=== PATIENT | female | born 1975 | race Two or more races ===

== ENCOUNTER → 2020-03-19 11:04 | Outpatient (BNVA) | payer OTHER, SELFPAY | PROVIDERS: PCP Physician Assistant; Referring Provider Physician Assistant; Visit Provider Family Medicine Adult Medicine | DX: M13.0 Polyarthritis, unspecified (principal); Z79.891 Long term (current) use of opiate analgesic | CPT/HCPCS: 99214 ==

== ENCOUNTER → 2020-04-16 10:20 | Outpatient (BNVA) | payer OTHER, SELFPAY | PROVIDERS: PCP Physician Assistant; Visit Provider Family Medicine Adult Medicine | DX: M13.0 Polyarthritis, unspecified (principal); Z79.891 Long term (current) use of opiate analgesic | CPT/HCPCS: 99212 ==

== ENCOUNTER → 2020-04-24 10:44 | Outpatient (BNVA) | payer OTHER, SELFPAY | PROVIDERS: PCP Physician Assistant; Referring Provider Physician Assistant; Visit Provider Student in an Organized Health Care Education/Training Program | DX: M25.50 Pain in unspecified joint (principal) | CPT/HCPCS: 99212 ==

== ENCOUNTER → 2020-05-14 10:38 | Outpatient (BNVA) | payer OTHER, SELFPAY | PROVIDERS: PCP Internal Medicine; Visit Provider Family Medicine Adult Medicine | DX: M13.0 Polyarthritis, unspecified (principal); M25.50 Pain in unspecified joint | CPT/HCPCS: 99212 ==

== ENCOUNTER → 2020-06-11 12:27 | Outpatient (BNVA) | payer OTHER, SELFPAY | PROVIDERS: PCP Physician Assistant; Visit Provider Physician Assistant | DX: Z76.89 Persons encountering health services in other specified circumstances (principal) ==

== ENCOUNTER 2020-06-19 09:46 | Outpatient (REF) | payer OTHER, SELFPAY ==
[2020-06-19 11:03] LABS: Alanine Aminotransferase 9 U/L (0-31); Albumin Level 3.5 g/dL (3.5-5.0); Alkaline Phosphatase 110 U/L (39-117); Anion Gap 12 (12-20); Aspartate Amino Transferase 13 U/L (5-31); Blood Urea Nitrogen 11 mg/dL (9-16); Calcium 8.3 mg/dL (8.4-10.2); Carbon Dioxide 27 mmol/L (22-29); Chloride 100 mmol/L (96-108); Estimated Glomerular Filt Rate > 60; Glucose Random 85 mg/dL (60-115); Lipase 51 U/L (8-78); Potassium 3.6 mmol/l (3.3-5.1); Sodium 135 mmol/L (135-145); Total Protein 6.2 g/dL (6.5-8.0)
[2020-06-19 11:05] LABS: HCG Quantitative < 2 mIU/mL
[2020-06-19 11:25] LABS: Bilirubin Total < 0.2 mg/dL (0.0-1.0)
[2020-06-22 13:38] LABS: Alpha 1 Anti-trypsin 221 mg/dL (83-199)
== END 2020-06-19 09:47 | disposition home or self-care (01) ==
LOC: HO.LAB 09:46
PROVIDERS: PCP Physician Assistant; Visit Provider Physician Assistant
DX: R11.0 Nausea (principal); R10.9 Unspecified abdominal pain; R10.11 Right upper quadrant pain
CPT/HCPCS: 36415; 80053; 82103; 83690; 84702

== ENCOUNTER 2020-07-01 08:27 | Outpatient (REF) | payer OTHER, SELFPAY ==
--- NOTE | 2020-07-01 08:36 | US_ITS ---
EXAMINATION: US COMPLETE ABDOMEN WITH LIVER ELASTOGRAPHY CLINICAL INFORMATION: Abdominal pain. Abnormal LFTs. COMPARISON: None. TECHNIQUE: Real-time imaging of the abdominal viscera. Noninvasive ultrasound liver fibrosis assessment is performed using [facility]ast[facility] point quantification shear wave elastography (pSWE) with a 5 MHz transducer. Multiple elastography samples are obtained. FINDINGS: PANCREAS: The visualized pancreatic head and body are normal in appearance. The remainder of the pancreas is obscured from visualization by the overlying bowel gas. There is anechoic with well-defined round cysts in between the pancreas and the posterior wall of the stomach, suspicious for a pseudocyst. It is new since the previous MRI abdomen 03/01/2020 exam. Differential diagnosis may include gastric diverticulum. It measures approximately 8.1 x 5.7 x 5.6 cm. ABDOMINAL AORTA: The proximal, middle, and distal aortic segments are normal in caliber. INFERIOR VENA CAVA: Visualized portions are normal. LIVER: The liver demonstrates normal size, contour and mild increased echogenicity. The right hepatic anechoic cyst measuring 0.8 x 0.9 x 0.8 cm. No additional lesions seen. There is mild intrahepatic ductal dilatation. The right lobe measures 16.6 cm in length. The left lobe measures 11.0 cm in length. Normal hepatopedal flow seen in middle portal vein on Doppler exam. Shear wave elastography provides a median stiffness of 2.42 m/s (reference: normal median stiffness is 0.81 - 1.22 m/s). The IQR/median stiffness to assess sampling precision is 0.13 (reference: optimal IQR/median stiffness is under 0.3). GALLBLADDER: The gallbladder has been surgically removed. COMMON BILE DUCT: Normal in caliber measuring 1.3 cm in diameter. RIGHT KIDNEY: There is an echogenic stone in lower pole measuring 0.5 x 0.6 x 0.4 cm and a second lower pole echogenic stone measuring 0.3 x 0.2 x 0.3 cm. No hydronephrosis. No renal calculi or focal parenchymal lesions. The kidney measures 12.6 cm in maximum dimension. LEFT KIDNEY: No hydronephrosis. There is an echogenic linear area with shadowing, question calcification versus stone. The kidney measures 12.1 cm in maximum dimension. SPLEEN: Normal. The spleen measures 10.0 cm in maximum dimension. FREE FLUID: None. US/US abdomen comp w elastography IMPRESSION: Echogenic liver with a right hepatic lobe cyst. Mild intrahepatic ductal dilatation. Anechoic cyst in between the posterior wall of stomach and body of the pancreas question pseudocyst versus gastric diverticulum. It is new compared to last MRI abdomen 03/01/2020. Echogenic nonobstructive stone lower pole right kidney and a few scattered linear calcifications in the left kidney without shadowing, likely vascular calcifications. 2. Elastography: [id number] fibrosis.
== END 2020-07-01 08:28 | disposition home or self-care (01) ==
LOC: HO.US 08:27
PROVIDERS: Visit Provider Internal Medicine Gastroenterology
DX: R10.9 Unspecified abdominal pain (principal)
CPT/HCPCS: 76705; 76981

== ENCOUNTER → 2020-07-16 09:59 | Outpatient (BNVA) | payer OTHER, SELFPAY | PROVIDERS: PCP Internal Medicine; Referring Provider Internal Medicine; Visit Provider Family Medicine Adult Medicine | DX: M25.50 Pain in unspecified joint (principal); Z79.891 Long term (current) use of opiate analgesic | CPT/HCPCS: 99212 ==

== ENCOUNTER 2020-07-21 08:01 | Outpatient (REF) | payer OTHER, SELFPAY ==
--- NOTE | ~2020-07-21 | MR_ITS ---
EXAMINATION: MR ABDOMEN WITHOUT AND WITH CONTRAST CLINICAL INFORMATION: Pseudocyst of pancreas. COMPARISON: Previous ultrasound of the abdomen 07/01/2020, MRI of the abdomen 03/09/[address] of the abdomen and pelvis February 2020. TECHNIQUE: MR abdomen was performed without and with use of 5 mL intravenous Gadavist gadolinium contrast. Dynamic images following intravenous contrast were obtained. Imaging was performed in 3 planes. MRCP sequences were also performed. FINDINGS: LUNG BASES: The visualized lung bases are unremarkable. LIVER, GALLBLADDER, AND BILIARY TREE: There is slight signal loss in the liver on [id number] sequences suggestive of mild fatty infiltration. The liver is normal in size and contour. There are 2 small cysts seen in the medial segment of the left lobe of the liver measuring 6 mm and 10 mm that are unchanged. No other focal liver lesion is seen. The gallbladder has been removed. There is intrahepatic and extrahepatic biliary duct dilatation. The common bile duct measures 1.2 cm and is dilated down to the pancreas where it gradually tapers. No common bile duct stone is seen. PANCREAS: There is a 9 x 11 mm simple appearing cyst in the body of the pancreas that is unchanged. There may be a small sidebranch duct that communicates with the main pancreatic duct, for example axial image 15 series 5. There is a new 4.5 x 3.3 x 4.3 cm cyst superior to the tail of the pancreas and inferior to the stomach. This has an inferior contour abnormality or outpouching that abuts and may communicate with the main pancreatic duct in the tail of the pancreas. This has a slightly thickened wall with wall enhancement. No solid component is seen. This is new from previous exam February 2020 and would be consistent with a pseudocyst related to pancreatitis. There is question of a second smaller pseudocyst in the splenic hilum measuring 1 x 3 cm as described below. The remainder of the pancreas is unremarkable. The main pancreatic duct does not appear dilated. SPLEEN: There is a small amount of fluid seen adjacent to the spleen/ascites. There is a 1 x 3 cm fluid collection in the splenic hilum that abuts the larger fluid collection adjacent to the tail of the pancreas and stomach. It is possible this represents a loculated fluid collection or a small pseudocyst as opposed to ascitic fluid. There is a small splenule adjacent to the inferior posterior spleen measuring 7 mm that is unchanged. The spleen is otherwise unremarkable. ADRENAL GLANDS: Normal KIDNEYS AND URETERS: The kidneys are normal in size, shape, and enhance symmetrically. No hydronephrosis. No perinephric stranding. GASTROINTESTINAL TRACT: No bowel obstruction. There is trace ascites adjacent to the spleen, inferior liver and in the left paracolic gutter. ABDOMINAL WALL: No significant hernia is appreciated. LYMPH NODES: No lymphadenopathy. VASCULAR: Unremarkable OSSEOUS STRUCTURES: Marrow signal normal. MR/MR abdomen wo/w con IMPRESSION: New 3 x 4 x 5 mm cyst adjacent to the tail the pancreas and stomach probably representing a pancreatic pseudocyst. This has an outpouching that may communicate with the main pancreatic duct in the tail of the pancreas. Probable smaller adjacent loculated fluid collection or pseudocyst in the splenic hilum measuring 1 x 3 cm. Stable appearing 9 x 11 mm cyst in the body of the pancreas from previous exam. This may communicate with the main pancreatic duct as well. Trace ascites. Stable intrahepatic and extrahepatic biliary duct dilatation. Post cholecystectomy. Mild fatty infiltration of the liver. Stable liver cysts.
== END 2020-07-21 08:02 | disposition home or self-care (01) ==
LOC: HO.MRI 08:01
PROVIDERS: Visit Provider Internal Medicine Gastroenterology
DX: K86.3 Pseudocyst of pancreas (principal); R10.9 Unspecified abdominal pain
CPT/HCPCS: 74183; A9585

== ENCOUNTER → 2020-08-11 09:47 | Outpatient (BNVA) | payer OTHER, SELFPAY | PROVIDERS: PCP Physician Assistant; Visit Provider Family Medicine Adult Medicine | DX: M13.0 Polyarthritis, unspecified (principal); M25.50 Pain in unspecified joint; R10.10 Upper abdominal pain, unspecified; M79.18 Myalgia, other site; G89.29 Other chronic pain; Z79.899 Other long term (current) drug therapy | CPT/HCPCS: 99212 ==

== ENCOUNTER → 2020-09-15 09:38 | Outpatient (BNVA) | payer OTHER, SELFPAY | PROVIDERS: PCP Physician Assistant; Visit Provider Internal Medicine Gastroenterology ==

== ENCOUNTER 2020-09-28 09:41 | Outpatient (REF) | payer OTHER, SELFPAY ==
[2020-09-28 10:14] LABS: MANUAL DIFF FLAG NO
[2020-09-28 10:23] LABS: Basophils Absolute Auto 0.1 X10*3/uL (0.0-0.2); Basophils Percent Auto 0.7 % (0-2); Eosinophils Absolute Auto 0.3 X10*3/uL (0.0-0.4); Eosinophils Percent Auto 3.1 % (0-4); Hematocrit 38.1 % (37-47); Hemoglobin 12.7 g/dl (12.0-16.0); Imm Gran Abs Auto 0.03 X10*3/uL (0.00-0.03); Imm Gran Pct Auto 0.3 % (0.0-0.4); Lymphocytes Absolute Auto 3.2 X10*3/uL (1.2-4.9); Lymphocytes Percent Auto 36.8 % (20-40); Mean Corpuscular HGB Conc 33.3 g/dl (31.0-35.0); Mean Corpuscular Hemoglobin 30.3 pg (27.0-33.0); Mean Corpuscular Volume 90.9 fL (80-98); Monocytes Absolute Auto 0.5 X10*3/uL (0.1-1.2); Monocytes Percent Auto 5.7 % (2-11); Neutrophils Absolute Auto 4.6 X10*3/uL (2.0-8.3); Neutrophils Percent Auto 53.4 % (45-73); Platelet Count 373 X10*3/uL (160-400); Red Blood Count 4.19 X10*6/uL (4.20-5.50); Red Cell Distribution Width 15.1 % (11.0-16.0); White Blood Count 8.6 X10*3/uL (4.8-10.8)
[2020-09-28 10:45] LABS: Alanine Aminotransferase 25 U/L (0-31); Albumin Level 4.2 g/dL (3.5-5.0); Alkaline Phosphatase 198 U/L (39-117); Anion Gap 16 (12-20); Aspartate Amino Transferase 21 U/L (5-31); Bilirubin Total 0.5 mg/dL (0.0-1.0); Blood Urea Nitrogen 10 mg/dL (9-16); C Reactive Protein 2.31 mg/dL (< or = 0.50); Calcium 9.3 mg/dL (8.4-10.2); Carbon Dioxide 23 mmol/L (22-29); Chloride 97 mmol/L (96-108); Cholesterol 175 mg/dL; Estimated Glomerular Filt Rate > 60; Glucose Fasting 96 mg/dL (60-99); HDL Cholesterol 39 mg/dL; Iron 52 mcg/dL (30-160); LDL Cholesterol Calculated 117 mg/dl; Percent Iron Saturation 13 % (15-50); Potassium 3.5 mmol/L (3.3-5.1); Sodium 132 mmol/L (135-145); Total Iron Binding Capacity 409 mcg/dL (228-428); Total Protein 7.2 g/dL (6.5-8.0); Triglycerides 95 mg/dL; Unsaturated Iron Binding 357 ug/dL
[2020-09-28 11:03] LABS: Erythrocyte Sedimentation Rate 41 MM/HR (0-20)
[2020-09-28 11:06] LABS: TSH reflex Free T4 2.52 uIU/mL (0.32-4.0)
[2020-09-28 11:07] LABS: Ferritin 92 ng/mL (10-250)
[2020-09-28 11:32] LABS: Folate 10.6 ng/mL (> or = 4.0); Vitamin B12 408 pg/mL (200-900)
[2020-09-29 14:31] LABS: Immunoglobulin G Subclass 1 466 mg/dL (382-929); Immunoglobulin G Subclass 2 139 mg/dL (241-700); Immunoglobulin G Subclass 3 29 mg/dL (22-178); Immunoglobulin G Subclass 4 13.5 mg/dL (4-86); Immunoglobulin G Total 738 mg/dL (600-1640)
[2020-09-29 14:56] LABS: Transglutaminase Ab IgG 1 U/mL; Transglutaminase IgA 1 U/mL
[2020-09-30 00:06] LABS: Anti Nuclear Antibody Pattern Nuclear, Speckled; Anti Nuclear Antibody Screen POSITIVE (NEGATIVE)
[2020-10-02 06:31] LABS: Aldolase 1.6 U/L (<=8.1)
== END 2020-09-28 09:42 | disposition home or self-care (01) ==
LOC: HO.LAB 09:41
PROVIDERS: Physician Assistant; Absent Provider Physician Assistant; PCP Physician Assistant; Visit Provider Internal Medicine Gastroenterology
DX: Z13.220 Encounter for screening for lipoid disorders (principal); R10.9 Unspecified abdominal pain; M79.18 Myalgia, other site; R10.33 Periumbilical pain; G89.29 Other chronic pain; R79.82 Elevated C-reactive protein (CRP); M13.0 Polyarthritis, unspecified; K86.3 Pseudocyst of pancreas; M25.50 Pain in unspecified joint; D50.9 Iron deficiency anemia, unspecified; I10 Essential (primary) hypertension
CPT/HCPCS: 36415; 80053; 80061; 82085; 82550; 82607; 82728; 82746; 82784; 83516; 83540; 84443; 85025; 85652; 86038; 86039; 86140

== ENCOUNTER 2020-09-30 09:56 | Outpatient (REF) | payer OTHER, SELFPAY ==
--- NOTE | ~2020-09-30 | MR_ITS ---
EXAMINATION: MRI ABDOMEN WITHOUT AND WITH CONTRAST CLINICAL INFORMATION: Upper abdomen pain. Previous MRI demonstrated cystic lesions in or near the pancreas. Patient questionnaire indicates recurring pancreatitis. Left-sided pain. Weight loss COMPARISON: Selected portions of a previous study 07/21/2020 TECHNIQUE: Anatomic and fluid sensitive MR sequences were used to examine the abdomen. Imaging before and after the IV administration of 5.5 mL of Gadavist. MRCP was performed. FINDINGS: LIVER: The right lobe of the liver measures 16.4 cm. This is within normal limits. The gallbladder is surgically absent. BILIARY TRACT: The common duct measures at least 1.3 cm. No choledocholithiasis. The duct tapers to normal at the ampulla. The ampulla protrudes slightly into the duodenum. There is mild dilation of the intrahepatic bile ducts. SPLEEN: The spleen measures approximately 8.7 cm. No suspicious abnormality. PANCREAS: There is a well-defined fluid signal collection in the left upper quadrant displacing the stomach ventrally and superiorly which measures 12.2 x 10.1 x 12.3 cm. There is mural irregularity. There appears to be a perceptible wall. On 07/21/2020 this measured 5.1 x 4.0 x 5.0 cm. There has been definite interval increase in size. This collection does not definitely communicate with the main pancreatic duct. ADRENAL GLANDS: No suspicious mass. KIDNEYS: There is no dilation of the urinary collecting system on either side. The renal contours are slightly lobular. GASTROINTESTINAL TRACT: Not optimally evaluated. Multiple fluid-filled mildly dilated small bowel loops. ABDOMINAL WALL: No significant hernia is appreciated. LYMPHOVASCULAR STRUCTURES AND FLUID: There is no abdominal aortic aneurysm. The splenic artery enhances centrally. The portal vein enhances. At least some of the splenic vein enhances. No measurable adenopathy. MUSCULOSKELETAL: No acute or suspicious osseous abnormality. VISUALIZED LOWER CHEST: No suspicious abnormality in the visualized lower chest. MR/MR abdomen wo/w con IMPRESSION: Enlarging thick walled mildly irregular left upper quadrant cyst which now measures over 10 cm. This may represent a pseudocyst. Extrahepatic biliary dilation similar to the previous study. No dilation of the main pancreatic duct.
== END 2020-09-30 09:57 | disposition home or self-care (01) ==
LOC: HO.MRI 09:56
PROVIDERS: Visit Provider Internal Medicine Gastroenterology
DX: R10.10 Upper abdominal pain, unspecified (principal); K86.3 Pseudocyst of pancreas
CPT/HCPCS: 74183; A9585

== ENCOUNTER 2021-01-24 02:20 | Inpatient (IN) | payer OTHER, SELFPAY ==
[2021-01-24] VITALS (11 sets, daily range): BP systolic 123–202; BP diastolic 72–105; PULSE 51–77; RESP 14–19; TEMP 36.4–37.1; O2SAT 94–100; BMI 21.4
--- NOTE | ~2021-01-24 | CT_ITS ---
EXAMINATION: CT HEAD WITHOUT CONTRAST CLINICAL INFORMATION: New onset seizures COMPARISON: None. TECHNIQUE: Contiguous axial imaging was performed from the skull base to vertex without intravenous contrast. This CT examination was performed using dose optimization techniques as appropriate, variously including the following: * Automated exposure control * Adjustment of mA and/or kV according to patient size (this includes techniques or standardized protocols for targeted exams where dose is matched to indication/reason for exam; i.e. extremities or head) Use of iterative reconstruction technique DLP: 607 mGy-cm. FINDINGS: There is no evidence of acute intracranial hemorrhage or territorial infarction. No abnormal mass effect or midline shift is seen. Conley to white matter differentiation is well preserved. No extra-axial fluid collections are identified. No hydrocephalus. No significant volume loss. There is no abnormal attenuation within the brain parenchyma. The osseous structures and soft tissues are normal. The mastoid air cells and visualized portions of the paranasal sinuses are well aerated. CT/CT head/brain wo IV con IMPRESSION: No acute intracranial pathology.
--- NOTE | 2021-01-24 02:40 | ED_ITS ---
HPI - General Adult General Chief complaint: Seizure Stated complaint: seizure Time Seen by Provider: 01/24/21 02:40 Source: family () Mode of arrival: EMS History of Present Illness HPI narrative: This is a 45-year-old female with past medical history hypertension, chronic pain, pseudocyst of the pancreas, liver fibrosis which on review of documentation seems to be secondary to alcohol use. Patient is brought in by EMS from home with her after he observed what appeared to be seizure-like activity and stated that the 1st seizure occurred approximately 11 30 this evening as they were getting ready for bed. The seizure occurred while the patient was in bed and was shortly after the patient had been in the bathroom were she had some nausea with vomiting. The states that he noticed his was looking off into the distance and then noticed some eye twitching and then she became stiff with foaming at the mouth and he had been initially concerned that she may be vomiting and had tried to open her mouth un successfully. The seizure stopped and lasted less than 2 minutes. Then patient had another seizure approximately an hour later while they were sitting on the couch. describes the day as uneventful, they had had ?a few drinks and he states that his had approximately 4 drinks?. He said that they both ate the same food that evening, denies any recent travel, denies any recent medicat ions and denies regular alcohol use. In addition, the denies any recent fevers, chills, exposure to mosquitos, tics. When patient is asked regarding the events she cannot recall them and denies any previous seizure history. However, he does endorse that she was seen 2 months ago with [facility] for procedure and at that time she was found in the bathroom unresponsive. The patient has stopped taking all of her medications with the exception of ibuprofen, gabapentin, and Creon. On further questioning, the patient denies having stopped gabapentin, she denies dizziness/headache, or neck pain. Related Data Home Medications Medication Instructions Recorded Confirmed [id number] 2 cap PO TID 01/24/21 01/24/21 12,000-38,000-60,000 unit capsule,delayed rel (Creon) Previous Rx's Medication Instructions Recorded gabapentin 800 mg tablet 800 mg PO Q6H 90 Days #360 tab 11/02/20 ibuprofen 800 mg tablet 800 mg PO Q8H 30 Days #90 tab 11/02/20 clonidine HCl 0.2 mg tablet 0.2 mg PO TID 10 Days #30 tab 12/09/20 Allergies Allergy/AdvReac Type Severity Reaction Status Date / Time Penicillins [PENICILLINS] Allergy Severe ANAPHYLAXIS Verified 01/24/21 02:36 codeine Allergy Intermediate vomiting Verified 01/24/21 02:36 morphine Allergy Intermediate itchiness Verified 01/24/21 02:36 Sulfa (Sulfonamide Allergy Intermediate diarrh Verified 01/24/21 02:36 Antibiotics) tramadol Allergy Intermediate Vomiting Verified 01/24/21 02:36 duloxetine [Cymbalta] AdvReac Unknown increased Verified 01/24/21 02:36 depression Review of Systems Review of Systems: Pertinent positives and negatives as stated in HPI and 10 point review of systems is otherwise negative as per the . PMFSH Past Medical History Source: nursing notes reviewed Medical History Abdominal pain Anxiety Chronic musculoskeletal pain Depression Polyarthritis Transaminitis Surgical History History of cholecystectomy Family History Family History Maternal Grandmother Cancer Mother HTN (hypertension) Father HTN (hypertension) Social History Social History Household Members: Spouse and Children Alcohol intake: current Alcohol intake frequency: former alcohol drinker Cigarette Packs Per Day: 1 Cigarettes Per Day: 20.0 Years Smoked: 28 Advance Directives: No Advance Directives Information Provided: No Patient : No Physical Exam Vital Signs: Vital Signs: Last Vital Signs Temp 98.5 F 01/24/21 02:30 Pulse 62 01/24/21 06:28 Resp 16 01/24/21 06:28 BP 134/84 01/24/21 06:28 Pulse Ox 97 01/24/21 06:28 Body Mass Index 21.4 VITAL SIGNS: Reviewed. GENERAL: Well developed, well nourished, in no acute distress. HEAD: Normocephalic/atraumatic EYES: PERRLA, EOMI intact without pain, no nystagmus OROPHARYNX: no oral lesions noted, posterior pharynx clear and non-erythematous without noted tonsillar enlargement/erythema/exudates NECK: Supple, no adenopathy, no neck pain LUNGS: Normal breath sounds. No adventitious sounds or accessory muscle use. SpO2<98> CARDIOVASCULAR: Regular rate and rhythm without noted murmurs ABDOMEN: Soft, non-tender, non-distended with bowel sounds. MUSCULOSKELETAL: No tenderness, deformities, or effusions noted on gross inspection. EXTREMITIES: No cyanosis, clubbing or edema. SKIN: Inspection of the skin reveals no rashes, ulcerations, jaundice, pallor, or petechiae. NEUROLOGIC: Drowsy and oriented x 3. Strength and sensation to light touch were grossly intact x 4, no pronator drift, cranial nerves 2-12 are grossly intact Course Course Course Narrative: 45-year-old female with history and clinical presentation concerning for new onset seizures of unclear etiology. There is not appear to be evidence within the history of contaminated food, insect exposure, recent illness that would better explain patient's presentation. Although patient did stop taking other prescribed medications that was 2 months ago and is unlikely to be a factor at this time. Suspicion for alcohol withdrawal seizures remains on the differential despite stating that his does not drink on a regular basis as review of documents clearly outlined that patient has a history of being a heavy drinker but had self endorsed that she has decreased her alcohol intake and at this time is noted to not have alcohol present in her system. CT scan negative for intracranial pathologies, no evidence to suggest infection. And although entertained the idea of obtaining an LP this is unlikely to yield significant information given the fact that patient is not encephalopathic/she is afebrile/there is no inciting event or source. Patient did have an additional seizure while here in the emergency room that lasted less than 2 minutes where patient became very stiff and was noted to be foaming at the mouth but there was minimal tonic colonic movement and the seizure spontaneously resolved, however patient was provided with 1 mg of Ativan and is currently resting comfortably. Review of remaining investigations without significant findings. Discussed the case with neurology who recommended LP, Keppra loading, MRI, and EEG on Monday. Patient was loaded with Keppra and LP was completed. The case with inpatient team who accepts admission. Of note, on further investigation patient was evaluated for similar event that happened at [facility] in October and according to discharge summary EEG was completed and found to be negative for any epileptiform activities and MRI only significant for a small area of cystic encephalomalacia with gliosis in the superior right parietal lobe . Medical Decision Making Lab Data Result diagrams: 01/24/21 02:46 01/24/21 02:46 Labs: Lab Results 01/24/21 01/24/21 01/24/21 Range/Units 02:46 02:46 02:46 WBC 6.9 (4.8-10.8) X10*3/uL RBC 4.04 L (4.20-5.50) X10*6/uL Hgb 12.7 (12.0-16.0) g/dl Hct 36.6 L (37-47) % MCV 90.6 (80-98) fL MCH 31.4 (27.0-33.0) pg MCHC 34.7 (31.0-35.0) g/dl RDW 13.6 (11.0-16.0) % Plt Count 231 D (160-400) X10*3/uL MPV 9.5 (9.4-12.3) fL Immature Gran % (Auto) 0.3 (0.0-0.4) % Neut % (Auto) 78.2 H (45-73) % Lymph % (Auto) 16.7 L (20-40) % [place] % (Auto) 4.5 (2-11) % Eos % (Auto) 0.0 (0-4) % Baso % (Auto) 0.3 (0-2) % Lymph # (Auto) 1.2 (1.2-4.9) X10*3/uL [place] # (Auto) 0.3 (0.1-1.2) X10*3/uL Eos # (Auto) 0.0 (0.0-0.4) X10*3/uL Baso # (Auto) 0.0 (0.0-0.2) X10*3/uL Abs Immat Gran (auto) 0.02 (0.00-0.03) X10*3/uL Absolute Neuts (auto) 5.4 (2.0-8.3) X10*3/uL Absolute Nucleated RBC 0.000 (0.0-0.012) X10*3/uL Nucleated RBC % (auto) 0.0 (0.0-0.2) /100WBC ESR (0-20) MM/HR Sodium 130 L (135-145) mmol/L Potassium 3.4 (3.3-5.1) mmol/L Chloride 93 L (96-108) mmol/L Carbon Dioxide 24 (22-29) mmol/L Anion Gap 16 (12-20) BUN 9 (9-16) mg/dL Creatinine 0.90 (0.5-1.4) mg/dL Estim Creat Clear Calc 68.1 Estimated GFR > 60 Random Glucose 244 H D (60-115) mg/dL Lactic Acid (0.5-2.0) mmol/L Lactic Acid Fup @ 2Hr (0.5-2.0) mmol/L Calcium 9.7 (8.4-10.2) mg/dL Magnesium 1.6 (1.6-2.6) mg/dL Total Bilirubin 0.4 (0.0-1.0) mg/dL AST 26 (5-31) U/L ALT 26 (0-31) U/L Alkaline Phosphatase 139 H D (39-117) U/L Ammonia (13-55) umol/L C-Reactive Protein 0.10 (< or = 0.50) mg/dL Total Protein 7.1 (6.5-8.0) g/dL Albumin 4.4 (3.5-5.0) g/dL Lipase 15 (8-78) U/L TSH 2.76 (0.32-4.0) uIU/mL Urine Color Urine Appearance Urine pH (5.0-8.0) Ur Specific [place] (1.005-1.025) Urine Protein (NEG-TRACE) MG/DL Urine Glucose (UA) (NEG) MG/DL Urine Ketones (NEG) MG/DL Urine Blood (NEG) Urine Nitrite (NEG) Ur Leukocyte Esterase (NEG) Urine RBC (0) /HPF Urine WBC (0-4) /HPF Ur Squamous Epith Cells /LPF Urine Bacteria /LPF Salicylates < 5.0 L (15-30) mg/dL Urine Opiates Screen (Not Detect) Urine Fentanyl Screen (Not Detect) Acetaminophen < 1 (<30) mcg/mL Ur Barbiturates Screen (Not Detect) Ur Phencyclidine Scrn (Not Detect) Ur Amphetamines Screen (Not Detect) U Benzodiazepines Scrn (Not Detect) Urine Cocaine Screen (Not Detect) U Marijuana (THC) Screen (Not Detect) Ethyl Alcohol < 10 mg/dL COVID-19 ([facility]) (Negative) COVID-19 Clin Com 01/24/21 01/24/21 01/24/21 Range/Units 02:46 03:02 03:02 WBC (4.8-10.8) X10*3/uL RBC (4.20-5.50) X10*6/uL Hgb (12.0-16.0) g/dl Hct (37-47) % MCV (80-98) fL MCH (27.0-33.0) pg MCHC (31.0-35.0) g/dl RDW (11.0-16.0) % Plt Count (160-400) X10*3/uL MPV (9.4-12.3) fL Immature Gran % (Auto) (0.0-0.4) % Neut % (Auto) (45-73) % Lymph % (Auto) (20-40) % [place] % (Auto) (2-11) % Eos % (Auto) (0-4) % Baso % (Auto) (0-2) % Lymph # (Auto) (1.2-4.9) X10*3/uL [place] # (Auto) (0.1-1.2) X10*3/uL Eos # (Auto) (0.0-0.4) X10*3/uL Baso # (Auto) (0.0-0.2) X10*3/uL Abs Immat Gran (auto) (0.00-0.03) X10*3/uL Absolute Neuts (auto) (2.0-8.3) X10*3/uL Absolute Nucleated RBC (0.0-0.012) X10*3/uL Nucleated RBC % (auto) (0.0-0.2) /100WBC ESR 3 (0-20) MM/HR Sodium (135-145) mmol/L Potassium (3.3-5.1) mmol/L Chloride (96-108) mmol/L Carbon Dioxide (22-29) mmol/L Anion Gap (12-20) BUN (9-16) mg/dL Creatinine (0.5-1.4) mg/dL Estim Creat Clear Calc Estimated GFR Random Glucose (60-115) mg/dL Lactic Acid (0.5-2.0) mmol/L Lactic Acid Fup @ 2Hr (0.5-2.0) mmol/L Calcium (8.4-10.2) mg/dL Magnesium (1.6-2.6) mg/dL Total Bilirubin (0.0-1.0) mg/dL AST (5-31) U/L ALT (0-31) U/L Alkaline Phosphatase (39-117) U/L Ammonia (13-55) umol/L C-Reactive Protein (< or = 0.50) mg/dL Total Protein (6.5-8.0) g/dL Albumin (3.5-5.0) g/dL Lipase (8-78) U/L TSH (0.32-4.0) uIU/mL Urine Color STRAW Urine Appearance CLEAR Urine pH 6.0 (5.0-8.0) Ur Specific [place] 1.010 (1.005-1.025) Urine Protein TRACE (NEG-TRACE) MG/DL Urine Glucose (UA) 100 H (NEG) MG/DL Urine Ketones NEG (NEG) MG/DL Urine Blood 1+ H (NEG) Urine Nitrite NEG (NEG) Ur Leukocyte Esterase NEG (NEG) Urine RBC 0-2 (0) /HPF Urine WBC 0 (0-4) /HPF Ur Squamous Epith Cells TRACE /LPF Urine Bacteria NONE /LPF Salicylates (15-30) mg/dL Urine Opiates Screen Not Detected (Not Detect) Urine Fentanyl Screen Not Detected (Not Detect) Acetaminophen (<30) mcg/mL Ur Barbiturates Screen Not Detected (Not Detect) Ur Phencyclidine Scrn Not Detected (Not Detect) Ur Amphetamines Screen Not Detected (Not Detect) U Benzodiazepines Scrn Not Detected (Not Detect) Urine Cocaine Screen Not Detected (Not Detect) U Marijuana (THC) Screen Not Detected (Not Detect) Ethyl Alcohol mg/dL COVID-19 ([facility]) (Negative) COVID-19 Clin Com 01/24/21 01/24/21 01/24/21 Range/Units 03:26 03:26 03:26 WBC (4.8-10.8) X10*3/uL RBC (4.20-5.50) X10*6/uL Hgb (12.0-16.0) g/dl Hct (37-47) % MCV (80-98) fL MCH (27.0-33.0) pg MCHC (31.0-35.0) g/dl RDW (11.0-16.0) % Plt Count (160-400) X10*3/uL MPV (9.4-12.3) fL Immature Gran % (Auto) (0.0-0.4) % Neut % (Auto) (45-73) % Lymph % (Auto) (20-40) % [place] % (Auto) (2-11) % Eos % (Auto) (0-4) % Baso % (Auto) (0-2) % Lymph # (Auto) (1.2-4.9) X10*3/uL [place] # (Auto) (0.1-1.2) X10*3/uL Eos # (Auto) (0.0-0.4) X10*3/uL Baso # (Auto) (0.0-0.2) X10*3/uL Abs Immat Gran (auto) (0.00-0.03) X10*3/uL Absolute Neuts (auto) (2.0-8.3) X10*3/uL Absolute Nucleated RBC (0.0-0.012) X10*3/uL Nucleated RBC % (auto) (0.0-0.2) /100WBC ESR (0-20) MM/HR Sodium (135-145) mmol/L Potassium (3.3-5.1) mmol/L Chloride (96-108) mmol/L Carbon Dioxide (22-29) mmol/L Anion Gap (12-20) BUN (9-16) mg/dL Creatinine (0.5-1.4) mg/dL Estim Creat Clear Calc Estimated GFR Random Glucose (60-115) mg/dL Lactic Acid 9.2 H* (0.5-2.0) mmol/L Lactic Acid Fup @ 2Hr (0.5-2.0) mmol/L Calcium (8.4-10.2) mg/dL Magnesium (1.6-2.6) mg/dL Total Bilirubin (0.0-1.0) mg/dL AST (5-31) U/L ALT (0-31) U/L Alkaline Phosphatase (39-117) U/L Ammonia 29 (13-55) umol/L C-Reactive Protein (< or = 0.50) mg/dL Total Protein (6.5-8.0) g/dL Albumin (3.5-5.0) g/dL Lipase (8-78) U/L TSH (0.32-4.0) uIU/mL Urine Color Urine Appearance Urine pH (5.0-8.0) Ur Specific [place] (1.005-1.025) Urine Protein (NEG-TRACE) MG/DL Urine Glucose (UA) (NEG) MG/DL Urine Ketones (NEG) MG/DL Urine Blood (NEG) Urine Nitrite (NEG) Ur Leukocyte Esterase (NEG) Urine RBC (0) /HPF Urine WBC (0-4) /HPF Ur Squamous Epith Cells /LPF Urine Bacteria /LPF Salicylates (15-30) mg/dL Urine Opiates Screen (Not Detect) Urine Fentanyl Screen (Not Detect) Acetaminophen (<30) mcg/mL Ur Barbiturates Screen (Not Detect) Ur Phencyclidine Scrn (Not Detect) Ur Amphetamines Screen (Not Detect) U Benzodiazepines Scrn (Not Detect) Urine Cocaine Screen (Not Detect) U Marijuana (THC) Screen (Not Detect) Ethyl Alcohol mg/dL COVID-19 ([facility]) Negative (Negative) COVID-19 Clin Com See Note 01/24/21 Range/Units 06:23 WBC (4.8-10.8) X10*3/uL RBC (4.20-5.50) X10*6/uL Hgb (12.0-16.0) g/dl Hct (37-47) % MCV (80-98) fL MCH (27.0-33.0) pg MCHC (31.0-35.0) g/dl RDW (11.0-16.0) % Plt Count (160-400) X10*3/uL MPV (9.4-12.3) fL Immature Gran % (Auto) (0.0-0.4) % Neut % (Auto) (45-73) % Lymph % (Auto) (20-40) % [place] % (Auto) (2-11) % Eos % (Auto) (0-4) % Baso % (Auto) (0-2) % Lymph # (Auto) (1.2-4.9) X10*3/uL [place] # (Auto) (0.1-1.2) X10*3/uL Eos # (Auto) (0.0-0.4) X10*3/uL Baso # (Auto) (0.0-0.2) X10*3/uL Abs Immat Gran (auto) (0.00-0.03) X10*3/uL Absolute Neuts (auto) (2.0-8.3) X10*3/uL Absolute Nucleated RBC (0.0-0.012) X10*3/uL Nucleated RBC % (auto) (0.0-0.2) /100WBC ESR (0-20) MM/HR Sodium (135-145) mmol/L Potassium (3.3-5.1) mmol/L Chloride (96-108) mmol/L Carbon Dioxide (22-29) mmol/L Anion Gap (12-20) BUN (9-16) mg/dL Creatinine (0.5-1.4) mg/dL Estim Creat Clear Calc Estimated GFR Random Glucose (60-115) mg/dL Lactic Acid (0.5-2.0) mmol/L Lactic Acid Fup @ 2Hr 1.0 (0.5-2.0) mmol/L Calcium (8.4-10.2) mg/dL Magnesium (1.6-2.6) mg/dL Total Bilirubin (0.0-1.0) mg/dL AST (5-31) U/L ALT (0-31) U/L Alkaline Phosphatase (39-117) U/L Ammonia (13-55) umol/L C-Reactive Protein (< or = 0.50) mg/dL Total Protein (6.5-8.0) g/dL Albumin (3.5-5.0) g/dL Lipase (8-78) U/L TSH (0.32-4.0) uIU/mL Urine Color Urine Appearance Urine pH (5.0-8.0) Ur Specific [place] (1.005-1.025) Urine Protein (NEG-TRACE) MG/DL Urine Glucose (UA) (NEG) MG/DL Urine Ketones (NEG) MG/DL Urine Blood (NEG) Urine Nitrite (NEG) Ur Leukocyte Esterase (NEG) Urine RBC (0) /HPF Urine WBC (0-4) /HPF Ur Squamous Epith Cells /LPF Urine Bacteria /LPF Salicylates (15-30) mg/dL Urine Opiates Screen (Not Detect) Urine Fentanyl Screen (Not Detect) Acetaminophen (<30) mcg/mL Ur Barbiturates Screen (Not Detect) Ur Phencyclidine Scrn (Not Detect) Ur Amphetamines Screen (Not Detect) U Benzodiazepines Scrn (Not Detect) Urine Cocaine Screen (Not Detect) U Marijuana (THC) Screen (Not Detect) Ethyl Alcohol mg/dL COVID-19 ([facility]) (Negative) COVID-19 Clin Com ECG Data Attestation: I personally reviewed and interpreted this ECG as follows: Prior ECG tracings: available for review (02/21/2020) Interpretation: Normal sinus rhythm, HR-87, no STEMI, TX/QTC are within normal limits, QRS prolonged at 110 Discharge Plan Discharge Clinical Impression: Seizures Patient Disposition: Admitted As Inpatient Prescriptions: No Action gabapentin 800 mg tablet 800 mg PO Q6H 90 Days Qty: 360 RF: 1 ibuprofen 800 mg tablet 800 mg PO Q8H 30 Days Qty: 90 RF: 1 clonidine HCl 0.2 mg tablet 0.2 mg PO TID 10 Days Qty: 30 RF: 0 Creon 12,000-38,000 -60,000 unit capsule,delayed release(DR/EC) 2 cap PO TID RF: 0
[2021-01-24 02:52] LABS: MANUAL DIFF FLAG NO
[2021-01-24 02:54] LABS: Basophils Percent Auto 0.3 % (0-2); Hematocrit 36.6 % (37-47); Hemoglobin 12.7 g/dl (12.0-16.0); Imm Gran Abs Auto 0.02 X10*3/uL (0.00-0.03); Imm Gran Pct Auto 0.3 % (0.0-0.4); Lymphocytes Absolute Auto 1.2 X10*3/uL (1.2-4.9); Lymphocytes Percent Auto 16.7 % (20-40); Mean Corpuscular HGB Conc 34.7 g/dl (31.0-35.0); Mean Corpuscular Hemoglobin 31.4 pg (27.0-33.0); Mean Corpuscular Volume 90.6 fL (80-98); Mean Platelet Volume 9.5 fL (9.4-12.3); Monocytes Absolute Auto 0.3 X10*3/uL (0.1-1.2); Monocytes Percent Auto 4.5 % (2-11); Neutrophils Absolute Auto 5.4 X10*3/uL (2.0-8.3); Neutrophils Percent Auto 78.2 % (45-73); Platelet Count 231 X10*3/uL (160-400); Red Blood Count 4.04 X10*6/uL (4.20-5.50); Red Cell Distribution Width 13.6 % (11.0-16.0); White Blood Count 6.9 X10*3/uL (4.8-10.8)
--- NOTE | 2021-01-24 02:55 | PC.NURSE ---
IV established by EMS. Labs obtained. Pt assisted OOB and onto commode to provide urine sample. Ravindra ying.
[2021-01-24] MEDS: LORazepam 2 MG/ML VIAL 1 MG IVPUSH (03:05)
--- NOTE | 2021-01-24 03:05 | PC.NURSE ---
This RN at bedside assisting pt from the commode into bed when pt suddenly became rigid, was not responsive to stimuli, turned purple and began convulsing. MD at bedside. Pt lifted from commode into bed, positioned on right side, suctioned as needed, O2 applied. Pt medicated with 1 mg of Ativan per verbal order by MD. Pt now resting in bed with at bedside. Pt on O2 via NC @ 2 lpm. SZ pads applied as a precaution. Plan for CT and Keppra.
[2021-01-24 03:10] LABS: Glucose Urine UA 100 MG/DL (NEG); Leukocyte Esterase Urine NEG (NEG); Nitrite Urine NEG (NEG); UACC Culture Trigger NO; Urine Blood 1+ (NEG); Urine Ketones NEG (NEG); Urine Protein TRACE MG/DL (NEG-TRACE)
[2021-01-24 03:17] LABS: Ethanol < 10 mg/dL
[2021-01-24 03:22] LABS: Appearance Urine CLEAR; Color Urine STRAW
[2021-01-24 03:22] LABS: Acetaminophen LAB < 1 mcg/mL (<30); Alanine Aminotransferase 26 U/L (0-31); Albumin Level 4.4 g/dL (3.5-5.0); Alkaline Phosphatase 139 U/L (39-117); Anion Gap 16 (12-20); Aspartate Amino Transferase 26 U/L (5-31); Bilirubin Total 0.4 mg/dL (0.0-1.0); Blood Urea Nitrogen 9 mg/dL (9-16); Calcium 9.7 mg/dL (8.4-10.2); Carbon Dioxide 24 mmol/L (22-29); Chloride 93 mmol/L (96-108); Creatinine Clr Calc Pharmacy 68.1; Estimated Glomerular Filt Rate > 60; Glucose Random 244 mg/dL (60-115); Magnesium 1.6 mg/dL (1.6-2.6); Potassium 3.4 mmol/L (3.3-5.1); Sodium 130 mmol/L (135-145); Total Protein 7.1 g/dL (6.5-8.0)
[2021-01-24 03:23] LABS: RBC Urine 0-2 /HPF (0); Squamous Epithelial Cell Urine TRACE /LPF; WBC Urine 0 /HPF (0-4)
[2021-01-24 03:31] LABS: Amphetamine Screen Urine Not Detected (Not Detect); Barbiturates, Urine Not Detected (Not Detect); Benzodiazepines Screen Urine Not Detected (Not Detect); Cannabinoid Screen Urine Not Detected (Not Detect); Cocaine Screen Urine Not Detected (Not Detect); Fentanyl, urine Not Detected (Not Detect); Opiate Screen Urine Not Detected (Not Detect); Phencyclidine Screen Urine Not Detected (Not Detect)
[2021-01-24 03:34] LABS: Salicylate < 5.0 mg/dL (15-30)
--- NOTE | 2021-01-24 03:34 | PC.NURSE ---
Pt returns from CT on hospital bed. Second IV established. Additional labs including BCX, lactic and Covid obtained and sent. Continue to monitor.
--- NOTE | 2021-01-24 03:44 | PC.NURSE ---
Med Rec completed at bedside with pt.
[2021-01-24 03:49] LABS: COVID-19 Test Negative (Negative); IDNOW Serial# 9DD0AD1C
[2021-01-24 03:50] LABS: Ammonia 29 umol/L (13-55)
[2021-01-24 03:55] LABS: Thyroid Stimulating Hormone 2.76 uIU/mL (0.32-4.0)
[2021-01-24] MEDS: 0.9 % Sodium Chloride 1,000 ML 999 ML IV (04:07)
[2021-01-24 04:11] LABS: Lactic Acid 9.2 mmol/L (0.5-2.0)
[2021-01-24 04:15] LABS: Lipase 15 U/L (8-78)
[2021-01-24 05:32] LABS: Reflex Lactate? Lactic Acid Added
[2021-01-24] MEDS: levETIRAcetam in NaCl (iso-os) 1,500 MG/100 ML PIGGYBACK 400 MG IV (05:36)
--- NOTE | 2021-01-24 05:42 | PC.NURSE ---
Addendum entered by Amira Rodgers 01/24/21 05:43: Pt resting in bed, wakes easily to verbal stimuli. Assisted onto bedpan. Original Note: Keppra infusing per MAR. VSS. Plan for LP.
[2021-01-24 06:14] LABS: Erythrocyte Sedimentation Rate 3 MM/HR (0-20)
--- NOTE | 2021-01-24 06:27 | PC.NURSE ---
MD at bedside for LP. MD unsuccessful. Repeat latic obtained and sent.
--- NOTE | 2021-01-24 06:51 | PC.NURSE ---
Dr Spence at bedside for repeat LP.
--- NOTE | 2021-01-24 07:43 | ECG_ITS ---
Test Reason : SEIZURE Blood Pressure : / mmHG Vent. Rate : 087 BPM Atrial Rate : 087 BPM P-R Int : 150 ms QRS Dur : 110 ms QT Int : 362 ms P-R-T Axes : 043 043 036 degrees QTc Int : 435 ms Normal sinus rhythm Possible Left atrial enlargement Incomplete right bundle branch block Septal infarct , age undetermined Abnormal ECG When compared with ECG of 21-FEB-2020 00:27, Vent. rate has increased BY 39 BPM Septal infarct is now Present Non-specific change in ST segment in Anterior leads Referred By: Cait Molina Electronically Signed By:CORBY DING
--- NOTE | 2021-01-24 07:44 | PC.NURSE ---
pt is currently sleeping, respirations even and unlabored, ns on the monitor, vs stable, no seizure activity noticed at this time, seizure pads in place and suction set up
[2021-01-24 08:03] LABS: Glucose CSF 98 mg/dL
[2021-01-24 08:09] LABS: CSF Appearance Clear, Colorless; CSF Tube # 2; Total Protein CSF 51.7 mg/dL (15-45)
[2021-01-24 08:25] LABS: Appearance CSF CLEAR; CSF Monos 14 %; CSF Tube # 4; CSF Volume 0.5 ML; Color CSF COLORLESS; Lymphocytes CSF 86 %; Red Blood Cell CSF 1 MM*3; White Blood Cell CSF 2 MM*3
--- NOTE | 2021-01-24 08:35 | PC.NURSE ---
hospitalist at bedside evaluating pt
--- NOTE | 2021-01-24 10:02 | P.HPHOSP_ITS ---
History of Present Illness Date of Service: 01/24/21 <JON Nur - Last Filed: 01/24/21 11:08> Chief Complaint: seizure <JON Nur - Last Filed: 01/24/21 11:08> This is a 45-year-old female who was brought in by ambulance after displaying seizure-like activity. Patient was admitted to [facility] at the end of October for alcohol-induced pancreatitis. Was noted to have large pseudocyst in underwent transgastric aspiration of pseudocyst under general anesthesia. The following day she had a code blue called after she was found face down on the floor in her bathroom. She was evaluated by Neurology over concern for possible seizure. She had a brain MRI which showed no acute intracranial abnormality. There is a small area of cystic encephalomalacia with gliosis in the superior right parietal lobe near the vertex with no enhancing lesions. She had an EEG which was negative for any epileptiform activities. She was evaluated by Neurology who did not feel it was necessary to start anti epileptic medications. Yesterday the patient's states that she had 4 alcoholic drinks early in the day. She had an episode of vomiting and was not feeling well. He then noticed she had a far off look in her eye, became stiff, and started frothing from her mouth. He thought initially that she may be choking and he tried to open her mouth but her teeth were clamped shut. He called 911 and he reports this activity lasted approximately 5 minutes. EMS responded however the patient declined transportation to the hospital. About an hour later she had another similar episode. This time she was transported to the emergency department. She had another witnessed seizure in the emergency department. She was given a dose of IV Ativan and loaded with Keppra. Lab work was unremarkable with the exception of sodium level of 130 and acid of 9.2, this resolved on repeat. Patient has remained afebrile. Brain CT showed no acute intracranial pathology. The emergency department provider discussed the case with the neurologist who recommended an LP which was completed in the emergency department. Her history was primarily obtained from her at the bedside as she was sleepy on exam. <JON Nur - Last Filed: 01/24/21 11:08> Review of Systems Review of Systems: Yes all other systems are reviewed and are negative <S JON Chanel - Last Filed: 01/24/21 11:08> Constitutional: Constitutional: Denies chills and Denies fever(s) <JON Nur - Last Filed: 01/24/21 11:08> Cardiovascular: Cardiovascular: Denies chest pain <JON Nur - Last Filed: 01/24/21 11:08> Respiratory: Respiratory: Denies cough <JON Nur - Last Filed: 01/24/21 11:08> Gastrointestinal: Gastrointestinal: Denies abdominal pain <JON Nur - Last Filed: 01/24/21 11:08> [facility] Medical History: Medical History (Updated 01/24/21 @ 10:15 by JON Nur) Abdominal pain Anxiety Chronic musculoskeletal pain Depression HTN (hypertension) Liver fibrosis Polyarthritis Pseudocyst of pancreas Smoker Transaminitis <JON Nur - Last Filed: 01/24/21 11:08> Functional capacity: independent ambulation <JON Nur - Last Filed: 01/24/21 11:08> Family History: Family History Maternal Grandmother Cancer Mother HTN (hypertension) Father HTN (hypertension) <JON Nur - Last Filed: 01/24/21 11:08> Surgical History: Surgical History History of cholecystectomy <JON Nur - Last Filed: 01/24/21 11:08> Social History: Social History (Updated 01/24/21 @ 10:16 by JON Nur) Household Members: Spouse and Children Alcohol intake: current Alcohol intake frequency: a few times a week Patient Tobacco Use Status: Current everyday Tobacco user Cigarette Packs Per Day: 1 Cigarettes Per Day: 20.0 Years Smoked: 28 Smoked in Last 30 Days: Yes Use of substances other than those prescribed or required for medical reasons: No Advance Directives: No Advance Directives Information Provided: No Patient : No <JON Nur - Last Filed: 01/24/21 11:08> Meds Allergies/Adverse reactions: Allergies Allergy/AdvReac Type Severity Reaction Status Date / Time Penicillins [PENICILLINS] Allergy Severe ANAPHYLAXIS Verified 01/24/21 02:36 codeine Allergy Intermediate vomiting Verified 01/24/21 02:36 morphine Allergy Intermediate itchiness Verified 01/24/21 02:36 Sulfa (Sulfonamide Allergy Intermediate diarrh Verified 01/24/21 02:36 Antibiotics) tramadol Allergy Intermediate Vomiting Verified 01/24/21 02:36 duloxetine [Cymbalta] AdvReac Unknown increased Verified 01/24/21 02:36 depression <JON Nur Last Filed: 01/24/21 11:08> Home medications: Home Medications Medication Instructions Recorded Confirmed Last Taken Type viomju-nlsxpofq-jictbra 2 cap PO TID 01/24/21 01/24/21 Unknown History 12,000-38,000-60,000 unit capsule,delayed rel (Creon) <JON Nur Last Filed: 01/24/21 11:08> Physical Exam Vital Signs and Narrative: Vital Signs: Last Vital Signs Temp 98.5 F 01/24/21 02:30 Pulse 62 01/24/21 07:42 Resp 18 01/24/21 07:42 BP 123/72 01/24/21 07:42 Pulse Ox 98 01/24/21 07:42 Body Mass Index 21.4 <JON Nur Last Filed: 01/24/21 11:08> Const: Other: sleepy, arousable to verbal stimuli <JON Nur Last Filed: 01/24/21 11:08> Nutritional Appearance: well nourished <JON Nur Last Filed : 01/24/21 11:08> HENMT: Head: Yes normocephalic and Yes atraumatic <JON Nur Last Filed: 01/24/21 11:08> Eyes: Sclerae: sclerae normal <JON Nur Last Filed: 01/24/21 11:08> Chest: Chest palpation & inspection: normal inspection of the chest <JON Nur Last Filed: 01/24/21 11:08> Resp: Effort & Inspection: normal respiratory effort and no respiratory distress <JON Nur - Last Filed: 01/24/21 11:08> Auscultation: clear to auscultation bilaterally <JON Nur - Last Filed: 01/24/21 11:08> Cardio: Rate: regular rate <JON Nur - Last Filed: 01/24/21 11:08> Rhythm: regular rhythm <JON Nur - Last Filed: 01/24/21 11:08> GI: Palpation (GI): Soft to palpation and nontender <JON Nur - Last Filed: 01/24/21 11:08> Neuro: Cranial nerves: Yes CN's II-XII intact bilaterally and Yes Bilaterally intact EOM present <JNO Nru - Last Filed: 01/24/21 11:08> Results Labs CBC and Chem 7: : 01/24/21 02:46 01/24/21 02:46 <JON Nur - Last Filed: 01/24/21 11:08> Labs: Laboratory Results - last 24 hr 01/24/21 01/24/21 01/24/21 02:46 02:46 02:46 MCV 90.6 MCH 31.4 MCHC 34.7 RDW 13.6 Plt Count 231 D MPV 9.5 Immature Gran % (Auto) 0.3 Neut % (Auto) 78.2 H Lymph % (Auto) 16.7 L [place] % (Auto) 4.5 Eos % (Auto) 0.0 Baso % (Auto) 0.3 Lymph # (Auto) 1.2 [place] # (Auto) 0.3 Eos # (Auto) 0.0 Baso # (Auto) 0.0 Abs Immat Gran (auto) 0.02 Absolute Neuts (auto) 5.4 Absolute Nucleated RBC 0.000 Nucleated RBC % (auto) 0.0 ESR Anion Gap 16 Estim Creat Clear Calc 68.1 Estimated GFR > 60 Random Glucose 244 H D Lactic Acid Lactic Acid Fup @ 2Hr Calcium 9.7 Magnesium 1.6 Total Bilirubin 0.4 AST 26 ALT 26 Alkaline Phosphatase 139 H D Ammonia C-Reactive Protein 0.10 Total Protein 7.1 Albumin 4.4 Lipase 15 TSH 2.76 Urine Color Urine Appearance Urine pH Ur Specific [place] Urine Protein Urine Glucose (UA) Urine Ketones Urine Blood Urine Nitrite Ur Leukocyte Esterase Urine RBC Urine WBC Ur Squamous Epith Cells Urine Bacteria CSF Tube Number CSF Volume CSF Appearance CSF Color CSF WBC CSF RBC CSF Lymphocytes CSF Monocytes % CSF Appearance (b) CSF Glucose CSF Total Protein CSF Lyme IgG (Immblot) CSF Lyme IgG Bands Det CSF Lyme IgM (Immblot) CSF Lyme IgM Bands Det CSF Mening/Enceph PCR CSF West Nile Virus Salicylates < 5.0 L Urine Opiates Screen Urine Fentanyl Screen Acetaminophen < 1 Ur Barbiturates Screen Ur Phencyclidine Scrn Ur Amphetamines Screen U Benzodiazepines Scrn Urine Cocaine Screen U Marijuana (THC) Screen Ethyl Alcohol < 10 COVID-19 ([facility]) COVID-19 Clin Com 01/24/21 01/24/21 01/24/21 02:46 03:02 03:02 MCV MCH MCHC RDW Plt Count MPV Immature Gran % (Auto) Neut % (Auto) Lymph % (Auto) [place] % (Auto) Eos % (Auto) Baso % (Auto) Lymph # (Auto) [place] # (Auto) Eos # (Auto) Baso # (Auto) Abs Immat Gran (auto) Absolute Neuts (auto) Absolute Nucleated RBC Nucleated RBC % (auto) ESR 3 Anion Gap Estim Creat Clear Calc Estimated GFR Random Glucose Lactic Acid Lactic Acid Fup @ 2Hr Calcium Magnesium Total Bilirubin AST ALT Alkaline Phosphatase Ammonia C-Reactive Protein Total Protein Albumin Lipase TSH Urine Color STRAW Urine Appearance CLEAR Urine pH 6.0 Ur Specific [place] 1.010 Urine Protein TRACE Urine Glucose (UA) 100 H Urine Ketones NEG Urine Blood 1+ H Urine Nitrite NEG Ur Leukocyte Esterase NEG Urine RBC 0-2 Urine WBC 0 Ur Squamous Epith Cells TRACE Urine Bacteria NONE CSF Tube Number CSF Volume CSF Appearance CSF Color CSF WBC CSF RBC CSF Lymphocytes CSF Monocytes % CSF Appearance (b) CSF Glucose CSF Total Protein CSF Lyme IgG (Immblot) CSF Lyme IgG Bands Det CSF Lyme IgM (Immblot) CSF Lyme IgM Bands Det CSF Mening/Enceph PCR CSF West Nile Virus Salicylates Urine Opiates Screen Not Detected Urine Fentanyl Screen Not Detected Acetaminophen Ur Barbiturates Screen Not Detected Ur Phencyclidine Scrn Not Detected Ur Amphetamines Screen Not Detected U Benzodiazepines Scrn Not Detected Urine Cocaine Screen Not Detected U Marijuana (THC) Screen Not Detected Ethyl Alcohol COVID-19 ([facility]) COVID-19 Clin Com 01/24/21 01/24/21 01/24/21 03:26 03:26 03:26 MCV MCH MCHC RDW Plt Count MPV Immature Gran % (Auto) Neut % (Auto) Lymph % (Auto) [place] % (Auto) Eos % (Auto) Baso % (Auto) Lymph # (Auto) [place] # (Auto) Eos # (Auto) Baso # (Auto) Abs Immat Gran (auto) Absolute Neuts (auto) Absolute Nucleated RBC Nucleated RBC % (auto) ESR Anion Gap Estim Creat Clear Calc Estimated GFR Random Glucose Lactic Acid 9.2 H* Lactic Acid Fup @ 2Hr Calcium Magnesium Total Bilirubin AST ALT Alkaline Phosphatase Ammonia 29 C-Reactive Protein Total Protein Albumin Lipase TSH Urine Color Urine Appearance Urine pH Ur Specific [place] Urine Protein Urine Glucose (UA) Urine Ketones Urine Blood Urine Nitrite Ur Leukocyte Esterase Urine RBC Urine WBC Ur Squamous Epith Cells Urine Bacteria CSF Tube Number CSF Volume CSF Appearance CSF Color CSF WBC CSF RBC CSF Lymphocytes CSF Monocytes % CSF Appearance (b) CSF Glucose CSF Total Protein CSF Lyme IgG (Immblot) CSF Lyme IgG Bands Det CSF Lyme IgM (Immblot) CSF Lyme IgM Bands Det CSF Mening/Enceph PCR CSF West Nile Virus Salicylates Urine Opiates Screen Urine Fentanyl Screen Acetaminophen Ur Barbiturates Screen Ur Phencyclidine Scrn Ur Amphetamines Screen U Benzodiazepines Scrn Urine Cocaine Screen U Marijuana (THC) Screen Ethyl Alcohol COVID-19 ([facility]) Negative COVID-19 Clin Com See Note 01/24/21 01/24/21 01/24/21 06:23 07:08 07:08 MCV MCH MCHC RDW Plt Count MPV Immature Gran % (Auto) Neut % (Auto) Lymph % (Auto) [place] % (Auto) Eos % (Auto) Baso % (Auto) Lymph # (Auto) [place] # (Auto) Eos # (Auto) Baso # (Auto) Abs Immat Gran (auto) Absolute Neuts (auto) Absolute Nucleated RBC Nucleated RBC % (auto) ESR Anion Gap Estim Creat Clear Calc Estimated GFR Random Glucose Lactic Acid Lactic Acid Fup @ 2Hr 1.0 Calcium Magnesium Total Bilirubin AST ALT Alkaline Phosphatase Ammonia C-Reactive Protein Total Protein Albumin Lipase TSH Urine Color Urine Appearance Urine pH Ur Specific [place] Urine Protein Urine Glucose (UA) Urine Ketones Urine Blood Urine Nitrite Ur Leukocyte Esterase Urine RBC Urine WBC Ur Squamous Epith Cells Urine Bacteria CSF Tube Number 2 CSF Volume CSF Appearance CSF Color CSF WBC CSF RBC CSF Lymphocytes CSF Monocytes % CSF Appearance (b) Clear, Colorless CSF Glucose 98 CSF Total Protein 51.7 H CSF Lyme IgG (Immblot) CSF Lyme IgG Bands Det CSF Lyme IgM (Immblot) CSF Lyme IgM Bands Det CSF Mening/Enceph PCR CSF West Nile Virus TNP Salicylates Urine Opiates Screen Urine Fentanyl Screen Acetaminophen Ur Barbiturates Screen Ur Phencyclidine Scrn Ur Amphetamines Screen U Benzodiazepines Scrn Urine Cocaine Screen U Marijuana (THC) Screen Ethyl Alcohol COVID-19 ([facility]) COVID-19 Clin Com 01/24/21 01/24/21 01/24/21 07:08 07:08 07:08 MCV MCH MCHC RDW Plt Count MPV Immature Gran % (Auto) Neut % (Auto) Lymph % (Auto) [place] % (Auto) Eos % (Auto) Baso % (Auto) Lymph # (Auto) [place] # (Auto) Eos # (Auto) Baso # (Auto) Abs Immat Gran (auto) Absolute Neuts (auto) Absolute Nucleated RBC Nucleated RBC % (auto) ESR Anion Gap Estim Creat Clear Calc Estimated GFR Random Glucose Lactic Acid Lactic Acid Fup @ 2Hr Calcium Magnesium Total Bilirubin AST ALT Alkaline Phosphatase Ammonia C-Reactive Protein Total Protein Albumin Lipase TSH Urine Color Urine Appearance Urine pH Ur Specific [place] Urine Protein Urine Glucose (UA) Urine Ketones Urine Blood Urine Nitrite Ur Leukocyte Esterase Urine RBC Urine WBC Ur Squamous Epith Cells Urine Bacteria CSF Tube Number TNP 4 CSF Volume TNP 0.5 CSF Appearance TNP CLEAR CSF Color TNP COLORLESS CSF WBC TNP 2 CSF RBC TNP 1 CSF Lymphocytes 86 CSF Monocytes % 14 CSF Appearance (b) CSF Glucose CSF Total Protein CSF Lyme IgG (Immblot) TNP CSF Lyme IgG Bands Det TNP CSF Lyme IgM (Immblot) TNP CSF Lyme IgM Bands Det TNP CSF Mening/Enceph PCR TNP CSF West Nile Virus Salicylates Urine Opiates Screen Urine Fentanyl Screen Acetaminophen Ur Barbiturates Screen Ur Phencyclidine Scrn Ur Amphetamines Screen U Benzodiazepines Scrn Urine Cocaine Screen U Marijuana (THC) Screen Ethyl Alcohol COVID-19 ([facility]) COVID-19 Clin Com <JON Nur - Last Filed: 01/24/21 11:08> Imaging Radiologist's Impressions: Impressions Head CT 01/24/21 03:01 IMPRESSION: No acute intracranial pathology. <JON Nur - Last Filed: 01/24/21 11:08> Assessment and Plan (1) Seizures: Status: Acute <JON Nur - Last Filed: 01/24/21 11:08> This is a 45-year-old female with a history of alcohol abuse, pancreatic pseudocyst, recent admission at [facility] for alcohol- induced pancreatitis and possible seizure who presents to the emergency depa rtment with 3 witnessed seizures Seizure 1 previous episode of possible seizure in October at [facility]. at that time MRI brain with and without contrast showed small area of cystic encephalomalacia with gliosis in the superior right parietal lobe near the vertex. no enhancing lesions. EEG with no epileptiform activity or persistent focal asymmetries. She was evaluated by neurology and not started on any antiepileptic medication. h/o etoh withdrawal - pt denies daily etoh use at this time. etoh level negative. brain CT with no acute intracranial pathology tox screen negative afebrile, no evidence of infection LP done, mild elevation in protein, otherwise no unremarkable on gabapentin at home, possible withdrawal seizures if not taking regularly, will follow up patient when more awake to obtain more detailed history -continue scheduled keppra 500 mg bid -neurology consult -seizure precautions -prn ativan for further seizure activity -will not repeat brain MRI or EEG at this time unless recommended by neurology, may need 24 hr EEG in future h/o etoh dependence pt husbands denies daily etoh use, reports only drinks on the weekends given level of sedation, will hold off on phenobarbitol at this time -will monitor on [facility] Chronic pain has had rheumatology work up that has been negative. there does not seem to be a clear etiology of her pain has been followed by Dr. Kelsey and treated with multiple different medications. was suspended from opiates due to pill counts being off. currently prescribed belbuca and gabapentin -will decrease dose of gabapentin to avoid excessive sedation, can be titrated back up when more awake tobacco dependence -NRT HTN previously on Norvasc, not listed on med rec BP currently stable, will follow -clonidine dose from [facility] .1mg at bedtime; has been prescribed .2 tid but only for 10 days? will continue bedtime dose for now dvt ppx - lovenox code status - full code attending: dr. tubbs <JON Nur - Last Filed: 01/24/21 11:08> Quality Stroke Does the patient have a stroke diagnosis?: No <JON Nur - Last Filed: 01/24/21 11:08> VTE Prior VTE?: No <JON Nur - Last Filed: 01/24/21 11:08> VTE Risk Level:: Medical - moderate - high <JON Nur - Last Filed: 01/24/21 11:08> VTE Device Contraindication: Treatment Not Indicated <JON Nur - Last Filed: 01/24/21 11:08> VTE Drug Contraindication: N/A - Med Ordered <JON Nur - Last Filed: 01/24/21 11:08>
--- NOTE | 2021-01-24 11:40 | PC.NURSE ---
sleeping. SB on monitor. at bedside. NAD. awaits room.
[2021-01-24] MEDS: Enoxaparin Sodium 40 MG/0.4 ML SYRINGE SUBCUT (13:49)
[2021-01-24] MEDS: Lipase/Prot/Amylase 24/76/120K 1 CAP CAPSULE.DR PO (13:50)
--- NOTE | 2021-01-24 14:24 | PC.NURSE ---
Sleeping since this rn Arrival at 11am. Easily wakes to voice. Pt states she's feeling better is alert. axox3. Awaits bed upstairs. no tremor. no neuro deficits.
--- NOTE | 2021-01-24 16:22 | PC.NURSE ---
Rn to [place] with Cassandra dotson [facility].
[2021-01-24] MEDS: Gabapentin 300 MG CAPSULE 600 MG PO ×2 (16:29→20:50)
--- NOTE | 2021-01-24 16:55 | P.EN_ITS ---
Event Note Date of Service: 01/24/21 Event Note: Patient seen examined case discussed with APC at bedside provided most of history, since patient somnolent after receiving multiple dosage of Ativan for seizure On examination easily arousable but falls back to sleep Heart regular rate rhythm Abdomen soft Extremities no edema Moving all 4 extremities Assessment plan Breakthrough seizure Patient loaded with IV Keppra in the emergency room will place on by mouth Keppra 500 b.i.d. Patient is on Neurontin 800 mg q.6 hours by her PCP likely due to pain History of alcohol use over the weekend and question compliance with Neurontin, ? Alcohol withdrawal versus Neurontin withdrawal seizures. History of traumatic brain injury. recent w/u at [facility] Continue seizure precaution
[2021-01-24] MEDS: Acetaminophen 325 MG TABLET 650 MG PO (17:11)
[2021-01-24] MEDS: 0.9 % Sodium Chloride Flush 3 ML SYRINGE IVFLUSH (17:12)
[2021-01-24] MEDS: levETIRAcetam 500 MG TABLET PO (20:49)
[2021-01-24] MEDS: cloNIDine HCL 0.1 MG TABLET PO (20:49)
--- NOTE | 2021-01-24 22:09 | P.CNNE_ITS ---
History of Present Illness Data of Consult Service Date: 01/24/21 Primary Care Provider: Unknown Physician HPI Reason for consult: recurrent seizures 45 yr woman with h/o alcohol abuse, recent ( October) adm [place] [facility] [place]itis and pseudocyst that was drained and a seizure like episode with negative w/u with MRI and EEG. Presents after 4 drinks , vomiting and 3 seizures. She is also on Gabapentin an dis unclear if she has been taking it Review of Systems Review of Systems: Pertinent positives and negatives as stated in HPI and 10 point review of systems is otherwise negative as per the . Yes all other systems are reviewed and are negative Constitutional: Constitutional: Denies chills and Denies fever(s) Cardiovascular: Cardiovascular: Denies chest pain Respiratory: Respiratory: Denies cough Gastrointestinal: Gastrointestinal: Denies abdominal pain PMFSH Past Medical History Medical History (Updated 01/24/21 @ 10:15 by JON Nur) Abdominal pain Anxiety Chronic musculoskeletal pain Depression HTN (hypertension) Liver fibrosis Polyarthritis Pseudocyst of pancreas Smoker Transaminitis Functional capacity: independent ambulation Family History Family History Maternal Grandmother Cancer Mother HTN (hypertension) Father HTN (hypertension) Surgical History Surgical History History of cholecystectomy Social History Social History (Updated 01/24/21 @ 10:16 by JON Nur) Household Members: Family Housing: House Do you presently have visiting nurse or other home services: No Alcohol intake: current Alcohol intake frequency: a few times a week Patient Tobacco Use Status: Current everyday Tobacco user Tobacco use type: Cigarette Cigarette Packs Per Day: 1 Cigarettes Per Day: 8 Years Smoked: 28 Smoked in Last 30 Days: Yes Patient Interested in Nicotine Replacement: No Patient Given Instructions on How to Stop Smoking: No Use of substances other than those prescribed or required for medical reasons: No Have you been hit, kicked, punched, or otherwise hurt by someone within the past year? If so, by whom?: No Do you feel safe in your current relationship?: Yes Is there a partner from a previous relationship who is making you feel unsafe now?: No Are you made to feel afraid or neglected: No Advance Directives: No Advance Directives Information Provided: No Do you have thoughts of harming others: None Do you have a plan to hurt others: No Plan Recently lost weight without trying: Yes How much weight loss: Unsure Nutrition Risks: No Nutritional Risk Patient : No : No Poor oral hygiene: No Meds Allergies Allergy/AdvReac Type Severity Reaction Status Date / Time Penicillins [PENICILLINS] Allergy Severe ANAPHYLAXIS Verified 01/24/21 02:36 codeine Allergy Intermediate vomiting Verified 01/24/21 02:36 morphine Allergy Intermediate itchiness Verified 01/24/21 02:36 Sulfa (Sulfonamide Allergy Intermediate diarrh Verified 01/24/21 02:36 Antibiotics) tramadol Allergy Intermediate Vomiting Verified 01/24/21 02:36 duloxetine [Cymbalta] AdvReac Unknown increased Verified 01/24/21 02:36 depression Active Medications: Current Medications Generic Name Dose Route Start Last Admin Trade Name Freq PRN Reason Stop Dose Admin Acetaminophen 650 mg 01/24/21 11:21 01/24/21 17:11 Acetaminophen 325 Mg Tablet PO 650 mg Q6H PRN Administration Pain, Mild (Pain Scale 1-3) Lipase/Protease/Amylase 1 cap 01/24/21 11:30 01/24/21 18:07 Lipase/Prot/Amylase 24/76/120k 1 Cap Capsule.Dr EGAN Not Given TIDAC MERCEDES Clonidine HCl 0.1 mg 01/24/21 21:00 01/24/21 20:49 Clonidine Hcl 0.1 Mg Tablet PO 0.1 mg BEDTIME MERCEDES Administration Protocol Docusate Sodium 100 mg 01/24/21 11:21 Docusate Sodium 100 Mg Capsule PO DAILY PRN Constipation Enoxaparin Sodium 40 mg 01/24/21 11:21 01/24/21 13:49 Enoxaparin Sodium 40 Mg/0.4 Ml Syringe SUBCUT 40 mg Q24H MERCEDES Administration Gabapentin 600 mg 01/24/21 15:00 01/24/21 20:50 Gabapentin 300 Mg Capsule PO 600 mg TID MERCEDES Administration Levetiracetam 500 mg 01/24/21 21:00 01/24/21 20:49 Levetiracetam 500 Mg Tablet PO 500 mg BID MERCEDES Administration Lorazepam 1 mg 01/24/21 11:21 Lorazepam 2 Mg/Ml Vial IVPUSH ONCE PRN seizure Nicotine 14 mg 01/25/21 09:00 Nicotine 14 Mg Patch.Td24 TRANSDERMA DAILY [facility] Ondansetron HCl 4 mg 01/24/21 11:21 Ondansetron Hcl 4 Mg/2 Ml Vial IVPUSH Q8H PRN Nausea and Vomiting Sodium Chloride 3 ml 01/24/21 16:00 01/24/21 17:12 0.9 % Sodium Chloride Flush 3 Ml Syringe IVFLUSH 3 ml QSHIFT [facility] Administration Home Medications Medication Instructions Recorded Confirmed Last Taken Type vbuxqk-[id number]-[id number] 2 cap PO TID 01/24/21 01/24/21 Unknown History 12,000-38,000-60,000 unit capsule,delayed rel (Creon) Physical Exam Vital Signs: Vital Signs: Last Vital Signs Temp 98 F 01/24/21 18:57 Pulse 73 01/24/21 18:57 Resp 18 01/24/21 18:57 BP 142/76 H 01/24/21 18:57 Pulse Ox 98 01/24/21 18:57 Body Mass Index 21.4 Const: Other: sleepy, arousable to verbal stimuli Nutritional Appearance: well nourished HENMT: Head: Yes normocephalic and Yes atraumatic Eyes: Sclerae: sclerae normal Chest: Chest palpation & inspection: normal inspection of the chest Resp: Effort & Inspection: normal respiratory effort and no respiratory distress Auscultation: clear to auscultation bilaterally Cardio: Rate: regular rate Rhythm: regular rhythm GI: Palpation (GI): Soft to palpation and nontender Neuro: Other: lethargis but arousable. non focal exam. Neck supple Cranial nerves: Yes CN's II-XII intact bilaterally and Yes Bilaterally intact EOM present Results Labs CBC & Chem 7: 01/24/21 02:46 01/24/21 02:46 Labs: Short CBC 01/24/21 Range/Units 02:46 WBC 6.9 (4.8-10.8) X10*3/uL Hgb 12.7 (12.0-16.0) g/dl Hct 36.6 L (37-47) % Plt Count 231 D (160-400) X10*3/uL BMP 01/24/21 02:46 Sodium 130 L Potassium 3.4 Chloride 93 L Carbon Dioxide 24 BUN 9 Creatinine 0.90 Calcium 9.7 Liver Function 01/24/21 Range/Units 02:46 Total Bilirubin 0.4 (0.0-1.0) mg/dL AST 26 (5-31) U/L ALT 26 (0-31) U/L Alkaline Phosphatase 139 H D (39-117) U/L Albumin 4.4 (3.5-5.0) g/dL Urine 01/24/21 Range/Units 03:02 Urine Color STRAW Urine Appearance CLEAR Urine pH 6.0 (5.0-8.0) Ur Specific [place] 1.010 (1.005-1.025) Urine Protein TRACE (NEG-TRACE) MG/DL Urine Glucose (UA) 100 H (NEG) MG/DL Microbiology Microbiology Results: Microbiology 01/24/21 07:08 Cerebrospinal Fluid Gram Stain - Final 01/24/21 07:08 Cerebrospinal Fluid CSF Examination - Final 01/24/21 07:08 Cerebrospinal Fluid Fluid Description - Final Assessment and Plan (1) Seizures: Status: Acute Seizure etiology unclear possibly Gabapentin or alcohol withdrawal. CT and LP negative, Tox screen negative This is a 45-year-old female with a history of alcohol abuse, pancreatic pseudocyst, recent admission at [facility] for alcohol-induced pancreatitis and possible seizure who presents to the emergency department with 3 witnessed seizures Seizure 1 previous episode of possible seizure in October at [facility] MRI brain with and without contrast showed small area of cystic encephalomalacia with gliosis in the superior right parietal lobe near the vertex. No enhancing lesions. EEG with no epileptiform activity or persistent focal asymmetries. She was evaluated by neurology and not started on any antiepileptic medication. Brain CT with no acute intracranial pathology tox screen negative LP negative. Continue keppra 500 mg bid Seizure precautions Repeat EEG and OP 24 hr EEG. Procedures Date of Service Date of Service: 01/24/21
--- NOTE | 2021-01-25 | EEG_ITS ---
Background activity consists of low voltage fast frequencies seen diffusely, intermixed with low voltage posterior 9 to 10 hertz alpha and some beta frequencies. Rare sharp transients are seen from the right temporal region. Photic stimulation is without activation. Hyperventilation was omitted. No sleep stages identified. IMPRESSION: This EEG is considered minimally abnormal due to rare sharp transients seen from the right temporal region. These findings are not developed well enough to be diagnostic for a seizure disorder. Right temporal focus of cerebral irritability cannot be excluded. Clinical correlation is suggested. MD CHRISTOPHER Grady/TAMY / [id number]
[2021-01-25 03:21] VITALS: BP 113/76; PULSE 53; RESP 17; TEMP 36.8; O2SAT 97
[2021-01-25 06:01] LABS: Hematocrit 36.5 % (37-47); Hemoglobin 12.2 g/dl (12.0-16.0); Mean Corpuscular HGB Conc 33.4 g/dl (31.0-35.0); Mean Corpuscular Hemoglobin 31.3 pg (27.0-33.0); Mean Corpuscular Volume 93.6 fL (80-98); Platelet Count 239 X10*3/uL (160-400); Red Cell Distribution Width 13.9 % (11.0-16.0); White Blood Count 7.4 X10*3/uL (4.8-10.8)
[2021-01-25 06:29] LABS: Anion Gap 15 (12-20); Blood Urea Nitrogen 9 mg/dL (9-16); Calcium 9.4 mg/dL (8.4-10.2); Carbon Dioxide 24 mmol/L (22-29); Chloride 102 mmol/L (96-108); Creatinine Clr Calc Pharmacy 78.6; Estimated Glomerular Filt Rate > 60; Glucose Random 123 mg/dL (60-115); Potassium 3.7 mmol/L (3.3-5.1); Sodium 137 mmol/L (135-145)
[2021-01-25 07:21] VITALS: BP 149/79; PULSE 53; RESP 18; TEMP 36.9; O2SAT 100
[2021-01-25] MEDS: levETIRAcetam 500 MG TABLET PO (08:18)
[2021-01-25] MEDS: Lipase/Prot/Amylase 24/76/120K 1 CAP CAPSULE.DR PO ×3 (08:18→15:40)
[2021-01-25] MEDS: Gabapentin 300 MG CAPSULE 600 MG PO (08:18)
[2021-01-25] MEDS: 0.9 % Sodium Chloride Flush 3 ML SYRINGE IVFLUSH ×2 (08:19→15:40)
--- NOTE | 2021-01-25 10:16 | MHC.CM.PN ---
met with pt who lives with her and children ..pt had no services prior to admisison and does not feel she will need services when dcd
--- NOTE | 2021-01-25 11:00 | P.DS_ITS ---
DS: Providers Provider Date of Service: 01/25/21 Date of admission: 01/24/21 09:39 Primary care physician: Unknown Physician Consults: 01/24/21 09:39 Consult to Neurology Routine Consulting Provider: [facility] Reason for consultation: seizures Has provider been notified: No DS: Diagnosis Discharge Diagnosis (1) Seizures: Status: Acute DS: Medications Discharge Medications Home Medications: Home Medications Medication Instructions Recorded Confirmed zxvarg-vinvgtsq-cjtzbop 2 cap PO TID 01/24/21 01/24/21 12,000-38,000-60,000 unit capsule,delayed rel (Creon) Previous Rx's Medication Instructions Recorded gabapentin 800 mg tablet 800 mg PO Q6H 90 Days #360 tab 11/02/20 ibuprofen 800 mg tablet 800 mg PO Q8H 30 Days #90 tab 11/02/20 clonidine HCl 0.2 mg tablet 0.2 mg PO TID 10 Days #30 tab 12/09/20 DS: Summary Hospital Course Hospital Course: Final Discharge Diagnosis: 1. Seizures 2. Alcohol Use 3. Chronic Pain HPI from admission H&P: This is a 45-year-old female who was brought in by ambulance after displaying seizure-like activity.? Patient was admitted to [facility] at the end of October for alcohol-induced pancreatitis.? Was noted to have large pseudocyst in underwent transgastric aspiration of pseudocyst under general anesthesia.? The following day she had a code blue called after she was found face down on the floor in her bathroom.? She was evaluated by Neurology over concern for possible seizure.? She had a brain MRI which showed no acute intracranial abnormality.? There is a small area of cystic encephalomalacia with gliosis in the superior right parietal lobe near the vertex with no enhancing lesions.? She had an EEG which was negative for any epileptiform activities.? She was evaluated by Neurology who did not feel it was necessary to start anti epileptic medications.? Yesterday the patient's states that she had 4 alcoholic drinks early in the day.? She had an episode of vomiting and was not feeling well.? He then noticed she had a far off look in her eye, became stiff, and started frothing from her mouth.? He thought initially that she may be choking and he tried to open her mouth but her teeth were clamped shut.? He called 911 and he reports this activity lasted approximately 5 minutes.? EMS responded however the patient declined transportation to the hospital.? About an hour later she had another similar episode.? This time she was transported to the emergency department.? She had another witnessed seizure in the emergency department.? She was given a dose of IV Ativan and loaded with Keppra.? Lab work was unremarkable with the exception of sodium level of 130 and acid of 9.2, this resolved on repeat.? Patient has remained afebrile.? Brain CT showed no acute intracranial pathology. The emergency department provider discussed the case with the neurologist who recommended an LP which was completed in the emergency department.? Her history was primarily obtained from her at the bedside as she was sleepy on exam. Hospital Course: Patient loaded with IV keppra and started on oral keppra. She was evaluated by neurology who recommended continuation of Keppra and to obtain an EEG, which showed Minimally abnormal with rare sharp transients right temporal. No definite Epileptifoem discharges at this time. Neurology cleared her for d/c with instructions for 24 hour EEG to be done as outpatient, which the patient was informed of. She was also informed to abstain from alcohol completely. Time Spent with Patient Time attestation: Total time spent providing and/or coordinating discharge services: Discharge coordination time: Greater than 30 minutes Quality: Stroke Does the patient have a stroke diagnosis?: No Physical Exam Vital Signs: Vital Signs: Last Vital Signs Temp 98.5 F 01/25/21 07:21 Pulse 53 01/25/21 07:21 Resp 18 01/25/21 07:21 BP 149/79 H 01/25/21 07:21 Pulse Ox 100 01/25/21 07:21 Body Mass Index 21.4 Const: Other: General - no acute distress, appears comfortable Cardiovascular - regular rate and rhythm, S1-S2 Lungs - normal respiratory effort, clear to auscultation bilaterally, no wheezing Abdomen - soft, nontender, no rebound or guarding Extremities - no edema bilaterally Neuro - awake and alert, no focal deficits DS: Data Data Completed and Pending Labs on day of discharge: Laboratory Results - last 24 hr 01/25/21 01/25/21 05:22 05:22 WBC 7.4 RBC 3.90 L Hgb 12.2 Hct 36.5 L MCV 93.6 MCH 31.3 MCHC 33.4 RDW 13.9 Plt Count 239 MPV 10.0 Absolute Nucleated RBC 0.000 Nucleated RBC % (auto) 0.0 Sodium 137 Potassium 3.7 Chloride 102 Carbon Dioxide 24 Anion Gap 15 BUN 9 Creatinine 0.78 Estim Creat Clear Calc 78.6 Estimated GFR > 60 Random Glucose 123 H D Calcium 9.4 Preliminary micro results at discharge 01/24/21 07:08 CSF Culture - Preliminary Cerebrospinal Fluid No growth after 1 day 01/24/21 03:26 Blood Culture - Preliminary Blood - Venous No growth after 24 hours. 01/24/21 03:26 Blood Culture - Preliminary Blood - Venous No growth after 24 hours. Discharge Plan Discharge Patient Disposition: Home Health Service Discharge Diagnosis: Seizures Referrals: Mikel Hurst MD [Physician] - 1 Week Physician,Unknown [Primary Care Provider] - 1 Week Discharge Medications: New levetiracetam 500 mg Tablet 500 mg PO BID Qty: 60 RF: 0 Continued gabapentin 800 mg tablet 800 mg PO Q6H 90 Days Qty: 360 RF: 1 ibuprofen 800 mg tablet 800 mg PO Q8H 30 Days Qty: 90 RF: 1 clonidine HCl 0.2 mg tablet 0.2 mg PO TID 10 Days Qty: 30 RF: 0 Creon 12,000-38,000 -60,000 unit capsule,delayed release(DR/EC) 2 cap PO TID RF: 0 Discharge Orders: Discharge Order (Routine); Ordered 01/25/21 Ordered By: Kiran Haddad Diet: advance to usual diet Activity on Discharge: As tolerated Stand Alone Forms: Patient Portal Discharge page Care Plan Goals: To stay healthy and out of the hospital. Health Concerns: Seizures Plan of Treatment: Take your baseline medications. Start Keppra 500mg BID Do not drink alcohol Call Nuerology office for 24 hour EEG Assessment: 45 yo F presented with seizures. Started on Keppra 500mg twice daily. Follow up with neurology
[2021-01-25 14:56] VITALS: BP 139/82; PULSE 76; RESP 18; TEMP 36.9; O2SAT 99
[2021-01-25] MEDS: Gabapentin 400 MG CAPSULE 800 MG PO (15:40)
[2021-01-26 17:32] LABS: Lyme Abs Screen <0.90 index
== END 2021-01-25 17:38 | disposition home health service (06) | DRG 53 ==
LOC: HO.ED 07:45 → HO.EDOVER 09:50 → HO.IMC 15:24
PROVIDERS: Admitting Provider Physician Assistant Medical; Emergency Provider Student in an Organized Health Care Education/Training Program; Visit Provider Family Medicine
DX: R56.9 Unspecified convulsions (principal); F10.20 Alcohol dependence, uncomplicated; Z88.0 Allergy status to penicillin; F17.210 Nicotine dependence, cigarettes, uncomplicated; Z71.6 Tobacco abuse counseling; G89.29 Other chronic pain; I10 Essential (primary) hypertension; Z20.822 Contact with and (suspected) exposure to COVID-19; Z88.2 Allergy status to sulfonamides; Z88.5 Allergy status to narcotic agent; Z88.6 Allergy status to analgesic agent; Z79.899 Other long term (current) drug therapy
CPT/HCPCS: 36415; 70450; 80048; 80053; 80143; 80179; 80307; 81001; 82077; 82140; 82945; 83605; 83690; 83735; 84157; 84443; 85025; 85027; 85652; 86140; 86617; 86618; 87015; 87040; 87070; 87205; 87635; 89051; 93005; 95816; 96361; 96374; 96375; 99285; J1650; J1953; J2060

== ENCOUNTER → 2021-03-09 08:33 | Outpatient (BNVA) | payer OTHER, SELFPAY | PROVIDERS: PCP Physician Assistant; Visit Provider Internal Medicine Gastroenterology ==

== ENCOUNTER 2022-09-07 19:33 | Inpatient (IN) | payer OTHER, SELFPAY ==
--- NOTE | ~2022-09-07 | XR_ITS ---
EXAMINATION: XR CHEST CLINICAL INFORMATION: Pain COMPARISON: 01/15/2019 TECHNIQUE: Frontal view of the chest was obtained. FINDINGS: The lungs are well expanded. There is no focal consolidation, edema, or effusion. Bronchial wall thickening noted, with basilar predominance. No pneumothorax. The cardiomediastinal silhouette is within normal limits. No acute osseous abnormality. XR/XR chest 1V IMPRESSION: No dense consolidation. Bronchial wall thickening can be seen with a small airways process such as asthma or atypical/viral infection.
--- NOTE | ~2022-09-07 | CT_ITS ---
EXAMINATION: CT ABDOMEN AND PELVIS WITH CONTRAST CLINICAL INFORMATION: Abdominal pain. History of pancreatitis with pseudocyst. COMPARISON: 09/30/2020 TECHNIQUE: Multidetector volumetric images were obtained from the superior aspect of the liver through the pubic symphysis following administration 85 mL of Omnipaque 350 intravenous contrast. Sagittal and coronal reformatted images were obtained on the technologist's workstation. Oral contrast: No This CT examination was performed using dose optimization techniques as appropriate, variously including the following: *Automated exposure control *Adjustment of mA and/or kV according to patient size (this includes techniques or standardized protocols for targeted exams where dose is matched to indication/reason for exam; i.e. extremities or head) *Use of iterative reconstruction technique DLP: 370 mGy-cm FINDINGS: LUNG BASES: Right basilar opacities at both lung bases with mild reticulation. LIVER, GALLBLADDER, AND BILIARY TREE: The liver is normal in size, shape, and attenuation. There are a few cysts in the liver. Cholecystectomy.. Intrahepatic and extrahepatic biliary ductal dilatation noted without ductal filling defect. This is similar to prior. PANCREAS: Calcifications throughout the pancreatic parenchyma consistent with chronic pancreatitis. No pancreatic ductal dilatation. There is ill-defined hypoattenuation along the pancreatic body and tail with associated small collections, suggestive of pseudocysts. There is a 2 cm cyst at the ventral pancreatic tail on series 3 image 25. Along the dorsal aspect of the distal body there is a 1.9 cm cyst on image 27. Inferiorly at the distal body there is a 2 cm cyst on image 31. SPLEEN: Unremarkable. ADRENAL GLANDS: Unremarkable. KIDNEYS AND URETERS: The kidneys are normal in size, shape, and attenuation. No hydronephrosis, hydroureter, or calculi seen. No perinephric stranding. BLADDER: Unremarkable. GASTROINTESTINAL TRACT: The stomach is unremarkable. Normal caliber of the small bowel. No obstruction. Diffuse fluid-filled and mildly prominent appearance of the colon. This involves the right hemicolon. No free air or free fluid. ABDOMINAL WALL: No significant hernia is appreciated. LYMPH NODES: Normal. VASCULAR: Normal caliber aorta with mild atherosclerotic calcifications. PELVIC VISCERA: The uterus and adnexa are unremarkable. OSSEOUS STRUCTURES: Unremarkable. CT/CT abdomen pelvis w IV con IMPRESSION: 1. Changes of chronic pancreatitis. There is ill-defined hypoattenuation along the pancreatic body and tail with associated small collections, suggestive of pseudocysts. 2. Diffuse fluid-filled and mildly prominent appearance of the right hemicolon. This could be associated with colitis. Fleischner guidelines were followed.
--- NOTE | ~2022-09-07 | US_ITS ---
EXAMINATION: US ABDOMEN LIMITED CLINICAL INFORMATION: Common bile duct dilatation. COMPARISON: Abdominal ultrasound dated 07/01/[address] scan of the abdomen and pelvis dated 09/07/2022 TECHNIQUE: Real-time imaging of the right upper quadrant abdominal viscera. FINDINGS: PANCREAS: Mildly heterogeneous anechoic cystic structure near the tail measuring 2.2 x 2.0 x 2.0 cm. Color Doppler showed no abnormal vascular flow. No significant pancreatic ductal dilatation.. LIVER: Mild heterogeneous echotexture without focal abnormality. Small anechoic cyst in the right lobe measures up to 1.0 cm. Color Doppler showed no abnormal vascular flow. GALLBLADDER: Status post cholecystectomy. COMMON BILE DUCT: Normal in caliber measuring 1.3 cm in diameter. RIGHT KIDNEY: 12.8 cm. A lower pole echogenic focus measures 0.5 cm. No right hydronephrosis. Color Doppler showed no abnormal vascular flow. FREE FLUID: None. US/US abdomen limited IMPRESSION: 1. Mild heterogeneous echotexture of the liver without focal abnormality. Small right hepatic cyst demonstrates benign features. 2. Biliary ductal dilatation without obstructing abnormality. This can be within normal limits for a patient status post cholecystectomy. 3. Cystic structure near the tail of the pancreas correlating with CT findings and is better evaluated on the previous CT scan. Please refer to report from that study for more detailed findings. 4. Nonobstructing right lower pole intrarenal calculus.
--- NOTE | 2022-09-07 19:51 | ED_ITS ---
HPI - Abdominal Pain General Chief Complaint: Abdominal Pain <JON Garner - Last Filed: 09/07/22 19:57> Stated Complaint: lower abd pain radiates around to back <JON Garner - Last Filed: 09/07/22 19:57> Time Seen by Provider: 09/07/22 22:18 <JON Garner - Last Filed: 09/07/22 19:57> Source: patient and RN notes reviewed <Naman Fernandez - Last Filed: 09/08/22 0 1:28> Mode of arrival: ambulatory <Naman Fernandez - Last Filed: 09/08/22 01:28> Limitations: no limitations <Naman Fernandez - Last Filed: 09/08/22 01:28> History of Present Illness HPI narrative: 46-year-old female with past medical history significant for pancreatitis, GERD, history of alcohol use, seizure disorder, anxiety presents for evaluation of abdominal pain Patient reports that she woke up this morning with mid abdominal pain that radiates to her back and mostly to her left side. The pain is stabbing, 8/10. She has some nausea without vomiting. The patient was admitted in January of 2021 for a seizure disorder Denies any headache or recent seizures. The patient reports that she does continue to drink alcohol occasionally but reports it is not in excess <Naman Fernandez - Last Filed: 09/08/22 01:28> Related Data Home Medications: Previous Rx's Medication Instructions Recorded nicotine 10 mg inhalation 1 inh inhalation Q2-4H PRN 02/28/22 cartridge (Nicotrol) nicotine cravings 30 days #168 ea pantoprazole 40 mg tablet,delayed 40 mg PO DAILY 90 days #90 tabs 04/05/22 release levetiracetam 500 mg tablet 500 mg PO BID 30 days #60 tabs 05/03/22 pentoxifylline 400 mg 400 mg PO BID #60 tabs 06/01/22 tablet,extended release cyclobenzaprine 10 mg tablet 10 mg PO BEDTIME PRN muscle spasm 06/13/22 30 days #30 tabs amlodipine 10 mg tablet 10 mg PO DAILY #90 tabs 07/20/22 [id number]-[id number] 2 cap PO TID 60 days #360 caps 08/10/22 12,000-38,000-60,000 unit capsule,delayed rel (Creon) nicotine (polacrilex) 2 mg gum 2 mg buccal Q2H PRN nicotine 08/10/22 cravings 30 days #110 ea clonidine HCl 0.2 mg tablet 0.2 mg PO BID 30 days #60 tabs 09/06/22 gabapentin 800 mg tablet 800 mg PO QID 30 days #120 tabs 09/06/22 sertraline 100 mg tablet 200 mg PO DAILY 30 days #60 tabs 09/06/22 <JON Garner - Last Filed: 09/07/22 19:57> Allergies/Adverse Reactions: Allergies Allergy/AdvReac Type Severity Reaction Status Date / Time Penicillins [PENICILLINS] Allergy Severe ANAPHYLAXIS Verified 09/07/22 19:57 codeine Allergy Intermediate vomiting Verified 09/07/22 19:57 Sulfa (Sulfonamide Allergy Intermediate diarrh Verified 09/07/22 19:57 Antibiotics) tramadol Allergy Intermediate Vomiting Verified 09/07/22 19:57 morphine AdvReac Intermediate itchiness Verified 09/07/22 19:57 sumatriptan AdvReac Intermediate GI side Verified 09/07/22 19:57 effect duloxetine [Cymbalta] AdvReac Unknown increased Verified 09/07/22 19:57 depression <JON Garner - Last Filed: 09/07/22 19:57> Review of Systems Constitutional: Reports as per HPI, Denies chills, Denies fatigue, Denies fever(s) and Denies headache(s) <Naman Fernandez - Last Filed: 09/08/22 01:28> Denies headache(s) <Naman Fernandez - Last Filed: 09/08/22 01:28> Cardiovascular: Denies chest pain and Denies dyspnea <Naman Fernandez - Last Filed: 09/08/22 01:28> Respiratory: Denies cough and Denies dyspnea <Naman Fernandez - Last Filed: 09/08/22 01:28> Gastrointestinal: Reports abdominal pain, Denies constipation, Reports nausea and Denies vomiting <Naman Fernandez - Last Filed: 09/08/22 01:28> Genitourinary: Denies dysuria <Naman Fernandez - Last Filed: 09/08/22 01:28> Denies headache(s) and Denies focal weakness <Naman Fernandez - Last Filed: 09/08/22 01:28> Endocrine: Denies fatigue <Naman Fernandez - Last Filed: 09/08/22 01:28> [facility]LY [facility] Past Medical History Medical History: Medical History (Updated 09/08/22 @ 01:28 by Naman Fernandez) Abdominal pain Anxiety Chronic musculoskeletal pain Depression HTN (hypertension) Liver fibrosis Nausea Polyarthritis Pseudocyst of pancreas Screening for hypercholesterolemia Smoker Transaminitis <JON Garner - Last Filed: 09/07/22 19:57> Surgical History: Surgical History History of cholecystectomy <JON Garner - Last Filed: 09/07/22 19:57> Family History Family History: Family History Maternal Grandmother Cancer Mother HTN (hypertension) Mental health disorder Father HTN (hypertension) Substance use disorder <JON Garner - Last Filed: 09/07/22 19:57> Social History Social History: Social History Household Members: Family Housing: House Do you presently have visiting nurse or other home services: No Alcohol intake: current Alcohol intake frequency: holidays/special occasions only Alcohol type: other Patient Tobacco Use Status: Current someday Tobacco user Tobacco use type: Cigarette Cigarette Packs Per Day: 1 Cigarettes Per Day: 20 (a week) Years Smoked: 28 Smoked in Last 30 Days: Yes e-Cigarette/Vaping Use: Never Used Second Hand Smoke Exposure: No Use of substances other than those prescribed or required for medical reasons: Yes Advance Directives: No Advance Directives Information Provided: No Patient : No service: No Current occupational status: unemployed Cognitive needs: No Hearing needs: No Vision needs: No <JON Garner - Last Filed: 09/07/22 19:57> Physical Exam ED Vital Signs: Vital Signs - 24 hr 09/07/22 19:52 09/07/22 21:50 09/07/22 23:10 Temperature 99.6 F 100.4 F Pulse Rate 87 83 Respiratory Rate 16 20 20 Blood Pressure 127/109 H 123/87 Pulse Oximetry 98 98 Oxygen Delivery Method Room Air Room Air 09/07/22 23:50 Temperature 98.9 F Pulse Rate 78 Respiratory Rate 16 Blood Pressure 131/76 Pulse Oximetry 96 Oxygen Delivery Method Room Air BMI result Body Mass Index 23.0 <JON Garner - Last Filed: 09/07/22 19:57> Vital Signs - 24 hr 09/07/22 19:52 09/07/22 21:50 09/07/22 23:10 Temperature 99.6 F 100.4 F Pulse Rate 87 83 Respiratory Rate 16 20 20 Blood Pressure 127/109 H 123/87 Pulse Oximetry 98 98 Oxygen Delivery Method Room Air Room Air 09/07/22 23:50 Temperature 98.9 F Pulse Rate 78 Respiratory Rate 16 Blood Pressure 131/76 Pulse Oximetry 96 Oxygen Delivery Method Room Air BMI result Body Mass Index 23.0 <Naman Fernandez - Last Filed: 09/08/22 01:28> Const General: healthy appearing, comfortable, no acute distress, alert and awake <Naman Fernandez - Last Filed: 09/08/22 01:28> Nutritional Appearance: well nourished <Naman Fernandez - Last Filed: 09/08/22 01:28> Orientation/consciousness: patient oriented x3 <Naman Fernandez - Last Filed: 09/08/22 01:28> HENOR Head: Yes normocephalic and Yes atraumatic <Naman Fernandez - Last Filed: 09/08/22 01:28> Throat: Yes posterior oropharynx normal <Naman Fernandez - Last Filed: 09/08/22 01:28> Eyes Eyelids: Yes eyelids normal <Naman Fernandez - Last Filed: 09/08/22 01:28> Conjunctivae: conjunctivae normal <Naman Fernandez - Last Filed: 09/08/22 01:28> Sclerae: sclerae normal <Naman Fernandez - Last Filed: 09/08/22 01:28> Corneas: corneas normal <Naman Fernandez - Last Filed: 09/08/22 01:28> Pupils: Equal, round and reactive pupils present <Naman [place] - Last Filed: 09/08/22 01:28> EOM: EOMs intact bilaterally <Naman [place] - Last Filed: 09/08/22:28> Neck Neck: Yes full ROM <Naman [place] - Last Filed: 09/08/22 01:28> Resp Effort & Inspection: normal respiratory effort, able to speak in complete sentences, no audible wheezes and not labored <Naman O Last Filed: 09/08/22:28> Auscultation: clear to auscultation bilaterally <Naman O - Last Filed: 09/08/22:28> Cardio Rate: regular rate <Naman O - Last Filed: 09/08/22:28> Rhythm: regular rhythm <Naman O Last Filed: 09/08/22:28> GI Inspection: No distended <Naman [place] - Last Filed: 09/08/22:28> Palpation (GI): Soft to palpation, Tenderness to palpation present (GI) in the epigastrum, in the LUQ and in the RUQ; not at McBurney's point and Guarding due to palpa tion present (GI) <Naman O Last Filed: 09/08/22:28> Auscultation: normoactive bowel sounds <Naman O Last Filed: 09/08/22 01:28> Skin General skin exam: no rashes or lesions noted and elasticity normal <Naman O Last Filed: 09/08/22 01:28> Neuro General: patient oriented x3 <Naman O - Last Filed: 09/08/22 01:28> Cranial nerves: Yes Equal, round and reactive pupils present and Yes Bilaterally intact EOM present <Naman O Last Filed: 09/08/22 01:28> Cognition (Neuro): normal cognition <Naman O[place] - Last Filed: 09/08/22 01:28> Extrem Other: Moving all extremities well without any obvious deformities <Naman OAnshu - Last Filed: 09/08/22 01:28> Course Course Course Narrative: RME - 46 yo female with history of recurrent pancreatitis complicated by pseudocyst requiring drainage, history of gallbladder disease s/p cholecystectomy, former ETOH abuse, migraines, seizures, anxiety, smoker who presents to the ER for evaluation of sharp epigastric pains that radiates down into her lower abdomen and her back. +Nausea but no vomiting or diarrhea. Feels similar to her prior bouts of pancreatitis. Plan: Labs and CT scan w/ contrast <JON Garner - Last Filed: 09/07/22 19:57> Medical Decision Making Medical Decision Making MDM Narrative: 46-year-old female presents for evaluation of abdominal pain with a history of pancreatitis. Her white count is 14.9, she is noted to have a sodium of 128, magnesium of 1.2 and a lipase of 230. A CT scan of the abdomen pelvis is pending. I and on ethanol level and a triglyceride level. We will treat the patient discomfort with IV fluids, Dilaudid, Zofran. Will also get a UA as the patient did complain of some burning with urination <Naman Fernandez - Last Filed: 09/08/22 01:28> Differential Diagnosis Acute pancreatitis alcohol abuse Pyelonephritis Obstructive uropathy UTI Pancreatic pseudocyst <Naman Fernandez - Last Filed: 09/08/22 01:28> Lab Data Result Diagrams: 09/07/22 20:05 09/07/22 20:05 <JON Garner - Last Filed: 09/07/22 19:57> Labs: Lab Results 09/07/22 09/07/22 09/07/22 Range/Units 20:05 20:05 23:52 WBC 14.9 H (4.8-10.8) X10*3/uL RBC 3.82 L (4.20-5.50) X10*6/uL Hgb 12.7 (12.0-16.0) g/dl Hct 37.0 (37.0-47.0) % MCV 96.9 (80.0-98.0) fL MCH 33.2 H (27.0-33.0) pg MCHC 34.3 (31.0-35.0) g/dl RDW 14.0 (11.0-16.0) % Plt Count 251 (160-400) X10*3/uL MPV 9.2 L (9.4-12.3) fL Immature Gran % (Auto) 0.5 H (0.0-0.4) % Neut % (Auto) 81.3 H (45-73) % Lymph % (Auto) 10.7 L (20-40) % [place] % (Auto) 6.7 (2-11) % Eos % (Auto) 0.4 (0-4) % Baso % (Auto) 0.4 (0-2) % Lymph # (Auto) 1.6 (1.2-4.9) X10*3/uL [place] # (Auto) 1.0 (0.1-1.2) X10*3/uL Eos # (Auto) 0.1 (0.0-0.4) X10*3/uL Baso # (Auto) 0.1 (0.0-0.2) X10*3/uL Abs Immat Gran (auto) 0.07 H (0.00-0.03) X10*3/uL Absolute Neuts (auto) 12.1 H (2.0-8.3) x10*3/uL Absolute Nucleated RBC 0.000 (0.0-0.012) X10*3/uL Nucleated RBC % (auto) 0.0 (0.0-0.2) /100WBC Sodium 128 L (135-145) mmol/L Potassium 4.3 (3.3-5.1) mmol/L Chloride 92 L (96-108) mmol/L Carbon Dioxide 22 (22-29) mmol/L Anion Gap 18 (12-20) BUN 7 L (9-16) mg/dL Creatinine 0.75 (0.5-1.4) mg/dL Estim Creat Clear Calc 77.5 Estimated GFR > 60 Random Glucose 100 (60-115) mg/dL Calcium 9.4 (8.4-10.2) mg/dL Magnesium 1.2 L* (1.6-2.6) mg/dL Total Bilirubin 0.3 (0.0-1.0) mg/dL Direct Bilirubin < 0.2 (0.0-0.5) mg/dL AST 13 (5-31) U/L ALT 9 (0-31) U/L Alkaline Phosphatase 156 H (39-117) U/L Total Protein 6.9 (6.5-8.0) g/dL Albumin 3.8 (3.5-5.0) g/dL Triglycerides 63 mg/dL Lipase 230 H (8-78) U/L Urine Color Yellow Urine Appearance Clear Urine pH 7.0 (5.0-9.0) Ur Specific [place] >= 1.030 H (1.005-1.025) Urine Protein Negative (Neg-Trace) mg/dL Urine Glucose (UA) Negative (Negative) mg/dL Urine Ketones Negative (Negative) mg/dL Urine Blood Negative (Negative) Urine Nitrite Negative (Negative) Ur Leukocyte Esterase Negative (Negative) Ethyl Alcohol < 10 mg/dL COVID-19 ([facility]) (Negative) COVID-19 Clin Com 09/08/22 Range/Units 00:59 WBC (4.8-10.8) X10*3/uL RBC (4.20-5.50) X10*6/uL Hgb (12.0-16.0) g/dl Hct (37.0-47.0) % MCV (80.0-98.0) fL MCH (27.0-33.0) pg MCHC (31.0-35.0) g/dl RDW (11.0-16.0) % Plt Count (160-400) X10*3/uL MPV (9.4-12.3) fL Immature Gran % (Auto) (0.0-0.4) % Neut % (Auto) (45-73) % Lymph % (Auto) (20-40) % [place] % (Auto) (2-11) % Eos % (Auto) (0-4) % Baso % (Auto) (0-2) % Lymph # (Auto) (1.2-4.9) X10*3/uL [place] # (Auto) (0.1-1.2) X10*3/uL Eos # (Auto) (0.0-0.4) X10*3/uL Baso # (Auto) (0.0-0.2) X10*3/uL Abs Immat Gran (auto) (0.00-0.03) X10*3/uL Absolute Neuts (auto) (2.0-8.3) x10*3/uL Absolute Nucleated RBC (0.0-0.012) X10*3/uL Nucleated RBC % (auto) (0.0-0.2) /100WBC Sodium (135-145) mmol/L Potassium (3.3-5.1) mmol/L Chloride (96-108) mmol/L Carbon Dioxide (22-29) mmol/L Anion Gap (12-20) BUN (9-16) mg/dL Creatinine (0.5-1.4) mg/dL Estim Creat Clear Calc Estimated GFR Random Glucose (60-115) mg/dL Calcium (8.4-10.2) mg/dL Magnesium (1.6-2.6) mg/dL Total Bilirubin (0.0-1.0) mg/dL Direct Bilirubin (0.0-0.5) mg/dL AST (5-31) U/L ALT (0-31) U/L Alkaline Phosphatase (39-117) U/L Total Protein (6.5-8.0) g/dL Albumin (3.5-5.0) g/dL Triglycerides mg/dL Lipase (8-78) U/L Urine Color Urine Appearance Urine pH (5.0-9.0) Ur Specific [place] (1.005-1.025) Urine Protein (Neg-Trace) mg/dL Urine Glucose (UA) (Negative) mg/dL Urine Ketones (Negative) mg/dL Urine Blood (Negative) Urine Nitrite (Negative) Ur Leukocyte Esterase (Negative) Ethyl Alcohol mg/dL COVID-19 ([facility]) Negative (Negative) COVID-19 Clin Com See Note <JON Garner - Last Filed: 09/07/22 19:57> Lab Results 09/07/22 09/07/22 09/07/22 Range/Units 20:05 20:05 23:52 WBC 14.9 H (4.8-10.8) X10*3/uL RBC 3.82 L (4.20-5.50) X10*6/uL Hgb 12.7 (12.0-16.0) g/dl Hct 37.0 (37.0-47.0) % MCV 96.9 (80.0-98.0) fL MCH 33.2 H (27.0-33.0) pg MCHC 34.3 (31.0-35.0) g/dl RDW 14.0 (11.0-16.0) % Plt Count 251 (160-400) X10*3/uL MPV 9.2 L (9.4-12.3) fL Immature Gran % (Auto) 0.5 H (0.0-0.4) % Neut % (Auto) 81.3 H (45-73) % Lymph % (Auto) 10.7 L (20-40) % [place] % (Auto) 6.7 (2-11) % Eos % (Auto) 0.4 (0-4) % Baso % (Auto) 0.4 (0-2) % Lymph # (Auto) 1.6 (1.2-4.9) X10*3/uL [place] # (Auto) 1.0 (0.1-1.2) X10*3/uL Eos # (Auto) 0.1 (0.0-0.4) X10*3/uL Baso # (Auto) 0.1 (0.0-0.2) X10*3/uL Abs Immat Gran (auto) 0.07 H (0.00-0.03) X10*3/uL Absolute Neuts (auto) 12.1 H (2.0-8.3) x10*3/uL Absolute Nucleated RBC 0.000 (0.0-0.012) X10*3/uL Nucleated RBC % (auto) 0.0 (0.0-0.2) /100WBC Sodium 128 L (135-145) mmol/L Potassium 4.3 (3.3-5.1) mmol/L Chloride 92 L (96-108) mmol/L Carbon Dioxide 22 (22-29) mmol/L Anion Gap 18 (12-20) BUN 7 L (9-16) mg/dL Creatinine 0.75 (0.5-1.4) mg/dL Estim Creat Clear Calc 77.5 Estimated GFR > 60 Random Glucose 100 (60-115) mg/dL Calcium 9.4 (8.4-10.2) mg/dL Magnesium 1.2 L* (1.6-2.6) mg/dL Total Bilirubin 0.3 (0.0-1.0) mg/dL Direct Bilirubin < 0.2 (0.0-0.5) mg/dL AST 13 (5-31) U/L ALT 9 (0-31) U/L Alkaline Phosphatase 156 H (39-117) U/L Total Protein 6.9 (6.5-8.0) g/dL Albumin 3.8 (3.5-5.0) g/dL Triglycerides 63 mg/dL Lipase 230 H (8-78) U/L Urine Color Yellow Urine Appearance Clear Urine pH 7.0 (5.0-9.0) Ur Specific [place] >= 1.030 H (1.005-1.025) Urine Protein Negative (Neg-Trace) mg/dL Urine Glucose (UA) Negative (Negative) mg/dL Urine Ketones Negative (Negative) mg/dL Urine Blood Negative (Negative) Urine Nitrite Negative (Negative) Ur Leukocyte Esterase Negative (Negative) Ethyl Alcohol < 10 mg/dL COVID-19 ([facility]) (Negative) COVID-19 Clin Com 09/08/22 Range/Units 00:59 WBC (4.8-10.8) X10*3/uL RBC (4.20-5.50) X10*6/uL Hgb (12.0-16.0) g/dl Hct (37.0-47.0) % MCV (80.0-98.0) fL MCH (27.0-33.0) pg MCHC (31.0-35.0) g/dl RDW (11.0-16.0) % Plt Count (160-400) X10*3/uL MPV (9.4-12.3) fL Immature Gran % (Auto) (0.0-0.4) % Neut % (Auto) (45-73) % Lymph % (Auto) (20-40) % [place] % (Auto) (2-11) % Eos % (Auto) (0-4) % Baso % (Auto) (0-2) % Lymph # (Auto) (1.2-4.9) X10*3/uL [place] # (Auto) (0.1-1.2) X10*3/uL Eos # (Auto) (0.0-0.4) X10*3/uL Baso # (Auto) (0.0-0.2) X10*3/uL Abs Immat Gran (auto) (0.00-0.03) X10*3/uL Absolute Neuts (auto) (2.0-8.3) x10*3/uL Absolute Nucleated RBC (0.0-0.012) X10*3/uL Nucleated RBC % (auto) (0.0-0.2) /100WBC Sodium (135-145) mmol/L Potassium (3.3-5.1) mmol/L Chloride (96-108) mmol/L Carbon Dioxide (22-29) mmol/L Anion Gap (12-20) BUN (9-16) mg/dL Creatinine (0.5-1.4) mg/dL Estim Creat Clear Calc Estimated GFR Random Glucose (60-115) mg/dL Calcium (8.4-10.2) mg/dL Magnesium (1.6-2.6) mg/dL Total Bilirubin (0.0-1.0) mg/dL Direct Bilirubin (0.0-0.5) mg/dL AST (5-31) U/L ALT (0-31) U/L Alkaline Phosphatase (39-117) U/L Total Protein (6.5-8.0) g/dL Albumin (3.5-5.0) g/dL Triglycerides mg/dL Lipase (8-78) U/L Urine Color Urine Appearance Urine pH (5.0-9.0) Ur Specific [place] (1.005-1.025) Urine Protein (Neg-Trace) mg/dL Urine Glucose (UA) (Negative) mg/dL Urine Ketones (Negative) mg/dL Urine Blood (Negative) Urine Nitrite (Negative) Ur Leukocyte Esterase (Negative) Ethyl Alcohol mg/dL COVID-19 ([facility]) Negative (Negative) COVID-19 Clin Com See Note <Naman Fernandez - Last Filed: 09/08/22 01:28> Medications Administered Discontinued Medications Generic Name Dose Route Start Last Admin Trade Name Freq PRN Reason Stop Dose Admin Hydromorphone HCl 1 mg 09/07/22 22:46 09/07/22 23:10 Hydromorphone Hcl 1 Mg/Ml Syringe IVPUSH 09/07/22 22:47 1 mg ONCE ONE Administration Protocol Sodium Chloride 1,000 mls @ 999 mls/hr 09/07/22 23:00 09/07/22 23:18 Ns IV 09/08/22 00:00 999 mls/hr .Q1H1M MERCEDES Administration Magnesium Sulfate 2 gm in 50 mls @ 25 mls/hr 09/07/22 22:47 09/07/22 23:11 Magnesium Sulfate/H2o IV 09/08/22 00:46 25 mls/hr ONCE ONE Administration Iohexol 100 ml 09/07/22 22:36 09/07/22 22:37 Iohexol 350 Mg/Ml 100 Ml Infus..Btl IV 09/07/22 22:37 85 ml ONCE ONE Administration Ondansetron HCl 4 mg 09/07/22 22:46 09/07/22 23:10 Ondansetron Hcl 4 Mg/2 Ml Vial IVPUSH 09/07/22 22:47 4 mg ONCE ONE Administration <JON Garner - Last Filed: 09/07/22 19:57> Medications Administered Discontinued Medications Generic Name Dose Route Start Last Admin Trade Name Freq PRN Reason Stop Dose Admin Hydromorphone HCl 1 mg 09/07/22 22:46 09/07/22 23:10 Hydromorphone Hcl 1 Mg/Ml Syringe IVPUSH 09/07/22 22:47 1 mg ONCE ONE Administration Protocol Sodium Chloride 1,000 mls @ 999 mls/hr 09/07/22 23:00 09/07/22 23:18 Ns IV 09/08/22 00:00 999 mls/hr .Q1H1M MERCEDES Administration Magnesium Sulfate 2 gm in 50 mls @ 25 mls/hr 09/07/22 22:47 09/07/22 23:11 Magnesium Sulfate/H2o IV 09/08/22 00:46 25 mls/hr ONCE ONE Administration Iohexol 100 ml 09/07/22 22:36 09/07/22 22:37 Iohexol 350 Mg/Ml 100 Ml Infus..Btl IV 09/07/22 22:37 85 ml ONCE ONE Administration Ondansetron HCl 4 mg 09/07/22 22:46 09/07/22 23:10 Ondansetron Hcl 4 Mg/2 Ml Vial IVPUSH 09/07/22 22:47 4 mg ONCE ONE Administration <Naman Fernandez - Last Filed: 09/08/22 01:28> Discharge Plan Discharge Clinical Impression: Acute pancreatitis <JON Garner - Last Filed: 09/07/22 19:57> Patient Disposition: Admitted As Inpatient <JON Garner - Last Filed: 09/07/22 19:57>
[2022-09-07 19:52] VITALS: BP 127/109; PULSE 87; RESP 16; TEMP 37.6; O2SAT 98; BMI 23.0
[2022-09-07 20:08] LABS: MANUAL DIFF FLAG NO
[2022-09-07 20:09] LABS: Basophils Absolute Auto 0.1 X10*3/uL (0.0-0.2); Basophils Percent Auto 0.4 % (0-2); Eosinophils Absolute Auto 0.1 X10*3/uL (0.0-0.4); Eosinophils Percent Auto 0.4 % (0-4); Hemoglobin 12.7 g/dl (12.0-16.0); Imm Gran Abs Auto 0.07 X10*3/uL (0.00-0.03); Imm Gran Pct Auto 0.5 % (0.0-0.4); Lymphocytes Absolute Auto 1.6 X10*3/uL (1.2-4.9); Lymphocytes Percent Auto 10.7 % (20-40); Mean Corpuscular HGB Conc 34.3 g/dl (31.0-35.0); Mean Corpuscular Hemoglobin 33.2 pg (27.0-33.0); Mean Corpuscular Volume 96.9 fL (80.0-98.0); Mean Platelet Volume 9.2 fL (9.4-12.3); Monocytes Percent Auto 6.7 % (2-11); Neutrophils Absolute Auto 12.1 x10*3/uL (2.0-8.3); Neutrophils Percent Auto 81.3 % (45-73); Platelet Count 251 X10*3/uL (160-400); Red Blood Count 3.82 X10*6/uL (4.20-5.50); White Blood Count 14.9 X10*3/uL (4.8-10.8)
[2022-09-07 20:37] LABS: Alanine Aminotransferase 9 U/L (0-31); Albumin Level 3.8 g/dL (3.5-5.0); Alkaline Phosphatase 156 U/L (39-117); Anion Gap 18 (12-20); Aspartate Amino Transferase 13 U/L (5-31); Bilirubin Direct < 0.2 mg/dL (0.0-0.5); Bilirubin Total 0.3 mg/dL (0.0-1.0); Blood Urea Nitrogen 7 mg/dL (9-16); Calcium 9.4 mg/dL (8.4-10.2); Carbon Dioxide 22 mmol/L (22-29); Chloride 92 mmol/L (96-108); Creatinine Clr Calc Pharmacy 77.5; Estimated Glomerular Filt Rate > 60; Glucose Random 100 mg/dL (60-115); Lipase 230 U/L (8-78); Magnesium 1.2 mg/dL (1.6-2.6); Potassium 4.3 mmol/L (3.3-5.1); Sodium 128 mmol/L (135-145); Total Protein 6.9 g/dL (6.5-8.0)
[2022-09-07 21:50] VITALS: BP 123/87; PULSE 83; RESP 20; TEMP 38; O2SAT 98
[2022-09-07] MEDS: iohexoL 350 MG/ML 100 ML INFUS..BTL IV (22:37)
[2022-09-07 22:49] LABS: Ethanol < 10 mg/dL; Triglycerides 63 mg/dL
[2022-09-07 23:10] VITALS: RESP 20
[2022-09-07] MEDS: ondansetron HCL 4 MG/2 ML VIAL IVPUSH (23:10)
[2022-09-07] MEDS: HYDROmorphone HCl 1 MG/ML SYRINGE IVPUSH (23:10)
[2022-09-07] MEDS: Magnesium Sulfate/H2O 2 GM/50 ML PIGGYBACK IV (23:11)
[2022-09-07] MEDS: 0.9 % Sodium Chloride 1,000 ML 999 ML IV (23:18)
[2022-09-07 23:50] VITALS: BP 131/76; PULSE 78; RESP 16; TEMP 37.2; O2SAT 96
[2022-09-07 23:58] LABS: Appearance Urine Clear; Color Urine Yellow; Glucose Urine UA Negative (Negative); Leukocyte Esterase Urine Negative (Negative); Nitrite Urine Negative (Negative); Specific Gravity - Urine >= 1.030 (1.005-1.025); Urine Blood Negative (Negative); Urine Ketones Negative (Negative); Urine Protein Negative (Neg-Trace)
--- NOTE | 2022-09-08 01:07 | PM.IMHP ---
History of Present Illness Date of Service: 09/08/22 Chief Complaint: Abdominal Pain This is a 46-year-old female with pertinent history of alcohol use disorder, tobacco use disorder, history of pancreatitis, essential hypertension, peripheral neuropathy, seizure disorder who presents to the emergency department for evaluation of abdominal pain. Patient states it was sudden in onset on the day of presentation, epigastric region and radiating to the back, stabbing, without any relieving factors. Does have associated chills and nausea. Patient states her last episode of acute pancreatitis was 2 years ago. She continues to drink alcohol occasionally. Patient thinks her last episode of pancreatitis was due to her gallbladder. Patient denies fever, chest discomfort, palpitations, shortness of breath, changes in urinary or bowel habits. In the emergency department, lipase was found to be elevated and pseudocyst was noted on imaging Review of Systems Constitutional: Constitutional: Reports chills and Reports malaise Cardiovascular: Cardiovascular: Reports no additional cardiovascular complaints Respiratory: Respiratory: Reports no additional respiratory complaints Gastrointestinal: Gastrointestinal: Reports abdominal pain and Reports nausea Genitourinary: Genitourinary: Reports no additional female genitourinary complaints Musculoskeletal: Musculoskeletal: Reports no additional musculoskeletal complaints [facility] Medical History Abdominal pain Anxiety Chronic musculoskeletal pain Depression HTN (hypertension) Liver fibrosis Nausea Polyarthritis Pseudocyst of pancreas Screening for hypercholesterolemia Smoker Transaminitis Family History Maternal Grandmother Cancer Mother HTN (hypertension) Mental health disorder Father HTN (hypertension) Substance use disorder Surgical History History of cholecystectomy Social History Household Members: Family Housing: House Do you presently have visiting nurse or other home services: No Alcohol intake: current Alcohol intake frequency: holidays/special occasions only Alcohol type: other Patient Tobacco Use Status: Current someday Tobacco user Tobacco use type: Cigarette Cigarette Packs Per Day: 1 Cigarettes Per Day: 20 (a week) Years Smoked: 28 Smoked in Last 30 Days: Yes e-Cigarette/Vaping Use: Never Used Second Hand Smoke Exposure: No Use of substances other than those prescribed or required for medical reasons: Yes Advance Directives: No Advance Directives Information Provided: No Patient : No service: No Current occupational status: unemployed Cognitive needs: No Hearing needs: No Vision needs: No Meds Allergies Allergy/AdvReac Type Severity Reaction Status Date / Time Penicillins [PENICILLINS] Allergy Severe ANAPHYLAXIS Verified 09/07/22 19:57 codeine Allergy Intermediate vomiting Verified 09/07/22 19:57 Sulfa (Sulfonamide Allergy Intermediate diarrh Verified 09/07/22 19:57 Antibiotics) tramadol Allergy Intermediate Vomiting Verified 09/07/22 19:57 morphine AdvReac Intermediate itchiness Verified 09/07/22 19:57 sumatriptan AdvReac Intermediate GI side Verified 09/07/22 19:57 effect duloxetine [Cymbalta] AdvReac Unknown increased Verified 09/07/22 19:57 depression Active Medications: Current Medications Pharmacy Consult (Consult Rx Perform Med Rec) 1 each MISCELLANE ONCE PRN PRN Reason: Consult order Physical Exam Vital Signs and Narrative: Vital Signs: Last Vital Signs Temp 98.9 F 09/07/22 23:50 Pulse 78 09/07/22 23:50 Resp 16 09/07/22 23:50 BP 131/76 09/07/22 23:50 Pulse Ox 96 09/07/22 23:50 O2 Del Method Room Air 09/07/22 23:50 BMI result Body Mass Index 23.0 Middle-aged female lying in bed in no distress Neck supple, no JVD Regular rate and rhythm, S1-S2 heard Regular breath sounds bilaterally, no wheezing or crackles appreciated Abdomen with epigastric tenderness, no guarding, no rigidity, no rebound tenderness Patient is awake, alert and oriented to self, place, time and person ; no focal motor deficit Psych: Normal mood No pedal edema Results Labs 09/07/22 20:05 09/07/22 20:05 Labs: Laboratory Results - last 24 hr 09/07/22 09/07/22 09/07/22 20:05 20:05 23:52 MCV 96.9 MCH 33.2 H MCHC 34.3 RDW 14.0 Plt Count 251 MPV 9.2 L Immature Gran % (Auto) 0.5 H Neut % (Auto) 81.3 H Lymph % (Auto) 10.7 L [place] % (Auto) 6.7 Eos % (Auto) 0.4 Baso % (Auto) 0.4 Lymph # (Auto) 1.6 [place] # (Auto) 1.0 Eos # (Auto) 0.1 Baso # (Auto) 0.1 Abs Immat Gran (auto) 0.07 H Absolute Neuts (auto) 12.1 H Absolute Nucleated RBC 0.000 Nucleated RBC % (auto) 0.0 Anion Gap 18 Estim Creat Clear Calc 77.5 Estimated GFR > 60 Random Glucose 100 Calcium 9.4 Magnesium 1.2 L* Total Bilirubin 0.3 Direct Bilirubin < 0.2 AST 13 ALT 9 Alkaline Phosphatase 156 H Total Protein 6.9 Albumin 3.8 Triglycerides 63 Lipase 230 H Urine Color Yellow Urine Appearance Clear Urine pH 7.0 Ur Specific [place] >= 1.030 H Urine Protein Negative Urine Glucose (UA) Negative Urine Ketones Negative Urine Blood Negative Urine Nitrite Negative Ur Leukocyte Esterase Negative Ethyl Alcohol < 10 Imaging Radiologist's Impressions: Impressions Abdomen/Pelvis CT 09/07/22 22:38 IMPRESSION: 1. Changes of chronic pancreatitis. There is ill-defined hypoattenuation along the pancreatic body and tail with associated small collections, suggestive of pseudocysts. 2. Diffuse fluid-filled and mildly prominent appearance of the right hemicolon. This could be associated with colitis. Fleischner guidelines were followed. Assessment and Plan (1) Acute pancreatitis: Status: Acute (2) Pseudocyst of pancreas: Status: Acute Plan This is a 46-year-old female with pertinent history of alcohol use disorder, tobacco use disorder, history of pancreatitis, essential hypertension, peripheral neuropathy, seizure disorder who presents to the emergency department for evaluation of abdominal pain. #. Acute on chronic pancreatitis with pseudocyst: Will admit patient and continue IV fluid resuscitation. Pain control with IV p.r.n. opioid. May need drainage of pseudocyst if pain persists. Full liquid diet and advance as tolerated. Triglyceride level normal. Will obtain ultrasound to look at CBD #. Leukocytosis in the setting of above: Defer antibiotics #. Hyponatremia: Likely hypovolemic. Monitor with fluid resuscitation #. Hypomagnesemia due to alcoholism: Repleted #. Alcohol use disorder: Initiating thiamine. Patient states she never had alcohol withdrawal in the past and does not want phenobarb. Monior CIWA #. Tobacco use disorder: Refused nicotine patch #. Mood disorder: On sertraline #. Seizure disorder: On Keppra #. Essential hypertension: On amlodipine #. Peripheral neuropathy: On gabapentin Med rec pending DVT prophylaxis: Lovenox 40 mg daily Full code Full liquid diet. Advance as tolerated Admit as inpatient and will require two night minimum hospital stay for management of acute pancreatitis with pseudocyst. Time Spent With Patient Time: Total time managing care of this patient today ____ minutes. Quality Stroke Does the patient have a stroke diagnosis?: No VTE Prior VTE?: No VTE Risk Level:: Medical - moderate - high VTE Device Contraindication: Treatment Not Indicated VTE Drug Contraindication: N/A - Med Ordered
[2022-09-08 01:25] LABS: COVID-19 Test Negative (Negative); IDNOW Serial# 6674DD1D
[2022-09-08] MEDS: Enoxaparin Sodium 40 MG/0.4 ML SYRINGE SUBCUT (01:56)
[2022-09-08] MEDS: 0.9 % Sodium Chloride 1,000 ML 125 ML IVCONT ×3 (01:59→18:19)
[2022-09-08 03:55] VITALS: BP 132/81; PULSE 64; RESP 16; TEMP 37.1; O2SAT 96
--- NOTE | 2022-09-08 04:54 | PC.NURSE ---
Nurse to Nurse report given to Raiza [facility] nurse. Patient will be transported to [facility] by atm technician
[2022-09-08 05:12] VITALS: RESP 14
[2022-09-08] MEDS: HYDROmorphone HCl 1 MG/ML SYRINGE 0.5 MG IVPUSH ×3 (05:12→14:34)
[2022-09-08 05:42] VITALS: BP 140/78; PULSE 68; RESP 20; TEMP 36.4; O2SAT 98
[2022-09-08 05:45] VITALS: BMI 23.1
[2022-09-08] MEDS: HYDROmorphone HCl 1 MG/ML SYRINGE IVPUSH ×3 (06:24→22:18)
[2022-09-08 07:22] VITALS: BP 84/53; PULSE 48; RESP 16; TEMP 36; O2SAT 97
[2022-09-08 07:58] LABS: MANUAL DIFF FLAG NO
[2022-09-08 08:02] LABS: Basophils Absolute Auto 0.1 X10*3/uL (0.0-0.2); Basophils Percent Auto 0.3 % (0-2); Eosinophils Absolute Auto 0.1 X10*3/uL (0.0-0.4); Eosinophils Percent Auto 0.4 % (0-4); Hematocrit 32.8 % (37.0-47.0); Hemoglobin 11.1 g/dl (12.0-16.0); Imm Gran Abs Auto 0.08 X10*3/uL (0.00-0.03); Imm Gran Pct Auto 0.5 % (0.0-0.4); Lymphocytes Absolute Auto 1.6 X10*3/uL (1.2-4.9); Lymphocytes Percent Auto 10.6 % (20-40); Mean Corpuscular HGB Conc 33.8 g/dl (31.0-35.0); Mean Corpuscular Volume 97.6 fL (80.0-98.0); Mean Platelet Volume 10.2 fL (9.4-12.3); Monocytes Percent Auto 6.6 % (2-11); Neutrophils Absolute Auto 12.2 x10*3/uL (2.0-8.3); Neutrophils Percent Auto 81.6 % (45-73); Platelet Count 204 X10*3/uL (160-400); Red Blood Count 3.36 X10*6/uL (4.20-5.50); White Blood Count 14.9 X10*3/uL (4.8-10.8)
[2022-09-08 08:26] LABS: Anion Gap 19 (12-20); Blood Urea Nitrogen 7 mg/dL (9-16); Carbon Dioxide 18 mmol/L (22-29); Chloride 99 mmol/L (96-108); Creatinine Clr Calc Pharmacy 89.4; Estimated Glomerular Filt Rate > 60; Glucose Random 107 mg/dL (60-115); Magnesium 1.9 mg/dL (1.6-2.6); Potassium 3.9 mmol/L (3.3-5.1); Sodium 132 mmol/L (135-145)
[2022-09-08] MEDS: Thiamine HCL 100 MG TABLET PO (08:32)
[2022-09-08 08:41] LABS: Calcium 8.6 mg/dL (8.4-10.2)
--- NOTE | 2022-09-08 12:28 | MHC.CM.PN ---
CM met with Patient at bedside. 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 Home/self care is the goal and CM has initiated and will follow for dc planning. Patient is not covid vakimberlee'd and her PCP/FORMAL SERVICE WAITER is Anthony Aragon.
--- NOTE | 2022-09-08 13:23 | P.EN_ITS ---
Event Note Date of Service: 09/08/22 Event Note: history and physical reviewed patient complaining of persistent mid abdominal discomfort with radiation to back no nausea no chills, no fevers. a/p 46-year-old female with pertinent history of alcohol use disorder, tobacco use disorder, history of pancreatitis, essential hypertension, peripheral neuropathy, seizure disorder who presents to the emergency department for evaluation of abdominal pain. #.? Acute on chronic pancreatitis with pseudocyst: persistent abdominal pain continue IV Dilaudid, increase IV fluids to 200 mL/hour abdominal ultrasound showed status post cholecystectomy, mild heterogenous cystic structure near the tail of pancreas no pancreatic ductal dilatation noted, hydro [place] liver normal common bile duct normal triglyceride/ drinks alcohol on weekends, normal LFTs, no new medications, no viral illness strongly recommend complete abstinence from alcohol , is status post drainage of large pancreatic pseudocyst follow CBC electrolytes calcium and renal function recommend outpatient follow-up with primary head of cytogenetics Dr. Santa #.? Leukocytosis in the setting of above: Defer antibiotics, follow CBC #.? acute Hyponatremia:? Likely hypovolemic, sodium improved to 132, follow l abs.? #.? Hypomagnesemia due to alcoholism: Repleted , magnesium 1.9 #.? Alcohol use disorder:? Initiating thiamine.? Patient states she never had alcohol withdrawal in the past and does not want phenobarb. Obed [place] #.? Tobacco use disorder:? Refused nicotine patch #.? Mood disorder: resume sertraline #.? Seizure disorder: On Keppra and Neurontin, seizure precautions #.? Essential hypertension:? low blood pressure hold amlodipine. #.? Peripheral neuropathy:? On gabapentin DVT prophylaxis:? Lovenox 40 mg daily Full code will need continued inpatient hospitalization for management of acute pancreatitis with pseudocyst. Time Spent With Patient Time: Total time managing care of this patient today ____ minutes.
[2022-09-08] MEDS: Lipase/Prot/Amylase 24/76/120K 1 CAP CAPSULE.DR PO ×2 (14:34→22:13)
[2022-09-08 16:00] VITALS: BP 103/57; PULSE 52; RESP 17; TEMP 36.6; O2SAT 100
[2022-09-08] MEDS: Gabapentin 400 MG CAPSULE 800 MG PO ×2 (18:03→22:12)
[2022-09-08] MEDS: levETIRAcetam 500 MG TABLET PO (22:12)
[2022-09-08] MEDS: 0.9 % Sodium Chloride Flush 3 ML SYRINGE IVFLUSH (22:15)
[2022-09-09] VITALS: BP 95/54; PULSE 57; RESP 16; TEMP 36.6; O2SAT 98
--- NOTE | 2022-09-09 | ECG_ITS ---
Test Reason : bradycardia Blood Pressure : / mmHG Vent. Rate : 046 BPM Atrial Rate : 046 BPM P-R Int : 134 ms QRS Dur : 086 ms QT Int : 440 ms P-R-T Axes : 033 024 013 degrees QTc Int : 385 ms Sinus bradycardia Nonspecific T wave abnormality Abnormal ECG When compared with ECG of 24-JAN-2021 03:03, Vent. rate has decreased BY 41 BPM Criteria for Septal infarct are no longer Present Non-specific change in ST segment in Anterior leads Nonspecific T wave abnormality, worse in Anterior leads Referred By: Tony Tarango Electronically Signed By:COURTNEY MUNROE
[2022-09-09] MEDS: Acetaminophen 325 MG TABLET 650 MG PO (00:38)
[2022-09-09] MEDS: 0.9 % Sodium Chloride 1,000 ML 125 ML IVCONT (02:24)
[2022-09-09] MEDS: HYDROmorphone HCl 1 MG/ML SYRINGE IVPUSH ×2 (02:26→06:15)
[2022-09-09 03:09] VITALS: BP 94/55; PULSE 48; RESP 14; TEMP 36.7; O2SAT 95
[2022-09-09] MEDS: Enoxaparin Sodium 40 MG/0.4 ML SYRINGE SUBCUT (05:13)
[2022-09-09 06:53] LABS: Hematocrit 32.2 % (37.0-47.0); Hemoglobin 10.6 g/dl (12.0-16.0); Mean Corpuscular HGB Conc 32.9 g/dl (31.0-35.0); Mean Corpuscular Hemoglobin 32.8 pg (27.0-33.0); Mean Corpuscular Volume 99.7 fL (80.0-98.0); Mean Platelet Volume 10.7 fL (9.4-12.3); Platelet Count 204 X10*3/uL (160-400); Red Blood Count 3.23 X10*6/uL (4.20-5.50); White Blood Count 12.7 X10*3/uL (4.8-10.8)
[2022-09-09 07:09] LABS: Anion Gap 13 (12-20); Blood Urea Nitrogen 5 mg/dL (9-16); Calcium 8.6 mg/dL (8.4-10.2); Carbon Dioxide 20 mmol/L (22-29); Chloride 107 mmol/L (96-108); Creatinine Clr Calc Pharmacy 96.9; Estimated Glomerular Filt Rate > 60; Glucose Random 103 mg/dL (60-115); Lipase 35 U/L (8-78); Magnesium 1.7 mg/dL (1.6-2.6); Sodium 136 mmol/L (135-145)
[2022-09-09 07:28] VITALS: BP 115/69; PULSE 55; RESP 16; TEMP 36.3; O2SAT 98
[2022-09-09] MEDS: 0.9 % Sodium Chloride Flush 3 ML SYRINGE IVFLUSH ×2 (09:09→15:44)
[2022-09-09] MEDS: Gabapentin 400 MG CAPSULE 800 MG PO ×2 (09:09→14:54)
[2022-09-09] MEDS: Sertraline HCL 100 MG TABLET PO (09:09)
[2022-09-09] MEDS: levETIRAcetam 500 MG TABLET PO (09:09)
[2022-09-09] MEDS: Lipase/Prot/Amylase 24/76/120K 1 CAP CAPSULE.DR PO ×2 (09:09→14:54)
[2022-09-09] MEDS: Thiamine HCL 100 MG TABLET PO (09:09)
[2022-09-09] MEDS: HYDROmorphone HCl 1 MG/ML SYRINGE 0.75 MG IVPUSH (10:21)
[2022-09-09] MEDS: HYDROmorphone HCl 1 MG/ML SYRINGE 0.5 MG IVPUSH (14:57)
[2022-09-09] MEDS: levoFLOXacin/D5W 500 MG/100 ML PIGGYBACK 100 MG IV (14:59)
[2022-09-09 15:38] VITALS: BP 127/71; PULSE 50; RESP 18; TEMP 36.6; O2SAT 99
--- NOTE | 2022-09-09 16:34 | PM.DS ---
DS: Providers Provider Date of Service: 09/09/22 Date of admission: 09/08/22 01:05 Primary care physician: Anthony Aragon PA-C Consults: 09/09/22 09:38 Consult to Gastroenterology Routine Consulting Provider: Vega Aguiar Reason for consultation: abd pain Has provider been notified: No DS: Diagnosis Discharge Diagnosis (1) Acute pancreatitis: Status: Acute (2) Pseudocyst of pancreas: Status: Acute DS: Summary Hospital Course Hospital Course: History of presenting illness Date of Service: 09/08/22 Chief Complaint: Abdominal Pain This is a 46-year-old female with pertinent history of alcohol use disorder, tobacco use disorder, history of pancreatitis, essential hypertension, peripheral neuropathy, seizure disorder who presents to the emergency department for evaluation of abdominal pain.? Patient states it was sudden in onset on the day of presentation, epigastric region and radiating to the back, stabbing, without any relieving factors.? Does have associated chills and nausea.? Patient states her last episode of acute pancreatitis was 2 years ago.? She continues to drink alcohol occasionally.? Patient thinks her last episode of pancreatitis was due to her gallbladder.? Patient denies fever, chest discomfort, palpitations, shortness of breath, changes in urinary or bowel habits. In the emergency department, lipase was found to be elevated and pseudocyst was noted on imaging Hospital course 46-year-old female with pertinent history of alcohol use disorder, tobacco use disorder, history of pancreatitis, essential hypertension, peripheral neuropathy, seizure disorder who presents to the emergency department for evaluation of abdominal pain. #.? Acute abdominal pain likely due to acute on chronic pancreatitis with pseudocyst and mild colitis treated with IV fluids, iv analgesics, abdominal ultrasound showed status post cholecystectomy, mild heterogenous cystic structure near the tail of pancreas ,no pancreatic ductal dilatation noted,normal common bile duct, normal triglyceride, normal LFTs, no new medications, no viral illness, symptoms likely related to use of alcohol Patient tolerating full liquid diet with no nausea, no vomiting , due to abdominal distension with CT scan suggestive of mild colitis patient treated with IV Levaquin WBC have improved, patient afebrile since patient is eager to be discharged home, will send her on 4 more days of by mouth Levaquin recommend bland diet and outpatient follow-up with primary care physician and 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 Aguiar. Lipase normalized, and electrolytes stabilized, mild drop in hematocrit likely dilutional. ? #.? Leukocytosis likely due to mild colitis trending down continue by mouth Levaquin x5 days. #.? acute Hyponatremia:? Likely hypovolemic, sodium improved to 132, follow labs.? #.? Hypomagnesemia due to alcoholism: Repleted , magnesium 1.9 #.? Alcohol use disorder:? Patient denying use of alcohol however noted to have low magnesium, low sodium and is on clonidine 0.2 mg b.i.d. for alcohol withdrawal as per primary care physician. Strongly recommend to abstain from alcohol. #.? Tobacco use disorder:? Recommend to continue nicotine gum and quit smoking. Counseling done #.? Mood disorder:? on sertraline #.? Seizure disorder: Continue Keppra and Neurontin #.? Essential hypertension:?soft blood pressures advised to hold amlodipine and follow blood pressure. #.? Peripheral neuropathy:? On gabapentin. Time Spent with Patient Time attestation: Total time managing care of this patient today ____ minutes. Discharge coordination time: Greater than 30 minutes Quality: Safe Use of Opioids Does Pt have an Active Cancer Diagnosis on the Problem List?: No Quality: Stroke Does the patient have a stroke diagnosis?: No Physical Exam Vital Signs: Vital Signs: Last Vital Signs Temp 98 F 09/09/22 15:38 Pulse 50 09/09/22 15:38 Resp 18 09/09/22 15:38 BP 127/71 09/09/22 15:38 Pulse Ox 99 09/09/22 15:38 O2 Del Method Room Air 09/09/22 15:38 BMI result Body Mass Index 23.1 Const: Other: General awake alert x3, in no acute distress. Neck supple no JVD. CVS regular rate rhythm, Respiratory lungs clear to auscultation, no respiratory distress, no wheeze, no rhonchi. Gastrointestinal abdomen soft, no epigastric tenderness, mild distension and discomfort to palpation, bowel sounds audible, no guarding , no rigidity. Extremities no edema. Neuro nonfocal Skin no rash DS: Data Data Completed and Pending Completed studies during hospitalization [Text1]: Procedures Drainage of Spinal Canal, Percutaneous Approach, Diagnostic (01/24/21) Labs on day of discharge: Laboratory Results - last 24 hr 09/09/22 09/09/22 06:21 06:21 WBC 12.7 H RBC 3.23 L Hgb 10.6 L Hct 32.2 L MCV 99.7 H MCH 32.8 MCHC 32.9 RDW 14.0 Plt Count 204 MPV 10.7 Absolute Nucleated RBC 0.000 Nucleated RBC % (auto) 0.0 Sodium 136 Potassium 4.0 Chloride 107 Carbon Dioxide 20 L Anion Gap 13 BUN 5 L Creatinine 0.60 Estim Creat Clear Calc 96.9 Estimated GFR > 60 Random Glucose 103 Calcium 8.6 Magnesium 1.7 Lipase 35 Discharge Plan Discharge Anticipated Discharge Date/Time: 09/09/22 16:25 Patient Disposition: Home, Self-Care Discharge Diagnosis: Acute on chronic pancreatitis with pseudocyst Acute hyponatremia Hypomagnesemia Mild colitis Referrals: Anthony Aragon PA-C [Primary Care Provider] - 1 Week Discharge Medications: New levofloxacin 500 mg tablet 500 mg PO DAILY Qty: 4 0RF Continued pantoprazole 40 mg tablet,delayed release (DR/EC) 40 mg PO DAILY 90 Days Qty: 90 1RF levetiracetam 500 mg tablet 500 mg PO BID 30 Days Qty: 60 6RF pentoxifylline 400 mg tablet extended release 400 mg PO BID Qty: 60 3RF cyclobenzaprine 10 mg tablet 10 mg PO BEDTIME PRN (Reason: muscle spasm) 30 Days Qty: 30 4RF Creon 12,000-38,000 -60,000 unit capsule,delayed release(DR/EC) 2 cap PO TID 60 Days Qty: 360 1RF Rx Instructions: patient is taking nicotine (polacrilex) 2 mg gum 2 mg buccal Q2H PRN (Reason: nicotine cravings) 30 Days Qty: 110 0RF sertraline 100 mg tablet 100 mg PO DAILY gabapentin 800 mg tablet 800 mg PO QID 30 Days Qty: 120 6RF Discontinued amlodipine 10 mg tablet 10 mg PO DAILY Qty: 90 1RF clonidine HCl 0.2 mg tablet 0.2 mg PO BID 30 Days Qty: 60 6RF Discharge Orders: Discharge Order (Routine); Ordered 09/09/22 Ordered By: Tony Tarango Diet: Advance to usual diet Activity on Discharge: As tolerated Stand Alone Forms: Patient Portal Discharge page Care Plan Goals: Abdominal pain likely due to chronic pancreatitis and mild colitis recommend to take plan diet that is banana, Jell-O, pudding , rice Take Levaquin 500 mg 1 tablet for 4 more days Hold amlodipine due to soft blood pressure follow blood pressure and restart amlodipine if noted to have elevated blood pressures Take clonidine 0.2 mg twice daily as ordered for alcohol withdrawal strongly advised to abstain from smoking and alcohol Health Concerns: Seizure disorder continue home medications Plan of Treatment: Outpatient follow-up with primary care physician call to make an appointment. Assessment: As above
== END 2022-09-09 17:46 | disposition home or self-care (01) | DRG 282 ==
LOC: HO.ED 22:38 → HO.EDOVER 09-08 01:08 → HO.IMC 09-08 04:02
PROVIDERS: Physician Assistant; Admitting Provider Student in an Organized Health Care Education/Training Program; Emergency Provider Emergency Medicine Emergency Medical Services; PCP Physician Assistant; Visit Provider Hospitalist
DX: K85.90 Acute pancreatitis without necrosis or infection, unspecified (principal); E87.1 Hypo-osmolality and hyponatremia; K86.1 Other chronic pancreatitis; K86.3 Pseudocyst of pancreas; F17.210 Nicotine dependence, cigarettes, uncomplicated; I10 Essential (primary) hypertension; F41.9 Anxiety disorder, unspecified; G40.909 Epilepsy, unspecified, not intractable, without status epilepticus; F10.20 Alcohol dependence, uncomplicated; G62.9 Polyneuropathy, unspecified; K52.9 Noninfective gastroenteritis and colitis, unspecified; Z20.822 Contact with and (suspected) exposure to COVID-19; Z71.6 Tobacco abuse counseling; E83.42 Hypomagnesemia; Z88.0 Allergy status to penicillin; Z88.2 Allergy status to sulfonamides; Z88.5 Allergy status to narcotic agent; Z88.6 Allergy status to analgesic agent; Z88.8 Allergy status to other drugs, medicaments and biological substances; Z79.899 Other long term (current) drug therapy
CPT/HCPCS: 36415; 71045; 74177; 76705; 80048; 80076; 81003; 82077; 83690; 83735; 84478; 85025; 85027; 87635; 93005; 99285; J1170; J1650; J1956; J2405; J3475; Q9967

== ENCOUNTER 2023-07-25 13:18 | Outpatient (AMB) | payer OTHER, SELFPAY ==
--- NOTE | 2023-07-25 13:15 | MHC.PC.OV ---
Vital Signs 07/25/23 13:17 Height 5 ft 3 in Weight 127 lb BMI 22.5 Intake Visit Reasons: Medication Review [employer] Required: No Accompanied by: Self / Same As Patient Allergies Penicillins [PENICILLINS] Allergy (Severe, Verified 07/25/23 13:40) ANAPHYLAXIS codeine Allergy (Intermediate, Verified 07/25/23 13:40) vomiting Sulfa (Sulfonamide Antibiotics) Allergy (Intermediate, Verified 07/25/23 13:40) diarrh tramadol Allergy (Intermediate, Verified 07/25/23 13:40) Vomiting morphine Adverse Reaction (Intermediate, Verified 07/25/23 13:40) itchiness sumatriptan Adverse Reaction (Intermediate, Verified 07/25/23 13:40) GI side effect duloxetine [Cymbalta] Adverse Reaction (Unknown, Verified 07/25/23 13:40) increased depression Medication List - Last Reconciled 07/25/23 by Anthony Aragon PA-C amlodipine 10 mg PO DAILY clonidine HCl 0.2 mg PO BID cyclobenzaprine 10 mg PO BEDTIME PRN 30 days gabapentin 800 mg PO QID 30 days levetiracetam 500 mg PO BID 30 days prcvdi-ukrwkhqw-[id number] 12,000-38,000 -60,000 unit (Creon) 2 caps PO TID 60 days nicotine (polacrilex) 2 mg buccal Q2H PRN 30 days pantoprazole 40 mg PO DAILY 90 days pentoxifylline ER 400 mg PO BID sertraline 200 mg (2 x 100 mg) PO DAILY Tobacco use date assessed: 07/25/23 Dental Screening Dental Screen Date: 07/25/23 Did you have a dental visit in the last 12 months?: No Did you have a dental problem in the last 6 months where you did not have access to dental care?: No Was dental information given to patient?: Patient has dentist HPI Medication Review HPI Details Patient is a 47-year-old female being evaluated today via telephone only. ? Patient has a past medical history significant for hypertension, migraines, pancreatitis, alcohol use disorder, depression,? generalized anxiety disorder. . Sz disorder: Not followed up with neurologist since she had her seizure. She continues on Keppra 500 b.i.d. and not had any further seizures. Unclear why seizure was cause though could be secondary to GI loss of electrolytes, versus MAHESH withdrawal at the time Will send for EEG testing to evaluate for epileptic activity. Will refer to Neurology for evaluation for the need seizure medication. .. Hypertension: Patient continues on amlodipine for the treatment of her blood pressure. She does not regularly check her blood pressure. .. Smoker: Patient has been using nicotine gum and Nicotrol which has drastically helped her to reduce her smoking. .. History of pancreatitis:? She has lost follow-up with Gastroenterology.? Continues on pancreatic enzymes. She reports she has had less abdominal pain episodes. Has been able to gain weight over the last 6 months. ? Will check amylase and lipase to ensure normal. Also has history of liver fibrosis. Major depressive disorder: Patient reports her depression has been fairly stable, does have some personal issues that cause her more depression at times.. She reports she is dealing with lot of family issues. She reports sertraline 100 mg was working though feels is not as effective as recently was. She is interested in increasing her dose. Not interested in cognitive behavior therapy at this time [facility] Medical History (Updated 07/25/23 @ 13:47 by Anthony Aragon PA-C) Pseudocyst of pancreas Depression Anxiety Nausea Smoker Screening for hypercholesterolemia Liver fibrosis Chronic musculoskeletal pain HTN (hypertension) Abdominal pain Transaminitis Polyarthritis Surgical History History of cholecystectomy Family History Maternal Grandmother Cancer Mother HTN (hypertension) Mental health disorder Father HTN (hypertension) Substance use disorder Social History Household Members: Spouse Housing: House Do you presently have visiting nurse or other home services: No Alcohol intake: current Alcohol intake frequency: holidays/special occasions only Alcohol type: other Comment: refused bed alarm, camera, red sox Patient Tobacco Use Status: Current someday Tobacco user Tobacco use type: Cigarette Cigarette Packs Per Day: 1 Cigarettes Per Day: 20 (a week) Years Smoked: 28 e-Cigarette/Vaping Use: Never Used Second Hand Smoke Exposure: Yes service: No Current occupational status: unemployed Cognitive needs: No Hearing needs: No Vision needs: No Questionnaire PHQ-9 Over the last 2 weeks, how often have you been bothered by any of the following problems? 1. Little interest or pleasure in doing things: not at all 2. Feeling down, depressed, or hopeless: not at all 3. Trouble falling or staying asleep, or sleeping too much: not at all 4. Feeling tired or having little energy: not at all 5. Poor appetite or overeating: not at all 6. Feeling bad about yourself - or that you are a failure or have let yourself or your family down: not at all 7. Trouble concentrating on things, such as reading the newspaper or watching television: not at all 8. Moving or speaking so slowly that other people could have noticed. Or the opposite - being so fidgety or restless that you have been moving around a lot more than usual: not at all 9. Thoughts that you would be better off or of hurting yourself in some way: not at all Total score: 0 Depression Screening Interpretation: Negative Depression Screening Done: Yes 86452 - PHQ-9 Billing: Yes Source: Developed by Drs. Vincent Xie, Tana Nicholson, Edenilson Wolf and colleagues, with an educational jonh from [employer]. Thrive Questionnaire Date Thrive assessed: 07/25/23 I am a: Patient What is your living situation today?: I have a steady place to live Within the past 12 months, did the food you bought not last and you didn't have the money to get more?: Never true Within the past 12 months, did you worry whether your food would run out before you got money to buy more?: Never true Do you have trouble paying for medicines?: No Do you have trouble getting transportation to medical appointments?: No Do you have trouble paying your heating and electricity bill?: No Do you have trouble taking care of your child, family member or friend?: No Do you have trouble with day-to-day activities such as bathing, preparing meals, shopping, managing finances, etc.?: No Are you currently unemployed and looking for a job?: No Are you interested in more education?: No Please select the resources that you would like help with: None Currently or been in a relationship where the following occur: no concerns reported THRIVE Score: 0 AUDIT C Alcohol Use Questionnaire (AUDIT-C) 1. How often do you have a drink containing alcohol?: Never 3. How often do you have six or more drinks on one occasion?: Never Total Score: 0 ROEL-7 AMB Questionnaire ROEL-7 Date ROEL - 7 assessed: 07/25/23 Feeling nervous, anxious, or on edge: 1 = Several days Not being able to stop or control worryin = Several days Worrying too much about different things: 3 = Nearly every day Trouble relaxin = More than half the days Being so restless that it is hard to sit still: 1 = Several days Becoming easily annoyed or irritable: 1 = Several days Feeling afraid as if something awful might happen: 1 = Several days Total ROEL-7 score (0-4 normal; 5-9 mild; 10-14 moderate; 15-21 severe): 10 Source: Developed by Drs. Vincent Xie, Tana Nicholson, Edenilson Wolf and colleagues, with an educational jonh from [employer]. ROEL-7 Assessment Billing ROEL-7 Assessment Tool: ROEL-7 Assessment 63919 Physical exam (Primary Care) BMI result Body Mass Index 22.5 Tobacco/Smoking Status: Tobacco use Status Tobacco use date assessed 07/25/23 07/25/23 13:18 Patient Tobacco Use Status Current someday Tobacco 07/25/23 13:18 Tobacco use type Cigarette 07/25/23 13:18 e-Cigarette/Vaping Use Never Used 07/25/23 13:18 Tobacco cessation counseling provided: Yes Items discussed: Nicotine replacement Relapse Prevention: discussed the importance of a supportive environment, discussed negative mood or depression after quitting, weight gain after smoking is common and discussed dietary, exercise and/or lifestyle changes Number of minutes spent counselin CPT code: 55339 - 4-10 Minutes PHQ-9: PHQ-9 Score PHQ-9: Total score 0 07/25/23 13:42 Depression Screening Interpretation: Negative Thrive Assessment: Date of Thrive Assessment Date Thrive assessed 07/25/23 07/25/23 13:18 Currently or been in a relationship where the following occur: no concerns reported Telehealth Telehealth Location of provider rendering services: practice address Location of patient: address on file Patient Identification confirmed using: Name, : Yes Telehealth method: voice only Patient verbally consented to treatment: Yes Patient verbally consented to billing insurance company: Yes Patient informed of any privacy concerns related to visit: Yes Minutes spent on Phone/Video with Pt.: 11 Assessment and Plan Assessment & Plan (1) Seizures: Code(s): R56.9 - Unspecified convulsions Plan: As per HPI has not had any recurrent seizures. Continues on Keppra. No neurology follow-up with this time. Will check Keppra level (2) ROEL (generalized anxiety disorder): Code(s): F41.1 - Generalized anxiety disorder Plan: Patient's ROEL-7 score positive anxiety which has been an existing condition. She does use clonidine on a daily basis. Also on SSRI therapy. She is also on fairly high dose of gabapentin which has been helpful for anxiety as well. Not speaking with a mental therapist at this time and is considering. (3) Tobacco abuse: Code(s): Z72.0 - Tobacco use Plan: She does report she still continues to smoke and has found it difficult to do so. Her partner is also smoking. She does have nicotine gum she uses on a regular basis which has helped her reduce her smoking quantity. (4) Pseudocyst of pancreas: Code(s): K86.3 - Pseudocyst of pancreas Plan: Has a history of pancreatitis. Was seen by gastroenterology though has lost follow-up. She has not had any abdominal pain attacks. She continues on pancreatic enzymes which has drastically reduced her abdominal pain. Orders: Orders Levetiracetam Keppra 07/25/23 R56.9 - Unspecified convulsions Microalbumin, Random (w Creat) 07/25/23 I10 - Essential (primary) hypertension Comprehensive [place]. Panel Fast 07/25/23 I10 - Essential (primary) hypertension Lipase 07/25/23 R10.10 - Upper abdominal pain, unspecified Amylase 07/25/23 R10.10 - Upper abdominal pain, unspecified Lipid Panel 07/25/23 K86.1 - Other chronic pancreatitis Medications: New clonidine HCl 0.2 mg PO BID R10.10 - Upper abdominal pain, unspecified amlodipine 10 mg PO DAILY 90 days 90 tabs 1RF R10.10 - Upper abdominal pain, unspecified Discontinued levofloxacin Discontinued Reason: Doctor's Order 500 mg PO DAILY 4 tabs 0RF Coding Level of Care Code Tele Est Pt Level 4 (73875) Diagnoses Seizures R56.9 ROEL (generalized anxiety disorder) F41.1 Tobacco abuse Z72.0 Pseudocyst of pancreas K86.3 Additional Codes ROEL-7 Assessment Billing - ROEL-7 Assessment Tool: ROEL-7 Assessment 64322 ([id number]) Vital Signs *Quality* - CPT code: 17701 - 4-10 Minutes ([id number])
[2023-07-25 13:17] VITALS: BMI 22.5
== END 2023-07-25 14:10 | disposition home or self-care (01) ==
LOC: HO.HMGH 13:18
PROVIDERS: PCP Physician Assistant; Visit Provider Physician Assistant
DX: R56.9 Unspecified convulsions (principal); F41.1 Generalized anxiety disorder; Z72.0 Tobacco use; K86.3 Pseudocyst of pancreas
CPT/HCPCS: G2252

== ENCOUNTER 2023-09-14 10:13 | Outpatient (AMB) | payer OTHER, SELFPAY ==
--- NOTE | 2023-09-14 10:30 | A.OFFPC_ITS ---
Vital Signs 09/14/23 10:36 Height 5 ft 3 in Weight 128 lb 2 oz BMI 22.7 BP 120/70 Blood Pressure Location Lt brachial Position Sitting Pulse 69 Pulse Source Pulse Oximeter Pulse Oximetry (%) 99 Oxygen Delivery Method Room Air Intake Visit Reasons: Annual PE Allergies Penicillins [PENICILLINS] Allergy (Severe, Verified 07/25/23 13:40) ANAPHYLAXIS codeine Allergy (Intermediate, Verified 07/25/23 13:40) vomiting Sulfa (Sulfonamide Antibiotics) Allergy (Intermediate, Verified 07/25/23 13:40) diarrh tramadol Allergy (Intermediate, Verified 07/25/23 13:40) Vomiting morphine Adverse Reaction (Intermediate, Verified 07/25/23 13:40) itchiness sumatriptan Adverse Reaction (Intermediate, Verified 07/25/23 13:40) GI side effect duloxetine [Cymbalta] Adverse Reaction (Unknown, Verified 07/25/23 13:40) increased depression Tobacco use date assessed: 07/25/23 Dental Screening Dental Screen Date: 07/25/23 HPI Annual PE HPI Details Patient is a 47-year-old female here today for routine physical. ? Patient has a past medical history significant for hypertension, migraines, pancreatitis, alcohol use disorder, depression,? generalized anxiety disorder. . Sz disorder: Not followed up with neurologist since she had her seizure. She continues on Keppra 500 b.i.d. and not had any further seizures. Unclear why seizure was cause though could be secondary to GI loss of electrolytes, versus MAHESH withdrawal at the time. Will refer to Neurology for evaluation for the need seizure medication. .. Hypertension: Patient continues on amlodipine for the treatment of her blood pressure. She does not regularly check her blood pressure. .. Smoker: Unfortunately still smokes cigarettes. Patient has been using nicotine gum and Nicotrol which has drastically helped her to reduce her smoking. .. History of pancreatitis:? She has lost follow-up with Gastroenterology.? Continues on pancreatic enzymes. Has pancreatic psydocyst . She reports she has had less abdominal pain episodes. Recently having a few episodes of vomiting. She continues to maintain her weight in the high 120s low 130s. ? Will check amylase and lipase to ensure normal. Also has history of liver fibrosis in taking medication for this. Major depressive disorder: Patient reports her depression has been fairly stable, does have some personal issues that cause her more depression at times.. She reports she is dealing with lot of family issues. She reports sertraline 100 mg was working though feels is not as effective as recently was. Not interested in cognitive behavior therapy at this time .. Migraines: She reports she still suffers with migraines in his wondering what to do about them. She is not interested in any further medication. We did discuss trying vitamin B2 and magnesium. She has tried Triptan in the past though unclear if they were helpful. .. 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 REGISTERED RADIOLOGIC TECHNOLOGIST for PAP Colon cancer screening: Needs Colonoscopy PFS Medical History Pseudocyst of pancreas Depression Anxiety Nausea Smoker Screening for hypercholesterolemia Liver fibrosis Chronic musculoskeletal pain HTN (hypertension) Abdominal pain Transaminitis Polyarthritis Surgical History History of cholecystectomy Family History Maternal Grandmother Cancer Mother HTN (hypertension) Mental health disorder Father HTN (hypertension) Substance use disorder Social History Household Members: Spouse Housing: House Do you presently have visiting nurse or other home services: No Alcohol intake: current Alcohol intake frequency: holidays/special occasions only Alcohol type: other Comment: refused bed alarm, camera, red sox Patient Tobacco Use Status: Current someday Tobacco user Tobacco use type: Cigarette Cigarette Packs Per Day: 1 Cigarettes Per Day: 20 (a week) Years Smoked: 28 e-Cigarette/Vaping Use: Never Used Second Hand Smoke Exposure: Yes service: No Current occupational status: unemployed Cognitive needs: No Hearing needs: No Vision needs: No Questionnaire Thrive Questionnaire Date Thrive assessed: 07/25/23 ROEL-7 AMB Questionnaire ROEL-7 Date ROEL - 7 assessed: 07/25/23 Source: Developed by Drs. Vincent Xie, Tana Nicholson, Edenilson Wolf and colleagues, with an educational jonh from [employer]. Review of Systems Const Denies body aches, Denies chills, Denies excessive sweating, Reports fatigue, Denies fever(s) and Reports headache(s) Eyes Denies blurry vision ENT Denies dysphagia, Denies vertigo, Denies dizziness, Reports headache(s), Denies hearing loss and Denies tinnitus Card Denies chest pain, Denies chest pain with activity, Denies syncope, Denies irregular heart rhythm and Denies dyspnea Resp Denies chest congestion, Denies cough, Denies hemoptysis, Denies dyspnea and Denies wheezing GI Reports abdominal pain, Denies melena, Denies hematochezia, Denies coffee ground emesis, Denies dysphagia, Denies diarrhea, Denies nausea and Reports vomiting Denies urinary frequency, Denies menorrhagia, Denies dysuria, Denies urinary hesitancy and Denies urinary urgency Musc Denies arthralgias, Denies limited range of motion, Denies muscle cramps and Denies muscle weakness Skin/Breast Denies rash and Denies skin ulcer Neuro Denies Abnormal speech present, Denies confusion, Denies vertigo, Denies dizziness, Denies syncope, Reports headache(s), Denies memory loss and Denies seizure-like activity Psych Reports anxiety, Denies confusion, Denies depression, Denies memory loss, Denies panic attacks and Denies paranoia Endo Denies excessive sweating, Reports fatigue, Denies flushing, Denies polydipsia and Denies polyuria Aller/Immun Denies wheezing Physical exam (Primary Care) Vital Signs: Last Vital Signs Pulse 69 09/14/23 10:36 BP 120/70 09/14/23 10:36 Pulse Ox 99 09/14/23 10:36 Oxygen Delivery Method Room Air 09/14/23 10:36 BMI result Body Mass Index 22.7 Tobacco/Smoking Status: Tobacco use Status Tobacco use date assessed 07/25/23 09/14/23 10:30 Patient Tobacco Use Status Current someday Tobacco 09/14/23 10:30 Tobacco use type Cigarette 09/14/23 10:30 e-Cigarette/Vaping Use Never Used 09/14/23 10:30 Are you ready to quit: Yes Tobacco cessation counseling provided: Yes Items discussed: Nicotine replacement Relapse Prevention: discussed the importance of a supportive environment, discussed negative mood or depression after quitting, weight gain after smoking is common and discussed dietary, exercise and/or lifestyle changes Number of minutes spent counselin CPT code: 56879 - 4-10 Minutes Thrive Assessment: Date of Thrive Assessment Date Thrive assessed 07/25/23 09/14/23 10:30 Const General: cooperative, comfortable, no acute distress, alert and awake; No confusion Orientation/consciousness: oriented to person, oriented to place, patient oriented x3 and No confusion HENMT Head: Yes normocephalic Ears: external ears normal and TM's normal bilaterally Face and sinus: No sinus tenderness Mouth: Normal oral and palatal mucosa present and tongue normal Teeth and gingiva: dentition normal and gingiva normal Throat: Yes posterior oropharynx normal, Yes tonsils normal and Yes uvula midline Eyes Conjunctivae: conjunctivae normal Sclerae: sclerae normal Pupils: Equal, round and reactive pupils present EOM: EOMs intact bilaterally Direct Ophthalmoscopy: No no photophobia Neck Neck: Yes no lymphadenopathy, No tender and Yes no JVD Thyroid: Thyroid normal Carotids: no bruits Chest Chest palpation & inspection: no tenderness Resp Effort & Inspection: normal respiratory effort, no audible wheezes, not labored and no stridor Auscultation: no crackles, no rales, no rhonchi and no wheezes Cardio Jugular venous distension: no JVD Rate: regular rate, not bradycardic and not tachycardic Rhythm: regular rhythm Bruits: no carotid bruits Peripheral pulses: Peripheral pulses 2+ throughout GI Inspection: Yes normal to inspection, No abdominal wall ecchymosis and No visible herniation Palpation (GI): Soft to palpation, nontender, no guarding, not rigid and No hepatosplenomegaly present Auscultation: normoactive bowel sounds General: Yes no CVA tenderness Back/Spine/Pelvis Back: no CVA tenderness and No back tenderness Cervical Spine: cervical ROM normal Thoracic/Lumbar Spine: thoracic and lumbar spine normal to inspection, straight leg raise negative bilaterally, No thoraco-lumbar ROM limited and No lumbar spinal tenderness Skin Lesions: no lesions Rashes: no rashes Wounds: no wounds Neuro General: oriented to person, oriented to place, patient oriented x3, CN's II-XI intact bilaterally and No confusion Cranial nerves: Yes Equal, round and reactive pupils present and Yes Normal accommodation reflex present Cognition (Neuro): normal cognition Speech: No Abnormal speech present Gait exam (Neuro): Normal gait present Motor exam (neuro): 5/5 motor strength present throughout Extrem Right upper extremity: full ROM; no cyanosis Left upper extremity: full ROM; no cyanosis Right lower extremity: no edema Left lower extremity: no edema Psych Appearance: grossly normal Mental Status: mental status grossly normal Affect: normal affect Attitude: cooperative Thought process: Normal thought process present Assessment and Plan Assessment & Plan (1) Annual physical exam: Code(s): Z00.00 - Encounter for general adult medical examination without abnormal findings (2) Seizures: Code(s): R56.9 - Unspecified convulsions Plan: As per HPI has not had any recurrent seizures. Continues on Keppra. No neurology follow-up with this time. Will check Keppra level . Of note she does complain of being tired every day. Could be a side effect of the Keppra. Advised that it be good idea to follow up with Neurology to evaluate for the need of Keppra. (3) ROEL (generalized anxiety disorder): Code(s): F41.1 - Generalized anxiety disorder Plan: Patient continues on SSRI therapy with decent affect. She does use clonidine 0.2 mg on an as-needed basis for panic as well which has been effective. (4) Tobacco abuse: Code(s): Z72.0 - Tobacco use Plan: She does report she still continues to smoke and has found it difficult to do so. Her partner is also smoking. She does have nicotine gum she uses on a regular basis which has helped her reduce her smoking quantity. (5) Pseudocyst of pancreas: Code(s): K86.3 - Pseudocyst of pancreas Plan: Has a history of pancreatitis. Was seen by gastroenterology though has lost follow-up. She has not had any abdominal pain attacks. She continues on pancreatic enzymes which has drastically reduced her abdominal pain. (6) Ventral hernia: Code(s): K43.9 - Ventral hernia without obstruction or gangrene Qualifiers: Obstruction and gangrene presence: without obstruction or gangrene Qualified Code(s): K43.9 - Ventral hernia without obstruction or gangrene Plan: She does report having a lump over her upper epigastric region. Will send for CT of abdomen evaluate for abdominal hernia. (7) GERD (gastroesophageal reflux disease): Code(s): K21.9 - Gastro-esophageal reflux disease without esophagitis Qualifiers: Esophagitis presence: without esophagitis Qualified Code(s): K21.9 - Gastro-esophageal reflux disease without esophagitis (8) Breast cancer screening: Code(s): Z12.39 - Encounter for other screening for malignant neoplasm of breast Qualifiers: Breast cancer screening modality: mammogram Qualified Code(s): Z12.31 - Encounter for screening mammogram for malignant neoplasm of breast Plan: Needs mammogram (9) Cervical cancer screening: Code(s): Z12.4 - Encounter for screening for malignant neoplasm of cervix Plan: Needs cervical cancer screening (10) Colon cancer screening: Code(s): Z12.11 - Encounter for screening for malignant neoplasm of colon Orders: Orders MM screening mammo BI Today Z12.31 - Encounter for screening mammogram for malignant neoplasm of breast CT abdomen w IV con Today K43.9 - Ventral hernia without obstruction or g angrene, K86.3 - Pseudocyst of pancreas Referrals OPENER Referral Z12.4 - Encounter for screening for malignant neoplasm of cervix Neurology Referral G43.009 - Migraine without aura, not intractable, without status migrainosus, R56.9 - Unspecified convulsions Gastroenterology Referral Z12.11 - Encounter for screening for malignant neoplasm of colon Coding Level of Care Code Est Pt Prev Care 40-64y(18664) Diagnoses Annual physical exam Z00.00 Seizures R56.9 ROEL (generalized anxiety disorder) F41.1 Tobacco abuse Z72.0 Pseudocyst of pancreas K86.3 Ventral hernia without obstruction or gangrene K43.9 Obstruction and gangrene presence: without obstruction or gangrene Gastroesophageal reflux disease without esophagitis K21.9 Esophagitis presence: without esophagitis Encounter for screening mammogram for malignant neoplasm of breast Z12.31 Breast cancer screening modality: mammogram Cervical cancer screening Z12.4 Colon cancer screening Z12.11 Additional Codes Vital Signs *Quality* - CPT code: 83644 - 4-10 Minutes ([id number])
[2023-09-14 10:36] VITALS: BP 120/70; PULSE 69; O2SAT 99; BMI 22.7
== END 2023-09-14 11:30 | disposition home or self-care (01) ==
PROVIDERS: PCP Physician Assistant; Visit Provider Physician Assistant
DX: Z00.00 Encounter for general adult medical examination without abnormal findings (principal); R56.9 Unspecified convulsions; F41.1 Generalized anxiety disorder; F17.210 Nicotine dependence, cigarettes, uncomplicated; Z72.0 Tobacco use; K86.3 Pseudocyst of pancreas; K43.9 Ventral hernia without obstruction or gangrene; K21.9 Gastro-esophageal reflux disease without esophagitis; Z12.31 Encounter for screening mammogram for malignant neoplasm of breast; Z12.11 Encounter for screening for malignant neoplasm of colon
CPT/HCPCS: 99396; 99406

== ENCOUNTER 2023-12-18 08:16 | Outpatient (REF) | payer OTHER, SELFPAY ==
--- NOTE | ~2023-12-18 | CT_ITS ---
EXAMINATION: CT ABDOMEN WITH CONTRAST CLINICAL INFORMATION: Ventral hernia without obstruction or gangrene. COMPARISON: Abdominal ultrasound 09/08/2022, CT abdomen and pelvis 09/07/2022. TECHNIQUE: Contiguous axial thin section helical images of the abdomen were performed following the administration of oral contrast and 85 mL of Omnipaque 350 intravenous contrast. The data set was reformatted in the coronal and sagittal planes and reviewed on an independent workstation. This CT examination was performed using dose optimization techniques as appropriate, variously including the following: *Automated exposure control. *Adjustment of mA and/or kV according to patient size (this includes techniques or standardized protocols for targeted exams where dose is matched to indication/reason for exam; i.e. extremities or head). *Use of iterative reconstruction technique. DLP: 138.84 mGy-cm FINDINGS: LUNG BASES: Lung bases are grossly abnormal with emphysematous changes, bronchial thickening, ground-glass changes and subpleural reticulation. Findings are similar to the 09/07/2022 study. LIVER, GALLBLADDER, AND BILIARY TREE: The liver is normal in size, shape, and attenuation. Multiple benign hepatic cysts are present. No suspicious solid focal hepatic lesion. Patient is status post cholecystectomy with prominent common bile duct and central bile ducts which can be normal. No interval change when compared to 09/07/2022. PANCREAS: Unremarkable. SPLEEN: Unremarkable. ADRENAL GLANDS: Unremarkable. KIDNEYS AND URETERS: The kidneys are normal in size, shape, and attenuation. At the lower pole of each kidney, there is a curvilinear area of high density suggesting the presence of nonobstructing calculi/Aguiar's plaques or possibly even the residua of papillary necrosis. Similar findings were present at the time of the prior exam. No hydronephrosis, hydroureter, or calculi seen. No perinephric stranding. GASTROINTESTINAL TRACT: The small and large bowel are unremarkable. The appendix is not included on the exam, if present. ABDOMINAL WALL: A tiny periumbilical hernia was present at the time of the prior study which is no longer the case. No abdominal wall hernia is seen at this time. LYMPH NODES: No retroperitoneal lymphadenopathy. VASCULAR: Calcific atherosclerotic changes are present in the aorta. There is no evidence of an abdominal aortic aneurysm. OSSEOUS STRUCTURES: Unremarkable. CT/CT abdomen w IV con IMPRESSION: 1. No abdominal wall hernia is seen at this time. 2. Incidental note made of emphysematous changes in the lung bases, benign hepatic cysts, cholecystectomy with prominent bile ducts, nonobstructing renal calcifications and other findings described above. Fleischner guidelines were followed.
[2023-12-18] MEDS: iohexoL 350 MG/ML 100 ML INFUS..BTL 85 ML IV (09:40)
[2023-12-18] MEDS: Barium Sulfate Oral (Mocha) 450 ML ORAL.SUSP PO (09:41)
== END 2023-12-18 08:17 | disposition home or self-care (01) ==
LOC: HO.CT 08:16
PROVIDERS: PCP Physician Assistant; Visit Provider Physician Assistant
DX: K86.3 Pseudocyst of pancreas (principal); K43.9 Ventral hernia without obstruction or gangrene
CPT/HCPCS: 74160; Q9967

== ENCOUNTER 2023-12-26 18:22 | Inpatient (IN) | payer OTHER, SELFPAY ==
--- NOTE | ~2023-12-26 | CT_ITS ---
EXAMINATION: CT ABDOMEN AND PELVIS WITHOUT CONTRAST CLINICAL INFORMATION: Abdominal pain COMPARISON: CT from 12/18/2023 and 09/07/2022 TECHNIQUE: Multidetector volumetric imaging was performed from the superior aspect of the liver through the pubic symphysis. Sagittal and coronal reformatted images were obtained on the technologist's workstation. This CT examination was performed using dose optimization techniques as appropriate, variously including the following: *Automated exposure control *Adjustment of mA and/or kV according to patient size (this includes techniques or standardized protocols for targeted exams where dose is matched to indication/reason for exam; i.e. extremities or head) *Use of iterative reconstruction technique DLP: 138 mGy-cm FINDINGS: LUNG BASES: Chronic fibrotic lung disease in the lung bases. No focal infiltrates LIVER, GALLBLADDER, AND BILIARY TREE: The liver is normal in size, shape, and attenuation. Stable subcentimeter hypodensities within the liver most consistent with simple cysts. Status post cholecystectomy. There is stable chronic dilation of the common bile duct and intrahepatic biliary ducts PANCREAS: Coarse calcifications seen within the pancreas. There is some atrophy of the head and body of the pancreas consistent with chronic pancreatitis. No focal inflammatory stranding or mass lesions. SPLEEN: Unremarkable. ADRENAL GLANDS: Unremarkable. KIDNEYS AND URETERS: The kidneys are normal in size, shape, and attenuation. No hydronephrosis, hydroureter seen. No perinephric stranding. 4 mm nonobstructing calcified stone in the lower pole of the right kidney. 3 mm nonobstructing calcified stone in the lower pole collecting system of the left kidney BLADDER: Unremarkable. GASTROINTESTINAL TRACT: The small bowel are unremarkable. The appendix is unremarkable. Residual oral contrast seen within the distal colon. A large amount of stool seen throughout the colon consistent with constipation. No bowel wall thickening or inflammatory stranding ABDOMINAL WALL: There is a small fat-containing umbilical hernia LYMPH NODES: Normal. VASCULAR: Normal caliber. Diffuse atherosclerotic calcified plaque PELVIC VISCERA: The uterus and adnexa are unremarkable. OSSEOUS STRUCTURES: Unremarkable. CT/CT abdomen pelvis wo IV con IMPRESSION: 1. No acute process. 2. Large amount of stool seen throughout the colon consistent with constipation. 3. Chronic pancreatitis. 4. Bilateral nonobstructing nephrolithiasis. 5. Status post cholecystectomy with stable chronic dilation of the common bile duct and intrahepatic biliary ducts.
[2023-12-26 18:28] VITALS: BP 164/99; PULSE 84; RESP 16; TEMP 36.9; O2SAT 99; BMI 21.5
--- NOTE | 2023-12-26 18:28 | ED.GENADULT ---
HPI - General Adult General Chief complaint: General Medical Stated complaint: no bowel movement, vomiting, not eating Time Seen by Provider: 12/26/23 20:20 Source: patient Mode of arrival: ambulatory Limitations: no limitations History of Present Illness ED Provider: Dr. Sheeba Colon HPI narrative: Patient comes to the emergency room complaining of abdominal pain and constipation for 2 weeks. Patient states that she has not passed any stool at all. This is not the 1st time that she has constipation. About a week ago patient went to see Dr. Aguiar from Gastroenterology, a CT scan was done, results have not returned yet. Patient also reporting of feeling unwell, weak. Denies any nausea vomiting or diarrhea. Patient has constant abdominal discomfort from constipation. Patient admits that she drinks alcohol intermittently, drank alcohol today. Patient states that she has been doing a lot of yard work and drinking a large amount of fluids Related Data Previous Rx's ?Medication ?Instructions ?Recorded pentoxifylline 400 mg 400 mg PO BID #60 tabs 06/19/23 tablet,extended release gabapentin 800 mg tablet 800 mg PO QID 30 days #120 tabs 07/24/23 pyzxvm-mzrhbfyi-jdygnid 2 cap PO TID 60 days #360 caps 07/24/23 12,000-38,000-60,000 unit capsule,delayed rel (Creon) nicotine (polacrilex) 2 mg gum 2 mg buccal Q2H PRN nicotine 07/24/23 cravings 30 days #110 ea sertraline 100 mg tablet 200 mg (2 x 100 mg) PO DAILY #180 07/24/23 tabs amlodipine 10 mg tablet 10 mg PO DAILY 90 days #90 tabs 07/25/23 levetiracetam 500 mg tablet 500 mg PO BID 30 days #60 tabs 08/08/23 cyclobenzaprine 10 mg tablet 10 mg PO BEDTIME PRN muscle spasm 11/29/23 30 days #30 tabs clonidine HCl 0.2 mg tablet 0.2 mg PO BID PRN anxiety 30 days 12/04/23 #60 tabs pantoprazole 40 mg tablet,delayed 40 mg PO DAILY 90 days #90 tabs 12/25/23 release Allergies Allergy/AdvReac Type Severity Reaction Status Date / Time Penicillins [PENICILLINS] Allergy Severe ANAPHYLAXIS Verified 12/26/23 18:34 codeine Allergy Intermediate vomiting Verified 12/26/23 18:34 Sulfa (Sulfonamide Allergy Intermediate diarrh Verified 12/26/23 18:34 Antibiotics) tramadol Allergy Intermediate Vomiting Verified 12/26/23 18:34 morphine AdvReac Intermediate itchiness Verified 12/26/23 18:34 sumatriptan AdvReac Intermediate GI side Verified 12/26/23 18:34 effect duloxetine [Cymbalta] AdvReac Unknown increased Verified 12/26/23 18:34 depression Review of Systems Review of Systems: Constitutional : No Weight loss, No Fever, No Chills, No Night Sweats, complaining of fatigue, generalized malaise ENT/Mouth : No Hearing loss, No Ear Pain, No Nasal Congestion, No Sinus Pain, No Hoarseness, No sore throat, No Rhinorrhea, No Swallowing Difficulty Eyes: No Eye Pain, No Swelling, No Redness, No Foreign Body, No Discharge, No Vision Changes Cardiovascular : No Chest Pain, No SOB, No Dyspnea on Exertion, No Orthopnea, No Edema, No Palpitations Respiratory : No Cough, No Sputum, No Wheezing, No Smoke Exposure, No Dyspnea Gastrointestinal : No Nausea, No Vomiting, No Diarrhea, complaining constipation and abdominal discomfort from constipation Genitourinary : no irregular bleeding, No Dysuria, No Urinary Frequency, No Hematuria, No Urinary Incontinence, No Urgency, No Flank Pain, No Urinary Flow Changes, No Hesitancy Musculoskeletal : No joint pain, No Myalgias, No Joint Swelling Skin : No Skin Lesions, No rash Neuro : No Weakness, No Numbness, No Paresthesias, No Loss of Consciousness, No Dizziness, No Headache Psych : No Anxiety/Panic, No Depression, No SI/HI/AH/VH, No Social Issues, Heme/Lymph: No Bruising, No Bleeding,No Lymphadenopathy Endocrine : No Polyuria, No Polydipsia, No Temperature Intolerance [facility] Past Medical History Medical History Pseudocyst of pancreas Depression Anxiety Nausea Smoker Screening for hypercholesterolemia Liver fibrosis Chronic musculoskeletal pain HTN (hypertension) Abdominal pain Transaminitis Polyarthritis Surgical History History of cholecystectomy Family History Family History Maternal Grandmother Cancer Mother HTN (hypertension) Mental health disorder Father HTN (hypertension) Substance use disorder Social History Social History Household Members: Spouse Housing: House Do you presently have visiting nurse or other home services: No Alcohol intake: current Alcohol intake frequency: holidays/special occasions only Alcohol type: other Comment: refused bed alarm, camera, red sox Patient Tobacco Use Status: Current someday Tobacco user Tobacco use type: Cigarette Cigarette Packs Per Day: 1 Cigarettes Per Day: 20 (a week) Years Smoked: 28 e-Cigarette/Vaping Use: Never Used Second Hand Smoke Exposure: Yes Advance Directives: Yes Advance Directives on File: Yes Advance Directives Date on File: 01/26/21 Do you have a plan to hurt others: No Plan service: No Current occupational status: unemployed Cognitive needs: No Hearing needs: No Vision needs: No Physical Exam ED Vital Signs: Vital Signs - 24 hr 12/26/23 18:28 12/26/23 20:15 12/26/23 20:32 Temperature 98.5 F 98.3 F Pulse Rate 84 62 101 H Respiratory Rate 16 16 Blood Pressure 164/99 H 150/89 H 122/89 Pulse Oximetry 99 100 Oxygen Delivery Method Room Air Room Air 12/26/23 20:32 12/26/23 20:32 Temperature Pulse Rate 119 H 112 H Respiratory Rate Blood Pressure 126/90 H 139/95 H Pulse Oximetry Oxygen Delivery Method BMI result Body Mass Index 21.5 Const Other: Appearance: Alert. Oriented X3. No acute distress. Eyes: Pupils equal, round and reactive to light. ENT: Pharynx normal. Neck: Normal inspection. Neck supple. No lymph nodes noted. No crepitus CVS: Normal heart rate and rhythm. Pulses normal. Normal S1 and S2 Respiratory: No respiratory distress. Breath sounds normal. No Wheezing. No rales Abdomen: Soft and nontender. No rigidity. No distention. Reducible umbilical hernia Skin: Skin warm and dry. Normal skin color. Normal skin turgor. Extremities: No lower extremity edema. No Lacerations. No Rash Neuro: Oriented X 3. No motor deficit. No sensory deficit. Moving all extremities. No slurred speech. CN 2 through 12 grossly intact Psych: calm, cooperative, a bit anxious Course Course Course Narrative: This is a Rapid Medical Examination (RME) performed by Sandor Villareal PA-C in triage. Full HPI, ROS, assessment and treatment plan per primary provider in the Main ED. 48 yo female with history of IBS, migraines, GERD, alcohol abuse, pancreatitis and pancreatic pseudocyst, seizures, depression/anxiety who presents to the ER for evaluation of upper abdominal pain, N/V and constipation for the last 2 weeks, no BM in 2 weeks. Unable to eat due to vomiting and pain. Also reports deep bone pain and feeling lightheaded/dizzy and an episode of syncope 1 week ago. Admits to ETOH today to help with the pain. Last vomiting episodes 2 days ago. Plan: CT scan w/ PO contrast done on 12/17 - STILL not read. contact radiology for read today. labs and EKG Medications Administered Generic Name Dose Route Start Last Admin Trade Name Freq PRN Reason Stop Dose Admin Magnesium Sulfate 2 gm in 50 mls @ 25 mls/hr 12/26/23 19:15 12/26/23 20:15 Magnesium Sulfate/H2o IV 12/26/23 21:14 25 mls/hr ONCE ONE Administration Medical Decision Making Medical Decision Making [facility] Narrative: -my interpretation of labs, normal hematology, chemistry shows a sodium of 122, magnesium of 1.1 -patient receiving 0.5 L normal saline bolus and IV magnesium, LFTs elevated in an alcohol abuse pattern. -the go ahead and repeat a CT scan since symptoms are worsening. -I discussed with the patient that we need to replete her sodium slowly and will require hospitalization. Patient agrees with plan -I discussed the patient with Dr. Long, patient being admitted. CT scan of the abdomen radiology report pending Differential Diagnosis Differential Diagnoses: The differential diagnosis associated with the presentation includes (Beer potomania, hyponatremia, excess water intake, SIADH) Admission/Observation Consideration of admission/observation: Escalation of care including admission/observation considered Consult Healthcare Provider Management of the patient was discussed with: Hospitalist Lab Data [facility] Lab Attestation statement: I reviewed the patient's lab results. 12/26/23 18:47 12/26/23 18:47 Labs: Lab Results 12/26/23 Range/Units 18:47 WBC 12.3 H (4.8-10.8) X10*3/uL RBC 3.69 L (4.20-5.50) X10*6/uL Hgb 12.3 (12.0-16.0) g/dl Hct 33.6 L (37.0-47.0) % MCV 91.1 (80.0-98.0) fL MCH 33.3 H (27.0-33.0) pg MCHC 36.6 H (31.0-35.0) g/dl RDW 13.9 (11.0-16.0) % Plt Count 267 D (160-400) X10*3/uL MPV 8.9 L (9.4-12.3) fL Immature Gran % (Auto) 0.3 (0.0-0.4) % Neut % (Auto) 58.2 (45-73) % Lymph % (Auto) 35.0 (20-40) % [place] % (Auto) 4.4 (2-11) % Eos % (Auto) 1.6 (0-4) % Baso % (Auto) 0.5 (0-2) % Lymph # (Auto) 4.3 (1.2-4.9) X10*3/uL [place] # (Auto) 0.5 (0.1-1.2) X10*3/uL Eos # (Auto) 0.2 (0.0-0.4) X10*3/uL Baso # (Auto) 0.1 (0.0-0.2) X10*3/uL Abs Immat Gran (auto) 0.04 H (0.00-0.03) X10*3/uL Absolute Neuts (auto) 7.2 (2.0-8.3) x10*3/uL Absolute Nucleated RBC 0.000 (0.0-0.012) X10*3/uL Nucleated RBC % (auto) 0.0 (0.0-0.2) /100WBC Sodium 122 L (135-145) mmol/L Potassium 3.7 (3.3-5.1) mmol/L Chloride 83 L D (96-108) mmol/L Carbon Dioxide 27 (22-29) mmol/L Anion Gap 16 (12-20) BUN 7 L (9-16) mg/dL Creatinine 0.73 (0.5-1.4) mg/dL Estim Creat Clear Calc 81.3 Estimated GFR > 60 Random Glucose 89 (60-115) mg/dL Calcium 9.8 D (8.4-10.2) mg/dL Magnesium 1.1 L* (1.6-2.6) mg/dL Total Bilirubin 0.8 (0.0-1.0) mg/dL Direct Bilirubin 0.3 (0.0-0.5) mg/dL AST 147 H (5-31) U/L ALT 58 H (0-31) U/L Alkaline Phosphatase 177 H (39-117) U/L Total Protein 7.1 (6.5-8.0) g/dL Albumin 4.1 (3.5-5.0) g/dL Lipase 12 (8-78) U/L Ethyl Alcohol 83 mg/dL Independent Interpretation I performed an independent interpretation of an: EKG (My interpretation of EKG: Normal sinus rhythm, heart rate 72, no ST segment depression or elevation, no T-wave inversion, QTC 413) Chronic Conditions Patient?s care impacted by: Other (Alcohol dependence) Critical Care Time Critical Care Time Critical Care Time: Yes Total Critical Care Time: 75 Attestation: I have personally provided critical care time. Time includes review of lab data, radiology results, discussion with consultants, and monitoring for potential decompensation. Intervention performed as documented. Discharge Plan Discharge Clinical Impression: Acute hyponatremia, Constipation, Hypomagnesemia Patient Disposition: Admitted As Inpatient Prescriptions: No Action pentoxifylline 400 mg tablet extended release 400 mg PO BID Qty: 60 3RF sertraline 100 mg tablet 200 mg PO DAILY Qty: 180 1RF nicotine (polacrilex) 2 mg gum 2 mg buccal Q2H PRN (Reason: nicotine cravings) 30 Days Qty: 110 0RF Creon 12,000-38,000 -60,000 unit capsule,delayed release(DR/EC) 2 cap PO TID 60 Days Qty: 360 1RF Rx Instructions: patient is taking gabapentin 800 mg tablet 800 mg PO QID 30 Days Qty: 120 0RF levetiracetam 500 mg tablet 500 mg PO BID 30 Days Qty: 60 6RF cyclobenzaprine 10 mg tablet 10 mg PO BEDTIME PRN (Reason: muscle spasm) 30 Days Qty: 30 6RF clonidine HCl 0.2 mg tablet 0.2 mg PO BID PRN (Reason: anxiety) 30 Days Qty: 60 3RF pantoprazole 40 mg tablet,delayed release (DR/EC) 40 mg PO DAILY 90 Days Qty: 90 1RF amlodipine 10 mg tablet 10 mg PO DAILY 90 Days Qty: 90 1RF Print Language: Malay
--- NOTE | 2023-12-26 18:32 | ECG_ITS ---
Test Reason : SYNCOPE Blood Pressure : / mmHG Vent. Rate : 072 BPM Atrial Rate : 072 BPM P-R Int : 136 ms QRS Dur : 086 ms QT Int : 378 ms P-R-T Axes : 027 021 -38 degrees QTc Int : 413 ms Normal sinus rhythm Possible Left atrial enlargement Septal infarct , age undetermined Abnormal ECG No previous ECGs available Referred By: Alma Villareal Electronically Signed By:MACHO العلي MD
[2023-12-26 18:51] LABS: MANUAL DIFF FLAG NO
[2023-12-26 18:52] LABS: Basophils Absolute Auto 0.1 X10*3/uL (0.0-0.2); Basophils Percent Auto 0.5 % (0-2); Eosinophils Absolute Auto 0.2 X10*3/uL (0.0-0.4); Eosinophils Percent Auto 1.6 % (0-4); Hematocrit 33.6 % (37.0-47.0); Hemoglobin 12.3 g/dl (12.0-16.0); Imm Gran Abs Auto 0.04 X10*3/uL (0.00-0.03); Imm Gran Pct Auto 0.3 % (0.0-0.4); Lymphocytes Absolute Auto 4.3 X10*3/uL (1.2-4.9); Mean Corpuscular HGB Conc 36.6 g/dl (31.0-35.0); Mean Corpuscular Hemoglobin 33.3 pg (27.0-33.0); Mean Corpuscular Volume 91.1 fL (80.0-98.0); Mean Platelet Volume 8.9 fL (9.4-12.3); Monocytes Absolute Auto 0.5 X10*3/uL (0.1-1.2); Monocytes Percent Auto 4.4 % (2-11); Neutrophils Absolute Auto 7.2 x10*3/uL (2.0-8.3); Neutrophils Percent Auto 58.2 % (45-73); Platelet Count 267 X10*3/uL (160-400); Red Blood Count 3.69 X10*6/uL (4.20-5.50); Red Cell Distribution Width 13.9 % (11.0-16.0); White Blood Count 12.3 X10*3/uL (4.8-10.8)
[2023-12-26 19:17] LABS: Alanine Aminotransferase 58 U/L (0-31); Albumin Level 4.1 g/dL (3.5-5.0); Alkaline Phosphatase 177 U/L (39-117); Anion Gap 16 (12-20); Aspartate Amino Transferase 147 U/L (5-31); Bilirubin Direct 0.3 mg/dL (0.0-0.5); Bilirubin Total 0.8 mg/dL (0.0-1.0); Blood Urea Nitrogen 7 mg/dL (9-16); Calcium 9.8 mg/dL (8.4-10.2); Carbon Dioxide 27 mmol/L (22-29); Chloride 83 mmol/L (96-108); Creatinine Clr Calc Pharmacy 81.3; Estimated Glomerular Filt Rate > 60; Ethanol 83 mg/dL; Glucose Random 89 mg/dL (60-115); Lipase 12 U/L (8-78); Magnesium 1.1 mg/dL (1.6-2.6); Potassium 3.7 mmol/L (3.3-5.1); Sodium 122 mmol/L (135-145); Total Protein 7.1 g/dL (6.5-8.0)
[2023-12-26 20:15] VITALS: BP 150/89; PULSE 62; RESP 16; TEMP 36.8; O2SAT 100
[2023-12-26] MEDS: Magnesium Sulfate/H2O 2 GM/50 ML PIGGYBACK IV (20:15)
[2023-12-26 20:32] VITALS: BP 122/89; BP 126/90; BP 139/95; PULSE 101; PULSE 112; PULSE 119
[2023-12-26 20:32] LABS: Appearance Urine Clear; Color Urine Yellow; Glucose Urine UA Negative (Negative); Leukocyte Esterase Urine Negative (Negative); Nitrite Urine Negative (Negative); PH 6.5 (5.0-9.0); Specific Gravity - Urine <= 1.005 (1.005-1.025); Urine Blood Negative (Negative); Urine Ketones Negative (Negative); Urine Protein Negative (Neg-Trace)
[2023-12-26 20:51] LABS: UPreg QC Valid YES; Urine Pregnancy NEGATIVE (NEGATIVE)
[2023-12-26 21:03] LABS: Amphetamine Screen Urine Not Detected (Not Detect); Barbiturates, Urine Not Detected (Not Detect); Benzodiazepines Screen Urine Not Detected (Not Detect); Buprenorphine Scr Positive (Not Detect); Cannabinoid Screen Urine Not Detected (Not Detect); Cocaine Screen Urine Not Detected (Not Detect); Fentanyl, urine POSITIVE (Not Detect); Methadone Screen, Urine Not Detected (Not Detect); Opiate Screen Urine Not Detected (Not Detect); Oxycodone Screen Urine Not Detected (Not Detect); Phencyclidine Screen Urine Not Detected (Not Detect)
[2023-12-26 21:04] LABS: Sodium Urine Random < 20.0 mmol/L
[2023-12-26 21:10] LABS: Osmolality Urine 70 mosm/kg (373-1093)
[2023-12-26] MEDS: Gabapentin 600 MG TABLET 800 MG PO (21:14)
[2023-12-26] MEDS: 0.9 % Sodium Chloride 500 ML 999 ML IVCONT (21:15)
[2023-12-26 21:50] VITALS: BP 146/84; PULSE 58; RESP 16; TEMP 36.7; O2SAT 96
--- NOTE | 2023-12-26 22:12 | PHA.MEDREC ---
Addendum entered by Angela Chavis 12/26/23 22:31: Patient states she has been taking motrin 200 mg 5 tablets qid prn. Veritojose says I knows it' a lot but i'm in pain . informed Dr and put on med rec 800 mg qid Original Note: Pharmacy Consult ? Medication Reconciliation Pharmacy has completed the medication reconciliation. Spoke to patient to confirm med list. Patient states she is no longer taking Amlodipine 10 mg daily, Nicotine Gum 2 mg Q2H prn, and Sertraline 100mg. Patient says she takes Levetiracetam 500 mg bid only as needed, Last fill date was 06-21-23 for 30 days. Patient aslo states she is on Creon 12,00-38,000-60,000 2 caps tid, however claims has last fill date of 07-12-23 for a 30 day supply, and Pentoxifylline 400 mg bid, however claims has last fill date 08-08-23 for 30 day supply.
--- NOTE | 2023-12-26 22:35 | PM.IMHP ---
History of Present Illness Date of Service: 12/26/23 Chief Complaint: Constipation This is a 48-year-old female with pertinent history of chronic pancreatitis, hypertension, peripheral neuropathy, seizure disorder, alcohol use disorder who presents to the emergency department for evaluation of abdominal pain. Patient states this has been ongoing for about 10 days. She has digital abdominal discomfort which is intermittent, nonradiating and without any relieving factors. Her last bowel movement was 2 weeks ago. Patient states that her baseline is about once a week bowel movement. 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 Patient does not know the results of the CT scan. Patient does report vomiting when she eats which is nonbloody and generalized fatigability. She also has been having generalized pain in her extremities and all over. Her last alcoholic drink was on the day of presentation states that she has no history of alcohol withdrawal. Admits poor p.o. intake. No fever, chills, chest discomfort, palpitations, shortness of breath, changes in urinary habits. In the emergency department, serum sodium found to be 122 Review of Systems Constitutional: Constitutional: Reports fatigue, Reports malaise, Reports poor appetite and Reports weakness Cardiovascular: Cardiovascular: Reports no additional cardiovascular complaints Respiratory: Respiratory: Reports no additional respiratory complaints Gastrointestinal: Gastrointestinal: Reports abdominal pain, Reports change in bowel habits and Reports early satiety Genitourinary: Genitourinary: Reports no additional female genitourinary complaints Neurologic: Reports weakness Endocrine: Endocrine: Reports fatigue [facility] Medical History Pseudocyst of pancreas Depression Anxiety Nausea Smoker Screening for hypercholesterolemia Liver fibrosis Chronic musculoskeletal pain HTN (hypertension) Abdominal pain Transaminitis Polyarthritis Family History Maternal Grandmother Cancer Mother HTN (hypertension) Mental health disorder Father HTN (hypertension) Substance use disorder Surgical History History of cholecystectomy Social History Household Members: Spouse Housing: House Do you presently have visiting nurse or other home services: No Alcohol intake: current Alcohol intake frequency: holidays/special occasions only Alcohol type: other Comment: refused bed alarm, camera, red sox Patient Tobacco Use Status: Current someday Tobacco user Tobacco use type: Cigarette Cigarette Packs Per Day: 1 Cigarettes Per Day: 20 (a week) Years Smoked: 28 e-Cigarette/Vaping Use: Never Used Second Hand Smoke Exposure: Yes Advance Directives: Yes Advance Directives on File: Yes Advance Directives Date on File: 01/26/21 Do you have a plan to hurt others: No Plan service: No Current occupational status: unemployed Cognitive needs: No Hearing needs: No Vision needs: No Meds Allergies Allergy/AdvReac Type Severity Reaction Status Date / Time Penicillins [PENICILLINS] Allergy Severe ANAPHYLAXIS Verified 12/26/23 18:34 codeine Allergy Intermediate vomiting Verified 12/26/23 18:34 Sulfa (Sulfonamide Allergy Intermediate diarrh Verified 12/26/23 18:34 Antibiotics) tramadol Allergy Intermediate Vomiting Verified 12/26/23 18:34 morphine AdvReac Intermediate itchiness Verified 12/26/23 18:34 sumatriptan AdvReac Intermediate GI side Verified 12/26/23 18:34 effect duloxetine [Cymbalta] AdvReac Unknown increased Verified 12/26/23 18:34 depression Active Medications: Current Medications Sodium Chloride (Ns) 500 mls @ 500 mls/hr IV .Q1H MERCEDES Stop: 12/26/23 23:44 Home Medications ?Medication ?Instructions ?Recorded ?Confirmed ?Last Taken ?Type ibuprofen 200 mg tablet 800 mg PO QID PRN Pain 12/26/23 12/26/23 Unknown History levetiracetam 500 mg tablet 500 mg PO BID PRN Seizures 12/26/23 12/26/23 Unknown History pantoprazole 40 mg tablet,delayed 40 mg PO DAILY@0630 12/26/23 12/26/23 12/25/23 History release Physical Exam Vital Signs and Narrative: Vital Signs: Last Vital Signs Temp 98.0 F 12/26/23 21:50 Pulse 58 12/26/23 21:50 Resp 16 12/26/23 21:50 BP 146/84 H 12/26/23 21:50 Pulse Ox 96 12/26/23 21:50 O2 Del Method Room Air 12/26/23 21:50 BMI result Body Mass Index 21.5 Middle-aged female lying in bed in no distress Neck supple, no JVD Regular rate and rhythm, S1-S2 heard Regular breath sounds bilaterally, no wheezing or crackles appreciated Abdomen soft nontender, no guarding, no rigidity Patient is awake, alert and oriented to self, place, time and person ; no focal motor deficit Psych: Normal mood No pedal edema Results Labs 12/26/23 18:47 12/26/23 18:47 Labs: Laboratory Results - last 24 hr 12/26/23 12/26/23 12/26/23 18:47 20:24 20:38 MCV 91.1 MCH 33.3 H MCHC 36.6 H RDW 13.9 Plt Count 267 D MPV 8.9 L Immature Gran % (Auto) 0.3 Neut % (Auto) 58.2 Lymph % (Auto) 35.0 [place] % (Auto) 4.4 Eos % (Auto) 1.6 Baso % (Auto) 0.5 Lymph # (Auto) 4.3 [place] # (Auto) 0.5 Eos # (Auto) 0.2 Baso # (Auto) 0.1 Abs Immat Gran (auto) 0.04 H Absolute Neuts (auto) 7.2 Absolute Nucleated RBC 0.000 Nucleated RBC % (auto) 0.0 Anion Gap 16 Estim Creat Clear Calc 81.3 Estimated GFR > 60 Random Glucose 89 Calcium 9.8 D Magnesium 1.1 L* Total Bilirubin 0.8 Direct Bilirubin 0.3 AST 147 H ALT 58 H Alkaline Phosphatase 177 H Total Protein 7.1 Albumin 4.1 Lipase 12 Urine Color Yellow Urine Appearance Clear Urine pH 6.5 Ur Specific [place] <= 1.005 Urine Protein Negative Urine Glucose (UA) Negative Urine Ketones Negative Urine Blood Negative Urine Nitrite Negative Ur Leukocyte Esterase Negative Urine Osmolality 70 L Ur Random Sodium < 20.0 Urine Test NEGATIVE Urine Opiates Screen Not Detected Ur Buprenorphine Scrn Positive H Ur Oxycodone Screen Not Detected Urine Methadone Screen Not Detected Urine Fentanyl Screen POSITIVE H Ur Barbiturates Screen Not Detected Ur Phencyclidine Scrn Not Detected Ur Amphetamines Screen Not Detected U Benzodiazepines Scrn Not Detected Urine Cocaine Screen Not Detected U Marijuana (THC) Screen Not Detected Ethyl Alcohol 83 Imaging Radiologist's Impressions: Impressions Abdomen/Pelvis CT 12/26/23 20:58 IMPRESSION: 1. No acute process. 2. Large amount of stool seen throughout the colon consistent with constipation. 3. Chronic pancreatitis. 4. Bilateral nonobstructing nephrolithiasis. 5. Status post cholecystectomy with stable chronic dilation of the common bile duct and intrahepatic biliary ducts. Assessment and Plan (1) Constipation: Status: Acute (2) Hypomagnesemia: Status: Acute (3) Acute hyponatremia: Status: Acute Plan This is a 48-year-old female with pertinent history of chronic pancreatitis, hypertension, peripheral neuropathy, seizure disorder, alcohol use disorder who presents to the emergency department for evaluation of abdominal pain. #. Abdominal pain due to constipation: Patient receiving Dulcolax and enema in the ER. Continue to monitor #. Hyponatremia, hypovolemic: Monitor sodium with crystalloid resuscitation. #. Reactive leukocytosis in the setting of above: Defer antibiotics #. Hypomagnesemia due to alcoholism and GI losses: Repleted. Repeat in a.m. Discontinue PPI if continues to be low #. Alcohol use disorder: Initiating thiamine. Patient states she never had alcohol withdrawal in the past and does not want phenobarb. Monior CIWA #. Elevated liver enzymes due to alcohol use: Outpatient follow-up #. Generalized extremity pain: Obtaining vitamin-D #. Tobacco use disorder: Refused nicotine patch #. Mood disorder: On clonidine p.r.n. #. Seizure disorder: On Keppra p.r.n. #. Gastroesophageal reflux disease: On PPI #. Peripheral neuropathy: On gabapentin #. Chronic pancreatitis: On Creon DVT prophylaxis: Lovenox Full code Admit as inpatient and will require two night minimum hospital stay for close monitoring of electrolytes, bowel function (as above), which is not possible in a lesser acute setting. Quality Stroke Does the patient have a stroke diagnosis?: No VTE Prior VTE?: No VTE Risk Level:: Medical - moderate - high VTE Device Contraindication: Treatment Not Indicated VTE Drug Contraindication: N/A - Med Ordered
[2023-12-26] MEDS: bisacodyL 5 MG TABLET.DR 10 MG PO (22:59)
[2023-12-26] MEDS: Sodium Phosphate,Mono-Dibasic 133 ML ENEMA PR (22:59)
[2023-12-26] MEDS: 0.9 % Sodium Chloride 500 ML IV (23:54)
[2023-12-26] MEDS: 0.9 % Sodium Chloride Flush 3 ML SYRINGE IVFLUSH (23:55)
[2023-12-26] MEDS: Enoxaparin Sodium 40 MG/0.4 ML SYRINGE SUBCUT (23:55)
[2023-12-27] VITALS (8 sets, daily range): BP systolic 129–156; BP diastolic 62–84; PULSE 55–58; RESP 16–18; TEMP 36.4–37; O2SAT 97–100; BMI 21.5
[2023-12-27] MEDS: oxyCODONE HCl Immed Release 5 MG TABLET PO ×4 (00:55→22:08)
--- NOTE | 2023-12-27 02:04 | MHC.EDTECH ---
Patient was assisted unto bed side commode ,had large loose bowel movement .
[2023-12-27] MEDS: Acetaminophen 325 MG TABLET 650 MG PO (04:30)
[2023-12-27] MEDS: cloNIDine HCL 0.2 MG TABLET PO ×2 (04:31→22:11)
[2023-12-27] MEDS: ondansetron HCL 4 MG/2 ML VIAL IVPUSH (04:36)
[2023-12-27 06:15] LABS: MANUAL DIFF FLAG NO
[2023-12-27 06:22] LABS: Basophils Percent Auto 0.7 % (0-2); Eosinophils Absolute Auto 0.2 X10*3/uL (0.0-0.4); Eosinophils Percent Auto 2.7 % (0-4); Hematocrit 35.2 % (37.0-47.0); Hemoglobin 12.6 g/dl (12.0-16.0); Imm Gran Abs Auto 0.01 X10*3/uL (0.00-0.03); Imm Gran Pct Auto 0.2 % (0.0-0.4); Lymphocytes Absolute Auto 2.5 X10*3/uL (1.2-4.9); Lymphocytes Percent Auto 45.1 % (20-40); Mean Corpuscular HGB Conc 35.8 g/dl (31.0-35.0); Mean Corpuscular Hemoglobin 33.1 pg (27.0-33.0); Mean Corpuscular Volume 92.4 fL (80.0-98.0); Mean Platelet Volume 9.5 fL (9.4-12.3); Monocytes Absolute Auto 0.3 X10*3/uL (0.1-1.2); Monocytes Percent Auto 5.4 % (2-11); Neutrophils Absolute Auto 2.5 x10*3/uL (2.0-8.3); Neutrophils Percent Auto 45.9 % (45-73); Platelet Count 258 X10*3/uL (160-400); Red Blood Count 3.81 X10*6/uL (4.20-5.50); Red Cell Distribution Width 14.2 % (11.0-16.0); White Blood Count 5.5 X10*3/uL (4.8-10.8)
[2023-12-27 06:36] LABS: Anion Gap 15 (12-20); Blood Urea Nitrogen 7 mg/dL (9-16); Calcium 8.9 mg/dL (8.4-10.2); Carbon Dioxide 26 mmol/L (22-29); Chloride 100 mmol/L (96-108); Creatinine Clr Calc Pharmacy 82.5; Estimated Glomerular Filt Rate > 60; Glucose Random 101 mg/dL (60-115); Magnesium 1.8 mg/dL (1.6-2.6); Potassium 4.3 mmol/L (3.3-5.1); Sodium 137 mmol/L (135-145)
[2023-12-27 06:50] LABS: Vitamin D 25-OH Total 69.7 ng/mL (>30)
--- NOTE | 2023-12-27 07:20 | PC.NURSE ---
This RN assumed care, pt sleeping at this time. Breathing even and unlabored, no outward distress noted.
[2023-12-27] MEDS: 0.9 % Sodium Chloride Flush 3 ML SYRINGE IVFLUSH ×2 (08:21→20:58)
[2023-12-27] MEDS: Dextrose 5 % 1,000 ML 125 ML IVCONT ×2 (09:57→17:51)
[2023-12-27] MEDS: Gabapentin 400 MG CAPSULE 800 MG PO ×4 (10:02→20:58)
[2023-12-27] MEDS: Thiamine HCL 100 MG TABLET PO (10:02)
[2023-12-27] MEDS: Pentoxifylline ER 400 MG TABLET.ER PO ×2 (10:02→20:57)
--- NOTE | 2023-12-27 11:17 | HO.PM.IMPN ---
Subjective Subjective Date of Service: 12/27/23 Interval History: body aches Physical Exam Vital Signs: Vital Signs: Last Vital Signs Temp 98.6 F 12/27/23 09:05 Pulse 55 12/27/23 09:05 Resp 16 12/27/23 09:05 BP 129/72 12/27/23 09:05 Pulse Ox 99 12/27/23 09:05 O2 Del Method Room Air 12/27/23 09:05 BMI result Body Mass Index 21.5 General: AO X 3, no acute distress Resp: CTA bilateral, no accessory muscles used CVS: S1,S2,RRR GI: soft, non tender, non distended Neuro: motor grossly intact, alert Psych: anxious Objective Data Active Medications Acetaminophen (Acetaminophen 325 Mg Tablet) 650 mg PO Q6H PRN PRN Reason: Pain, Mild (Pain Scale 1-3), fever or headache Last Admin: 12/27/23 04:30 Dose: 650 mg Documented By: SWAPNA Lipase/Protease/Amylase (Lipase/Prot/Amylase //60k Capsule.) 2 cap PO TID [facility] Last Admin: 12/27/23 10:36 Dose: Not Given Documented By: GIULIANO Non-Admin Reason: med not availble per pharmacy Calcium Carbonate (Calcium Carbonate 750 Mg Tab.Chew) 750 mg PO Q4H PRN PRN Reason: Heartburn Clonidine HCl (Clonidine Hcl 0.2 Mg Tablet) 0.2 mg PO BID PRN; Protocol PRN Reason: anxiety Last Admin: 12/27/23 04:31 Dose: 0.2 mg Documented By: SWAPNA Cyclobenzaprine HCl (Cyclobenzaprine Hcl 10 Mg Tablet) 10 mg PO BEDTIME PRN PRN Reason: muscle spasm Enoxaparin Sodium (Enoxaparin Sodium 40 Mg/0.4 Ml Syringe) 40 mg SUBCUT Q24H [facility] Last Admin: 12/26/23 23:55 Dose: 40 mg Documented By: SWAPNA Gabapentin (Gabapentin 400 Mg Capsule) 800 mg PO QID [facility] Last Admin: 12/27/23 10:02 Dose: 800 mg Documented By: GIULIANO Dextrose (D5w) 1,000 mls @ 125 mls/hr IVCONT .Q8H [facility] Last Admin: 12/27/23 09:57 Dose: 125 mls/hr Documented By: GIULIANO Levetiracetam (Levetiracetam 500 Mg Tablet) 500 mg PO BID PRN PRN Reason: Seizures Magnesium Hydroxide (Milk Of Magnesia 30 Ml Oral.Susp) 30 ml PO DAILY PRN PRN Reason: Constipation Melatonin (Melatonin 3 Mg Tablet) 6 mg PO BEDTIME PRN PRN Reason: Insomnia Omeprazole (Omeprazole 20 Mg Capsule.Dr) 20 mg PO DAILY@0630 [facility] Last Admin: 12/27/23 06:29 Dose: Not Given Documented By: SWAPNA Non-Admin Reason: Patient Asleep Ondansetron HCl (Ondansetron Hcl 4 Mg/2 Ml Vial) 4 mg IVPUSH Q8H PRN PRN Reason: Nausea and Vomiting Last Admin: 12/27/23 04:36 Dose: 4 mg Documented By: SWAPNA Oxycodone HCl (Oxycodone Hcl Immed Release 5 Mg Tablet) 5 mg PO Q4H PRN PRN Reason: Pain, Severe (Pain Scale 7-10) Last Admin: 12/27/23 08:20 Dose: 5 mg Documented By: RUDY Pentoxifylline (Pentoxifylline Er 400 Mg Tablet.Er) 400 mg PO BID [facility] Last Admin: 12/27/23 10:02 Dose: 400 mg Documented By: GIULIANO Sodium Chloride (0.9 % Sodium Chloride Flush 3 Ml Syringe) 3 ml IVFLUSH QSHIFT [facility] Last Admin: 12/27/23 08:21 Dose: 3 ml Documented By: RUDY Thiamine HCl (Thiamine Hcl 100 Mg Tablet) 100 mg PO DAILY [facility] Last Admin: 12/27/23 10:02 Dose: 100 mg Documented By: GIULIANO Labs 12/27/23 05:51 12/27/23 05:51 Labs: Laboratory Results - last 24 hr 12/26/23 12/26/23 12/26/23 18:47 20:24 20:38 MCV 91.1 MCH 33.3 H MCHC 36.6 H RDW 13.9 Plt Count 267 D MPV 8.9 L Immature Gran % (Auto) 0.3 Neut % (Auto) 58.2 Lymph % (Auto) 35.0 [place] % (Auto) 4.4 Eos % (Auto) 1.6 Baso % (Auto) 0.5 Lymph # (Auto) 4.3 [place] # (Auto) 0.5 Eos # (Auto) 0.2 Baso # (Auto) 0.1 Abs Immat Gran (auto) 0.04 H Absolute Neuts (auto) 7.2 Absolute Nucleated RBC 0.000 Nucleated RBC % (auto) 0.0 Anion Gap 16 Estim Creat Clear Calc 81.3 Estimated GFR > 60 Random Glucose 89 Calcium 9.8 D Magnesium 1.1 L* Total Bilirubin 0.8 Direct Bilirubin 0.3 AST 147 H ALT 58 H Alkaline Phosphatase 177 H Total Protein 7.1 Albumin 4.1 Lipase 12 25-OH Vitamin D Total Urine Color Yellow Urine Appearance Clear Urine pH 6.5 Ur Specific [place] <= 1.005 Urine Protein Negative Urine Glucose (UA) Negative Urine Ketones Negative Urine Blood Negative Urine Nitrite Negative Ur Leukocyte Esterase Negative Urine Osmolality 70 L Ur Random Sodium < 20.0 Urine Test NEGATIVE Urine Opiates Screen Not Detected Ur Buprenorphine Scrn Positive H Ur Oxycodone Screen Not Detected Urine Methadone Screen Not Detected Urine Fentanyl Screen POSITIVE H Ur Barbiturates Screen Not Detected Ur Phencyclidine Scrn Not Detected Ur Amphetamines Screen Not Detected U Benzodiazepines Scrn Not Detected Urine Cocaine Screen Not Detected U Marijuana (THC) Screen Not Detected Ethyl Alcohol 83 12/27/23 05:51 MCV 92.4 MCH 33.1 H MCHC 35.8 H RDW 14.2 Plt Count 258 MPV 9.5 Immature Gran % (Auto) 0.2 Neut % (Auto) 45.9 Lymph % (Auto) 45.1 H [place] % (Auto) 5.4 Eos % (Auto) 2.7 Baso % (Auto) 0.7 Lymph # (Auto) 2.5 [place] # (Auto) 0.3 Eos # (Auto) 0.2 Baso # (Auto) 0.0 Abs Immat Gran (auto) 0.01 Absolute Neuts (auto) 2.5 Absolute Nucleated RBC 0.000 Nucleated RBC % (auto) 0.0 Anion Gap 15 Estim Creat Clear Calc 82.5 Estimated GFR > 60 Random Glucose 101 Calcium 8.9 D Magnesium 1.8 Total Bilirubin Direct Bilirubin AST ALT Alkaline Phosphatase Total Protein Albumin Lipase 25-OH Vitamin D Total 69.7 Urine Color Urine Appearance Urine pH Ur Specific [place] Urine Protein Urine Glucose (UA) Urine Ketones Urine Blood Urine Nitrite Ur Leukocyte Esterase Urine Osmolality Ur Random Sodium Urine Test Urine Opiates Screen Ur Buprenorphine Scrn Ur Oxycodone Screen Urine Methadone Screen Urine Fentanyl Screen Ur Barbiturates Screen Ur Phencyclidine Scrn Ur Amphetamines Screen U Benzodiazepines Scrn Urine Cocaine Screen U Marijuana (THC) Screen Ethyl Alcohol Assessment and Plan (1) Hypomagnesemia: Status: Acute Plan 48F PMH alcohol dependence, chronic pancreatitis, hypertension, peripheral neuropathy, seizure disorder, anxiety presented with abdominal pain found to have severe constipation and hyponatremia Abdominal pain Due to constipation, resolved Hyponatremia Unknown chronicity, now rapidly corrected Nephrology following, started on D5W, monitor BNP Acute hypomagnesemia Replace and monitor Diffuse Bone pain Suspect due to hypomagnesemia Alcohol dependence Patient denies withdrawal, reports sobriety though tox screen is positive, not interested phenobarb, continue to monitor Mood disorder Clonidine Seizure disorder Continue Keppra Peripheral neuropathy Continue gabapentin Chronic pancreatitis Continue Creon DVT prophylaxis with Lovenox Full Code reason for continued hospitalization: Monitoring over corrected sodium and giving IV fluids Quality Stroke Does the patient have a stroke diagnosis?: No VTE Prior VTE?: No VTE Risk Level:: Medical - moderate - high VTE Device Contraindication: Treatment Not Indicated VTE Drug Contraindication: N/A - Med Ordered
--- NOTE | 2023-12-27 11:25 | PC.NURSE ---
patient is deemed high fall risk due to history of seizures, pt is refusing bed/chair alarms and assistance to bathroom and states she is able to do it herself. Pt educated on importance of utilizing call montemayor when needing to get up but says she will only call if she feels it is necessary. Patient is able to ambulate independently without difficulty or loss of balance. Will continue to educate on safety measures and seizure pads are in place of bed rails.
[2023-12-27] MEDS: diazePAM 10 MG/2 ML CARTRIDGE 5 MG IVPUSH (12:11)
--- NOTE | 2023-12-27 12:35 | MHC.CM.PN ---
PATIENT LIVES WITH FAMILY SHE IS INDEPENDENT WITH AMBULATION. NO DME OR VNA SERVICES. HCP ON FILE AND VERIFIED. SHE IS HOPING TO RETURN HOME TOMORROW. PATIENT HAS TRANSPORT AT [place]. CM FOLLOWING FOR ANY DC NEEDS.
[2023-12-27 13:03] LABS: Anion Gap 13 (12-20); Blood Urea Nitrogen 8 mg/dL (9-16); Calcium 8.9 mg/dL (8.4-10.2); Carbon Dioxide 31 mmol/L (22-29); Chloride 97 mmol/L (96-108); Creatinine Clr Calc Pharmacy 75.1; Estimated Glomerular Filt Rate > 60; Glucose Random 88 mg/dL (60-115); Potassium 4.3 mmol/L (3.3-5.1); Sodium 137 mmol/L (135-145)
[2023-12-27] MEDS: chlordiazePOXIDE HCl 5 MG CAPSULE 10 MG PO (15:56)
--- NOTE | 2023-12-27 17:09 | P.CONNP_ITS ---
History of Present Illness Reason for Consult Consult date: 12/27/23 Chief Complaint Chief complaint: Abdominal pain History of Present Illness Narrative: 48-year-old female with pertinent history of chronic pancreatitis, seizure disorder, alcohol use disorder who presented to the emergency department for evaluation of abdominal pain. Patient states this has been ongoing for about 10 days. She has digital abdominal discomfort which is intermittent, nonradiating and without any relieving factors. Her last bowel movement was 2 weeks ago. Patient states that her baseline is about once a week bowel movement. 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 Patient does not know the results of the CT scan. Patient does report vomiting when she eats which is nonbloody and generalized fatigability. She also has been having generalized pain in her extremities and all over. Her last alcoholic drink was on the day of presentation states that she has no history of alcohol withdrawal. Admits poor p.o. intake. No fever, chills, chest discomfort, palpitations, shortness of breath, changes in urinary habits. She had low sodium and was given fluids with increased correction. Nephrology has been consulted to assist in her clinical care during her current hospital stay Review of Systems Review of Systems Yes all other systems are reviewed and are negative PMFSH Past Medical History Medical History Pseudocyst of pancreas Depression Anxiety Nausea Smoker Screening for hypercholesterolemia Liver fibrosis Chronic musculoskeletal pain HTN (hypertension) Abdominal pain Transaminitis Polyarthritis Family History Family History Maternal Grandmother Cancer Mother HTN (hypertension) Mental health disorder Father HTN (hypertension) Substance use disorder Surgical History Surgical History History of cholecystectomy Social History Social History Household Members: Spouse and Children Housing: Apartment Do you presently have visiting nurse or other home services: No Alcohol intake: current Alcohol intake frequency: does not drink Alcohol type: other Comment: refused bed alarm, camera, red sox Patient Tobacco Use Status: Current everyday Tobacco user Tobacco use type: Cigarette Cigarette Packs Per Day: 1 Cigarettes Per Day: 8 Years Smoked: 28 e-Cigarette/Vaping Use: Never Used Second Hand Smoke Exposure: No Advance Directives Date on File: 01/26/21 service: No Current occupational status: unemployed Cognitive needs: No Hearing needs: No Vision needs: No Meds Allergies Allergy/AdvReac Type Severity Reaction Status Date / Time Penicillins [PENICILLINS] Allergy Severe ANAPHYLAXIS Verified 12/26/23 18:34 codeine Allergy Intermediate vomiting Verified 12/26/23 18:34 Sulfa (Sulfonamide Allergy Intermediate diarrh Verified 12/26/23 18:34 Antibiotics) tramadol Allergy Intermediate Vomiting Verified 12/26/23 18:34 morphine AdvReac Intermediate itchiness Verified 12/26/23 18:34 sumatriptan AdvReac Intermediate GI side Verified 12/26/23 18:34 effect duloxetine [Cymbalta] AdvReac Unknown increased Verified 12/26/23 18:34 depression Active Medications: Current Medications Acetaminophen (Acetaminophen 325 Mg Tablet) 650 mg PO Q6H PRN PRN Reason: Pain, Mild (Pain Scale 1-3), fever or headache Last Admin: 12/27/23 04:30 Dose: 650 mg Lipase/Protease/Amylase (Lipase/Prot/Amylase 12/38/60k Capsule.Dr) 2 cap PO TID [facility] Last Admin: 12/27/23 14:32 Dose: Not Given Calcium Carbonate (Calcium Carbonate 750 Mg Tab.Chew) 750 mg PO Q4H PRN PRN Reason: Heartburn Chlordiazepoxide HCl (Chlordiazepoxide Hcl 5 Mg Capsule) 10 mg PO QID PRN PRN Reason: body aches Last Admin: 12/27/23 15:56 Dose: 10 mg Clonidine HCl (Clonidine Hcl 0.2 Mg Tablet) 0.2 mg PO BID PRN; Protocol PRN Reason: anxiety Last Admin: 12/27/23 04:31 Dose: 0.2 mg Cyclobenzaprine HCl (Cyclobenzaprine Hcl 10 Mg Tablet) 10 mg PO BEDTIME PRN PRN Reason: muscle spasm Enoxaparin Sodium (Enoxaparin Sodium 40 Mg/0.4 Ml Syringe) 40 mg SUBCUT Q24H [facility] Last Admin: 12/26/23 23:55 Dose: 40 mg Gabapentin (Gabapentin 400 Mg Capsule) 800 mg PO QID [facility] Last Admin: 12/27/23 15:23 Dose: 800 mg Dextrose (D5w) 1,000 mls @ 125 mls/hr IVCONT .Q8H [facility] Last Admin: 12/27/23 09:57 Dose: 125 mls/hr Levetiracetam (Levetiracetam 500 Mg Tablet) 500 mg PO BID PRN PRN Reason: Seizures Magnesium Hydroxide (Milk Of Magnesia 30 Ml Oral.Susp) 30 ml PO DAILY PRN PRN Reason: Constipation Melatonin (Melatonin 3 Mg Tablet) 6 mg PO BEDTIME PRN PRN Reason: Insomnia Omeprazole (Omeprazole 20 Mg Capsule.Dr) 20 mg PO DAILY@629 [facility] Last Admin: 12/27/23 06:29 Dose: Not Given Ondansetron HCl (Ondansetron Hcl 4 Mg/2 Ml Vial) 4 mg IVPUSH Q8H PRN PRN Reason: Nausea and Vomiting Last Admin: 12/27/23 04:36 Dose: 4 mg Oxycodone HCl (Oxycodone Hcl Immed Release 5 Mg Tablet) 5 mg PO Q4H PRN PRN Reason: Pain, Severe (Pain Scale 7-10) Last Admin: 12/27/23 08:20 Dose: 5 mg Pentoxifylline (Pentoxifylline Er 400 Mg Tablet.Er) 400 mg PO BID [facility] Last Admin: 12/27/23 10:02 Dose: 400 mg Sodium Chloride (0.9 % Sodium Chloride Flush 3 Ml Syringe) [facility] Last Admin: 12/27/23 14:32 Dose: Not Given Thiamine HCl (Thiamine Hcl 100 Mg Tablet) 100 mg PO DAILY [facility] Last Admin: 12/27/23 10:02 Dose: 100 mg Home Medications ?Medication ?Instructions ?Recorded ?Confirmed ?Last Taken ?Type ibuprofen 200 mg tablet 800 mg PO QID PRN Pain 12/26/23 12/26/23 Unknown History levetiracetam 500 mg tablet 500 mg PO BID PRN Seizures 12/26/23 12/26/23 Unknown History pantoprazole 40 mg tablet,delayed 40 mg PO DAILY@0630 12/26/23 12/26/23 12/25/23 History release Physical Exam Vital Signs: Last Vital Signs Temp 97.8 F 12/27/23 16:00 Pulse 58 12/27/23 16:00 Resp 18 12/27/23 16:00 BP 138/78 12/27/23 16:00 Pulse Ox 100 12/27/23 16:00 O2 Del Method Room Air 12/27/23 16:00 BMI result Body Mass Index 21.5 Const General: no acute distress Orientation/consciousness: patient oriented x3 Eyes EOM: EOMs intact bilaterally Neck Neck: Yes supple Resp Auscultation: diminished lung sounds Cardio Rate: regular rate GI Palpation (GI): Soft to palpation Neuro General: patient oriented x3 and moves all extremities Results Lab Results 12/27/23 05:51 12/27/23 12:36 Lab results: Chemistry 12/26/23 12/27/23 12/27/23 18:47 05:51 12:36 Sodium 122 L 137 137 Potassium 3.7 4.3 4.3 Carbon Dioxide 27 26 31 H BUN 7 L 7 L 8 L Creatinine 0.73 0.72 0.79 Calcium 9.8 D 8.9 D 8.9 Hematology 12/26/23 12/27/23 18:47 05:51 WBC 12.3 H 5.5 Hgb 12.3 12.6 Plt Count 267 D 258 Urinalysis 12/26/23 20:24 Urine Color Yellow Urine Appearance Clear Urine pH 6.5 Ur Specific [place] <= 1.005 Urine Protein Negative Urine Glucose (UA) Negative Urine Ketones Negative Urine Blood Negative Urine Nitrite Negative Ur Leukocyte Esterase Negative Urine Studies 12/26/23 20:38 Urine Osmolality 70 L Assessment and Plan (1) Hypomagnesemia: Status: Acute (2) Acute hyponatremia: Status: Acute Plan Hyponatremia- multifactorial Na was corrected fast before I was consulted Started on D5W. Shall closely monitor serum Na If Na not dropped by D5W, shall give DDAVP Low Mg likely due to tubular wasting from excess alcohol intake Fast Na correction in pts like this with alcohol use disorder is at high risk for CPM No new neurological symptoms / signs now; Shall F/U Procedures Date of Service Date of Service: 12/27/23
[2023-12-27 17:17] LABS: Anion Gap 15 (12-20); Blood Urea Nitrogen 11 mg/dL (9-16); Calcium 9.2 mg/dL (8.4-10.2); Carbon Dioxide 30 mmol/L (22-29); Chloride 97 mmol/L (96-108); Creatinine Clr Calc Pharmacy 73.3; Estimated Glomerular Filt Rate > 60; Glucose Random 104 mg/dL (60-115); Potassium 4.2 mmol/L (3.3-5.1); Sodium 138 mmol/L (135-145)
--- NOTE | 2023-12-27 21:24 | PC.NURSE ---
Addendum entered by Paz Hernandes RN 12/28/23 06:34: Patient requested gabapentin on quality analyst/technical writer's morning med pass. Discussed with patient the medication is scheduled next at 09:00 this morning per MD order, which states four times a day with specific scheduled times. Pt stated she takes it every six hours at home and she needs it to sleep. Is Consultant clarified with the patient that the order for four times a day is not the same as every six hours per the MAR; specific scheduled times were discussed. Is Consultant offered to contact the doctor regarding patient's request for med to be given early. Despite this, the patient remained upset. Covering MD was notified of patient request. No new orders at this time. Of note, patient was observed sleeping for the majority of the night on hourly safety rounds with breathing observed even and unlabored without distress, was woken up for scheduled vitals. Addendum entered by Paz Hernandes RN 12/28/23 05:22: MD notified overnight Na repeat back 131. MD advised to continue D5W as ordered. Addendum entered by Paz Hernandes RN 12/28/23 00:20: Patient scoring for high fall risk per protocol due to hx of seizures, on CIWA protocol, and medications. Pt resistive to CIWA assessments, asking why are you asking me all these questions and having me do this? I don't drink or do drugs . Safety concerns and measures discussed with patient. Pt became agitated and argumentative with staff when attempted to gently educate. Pt ultimately agreeable to socks and keeping in-room camera already in place. Pt observed ambulating to the bathroom, steady on evening assessment. Plan discussed with patient okay to ambulate in room, though quality analyst/technical writer asked patient to call staff prior to leaving room; this was discussed with VMT. Hourly purposeful rounding in place. Patient requesting oxycodone for generalized/vague bone pain . Oxycodone not yet due when requested. This was discussed with patient and quality analyst/technical writer advised will contact MD. Patient was upset with this response, became accusatory towards staff. Covering Dr. Long notified, MD order to continue with schedule per MAR and addiction medicine consult in place. Original Note: Pharmacy called to request patient's scheduled Creon medication. Per pharmacy, there is none in stock hospital-wide, med was ordered and will hopefully be stocked tomorrow.
[2023-12-27 21:55] LABS: Anion Gap 11 (12-20); Blood Urea Nitrogen 14 mg/dL (9-16); Calcium 9.3 mg/dL (8.4-10.2); Carbon Dioxide 28 mmol/L (22-29); Chloride 96 mmol/L (96-108); Creatinine Clr Calc Pharmacy 72.4; Estimated Glomerular Filt Rate > 60; Glucose Random 131 mg/dL (60-115); Potassium 4.2 mmol/L (3.3-5.1); Sodium 131 mmol/L (135-145)
[2023-12-27] MEDS: Enoxaparin Sodium 40 MG/0.4 ML SYRINGE SUBCUT (22:07)
[2023-12-28] MEDS: Dextrose 5 % 1,000 ML 125 ML IVCONT (02:15)
[2023-12-28 03:12] VITALS: BP 158/85; PULSE 61; RESP 16; TEMP 36.1; O2SAT 100
[2023-12-28] MEDS: oxyCODONE HCl Immed Release 5 MG TABLET PO ×2 (03:26→08:36)
[2023-12-28 04:27] VITALS: RESP 18
[2023-12-28] MEDS: Omeprazole 20 MG CAPSULE.DR PO (05:52)
[2023-12-28 07:08] LABS: Hemoglobin 10.9 g/dl (12.0-16.0); Mean Corpuscular HGB Conc 35.2 g/dl (31.0-35.0); Mean Corpuscular Hemoglobin 33.4 pg (27.0-33.0); Mean Corpuscular Volume 95.1 fL (80.0-98.0); Mean Platelet Volume 10.3 fL (9.4-12.3); Platelet Count 202 X10*3/uL (160-400); Red Blood Count 3.26 X10*6/uL (4.20-5.50); Red Cell Distribution Width 14.2 % (11.0-16.0); White Blood Count 7.5 X10*3/uL (4.8-10.8)
[2023-12-28 07:16] LABS: Anion Gap 15 (12-20); Blood Urea Nitrogen 10 mg/dL (9-16); Calcium 9.1 mg/dL (8.4-10.2); Carbon Dioxide 23 mmol/L (22-29); Chloride 93 mmol/L (96-108); Creatinine Clr Calc Pharmacy 87.3; Estimated Glomerular Filt Rate > 60; Glucose Fasting 131 mg/dL (60-99); Magnesium 1.6 mg/dL (1.6-2.6); Potassium 3.7 mmol/L (3.3-5.1); Sodium 127 mmol/L (135-145)
[2023-12-28 07:50] VITALS: BP 119/75; PULSE 62; RESP 17; TEMP 36; O2SAT 100
[2023-12-28] MEDS: Thiamine HCL 100 MG TABLET PO (08:33)
[2023-12-28] MEDS: Acetaminophen 325 MG TABLET 650 MG PO (08:33)
[2023-12-28] MEDS: 0.9 % Sodium Chloride Flush 3 ML SYRINGE IVFLUSH (08:34)
[2023-12-28] MEDS: Pentoxifylline ER 400 MG TABLET.ER PO (08:34)
[2023-12-28] MEDS: Gabapentin 400 MG CAPSULE 800 MG PO ×2 (08:34→13:20)
--- NOTE | 2023-12-28 10:34 | HO.PM.IMPN ---
Subjective Subjective Date of Service: 12/28/23 Interval History: bone pain Physical Exam Vital Signs: Vital Signs: Last Vital Signs Temp 96.8 F 12/28/23 07:50 Pulse 62 12/28/23 07:50 Resp 17 12/28/23 07:50 BP 119/75 12/28/23 07:50 Pulse Ox 100 12/28/23 07:50 O2 Del Method Room Air 12/28/23 07:50 BMI result Body Mass Index 21.5 Const: General: no acute distress Orientation/consciousness: patient oriented x3 Eyes: EOM: EOMs intact bilaterally Neck: Neck: Yes supple Resp: Auscultation: diminished lung sounds Cardio: Rate: regular rate GI: Palpation (GI): Soft to palpation Neuro: General: patient oriented x3 and moves all extremities Objective Data Active Medications Acetaminophen (Acetaminophen 325 Mg Tablet) 650 mg PO Q6H PRN PRN Reason: Pain, Mild (Pain Scale 1-3), fever or headache Last Admin: 12/28/23 08:33 Dose: 650 mg Documented By: FRANK Lipase/Protease/Amylase (Lipase/Prot/Amylase /38/60k Capsule.Dr) 2 cap PO TID [facility] Last Admin: 12/28/23 08:37 Dose: Not Given Documented By: FRANK Non-Admin Reason: Med Not Available Calcium Carbonate (Calcium Carbonate 750 Mg Tab.Chew) 750 mg PO Q4H PRN PRN Reason: Heartburn Chlordiazepoxide HCl (Chlordiazepoxide Hcl 5 Mg Capsule) 10 mg PO QID PRN PRN Reason: body aches Last Admin: 12/27/23 15:56 Dose: 10 mg Documented By: GIULIANO Clonidine HCl (Clonidine Hcl 0.2 Mg Tablet) 0.2 mg PO BID PRN; Protocol PRN Reason: anxiety Last Admin: 12/27/23 22:11 Dose: 0.2 mg Documented By: JLUIS Cyclobenzaprine HCl (Cyclobenzaprine Hcl 10 Mg Tablet) 10 mg PO BEDTIME PRN PRN Reason: muscle spasm Enoxaparin Sodium (Enoxaparin Sodium 40 Mg/0.4 Ml Syringe) 40 mg SUBCUT Q24H [facility] Last Admin: 12/27/23 22:07 Dose: 40 mg Documented By: JLUIS Gabapentin (Gabapentin 400 Mg Capsule) 800 mg PO QID [facility] Last Admin: 12/28/23 08:34 Dose: 800 mg Documented By: FRANK Levetiracetam (Levetiracetam 500 Mg Tablet) 500 mg PO BID PRN PRN Reason: Seizures Magnesium Hydroxide (Milk Of Magnesia 30 Ml Oral.Susp) 30 ml PO DAILY PRN PRN Reason: Constipation Melatonin (Melatonin 3 Mg Tablet) 6 mg PO BEDTIME PRN PRN Reason: Insomnia Omeprazole (Omeprazole 20 Mg Capsule.Dr) 20 mg PO DAILY@0630 [facility] Last Admin: 12/28/23 05:52 Dose: 20 mg Documented By: JLUIS Ondansetron HCl (Ondansetron Hcl 4 Mg/2 Ml Vial) 4 mg IVPUSH Q8H PRN PRN Reason: Nausea and Vomiting Last Admin: 12/27/23 04:36 Dose: 4 mg Documented By: SWAPNA Oxycodone HCl (Oxycodone Hcl Immed Release 5 Mg Tablet) 10 mg PO Q4H PRN PRN Reason: Pain, Severe (Pain Scale 7-10) Pentoxifylline (Pentoxifylline Er 400 Mg Tablet.Er) 400 mg PO BID [facility] Last Admin: 12/28/23 08:34 Dose: 400 mg Documented By: FRANK Sodium Chloride (0.9 % Sodium Chloride Flush 3 Ml Syringe) 3 ml IVFLUSH QSHIFT [facility] Last Admin: 12/28/23 08:34 Dose: 3 ml Documented By: FRANK Thiamine HCl (Thiamine Hcl 100 Mg Tablet) 100 mg PO DAILY [facility] Last Admin: 12/28/23 08:33 Dose: 100 mg Documented By: FRANK Labs 12/28/23 05:37 12/28/23 05:37 Labs: Laboratory Results - last 24 hr 12/27/23 12/27/23 12/27/23 12:36 16:45 21:10 MCV MCH MCHC RDW Plt Count MPV Absolute Nucleated RBC Nucleated RBC % (auto) Anion Gap 13 15 11 L Estim Creat Clear Calc 75.1 73.3 72.4 Estimated GFR > 60 > 60 > 60 Random Glucose 88 104 131 H Fasting Glucose Calcium 8.9 9.2 9.3 Magnesium 12/28/23 05:37 MCV 95.1 MCH 33.4 H MCHC 35.2 H RDW 14.2 Plt Count 202 MPV 10.3 Absolute Nucleated RBC 0.000 Nucleated RBC % (auto) 0.0 Anion Gap 15 Estim Creat Clear Calc 87.3 Estimated GFR > 60 Random Glucose Fasting Glucose 131 H Calcium 9.1 Magnesium 1.6 Assessment and Plan (1) Hypomagnesemia: Status: Acute Plan 48F PMH alcohol dependence, chronic pancreatitis, hypertension, peripheral neuropathy, seizure disorder, anxiety presented with abdominal pain found to have severe constipation and hyponatremia Abdominal pain Due to constipation, resolved Hyponatremia complicated by rapid correction Unknown chronicity sodium down to 127 now, will hold d5w, monitor Acute hypomagnesemia Replaced Diffuse Bone pain Suspect due to hypomagnesemia vs opiate withdrawal addiction team appreciated Alcohol dependence Patient denies withdrawal, reports sobriety though tox screen is positive, not interested phenobarb, continue to monitor Mood disorder Clonidine Seizure disorder Continue Keppra Peripheral neuropathy Continue gabapentin Chronic pancreatitis Continue Creon DVT prophylaxis with Lovenox Full Code reason for continued hospitalization: Monitoring over corrected sodium Quality Stroke Does the patient have a stroke diagnosis?: No VTE Prior VTE?: No VTE Risk Level:: Medical - moderate - high VTE Device Contraindication: Treatment Not Indicated VTE Drug Contraindication: N/A - Med Ordered
[2023-12-28] MEDS: ondansetron HCL 4 MG/2 ML VIAL IVPUSH (10:44)
--- NOTE | 2023-12-28 11:14 | PC.NURSE ---
Pt refusing bed alarm and telesitter. High Fall Risk precautions for history of seizures.
[2023-12-28] MEDS: Calcium Carbonate 750 MG TAB.CHEW PO (11:18)
[2023-12-28] MEDS: oxyCODONE HCl Immed Release 5 MG TABLET 10 MG PO (11:18)
[2023-12-28 13:14] LABS: Sodium 127 mmol/L (135-145)
--- NOTE | 2023-12-28 13:32 | HO.ADDICTCON ---
History of Present Illness Date of Service: 12/28/2023 Chief Complaint: Abdominal pain Reason for Consult: +UDS Sources of Information: patient interviewed and chart reviewed HPI Narrative: Patient is a 48 year old female with history of chronic pancreatitis, hypertension, seizure disorder and chronic pain. Admitted with hyponatremia and abdominal pain realted to constipation. Consult requested as patient UDS + for fentanyl and buprenorphine. Patient seen in room 370. She was awake, alert and engaged in interiew. She was sitting up eating breakfast by the window. Patient immediately verbalizing that she felt like she was being judged and her pain ignored because of urine drug screen results. This typewriter ribbon winder allowed patient to share frustrations and then moved onto assessment. Chart review shows that patient had previously been in Pain Management program and due to taking more medication than prescribed and not taking belbuca as ordered, she was suspended (2020). She has been worked up by rheumatology, who according to Pain management note, did not find any cause for pain so no follow up was indicated. She reports that she has been having terrible bone pain for more than 8 days and decided to take a percocet from a friend. She identified that this was likely a pressed pill-fentanyl. She reports buprenorphine is from suboxone she has at home, of which she took a very small piece. Patient is guarded related to questions about this and appears to not see the reason for concern. Some minimizing. fentanyl does nothing to me, thats why that fake percocet didn't help me . When inquiring about her sx--bone pain, constipation, this typewriter ribbon winder asked if there was a chance she was having withdrawal sx. Patient emphatically denies stating she knows what opioid withdrawal feels like due to previoud long terrm prescription after falling and requiring surgery in her late 20's. She denies any history of Opioid treatment She reports history of alcohol use disorder, and currently drinks occasionally--however LFTs elevated and patient may be minimizing alcohol intake. This typewriter ribbon winder discussed current pain sx and starting suboxone to address these sx. Patient reports she does not like suboxone and feels that it makes her gag. Discussed taking zofran it, patient still declining. Discussed methadone, she immediately declined. She states that Dilaudid is the only medication that has brought her some relief. This typewriter ribbon winder acknowledged that Dilaudid was helpful, however this was not something that would be continued-destiny at discharge. Discussed other scenarios where buprenorphine can be administered as an injection. Patient stated that she wanted to go home and be with her children as she did not feel her pain was being managed. Medical Evaluation Reviewed: Yes Review of Systems Constitutional: Reports as per HPI Diagnostics Vital Signs (24Hr): Vital Signs - 24 hr 12/27/23 16:00 12/27/23 19:17 12/27/23 22:11 Temperature 97.8 F 97.7 F Pulse Rate 58 58 Respiratory Rate 18 18 Blood Pressure 138/78 146/75 H 156/81 H Pulse Oximetry 100 97 Oxygen Delivery Method Room Air Room Air 12/27/23 23:11 12/27/23 23:11 12/28/23 03:12 Temperature 97 F Pulse Rate 61 Respiratory Rate 16 16 16 Blood Pressure 158/85 H Pulse Oximetry 100 Oxygen Delivery Method Room Air 12/28/23 04:27 12/28/23 07:50 Temperature 96.8 F Pulse Rate 62 Respiratory Rate 18 17 Blood Pressure 119/75 Pulse Oximetry 100 Oxygen Delivery Method Room Air BMI result Body Mass Index 21.5 Labs 12/28/23 05:37 12/28/23 12:51 Labs: Laboratory Results - last 48 hr 12/26/23 12/26/23 12/26/23 18:47 20:24 20:38 WBC 12.3 H RBC 3.69 L Hgb 12.3 Hct 33.6 L MCV 91.1 MCH 33.3 H MCHC 36.6 H RDW 13.9 Plt Count 267 D MPV 8.9 L Immature Gran % (Auto) 0.3 Neut % (Auto) 58.2 Lymph % (Auto) 35.0 [place] % (Auto) 4.4 Eos % (Auto) 1.6 Baso % (Auto) 0.5 Lymph # (Auto) 4.3 [place] # (Auto) 0.5 Eos # (Auto) 0.2 Baso # (Auto) 0.1 Abs Immat Gran (auto) 0.04 H Absolute Neuts (auto) 7.2 Absolute Nucleated RBC 0.000 Nucleated RBC % (auto) 0.0 Sodium 122 L Potassium 3.7 Chloride 83 L D Carbon Dioxide 27 Anion Gap 16 BUN 7 L Creatinine 0.73 Estim Creat Clear Calc 81.3 Estimated GFR > 60 Random Glucose 89 Fasting Glucose Calcium 9.8 D Magnesium 1.1 L* Total Bilirubin 0.8 Direct Bilirubin 0.3 AST 147 H ALT 58 H Alkaline Phosphatase 177 H Total Protein 7.1 Albumin 4.1 Lipase 12 25-OH Vitamin D Total Urine Color Yellow Urine Appearance Clear Urine pH 6.5 Ur Specific [place] <= 1.005 Urine Protein Negative Urine Glucose (UA) Negative Urine Ketones Negative Urine Blood Negative Urine Nitrite Negative Ur Leukocyte Esterase Negative Urine Osmolality 70 L Ur Random Sodium < 20.0 Urine Test NEGATIVE Urine Opiates Screen Not Detected Ur Buprenorphine Scrn Positive H Ur Oxycodone Screen Not Detected Urine Methadone Screen Not Detected Urine Fentanyl Screen POSITIVE H Ur Barbiturates Screen Not Detected Ur Phencyclidine Scrn Not Detected Ur Amphetamines Screen Not Detected U Benzodiazepines Scrn Not Detected Urine Cocaine Screen Not Detected U Marijuana (THC) Screen Not Detected Ethyl Alcohol 83 12/27/23 12/27/23 12/27/23 05:51 12:36 16:45 WBC 5.5 RBC 3.81 L Hgb 12.6 Hct 35.2 L MCV 92.4 MCH 33.1 H MCHC 35.8 H RDW 14.2 Plt Count 258 MPV 9.5 Immature Gran % (Auto) 0.2 Neut % (Auto) 45.9 Lymph % (Auto) 45.1 H [place] % (Auto) 5.4 Eos % (Auto) 2.7 Baso % (Auto) 0.7 Lymph # (Auto) 2.5 [place] # (Auto) 0.3 Eos # (Auto) 0.2 Baso # (Auto) 0.0 Abs Immat Gran (auto) 0.01 Absolute Neuts (auto) 2.5 Absolute Nucleated RBC 0.000 Nucleated RBC % (auto) 0.0 Sodium 137 137 138 Potassium 4.3 4.3 4.2 Chloride 100 D 97 97 Carbon Dioxide 26 31 H 30 H Anion Gap 15 13 15 BUN 7 L 8 L 11 Creatinine 0.72 0.79 0.81 Estim Creat Clear Calc 82.5 75.1 73.3 Estimated GFR > 60 > 60 > 60 Random Glucose 101 88 104 Fasting Glucose Calcium 8.9 D 8.9 9.2 Magnesium 1.8 Total Bilirubin Direct Bilirubin AST ALT Alkaline Phosphatase Total Protein Albumin Lipase 25-OH Vitamin D Total 69.7 Urine Color Urine Appearance Urine pH Ur Specific [place] Urine Protein Urine Glucose (UA) Urine Ketones Urine Blood Urine Nitrite Ur Leukocyte Esterase Urine Osmolality Ur Random Sodium Urine Test Urine Opiates Screen Ur Buprenorphine Scrn Ur Oxycodone Screen Urine Methadone Screen Urine Fentanyl Screen Ur Barbiturates Screen Ur Phencyclidine Scrn Ur Amphetamines Screen U Benzodiazepines Scrn Urine Cocaine Screen U Marijuana (THC) Screen Ethyl Alcohol 12/27/23 12/28/23 12/28/23 21:10 05:37 12:51 WBC 7.5 RBC 3.26 L Hgb 10.9 L Hct 31.0 L MCV 95.1 MCH 33.4 H MCHC 35.2 H RDW 14.2 Plt Count 202 MPV 10.3 Immature Gran % (Auto) Neut % (Auto) Lymph % (Auto) [place] % (Auto) Eos % (Auto) Baso % (Auto) Lymph # (Auto) [place] # (Auto) Eos # (Auto) Baso # (Auto) Abs Immat Gran (auto) Absolute Neuts (auto) Absolute Nucleated RBC 0.000 Nucleated RBC % (auto) 0.0 Sodium 131 L 127 L 127 L Potassium 4.2 3.7 Chloride 96 93 L Carbon Dioxide 28 23 Anion Gap 11 L 15 BUN 14 10 Creatinine 0.82 0.68 Estim Creat Clear Calc 72.4 87.3 Estimated GFR > 60 > 60 Random Glucose 131 H Fasting Glucose 131 H Calcium 9.3 9.1 Magnesium 1.6 Total Bilirubin Direct Bilirubin AST ALT Alkaline Phosphatase Total Protein Albumin Lipase 25-OH Vitamin D Total Urine Color Urine Appearance Urine pH Ur Specific [place] Urine Protein Urine Glucose (UA) Urine Ketones Urine Blood Urine Nitrite Ur Leukocyte Esterase Urine Osmolality Ur Random Sodium Urine Test Urine Opiates Screen Ur Buprenorphine Scrn Ur Oxycodone Screen Urine Methadone Screen Urine Fentanyl Screen Ur Barbiturates Screen Ur Phencyclidine Scrn Ur Amphetamines Screen U Benzodiazepines Scrn Urine Cocaine Screen U Marijuana (THC) Screen Ethyl Alcohol Imaging Radiology Impressions: ITS Impressions Abdomen/Pelvis CT 12/26/23 20:58 IMPRESSION: 1. No acute process. 2. Large amount of stool seen throughout the colon consistent with constipation. 3. Chronic pancreatitis. 4. Bilateral nonobstructing nephrolithiasis. 5. Status post cholecystectomy with stable chronic dilation of the common bile duct and intrahepatic biliary ducts. Mental Status Exam Mental Status Exam Patient Appearance: Well Grooomed and Appropriate Level of Consciousness: Awake, Appropriate and Alert Patient Behavior: Guarded and Anxious Mood Description: Anxious Affect Description: Anxious Speech Pattern: Clear Thought Process: Intact Judgement: Fair Judgement and Insight: limited insight related to opiate use and risk Medications Medications Current Medications Acetaminophen (Acetaminophen 325 Mg Tablet) 650 mg PO Q6H PRN PRN Reason: Pain, Mild (Pain Scale 1-3), fever or headache Last Admin: 12/28/23 08:33 Dose: 650 mg Lipase/Protease/Amylase (Lipase/Prot/Amylase 12/38/60k Capsule.) 2 cap PO TID [facility] Last Admin: 12/28/23 08:37 Dose: Not Given Calcium Carbonate (Calcium Carbonate 750 Mg Tab.Chew) 750 mg PO Q4H PRN PRN Reason: Heartburn Last Admin: 12/28/23 11:18 Dose: 750 mg Chlordiazepoxide HCl (Chlordiazepoxide Hcl 5 Mg Capsule) 10 mg PO QID PRN PRN Reason: body aches Last Admin: 12/27/23 15:56 Dose: 10 mg Clonidine HCl (Clonidine Hcl 0.2 Mg Tablet) 0.2 mg PO BID PRN; Protocol PRN Reason: anxiety Last Admin: 12/27/23 22:11 Dose: 0.2 mg Cyclobenzaprine HCl (Cyclobenzaprine Hcl 10 Mg Tablet) 10 mg PO BEDTIME PRN PRN Reason: muscle spasm Enoxaparin Sodium (Enoxaparin Sodium 40 Mg/0.4 Ml Syringe) 40 mg SUBCUT Q24H [facility] Last Admin: 12/27/23 22:07 Dose: 40 mg Gabapentin (Gabapentin 400 Mg Capsule) 800 mg PO QID [facility] Last Admin: 12/28/23 13:20 Dose: 800 mg Levetiracetam (Levetiracetam 500 Mg Tablet) 500 mg PO BID PRN PRN Reason: Seizures Magnesium Hydroxide (Milk Of Magnesia 30 Ml Oral.Susp) 30 ml PO DAILY PRN PRN Reason: Constipation Melatonin (Melatonin 3 Mg Tablet) 6 mg PO BEDTIME PRN PRN Reason: Insomnia Omeprazole (Omeprazole 20 Mg Capsule.) 20 mg PO DAILY@0630 [facility] Last Admin: 12/28/23 05:52 Dose: 20 mg Ondansetron HCl (Ondansetron Hcl 4 Mg/2 Ml Vial) 4 mg IVPUSH Q8H PRN PRN Reason: Nausea and Vomiting Last Admin: 12/28/23 10:44 Dose: 4 mg Oxycodone HCl (Oxycodone Hcl Immed Release 5 Mg Tablet) 10 mg PO Q4H PRN PRN Reason: Pain, Severe (Pain Scale 7-10) Last Admin: 12/28/23 11:18 Dose: 10 mg Pentoxifylline (Pentoxifylline Er 400 Mg Tablet.Er) 400 mg PO BID [facility] Last Admin: 12/28/23 08:34 Dose: 400 mg Sodium Chloride (0.9 % Sodium Chloride Flush 3 Ml Syringe) 3 ml IVFLUSH QSHIFT [facility] Last Admin: 12/28/23 08:34 Dose: 3 ml Thiamine HCl (Thiamine Hcl 100 Mg Tablet) 100 mg PO DAILY [facility] Last Admin: 12/28/23 08:33 Dose: 100 mg Allergies Allergies Allergy/AdvReac Type Severity Reaction Status Date / Time Penicillins [PENICILLINS] Allergy Severe ANAPHYLAXIS Verified 12/26/23 18:34 codeine Allergy Intermediate vomiting Verified 12/26/23 18:34 Sulfa (Sulfonamide Allergy Intermediate diarrh Verified 12/26/23 18:34 Antibiotics) tramadol Allergy Intermediate Vomiting Verified 12/26/23 18:34 morphine AdvReac Intermediate itchiness Verified 12/26/23 18:34 sumatriptan AdvReac Intermediate GI side Verified 12/26/23 18:34 effect duloxetine [Cymbalta] AdvReac Unknown increased Verified 12/26/23 18:34 depression Assessment & Plan Assessment & Plan (1) Chronic musculoskeletal pain: Status: Acute Code(s): M79.18 - Myalgia, other site; G89.29 - Other chronic pain Assessment and Plan: at this time patient does not feel her pain is being addresses properly and requesting to leave AMA discussed starting buprenorphine, scheduled, to address sx and patient declined. overdose prevention discussion asked for and accepted [facility] information to follow up Total time managing care of this patient today _60___ minutes. PMFSH Past Medical History Medical History Pseudocyst of pancreas Depression Anxiety Nausea Smoker Screening for hypercholesterolemia Liver fibrosis Chronic musculoskeletal pain HTN (hypertension) Abdominal pain Transaminitis Polyarthritis Family History Family History Maternal Grandmother Cancer Mother HTN (hypertension) Mental health disorder Father HTN (hypertension) Substance use disorder Surgical History Surgical History History of cholecystectomy Social History Social History Household Members: Spouse and Children Housing: Apartment Do you presently have visiting nurse or other home services: No Alcohol intake: current Alcohol intake frequency: does not drink Alcohol type: other Comment: pt refused staff in [place] Patient Tobacco Use Status: Current everyday Tobacco user Tobacco use type: Cigarette Cigarette Packs Per Day: 1 Cigarettes Per Day: 8 Years Smoked: 28 e-Cigarette/Vaping Use: Never Used Second Hand Smoke Exposure: No Advance Directives Date on File: 01/26/21 service: No Current occupational status: unemployed Cognitive needs: No Hearing needs: No Vision needs: No
--- NOTE | 2023-12-28 13:36 | PM.DS ---
DS: Providers Provider Date of Service: 12/28/23 Date of admission: 12/26/23 22:36 Primary care physician: Anthony Aragon PA-C Consults: 12/27/23 08:31 Consult to Nephrology Routine Consulting Provider: [facility] Reason for consultation: hyponatremia, ?rapid correction 12/27/23 17:01 Addiction Medicine Routine Consulting Provider: Addiction Covering Reason for consultation: positive fentanyl and bupronorphine, etoh positive, denies DS: Diagnosis Discharge Diagnosis (1) Hypomagnesemia: Status: Acute DS: Summary Hospital Course Hospital Course: from initial hpi: 48-year-old female with pertinent history of chronic pancreatitis, hypertension, peripheral neuropathy, seizure disorder, alcohol use disorder who presents to the emergency department for evaluation of abdominal pain. Patient states this has been ongoing for about 10 days. She has digital abdominal discomfort which is intermittent, nonradiating and without any relieving factors. Her last bowel movement was 2 weeks ago. Patient states that her baseline is about once a week bowel movement. 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 Patient does not know the results of the CT scan. Patient does report vomiting when she eats which is nonbloody and generalized fatigability. She also has been having generalized pain in her extremities and all over. Her last alcoholic drink was on the day of presentation states that she has no history of alcohol withdrawal. Admits poor p.o. intake. No fever, chills, chest discomfort, palpitations, shortness of breath, changes in urinary habits. In the emergency department, serum sodium found to be 122 hospital course: Patient was admitted for abdominal pain due to constipation which improved with enema followed by stool. Also admitted for hyponatremia of unclear chronicity which was complicated by rapid correction after IV fluids. Patient was then prophylactically given D5W and DDAVP and sodium decreased to 127. She had no neurological effects. Plan was to continue close monitoring of sodium with fluid restriction and nephrology following. However, patient decided to leave against medical advice. She was able to express understanding of the risks of doing so including . For acute hypomagnesemia she received replacement. For diffuse bone pain differential includes electrolyte abnormalities versus opiate withdrawal. She was seen by Addiction team who recommended oxycodone and setting up outpatient for Suboxone. For mood disorder was continued on clonidine. For seizure disorder was continued on Keppra. For peripheral neuropathy was continued on gabapentin. For chronic pancreatitis was continued on Creon. Time Attestation Discharge Coordination Time (in mins): 35 Quality: Safe Use of Opioids Does Pt have an Active Cancer Diagnosis on the Problem List?: No Quality: Stroke Does the patient have a stroke diagnosis?: No Physical Exam Vital Signs: Vital Signs: Last Vital Signs Temp 96.8 F 12/28/23 07:50 Pulse 62 12/28/23 07:50 Resp 17 12/28/23 07:50 BP 119/75 12/28/23 07:50 Pulse Ox 100 12/28/23 07:50 O2 Del Method Room Air 12/28/23 07:50 BMI result Body Mass Index 21.5 General: AO X 3, no acute distress Resp: CTA bilateral, no accessory muscles used CVS: S1,S2,RRR GI: soft, non tender, non distended Neuro: motor grossly intact, alert Psych: appropriate affect, appropriate insight DS: Data Data Completed and Pending Completed studies during hospitalization [Text1]: Procedures Drainage of Spinal Canal, Percutaneous Approach, Diagnostic (01/24/21) Labs on day of discharge: Laboratory Results - last 24 hr 12/27/23 12/27/23 12/28/23 16:45 21:10 05:37 WBC 7.5 RBC 3.26 L Hgb 10.9 L Hct 31.0 L MCV 95.1 MCH 33.4 H MCHC 35.2 H RDW 14.2 Plt Count 202 MPV 10.3 Absolute Nucleated RBC 0.000 Nucleated RBC % (auto) 0.0 Sodium 138 131 L 127 L Potassium 4.2 4.2 3.7 Chloride 97 96 93 L Carbon Dioxide 30 H 28 23 Anion Gap 15 11 L 15 BUN 11 14 10 Creatinine 0.81 0.82 0.68 Estim Creat Clear Calc 73.3 72.4 87.3 Estimated GFR > 60 > 60 > 60 Random Glucose 104 131 H Fasting Glucose 131 H Calcium 9.2 9.3 9.1 Magnesium 1.6 12/28/23 12:51 WBC RBC Hgb Hct MCV MCH MCHC RDW Plt Count MPV Absolute Nucleated RBC Nucleated RBC % (auto) Sodium 127 L Potassium Chloride Carbon Dioxide Anion Gap BUN Creatinine Estim Creat Clear Calc Estimated GFR Random Glucose Fasting Glucose Calcium Magnesium Discharge Plan Discharge Anticipated Discharge Date/Time: 12/28/23 13:34 Patient Disposition: Left Against Medical Advice Discharge Diagnosis: hyponatremia Referrals: Anthony Aragon PA-C [Primary Care Provider] - 1 Week Discharge Medications: Continued pentoxifylline 400 mg tablet extended release 400 mg PO BID Qty: 60 3RF Creon 12,000-38,000 -60,000 unit capsule,delayed release(DR/EC) 2 cap PO TID 60 Days Qty: 360 1RF Rx Instructions: patient is taking gabapentin 800 mg tablet 800 mg PO QID 30 Days Qty: 120 0RF cyclobenzaprine 10 mg tablet 10 mg PO BEDTIME PRN (Reason: muscle spasm) 30 Days Qty: 30 6RF clonidine HCl 0.2 mg tablet 0.2 mg PO BID PRN (Reason: anxiety) 30 Days Qty: 60 3RF levetiracetam 500 mg tablet 500 mg PO BID PRN (Reason: Seizures) ibuprofen 200 mg Tablet 800 mg PO QID PRN (Reason: Pain) pantoprazole 40 mg tablet,delayed release (DR/EC) 40 mg PO DAILY@0630 Discharge Orders: Discharge Order (Routine); Ordered 12/28/23 Ordered By: Onesimo Ramos Print Language: Croatian Care Plan Goals: recovery Health Concerns: hyponatremia Plan of Treatment: cannot properly treat out of hospital Assessment: see above
== END 2023-12-28 14:18 | disposition left against medical advice (07) | DRG 641 ==
LOC: HO.ED 20:43 → HO.EDOVER 22:43 → HO.S3 12-27 07:53
PROVIDERS: Physician Assistant; Admitting Provider Student in an Organized Health Care Education/Training Program; Emergency Provider Emergency Medicine; PCP Physician Assistant; Visit Provider Internal Medicine
DX: E87.1 Hypo-osmolality and hyponatremia (principal); K86.1 Other chronic pancreatitis; K59.00 Constipation, unspecified; G89.29 Other chronic pain; Y90.4 Blood alcohol level of 80-99 mg/100 ml; M89.8X0 Other specified disorders of bone, multiple sites; E83.42 Hypomagnesemia; G62.9 Polyneuropathy, unspecified; F10.20 Alcohol dependence, uncomplicated; G40.909 Epilepsy, unspecified, not intractable, without status epilepticus; F17.210 Nicotine dependence, cigarettes, uncomplicated; Z71.6 Tobacco abuse counseling; Z79.899 Other long term (current) drug therapy
CPT/HCPCS: 36415; 74176; 80048; 80076; 80307; 81003; 81025; 82306; 83690; 83735; 83935; 84295; 84300; 85025; 85027; 93005; 99285; J1650; J2405; J2597; J3360; J3475

== ENCOUNTER → 2023-12-26 18:32 | Outpatient (BNV) | payer OTHER, SELFPAY | PROVIDERS: Admitting Provider Student in an Organized Health Care Education/Training Program; Emergency Provider Emergency Medicine; PCP Physician Assistant; Visit Provider Internal Medicine Cardiovascular Disease | DX: R55 Syncope and collapse (principal) | CPT/HCPCS: 93010 ==

== ENCOUNTER → 2023-12-26 22:36 | Outpatient (BNV) | payer OTHER, SELFPAY | PROVIDERS: Admitting Provider Student in an Organized Health Care Education/Training Program; Emergency Provider Emergency Medicine; PCP Physician Assistant; Visit Provider Internal Medicine Nephrology | DX: E83.42 Hypomagnesemia (principal); E87.1 Hypo-osmolality and hyponatremia | CPT/HCPCS: 99223 ==

== ENCOUNTER → 2023-12-26 22:36 | Outpatient (BNV) | payer OTHER, SELFPAY | PROVIDERS: Admitting Provider Student in an Organized Health Care Education/Training Program; Emergency Provider Emergency Medicine; PCP Physician Assistant; Visit Provider Nurse Practitioner Psychiatric/Mental Health | DX: F10.90 Alcohol use, unspecified, uncomplicated (principal); M79.18 Myalgia, other site; G89.29 Other chronic pain | CPT/HCPCS: 99222 ==

== ENCOUNTER → 2023-12-26 22:36 | Outpatient (BNV) | payer OTHER, SELFPAY | PROVIDERS: Admitting Provider Student in an Organized Health Care Education/Training Program; Emergency Provider Emergency Medicine; PCP Physician Assistant; Visit Provider Student in an Organized Health Care Education/Training Program | DX: K59.00 Constipation, unspecified (principal); E83.42 Hypomagnesemia; E87.1 Hypo-osmolality and hyponatremia | CPT/HCPCS: 99223; 99232; 99239 ==

== ENCOUNTER 2024-01-01 09:10 | Outpatient (AMB) | payer OTHER, SELFPAY ==
--- NOTE | 2024-01-01 09:11 | MHC.OFFVIS ---
Vital Signs 01/01/24 09:13 Height 5 ft 4 in Weight 123 lb 7.342 oz BMI 21.2 BP 180/92 H Blood Pressure Location Lt brachial Position Sitting Pulse 70 Intake Visit Reasons: Constipation, N/V Intake Note: She states she was recently hospitalized for a couple days. She left against Drs orders. She has constipation that will go anywhere from 2 - 5 weeks. She states that she had a CT scan and has not had the results to that. ED stay was here - she is having bone pains and low sodium levels. 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 Allergies Penicillins [PENICILLINS] Allergy (Severe, Verified 01/01/24 09:13) ANAPHYLAXIS codeine Allergy (Intermediate, Verified 01/01/24 09:13) vomiting Sulfa (Sulfonamide Antibiotics) Allergy (Intermediate, Verified 01/01/24 09:13) diarrh tramadol Allergy (Intermediate, Verified 01/01/24 09:13) Vomiting morphine Adverse Reaction (Intermediate, Verified 01/01/24 09:13) itchiness sumatriptan Adverse Reaction (Intermediate, Verified 01/01/24 09:13) GI side effect duloxetine [Cymbalta] Adverse Reaction (Unknown, Verified 01/01/24 09:13) increased depression HPI HPI Constipation, N/V: Details: 48-year-old female withhistory of chronic pancreatitis, hypertension, peripheral neuropathy, seizure disorder, alcohol use disorder who I am seeing for f/u RECAP: I had last seen her 2020 for issues with pancreatitis from alcohol she had an admission now 01/02 with constipation and hyponatremia she had been drinking u tox pos for fentanyl and buprenorphine CT 12/2023- chronic panc, constipation, kidney stones, INTERIM: Last drink was yesterday she takes dulcolax and enemas she has been going to the bathroom she has some flank discomfort she denies using opiates, except from her friend appetite is fair she is still using creon she has no nausea she has bone pain drinks seltzers few times a week EXAM: GENERAL: The patient is well developed and nontoxic. VITAL SIGNS:see workflow HEENT: Nonicteric sclerae, PERRLA, EOMI. Oropharynx clear. Moist mucous membranes. Conjunctivae appear well perfused. No thyroid mass. CHEST: Chest wall is nontender. HEART: Regular rate and rhythm without murmurs. LUNGS: Clear to auscultation bilaterally. ABDOMEN: Soft, positive bowel sounds, nontender, no organomegaly.no flank tenderness SKIN: No rash, no excessive bruising, petechiae, or purpura. NEUROLOGIC: Cranial nerves II-XII intact without motor/sensory deficit. Psych: normal affect A/P: 1/ constipation, prob 2/2 dehyradation, possibly low fiber, low na and meds 2/ chronic pancreatitis PLAN: 1/ add linaclotide, cut back on other laxatives 2/ trend lytes and check vitamins 3/ dexa scan 4/ colonoscopy in near future 5/ creon [facility] [place] Medical History Pseudocyst of pancreas Depression Anxiety Nausea Smoker Screening for hypercholesterolemia Liver fibrosis Chronic musculoskeletal pain HTN (hypertension) Abdominal pain Transaminitis Polyarthritis Surgical History History of esophagogastroduodenoscopy (EGD) History of cholecystectomy Family History Maternal Grandmother Cancer Mother HTN (hypertension) Mental health disorder Father HTN (hypertension) Substance use disorder Social History Household Members: Spouse and Children Housing: Apartment Do you presently have visiting nurse or other home services: No Alcohol intake: current Alcohol intake frequency: does not drink Alcohol type: other Comment: pt refused staff in Patient Tobacco Use Status: Current everyday Tobacco user Tobacco use type: Cigarette Cigarette Packs Per Day: 1 Cigarettes Per Day: 8 Years Smoked: 28 e-Cigarette/Vaping Use: Never Used Second Hand Smoke Exposure: No Advance Directives Date on File: 01/26/21 service: No Current occupational status: unemployed Cognitive needs: No Hearing needs: No Vision needs: No Physical Exam Vital Signs: Last Vital Signs Pulse 70 01/01/24 09:13 BP 180/92 H 01/01/24 09:13 BMI result Body Mass Index 21.2 Assessment & Plan Assessment & Plan (1) Pancreatitis: Code(s): K85.90 - Acute pancreatitis without necrosis or infection, unspecified Category: Medical Qualifiers: Chronicity: chronic Pancreatitis type: other Qualified Code(s): K86.1 - Other chronic pancreatitis Plan: see above (2) Hypomagnesemia: Code(s): E83.42 - Hypomagnesemia Category: Medical Plan: as above (3) Alcohol abuse: Code(s): F10.10 - Alcohol abuse, uncomplicated Category: Social Hx Plan: as above (4) Pancreatitis: Code(s): K85.90 - Acute pancreatitis without necrosis or infection, unspecified Category: Medical Qualifiers: Chronicity: chronic Pancreatitis type: other Qualified Code(s): K86.1 - Other chronic pancreatitis Plan: as above (5) Constipation: Code(s): K59.00 - Constipation, unspecified Category: Medical Plan: as above Orders: Orders Vitamin A Today E83.42 - Hypomagnesemia, K86.1 - Other chronic pancreatitis Vitamin B1 Today E83.42 - Hypomagnesemia, K86.1 - Other chronic pancreatitis Vitamin B6 Today E83.42 - Hypomagnesemia, K86.1 - Other chronic pancreatitis Vitamin D 25-OH Total Today E83.42 - Hypomagnesemia, K86.1 - Other chronic pancreatitis Vitamin K1 Today E83.42 - Hypomagnesemia, K86.1 - Other chronic pancreatitis Magnesium Today E83.42 - Hypomagnesemia, K86.1 - Other chronic pancreatitis XR KUB Today K59.00 - Constipation, unspecified Vitamin B12 and Folate Today E83.42 - Hypomagnesemia, K86.1 - Other chronic pancreatitis Vitamin B3 (Niacin) Today E83.42 - Hypomagnesemia, K86.1 - Other chronic pancreatitis Vitamin B5 (Pantothenic Acid) Today E83.42 - Hypomagnesemia, K86.1 - Other chronic pancreatitis Vitamin C Today E83.42 - Hypomagnesemia, K86.1 - Other chronic pancreatitis Vitamin E Today E83.42 - Hypomagnesemia, K86.1 - Other chronic pancreatitis Zinc Today E83.42 - Hypomagnesemia, K86.1 - Other chronic pancreatitis Ferritin Today E83.42 - Hypomagnesemia, K86.1 - Other chronic pancreatitis Complete Blood Count Auto Diff Today E83.42 - Hypomagnesemia, K86.1 - Other chronic pancreatitis Comprehensive Met. Panel Today E83.42 - Hypomagnesemia, K75.81 - Nonalcoholic steatohepatitis (GOMEZ), K86.1 - Other chronic pancreatitis Osmolality Urine Today E83.42 - Hypomagnesemia, K86.1 - Other chronic pancreatitis Osmolality, Serum Today E83.42 - Hypomagnesemia, K86.1 - Other chronic pancreatitis XR DEXA axial skeleton Today F10.10 - Alcohol abuse, uncomplicated, K86.1 - Other chronic pancreatitis XR DEXA appendicular skeleton Today F10.10 - Alcohol abuse, uncomplicated, K86.1 - Other chronic pancreatitis UA CC w/rflx Micro + Cult Today R30.0 - Dysuria Medications: New linaclotide 72 mcg PO DAILY 30 caps 3RF multivitamin 1 tab PO DAILY 90 tabs 4RF Coding Level of Care Code Est Pt Level 4 (21222) Diagnoses Other chronic pancreatitis K86.1 Chronicity: chronic Pancreatitis type: other Hypomagnesemia E83.42 Alcohol abuse F10.10 Constipation K59.00
[2024-01-01 09:13] VITALS: BP 180/92; PULSE 70; BMI 21.2
== END 2024-01-01 09:54 | disposition home or self-care (01) ==
PROVIDERS: PCP Physician Assistant; Visit Provider Internal Medicine Gastroenterology
DX: K86.1 Other chronic pancreatitis (principal); E83.42 Hypomagnesemia; F10.10 Alcohol abuse, uncomplicated; K59.00 Constipation, unspecified
CPT/HCPCS: 99214

== ENCOUNTER → 2024-01-01 09:10 | Outpatient (BNVA) | payer OTHER, SELFPAY | PROVIDERS: PCP Physician Assistant; Visit Provider Internal Medicine Gastroenterology ==

== ENCOUNTER 2024-01-15 10:57 | Outpatient (AMB) | payer OTHER, SELFPAY ==
[2024-01-15 10:57] VITALS: BP 172/94; PULSE 68; O2SAT 98; BMI 20.9
--- NOTE | 2024-01-15 10:57 | MHC.PC.OV ---
Vital Signs 01/15/24 10:57 Height 5 ft 4 in Weight 121 lb 8 oz BMI 20.9 BP 172/94 H Blood Pressure Location Lt brachial Position Sitting Pulse 68 Pulse Source Pulse Oximeter Pulse Oximetry (%) 98 Intake Visit Reasons: Sz disorder smoking cessation Intake Note: Patient is here to follow-up after a visit the emergency department at [facility] on 12/28/23 for hyponatremia. 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 Accompanied by: Self / Same As Patient Allergies Penicillins [PENICILLINS] Allergy (Severe, Verified 01/15/24 11:12) ANAPHYLAXIS codeine Allergy (Intermediate, Verified 01/15/24 11:12) vomiting Sulfa (Sulfonamide Antibiotics) Allergy (Intermediate, Verified 01/15/24 11:12) diarrh tramadol Allergy (Intermediate, Verified 01/15/24 11:12) Vomiting morphine Adverse Reaction (Intermediate, Verified 01/15/24 11:12) itchiness sumatriptan Adverse Reaction (Intermediate, Verified 01/15/24 11:12) GI side effect duloxetine [Cymbalta] Adverse Reaction (Unknown, Verified 01/15/24 11:12) increased depression Medication List - Last Reconciled 01/15/24 by Anthony Aragon PA-C clonidine HCl 0.2 mg PO BID PRN 30 days cyclobenzaprine 10 mg PO BEDTIME PRN 30 days gabapentin 800 mg PO QID 30 days ibuprofen 800 mg PO QID PRN levetiracetam 500 mg PO BID PRN linaclotide 72 mcg PO DAILY [id number] 12,000-38,000 -60,000 unit (Creon) 2 caps PO TID 60 days multivitamin 1 tab PO DAILY pantoprazole 40 mg PO DAILY@0630 pentoxifylline ER 400 mg PO BID Tobacco use date assessed: 07/25/23 Dental Screening Dental Screen Date: 07/25/23 HPI Sz disorder smoking cessation HPI Details Patient is a 40-year-old female here today for an ER follow-up visit. Patient recently admitted to [facility] for acute abdominal pain, vomiting and constipation. She was found to significant hyponatremia. She was placed on D5W and DDAVP P and sodium decreased to 127. She had no neurological effects. She had pretty significant bone pain which was thought to be due to electrolyte abnormality versus opiate withdrawal. She has followed up with Gastroenterology for her constipation and abdominal pain was started on Linzess. Colonoscopy will be done in near future. She continues to report bone pain and right wrist pain to which she has a notable ganglion cyst on. She does report using a friend's pain medication a few weeks before her ER presentation. She was positive for fentanyl. She does report gabapentin 800 t.i.d. has been effective on reducing her pain though does have some episodes of breakthrough severe pain. Laboratory Tests 09/07/22 09/09/22 12/26/23 20:05 06:21 18:47 RBC Hgb Sodium Lipase 35 Urine Osmolality Ur Buprenorphine S crn Urine Fentanyl Scr een Ethyl Alcohol < 10 83 12/26/23 12/27/23 12/27/23 20:38 16:45 21:10 RBC Hgb Sodium 138 131 L Lipase Urine Osmolality 70 L Ur Buprenorphine S crn Positive H Urine Fentanyl Scr een POSITIVE H Ethyl Alcohol 12/28/23 12/28/23 05:37 12:51 RBC 3.26 L Hgb 10.9 L Sodium 127 L Lipase Urine Osmolality Ur Buprenorphine S crn Urine Fentanyl Scr een Ethyl Alcohol PFSH Medical History Pseudocyst of pancreas Depression Anxiety Nausea Smoker Screening for hypercholesterolemia Liver fibrosis Chronic musculoskeletal pain HTN (hypertension) Abdominal pain Transaminitis Polyarthritis Surgical History History of esophagogastroduodenoscopy (EGD) History of cholecystectomy Family History Maternal Grandmother Cancer Mother HTN (hypertension) Mental health disorder Father HTN (hypertension) Substance use disorder Social History Household Members: Spouse and Children Housing: Apartment Do you presently have visiting nurse or other home services: No Alcohol intake: current Alcohol intake frequency: does not drink Alcohol type: other Comment: pt refused staff in [place] Patient Tobacco Use Status: Current everyday Tobacco user Tobacco use type: Cigarette Cigarette Packs Per Day: 1 Cigarettes Per Day: 8 Years Smoked: 28 Packs Per Year: 28 Packs per year/per ci.20 e-Cigarette/Vaping Use: Never Used Second Hand Smoke Exposure: No Advance Directives Date on File: 01/26/21 service: No Current occupational status: unemployed Cognitive needs: No Hearing needs: No Vision needs: No Questionnaire Thrive Questionnaire Date Thrive assessed: 12/27/23 ROEL-7 AMB Questionnaire ROEL-7 Date ROEL - 7 assessed: 07/25/23 Source: Developed by Drs. Vincent Xie, Tana Nicholson, Edenilson Wolf and colleagues, with an educational jonh from [employer]. Review of Systems Const Denies headache(s) Eyes Denies loss of vision ENT Denies vertigo, Denies dizziness, Denies headache(s) and Denies sore throat Card Denies chest pain, Denies leg edema and Denies lightheadedness Resp Denies cough, Denies hemoptysis and Denies wheezing GI Denies abdominal pain, Denies melena, Denies constipation, Denies diarrhea and Denies vomiting Denies urinary frequency, Denies dysuria and Denies urinary urgency Musc Denies arthralgias, Denies joint swelling, Denies numbness and Denies tingling Neuro Denies Abnormal speech present, Denies behavioral changes, Denies vertigo, Denies dizziness, Denies headache(s), Denies loss of vision, Denies memory loss, Denies numbness and Denies tingling Psych Denies anxiety, Denies behavioral changes, Denies depression, Denies memory loss and Denies panic attacks Brennon/Lymph Denies easy bleeding and Denies easy bruising Aller/Immun Denies wheezing Physical exam (Primary Care) Vital Signs: Last Vital Signs Pulse 68 01/15/24 10:57 BP 172/94 H 01/15/24 10:57 Pulse Ox 98 01/15/24 10:57 BMI result Body Mass Index 20.9 Tobacco/Smoking Status: Tobacco use Status Tobacco use date assessed 07/25/23 01/15/24 11:03 Patient Tobacco Use Status Current everyday Tobacco 01/15/24 11:03 Tobacco use type Cigarette 01/15/24 11:03 e-Cigarette/Vaping Use Never Used 01/15/24 11:03 Are you ready to quit: Yes Tobacco cessation counseling provided: Yes Items discussed: Nicotine replacement Relapse Prevention: discussed the importance of a supportive environment, discussed negative mood or depression after quitting, weight gain after smoking is common and discussed dietary, exercise and/or lifestyle changes Number of minutes spent counselin CPT code: 93696 - 4-10 Minutes Thrive Assessment: Date of Thrive Assessment Date Thrive assessed 12/27/23 01/15/24 11:03 Const General: no acute distress, alert and awake Nutritional Appearance: well nourished Orientation/consciousness: oriented to person, oriented to place and oriented to time HENMT Ears: TM's normal bilaterally General nose exam: Normal nasal mucous membranes and turbinates present Eyes Conjunctivae: conjunctivae normal Sclerae: sclerae normal Pupils: Equal, round and reactive pupils present Neck Neck: Yes no lymphadenopathy and Yes no JVD Thyroid: Thyroid normal Carotids: no bruits Resp Effort & Inspection: normal respiratory effort and not tachypneic Auscultation: no crackles, no rales, no rhonchi and no wheezes Cardio Rate: regular rate Rhythm: regular rhythm Heart sounds: no murmurs and normal S1 and S2 GI Palpation (GI): Soft to palpation, nontender, no hepatomegaly and no splenomegaly Auscultation: normal bowel sounds Skin General skin exam: no rashes or lesions noted and dry skin Neuro General: oriented to person, oriented to place and oriented to time Cranial nerves: Yes Equal, round and reactive pupils present Speech: No Abnormal speech present Gait exam (Neuro): Normal gait present Motor exam (neuro): no tremor noted Extrem Right upper extremity: full ROM Left upper extremity: full ROM Right lower extremity: full ROM; no edema Left lower extremity: full ROM; no edema Psych Mental Status: mental status grossly normal Speech and movement: Normal speech and movement present Affect: normal affect Attitude: cooperative Thought process: Normal thought process present Assessment and Plan Assessment & Plan (1) Hypomagnesemia: Code(s): E83.42 - Hypomagnesemia (2) Acute hyponatremia: Code(s): E87.1 - Hypo-osmolality and hyponatremia Plan: Recheck basic metabolic panel. (3) Bone pain: Code(s): M89.8X9 - Other specified disorders of bone, unspecified site Plan: Unclear etiology to patient's chronic bone Pain. Clinical picture seems to be fibromyalgia. (4) Ganglion cyst of dorsum of right wrist: Code(s): M67.431 - Ganglion, right wrist Plan: Has fairly large dorsal right wrist ganglion cyst. She is willing to see Orthopedics for evaluation and possible removal. (5) Tobacco abuse: Code(s): Z72.0 - Tobacco use Plan: She admits she has quit smoking over the last 24 hours. She feels pretty motivated to continue stay abstinent from smoking. (6) Umbilical hernia: Code(s): K42.9 - Umbilical hernia without obstruction or gangrene Qualifiers: Obstruction and gangrene presence: without obstruction or gangrene Qualified Code(s): K42.9 - Umbilical hernia without obstruction or gangrene Plan: Has a fat containing hernia in the umbilicus. She does report often having some discomfort in the area. She is willing to see general surgeon for possible surgical fix. Orders: Orders PTH Intact Intraoperative 01/15/24 M89.8X9 - Other specified disorders of bone, unspecified site Calcium 01/15/24 M89.8X9 - Other specified disorders of bone, unspecified site Magnesium 01/15/24 E83.42 - Hypomagnesemia Basic Metabolic Panel 01/15/24 E87.1 - Hypo-osmolality and hyponatremia Referrals General Surgery Referral K42.9 - Umbilical hernia without obstruction or gangrene Orthopedics Referral M67.431 - Ganglion, right wrist Medications: New ondansetron 8 mg PO Q12H PRN 60 tabs 1RF nausea and vomiting 30 days K21.9 - Gastro-esophageal reflux disease without esophagitis Changed From gabapentin 800 mg PO QID 30 days 120 tabs 0RF M25.50 - Pain in unspecified joint To gabapentin 800 mg PO QID 360 tabs 1RF 90 days M25.50 - Pain in unspecified joint Coding Level of Care Code Est Pt Level 4 (85381) Diagnoses Hypomagnesemia E83.42 Acute hyponatremia E87.1 Bone pain M89.8X9 Ganglion cyst of dorsum of right wrist M67.431 Tobacco abuse Z72.0 Umbilical hernia without obstruction and without gangrene K42.9 Obstruction and gangrene presence: without obstruction or gangrene Additional Codes Vital Signs *Quality* - CPT code: 23353 - 4-10 Minutes ([id number])
== END 2024-01-15 11:41 | disposition home or self-care (01) ==
PROVIDERS: PCP Physician Assistant; Visit Provider Physician Assistant
DX: E83.42 Hypomagnesemia (principal); E87.1 Hypo-osmolality and hyponatremia; M89.8X9 Other specified disorders of bone, unspecified site; M67.431 Ganglion, right wrist; Z72.0 Tobacco use; K42.9 Umbilical hernia without obstruction or gangrene
CPT/HCPCS: 99214; 99406

== ENCOUNTER 2024-02-22 09:29 | Outpatient (AMB) | payer OTHER, SELFPAY ==
[2024-02-22 09:57] VITALS: BMI 21.5
--- NOTE | 2024-02-22 09:57 | MHC.OFFVIS ---
Vital Signs 02/22/24 09:57 Height 5 ft 4 in Weight 125 lb 8 oz BMI 21.5 Intake Visit Reasons: umbilical hernia Intake Note: This patient presents for umbilical hernia. Pt c/o; CT-Scan, MRI, reports bulge, reports pain, reports changes in bowel habits, reports ganglion cyst right wrist. 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 Accompanied by: Other Relationship Allergies Penicillins [PENICILLINS] Allergy (Severe, Verified 02/22/24 10:03) ANAPHYLAXIS codeine Allergy (Intermediate, Verified 02/22/24 10:03) vomiting Sulfa (Sulfonamide Antibiotics) Allergy (Intermediate, Verified 02/22/24 10:03) diarrh tramadol Allergy (Intermediate, Verified 02/22/24 10:03) Vomiting morphine Adverse Reaction (Intermediate, Verified 02/22/24 10:03) itchiness sumatriptan Adverse Reaction (Intermediate, Verified 02/22/24 10:03) GI side effect duloxetine [Cymbalta] Adverse Reaction (Unknown, Verified 02/22/24 10:03) increased depression HPI HPI umbilical hernia: Details: [age] year old female referred for an umbilical hernia. She has noticed this reducible mass on her umbilicus for more than 5 years now. She says that this has been causing her discomfort wants this repaired. She feels that sometimes the mass is bigger than other days She does have a long history of chronic constipation as well. She is being followed by the relations director for this. She has a history of traumatic brain injury after a fall. She says she has problems with short-term memory. She also says she has panic attacks. She also says she has history of seizures. [facility] Medical History Pseudocyst of pancreas Depression Anxiety Nausea Smoker Screening for hypercholesterolemia Liver fibrosis Chronic musculoskeletal pain HTN (hypertension) Abdominal pain Transaminitis Polyarthritis Surgical History History of esophagogastroduodenoscopy (EGD) History of cholecystectomy Family History Maternal Grandmother Cancer Mother HTN (hypertension) Mental health disorder Father HTN (hypertension) Substance use disorder Social History Household Members: Spouse and Children Housing: Apartment Do you presently have visiting nurse or other home services: No Alcohol intake: current Alcohol intake frequency: does not drink Alcohol type: other Comment: pt refused staff in [place] Patient Tobacco Use Status: Current everyday Tobacco user Tobacco use type: Cigarette Cigarette Packs Per Day: 1 Cigarettes Per Day: 8 Years Smoked: 28 e-Cigarette/Vaping Use: Never Used Second Hand Smoke Exposure: No Advance Directives Date on File: 01/26/21 service: No Current occupational status: unemployed Cognitive needs: No Hearing needs: No Vision needs: No Review of Systems Const Denies chills and Denies fever(s) Card Denies chest pain, Denies dyspnea and Denies dyspnea on exertion Resp Denies cough, Denies dyspnea and Denies dyspnea on exertion GI Denies hematochezia and Denies change in bowel habits Denies hematuria Musc Denies back pain and Denies limited range of motion Neuro Details: Has seizures Denies focal weakness, Reports memory loss and Denies convulsions Psych Denies depression, Reports memory loss and Denies mood swings Physical Exam Const General: comfortable and no acute distress Orientation/consciousness: patient oriented x3 Neck Neck: Yes no lymphadenopathy Resp Auscultation: clear to auscultation bilaterally Cardio Rhythm: regular rhythm GI Other: Umbilical hernia, reducible, about 1.5 cm defect Palpation (GI): Soft to palpation, nontender and no guarding Neuro General: patient oriented x3 Assessment & Plan Assessment & Plan (1) Umbilical hernia: Code(s): K42.9 - Umbilical hernia without obstruction or gangrene Category: Medical Qualifiers: Obstruction and gangrene presence: without obstruction or gangrene Qualified Code(s): K42.9 - Umbilical hernia without obstruction or gangrene Plan: She has an umbilical hernia as described above. This is reducible but she does have symptoms. She wants to proceed with repair. I explained the technique of repair of the umbilical hernia with possible mesh. I reviewed the risks including but not limited to bleeding, infections, bowel injury, recurrence, postop pain, as well as the benefits and alternatives. I explained to her what to expect postoperatively She has given consent. Coding Level of Care Code New Pt Level 3 (36957) Diagnoses Umbilical hernia without obstruction and without gangrene K42.9 Obstruction and gangrene presence: without obstruction or gangrene
== END 2024-02-22 10:17 | disposition home or self-care (01) ==
PROVIDERS: PCP Physician Assistant; Visit Provider Surgery
DX: K42.9 Umbilical hernia without obstruction or gangrene (principal)
CPT/HCPCS: 99203

== ENCOUNTER → 2024-02-22 09:29 | Outpatient (BNVA) | payer OTHER, SELFPAY | PROVIDERS: PCP Physician Assistant; Visit Provider Surgery ==

== ENCOUNTER 2024-03-07 10:48 | Outpatient (AMB) | payer OTHER, SELFPAY ==
[2024-03-07 11:06] VITALS: BP 160/90; PULSE 64; O2SAT 98; BMI 22.1
--- NOTE | 2024-03-07 11:06 | A.OFFPC_ITS ---
Vital Signs 03/07/24 11:06 Height 5 ft 4 in Weight 129 lb BMI 22.1 BP 160/90 H Blood Pressure Location Lt brachial Position Sitting Pulse 64 Pulse Source Pulse Oximeter Pulse Oximetry (%) 98 Oxygen Delivery Method Room Air Intake Visit Reasons: umbilical hernia surgery w/Dr. Pressley Allergies Penicillins [PENICILLINS] Allergy (Severe, Verified 03/26/24 13:11) ANAPHYLAXIS codeine Allergy (Intermediate, Verified 03/26/24 13:11) vomiting Sulfa (Sulfonamide Antibiotics) Allergy (Intermediate, Verified 03/26/24 13:11) diarrh tramadol Allergy (Intermediate, Verified 03/26/24 13:11) Vomiting morphine Adverse Reaction (Intermediate, Verified 03/26/24 13:11) itchiness sumatriptan Adverse Reaction (Intermediate, Verified 03/26/24 13:11) GI side effect duloxetine [Cymbalta] Adverse Reaction (Unknown, Verified 03/26/24 13:11) increased depression Medication List - Last Reconciled 03/07/24 by Anthony Aragon PA-C clonidine HCl 0.2 mg PO BID PRN 30 days cyclobenzaprine 10 mg PO BEDTIME PRN 30 days gabapentin 800 mg PO QID 90 days ibuprofen 800 mg PO QID PRN levetiracetam 500 mg PO BID PRN linaclotide 72 mcg PO DAILY [id number]-[id number]-tagqgpb 12,000-38,000 -60,000 unit (Creon) 2 caps PO TID 60 days multivitamin 1 tab PO DAILY ondansetron 8 mg PO Q12H PRN 30 days pantoprazole 40 mg PO DAILY@0630 pentoxifylline ER 400 mg PO BID Tobacco use date assessed: 07/25/23 Dental Screening Dental Screen Date: 07/25/23 HPI umbilical hernia surgery w/Dr. Pressley HPI Details Patient is a 48-year-old female here today for a preop visit. She is due for an umbilical hernia repair with Dr. Pressley in general surgery .. Patient does not have any history of CVA, mi or Congestive heart failure. Patient does not on any anticoagulation therapy. CHRONIC MEDICAL CONDITIONS---> Sz disorder: Not followed up with neurologist since she had her seizure. She continues on Keppra 500 b.i.d. and not had any further seizures. Unclear why seizure was cause though could be secondary to GI loss of electrolytes, versus MAHESH withdrawal at the time. Will refer to Neurology for evaluation for the need seizure medication. .. Hypertension: .. Smoker: Unfortunately still smokes cigarettes. Patient has been using nicotine gum and Nicotrol which has drastically helped her to reduce her smoking. .. History of pancreatitis:? She has lost follow-up with Gastroenterology.? Continues on pancreatic enzymes. Has pancreatic psydocyst . She reports she has had less abdominal pain episodes. Recently having a few episodes of vomiting. She continues to maintain her weight in the high 120s low 130s. ? Will check amylase and lipase to ensure normal. Also has history of liver fibrosis in taking medication for this. Major depressive disorder: Patient reports her depression has been fairly stable, does have some personal issues that cause her more depression at times.. She reports she is dealing with lot of family issues. She reports sertraline 100 mg was working though feels is not as effective as recently was. Not interested in cognitive behavior therapy at this time .. Migraines: She reports she still suffers with migraines in his wondering what to do about them. She is not interested in any further medication. We did discuss trying vitamin B2 and magnesium. She has tried Triptan in the past though unclear if they were helpful. She continues to report bone pain and right wrist pain to which she has a notable ganglion cyst on. She does report using a friend's pain medication a few weeks before her ER presentation. She was positive for fentanyl. She does report gabapentin 800 t.i.d. has been effective on reducing her pain though does have some episodes of breakthrough severe pain [facility] Medical History Pseudocyst of pancreas Depression Anxiety Nausea Smoker Screening for hypercholesterolemia Liver fibrosis Chronic musculoskeletal pain HTN (hypertension) Abdominal pain Transaminitis Polyarthritis Surgical History History of esophagogastroduodenoscopy (EGD) History of cholecystectomy Family History Maternal Grandmother Cancer Mother HTN (hypertension) Mental health disorder Father HTN (hypertension) Substance use disorder Social History Household Members: Significant Other, Family and Children Housing: House Are you a primary restorative care technician to a significant other at home: Yes Do you presently have visiting nurse or other home services: No Alcohol intake: current Alcohol intake frequency: a few times a week Alcohol type: other Comment: pt refused staff in [place] Patient Tobacco Use Status: Current everyday Tobacco user Tobacco use type: Cigarette Cigarette Packs Per Day: 1 Cigarettes Per Day: 20.0 Years Smoked: 28 e-Cigarette/Vaping Use: Never Used Second Hand Smoke Exposure: Yes Advance Directives Date on File: 01/26/21 service: No Current occupational status: unemployed Cognitive needs: No Hearing needs: No Vision needs: No Questionnaire Thrive Questionnaire Date Thrive assessed: 12/27/23 Are you currently unemployed and looking for a job?: I choose not to answer this question ROEL-7 AMB Questionnaire ROEL-7 Date ROEL - 7 assessed: 07/25/23 Source: Developed by Drs. Vincent Xie, Tana Nicholson, Edenilson Wolf and colleagues, with an educational jonh from [employer]. Review of Systems Const Denies headache(s) Eyes Denies loss of vision ENT Denies vertigo, Denies dizziness, Denies headache(s) and Denies sore throat Card Denies chest pain, Denies leg edema and Denies lightheadedness Resp Denies cough, Denies hemoptysis and Denies wheezing GI Denies abdominal pain, Denies melena, Denies constipation, Denies diarrhea and Denies vomiting Denies urinary frequency, Denies dysuria and Denies urinary urgency Musc Denies arthralgias, Denies joint swelling, Denies numbness and Denies tingling Neuro Denies Abnormal speech present, Denies behavioral changes, Denies vertigo, Denies dizziness, Denies headache(s), Denies loss of vision, Denies memory loss, Denies numbness and Denies tingling Psych Denies anxiety, Denies behavioral changes, Denies depression, Denies memory loss and Denies panic attacks Brennon/Lymph Denies easy bleeding and Denies easy bruising Aller/Immun Denies wheezing Physical exam (Primary Care) Vital Signs: Last Vital Signs Pulse 64 03/07/24 11:06 BP 160/90 H 03/07/24 11:06 Pulse Ox 98 03/07/24 11:06 Oxygen Delivery Method Room Air 03/07/24 11:06 BMI result Body Mass Index 22.1 Tobacco/Smoking Status: Tobacco use Status Tobacco use date assessed 07/25/23 03/07/24 11:08 Patient Tobacco Use Status Current everyday Tobacco 03/07/24 11:08 Tobacco use type Cigarette 03/07/24 11:08 e-Cigarette/Vaping Use Never Used 03/07/24 11:08 Thrive Assessment: Date of Thrive Assessment Date Thrive assessed 12/27/23 03/07/24 11:08 Const General: healthy appearing, no acute distress, alert and awake Nutritional Appearance: well nourished Orientation/consciousness: oriented to person, oriented to place and oriented to time HENMT Ears: TM's normal bilaterally General nose exam: Normal nasal mucous membranes and turbinates present Eyes Conjunctivae: conjunctivae normal Sclerae: sclerae normal Pupils: Equal, round and reactive pupils present Neck Neck: Yes no lymphadenopathy and Yes no JVD Thyroid: Thyroid normal Carotids: no bruits Resp Effort & Inspection: normal respiratory effort and not tachypneic Auscultation: no crackles, no rales, no rhonchi and no wheezes Cardio Rate: regular rate Rhythm: regular rhythm Heart sounds: no murmurs and normal S1 and S2 GI Palpation (GI): Soft to palpation, nontender, no hepatomegaly and no splenomegaly Auscultation: normal bowel sounds Skin General skin exam: no rashes or lesions noted and dry skin Neuro General: oriented to person, oriented to place and oriented to time Cranial nerves: Yes Equal, round and reactive pupils present Speech: No Abnormal speech present Gait exam (Neuro): Normal gait present Motor exam (neuro): no tremor noted Extrem Right upper extremity: full ROM Left upper extremity: full ROM Right lower extremity: full ROM; no edema Left lower extremity: full ROM; no edema Psych Mental Status: mental status grossly normal Speech and movement: Normal speech and movement present Affect: normal affect Attitude: cooperative Thought process: Normal thought process present Coding Level of Care Code Est Pt Level 4 (66967) Diagnoses Pre-op evaluation Z01.818 Umbilical hernia without obstruction and without gangrene K42.9 Obstruction and gangrene presence: without obstruction or gangrene Alcohol use disorder F10.90
== END 2024-03-07 11:56 | disposition home or self-care (01) ==
PROVIDERS: PCP Physician Assistant; Visit Provider Physician Assistant
DX: Z01.818 Encounter for other preprocedural examination (principal); K42.9 Umbilical hernia without obstruction or gangrene; F10.90 Alcohol use, unspecified, uncomplicated

== ENCOUNTER → 2024-03-07 10:48 | Outpatient (BNVA) | payer OTHER, SELFPAY | PROVIDERS: PCP Physician Assistant; Visit Provider Physician Assistant | DX: Z01.818 Encounter for other preprocedural examination (principal); K42.9 Umbilical hernia without obstruction or gangrene; F10.90 Alcohol use, unspecified, uncomplicated ==

== ENCOUNTER 2024-03-20 12:28 | Inpatient (IN) | payer OTHER, SELFPAY ==
--- NOTE | ~2024-03-20 | CT_ITS ---
EXAMINATION: CT ABDOMEN AND PELVIS WITH CONTRAST CLINICAL INFORMATION: Abdominal pain COMPARISON: CT abdomen/pelvis December 26, 2023 TECHNIQUE: Multiple axial images were obtained from the superior aspect of the liver through the pubic symphysis after the administration of 85 mL of intravenous Omnipaque 350. Images were evaluated on independent dedicated 3-D workstation and 3-D images were reconstructed with concurrent radiologist supervision and subsequently interpreted. Oral contrast was not administered. This CT examination was performed using dose optimization techniques as appropriate, variously including the following: *Automated exposure control *Adjustment of mA and/or kV according to patient size (this includes techniques or standardized protocols for targeted exams where dose is matched to indication/reason for exam; i.e. extremities or head) *Use of iterative reconstruction technique DLP: 367 mGy-cm FINDINGS: LUNG BASES: The visualized lung bases are clear. CARDIOMEDIASTINUM: The visualized heart is normal in size without pericardial effusion. No coronary artery calcification. LIVER: Homogeneous in attenuation. Normal in size. GALLBLADDER: Absent BILIARY SYSTEM: No intrahepatic or extrahepatic biliary dilation. PANCREAS: Scattered calcifications, likely from chronic pancreatitis. No fluid collection or pancreatic duct dilation. SPLEEN: Normal in size. GENITOURINARY: Bilateral kidneys demonstrate symmetric enhancement. No perinephric fluid collection. Bilateral lower pole nonobstructing renal calculi measuring 4 mm. No hydroureteronephrosis. ADRENAL GLANDS: Unremarkable. REPRODUCTIVE: Uterus and and bilateral adnexa are unremarkable. GASTROINTESTINAL: Moderate to severe degree of left colonic stool burden with diffusely fluid-filled loops of small bowel. The degree of small bowel distention or abscesses less than 3 cm diameter) does not meet criteria for bowel obstruction, however a component of ileus is suspected. APPENDIX: The appendix is seen in its entirety and is unremarkable. PERITONEUM: No pneumoperitoneum. No intra-abdominal fluid collection. VASCULATURE: The abdominal aorta is normal in course and caliber. LYMPH NODES: Enlarged gastrohepatic lymph node measuring 1.7 cm. Few scattered retroperitoneal lymph nodes, none enlarged by size criteria. SOFT TISSUES/MUSCULOSKELETAL: Fat-containing umbilical hernia measuring 2 cm. There is no acute fracture or significant focal osseous lesion. CT/CT abdomen pelvis w IV con IMPRESSION: 1. No acute abdominal or pelvic pathology. 2. Moderate severe left colonic stool burden with likely small bowel ileus. No liza transition identified. 3. Bilateral lower pole nonobstructing renal calculi. 4. Chronic pancreatitis. Fleischner guidelines were followed. Electronically signed by: Itz Haddad DO 03/20/2024 08:03 PM EDT RP
--- NOTE | ~2024-03-20 | XR_ITS ---
EXAMINATION: XR CHEST CLINICAL INFORMATION: Hematemesis. COMPARISON: Chest 09/08/2022 TECHNIQUE: 2 views of the chest were obtained. FINDINGS: The lungs are well-expanded with patchy linear opacities seen in both lower lobe slightly worse compared to 09/08/2022 suggestive of interstitial pneumonitis or chronic interstitial lung disease. There is mild underlying bronchial wall thickening. Heart size and pulmonary vascularity is normal. No pleural effusion seen. No gross bony abnormality. XR/XR chest 2V IMPRESSION: Patchy linear opacities in both lower lobes slightly worse compared to 09/08/2022 suggestive of interstitial pneumonitis or chronic interstitial lung disease. Electronically signed by: Wilder Arthur MD 03/20/2024 07:05 PM EDT
[2024-03-20 13:04] VITALS: BP 169/92; PULSE 68; RESP 16; TEMP 36.9; O2SAT 100; BMI 22.3
--- NOTE | 2024-03-20 13:12 | ED.GENADULT ---
HPI - General Adult General Chief complaint: Abdominal Pain Stated complaint: Vomiting coffee grounds Time Seen by Provider: 03/20/24 15:37 History of Present Illness ED Provider: Ita DODSON narrative: 48yo female with pmhx of AUD, hyponatremia, anxiety, pancreatitis, chronic abdominal pain pain however today he for epigastric pain, hypertension presenting for hematemesis and abdominal pain. Patient states that 2 days ago she experienced multiple episodes of vomiting and today she had an episode of vomiting that she described as ?coffee-ground emesis . She is also endorsing right upper quadrant and epigastric abdominal pain. Patient states that she normally experiences right upper quadrant abdominal pain however her epigastric pain is different today. She denies fevers, chills, urinary sxs, vaginal bleeding, bloody stools Related Data Home Medications ?Medication ?Instructions ?Recorded ?Confirmed ibuprofen 200 mg tablet 800 mg PO QID PRN Pain 12/26/23 03/26/24 pantoprazole 40 mg tablet,delayed 40 mg PO DAILY@0630 12/26/23 03/26/24 release clonidine HCl 0.2 mg tablet 0.2 mg PO BID anxiety 03/20/24 03/26/24 pentoxifylline 400 mg 400 mg PO BID 03/20/24 03/26/24 tablet,extended release Previous Rx's ?Medication ?Instructions ?Recorded msilwe-tzpqcouq-hmetvyi 2 cap PO TID 60 days #360 caps 07/24/23 12,000-38,000-60,000 unit capsule,delayed rel (Creon) cyclobenzaprine 10 mg tablet 10 mg PO BEDTIME PRN muscle spasm 11/29/23 30 days #30 tabs linaclotide 72 mcg capsule 72 mcg PO DAILY #30 caps 01/01/24 multivitamin 1 tab PO DAILY #90 tabs 01/01/24 ondansetron 8 mg disintegrating 8 mg PO Q12H PRN nausea and 01/15/24 tablet vomiting 30 days #60 tabs amlodipine 5 mg tablet 5 mg PO DAILY 30 days #30 tabs 03/07/24 gabapentin 800 mg tablet 800 mg PO QID 90 days #360 tabs 03/20/24 polyethylene glycol 3350 17 gram 17 g PO DAILY #30 ea 03/21/24 oral powder packet sennosides 8.6 mg-docusate sodium 2 tab PO BID #120 tabs 03/21/24 50 mg tablet (Senna Plus) houcjhzpdz-ghqswvqwxgxwp-ndzpczrf 1 cap PO Q6H PRN pain 30 days #16 03/26/24 50 mg-325 mg-40 mg capsule caps Allergies Allergy/AdvReac Type Severity Reaction Status Date / Time Penicillins [PENICILLINS] Allergy Severe ANAPHYLAXIS Verified 03/26/24 13:11 codeine Allergy Intermediate vomiting Verified 03/26/24 13:11 Sulfa (Sulfonamide Allergy Intermediate diarrh Verified 03/26/24 13:11 Antibiotics) tramadol Allergy Intermediate Vomiting Verified 03/26/24 13:11 butalbital AdvReac Intermediate Vomiting Verified 04/02/24 08:09 morphine AdvReac Intermediate itchiness Verified 03/26/24 13:11 sumatriptan AdvReac Intermediate GI side Verified 03/26/24 13:11 effect duloxetine [Cymbalta] AdvReac Unknown increased Verified 03/26/24 13:11 depression Review of Systems Review of Systems: Patient is endorsing vomiting and abdominal pain She denies fevers, chills, head pain, chest pain, shortness of breath, urinary symptoms Yes all other systems are reviewed and are negative [facility] Past Medical History Attestation statement: The following information was validated with the patient. [facility] Narrative: Alcohol use disorder, anxiety, hypertension, pancreatitis Source: old records reviewed Medical History Pseudocyst of pancreas Depression Anxiety Nausea Smoker Screening for hypercholesterolemia Liver fibrosis Chronic musculoskeletal pain HTN (hypertension) Abdominal pain Transaminitis Polyarthritis Surgical History History of esophagogastroduodenoscopy (EGD) History of cholecystectomy Family History Family History Maternal Grandmother Cancer Mother HTN (hypertension) Mental health disorder Father HTN (hypertension) Substance use disorder Social History Social History Household Members: Significant Other, Family and Children Housing: House Are you a primary primary care pediatrician to a significant other at home: Yes Do you presently have visiting nurse or other home services: No Alcohol intake: current Alcohol intake frequency: a few times a week Alcohol type: other Comment: pt refused staff in [place] Patient Tobacco Use Status: Current everyday Tobacco user Tobacco use type: Cigarette Cigarette Packs Per Day: 1 Cigarettes Per Day: 20.0 Years Smoked: 28 e-Cigarette/Vaping Use: Never Used Second Hand Smoke Exposure: Yes Advance Directives Date on File: 01/26/21 service: No Current occupational status: unemployed Cognitive needs: No Hearing needs: No Vision needs: No Physical Exam ED Vital Signs: Vital Signs - 24 hr 03/20/24 13:04 03/20/24 16:49 03/20/24 17:03 Temperature 98.4 F 97.6 F Pulse Rate 68 63 Respiratory Rate 16 16 16 Blood Pressure 169/92 H 161/87 H Pulse Oximetry 100 98 Oxygen Delivery Method Room Air Room Air 03/20/24 19:32 Temperature 98.5 F Pulse Rate 62 Respiratory Rate 18 Blood Pressure 140/80 H Pulse Oximetry 100 Oxygen Delivery Method Room Air BMI result Body Mass Index 22.3 Well-appearing female No focal neurologic deficits appreciated Lungs clear to auscultation bilaterally; normal S1-S2 regular rate rhythm Right upper quadrant and epigastric tenderness to palpation; abdomen otherwise soft and nondistended Course Course Course Narrative: RME: Done by JON Jesus. 48-year-old female presents to the ED for 2 days ago of episode of coffee-ground emesis. Patient states history of gallbladder pancreas issues per gallbladder removed for patient follow-up with GI Dr. Aguiar. Patient never had any blood transfusion. Presently patient well-appearing. No active vomiting presently. Mild epigastric right upper quadrant tenderness. Patient described acid burning. Vitals stable. EKG labs ordered, Charge NUrse Mack made aware of hyponatremia and hypokalemia and for patient to be brought back to the ED. Medications Administered Discontinued Medications Generic Name Dose Route Start Last Admin Trade Name Freq PRN Reason Stop Dose Admin Acetaminophen 650 mg 03/20/24 18:28 03/20/24 18:39 Acetaminophen 325 Mg Tablet PO 03/20/24 18:29 650 mg ONCE ONE Administration Amlodipine Besylate 5 mg 03/21/24 09:00 03/21/24 10:42 Amlodipine Besylate 5 Mg Tablet PO Not Given DAILY [facility] Protocol Lipase/Protease/Amylase 2 cap 03/21/24 08:00 03/21/24 16:43 Lipase/Prot/Amylase 12/38/60k Capsule.Dr PO 2 cap TIDWM [facility] Administration Clonidine HCl 0.2 mg 03/21/24 09:00 03/21/24 10:42 Clonidine Hcl 0.2 Mg Tablet PO Not Given BID [facility] Protocol Gabapentin 800 mg 03/21/24 09:00 03/21/24 16:43 Gabapentin 400 Mg Capsule PO 800 mg QID [facility] Administration Hydromorphone HCl 0.5 mg 03/20/24 21:21 03/21/24 15:36 Hydromorphone Hcl 0.5 Mg/0.5 Ml Syringe IVPUSH 0.5 mg Q4H PRN Administration Pain, Severe (Pain Scale 7-10) Protocol Sodium Chloride 1,000 mls @ 999 mls/hr 03/20/24 15:45 03/20/24 18:40 Ns IV 03/20/24 16:45 Infused .Q1H1M [facility] Infusion Potassium Chloride 10 meq in 100 mls @ 100 mls/hr 03/20/24 21:45 03/21/24 03:12 Potassium Chloride/H20 IV 03/21/24 01:44 Infused Q1H [facility] Infusion Lactated Ringer's 1,000 mls @ 100 mls/hr 03/20/24 22:00 03/21/24 14:32 Lr IVCONT Infused .Q10H [facility] Infusion Iohexol 85 ml 03/20/24 17:05 03/20/24 17:07 Iohexol 350 Mg/Ml 100 Ml Infus..Btl IV 03/20/24 17:06 85 ml ONCE ONE Administration Morphine Sulfate 2 mg 03/20/24 16:38 03/20/24 16:49 Morphine Sulfate 2 Mg/Ml Cartridge IVPUSH 03/20/24 16:39 2 mg ONCE ONE Administration Protocol Multivitamins/Vitamin C 1 tab 03/21/24 09:00 03/21/24 09:06 Multivitamin Tablet PO Not Given DAILY [facility] Pantoprazole Sodium 80 mg 03/20/24 15:41 03/20/24 16:41 Pantoprazole Sodium 40 Mg/10 Ml Vial IVPUSH 03/20/24 15:42 80 mg ONCE ONE Administration Pantoprazole Sodium 40 mg 03/21/24 06:30 03/21/24 16:43 Pantoprazole Sodium 40 Mg/10 Ml Vial IVPUSH 40 mg BID@0630,1630 [facility] Administration Pentoxifylline 400 mg 03/21/24 09:00 03/21/24 10:42 Pentoxifylline Er 400 Mg Tablet.Er PO Not Given BID [facility] Polyethylene Glycol 17 gm 03/21/24 09:00 03/21/24 14:04 Polyethylene Glycol 3350 17 Gm Powd.Pack PO Not Given DAILY [facility] Potassium Chloride 40 meq 03/20/24 14:31 03/20/24 16:43 Potassium Chloride Packet 20 Meq Packet PO 03/20/24 14:32 40 meq ONCE ONE Administration Prochlorperazine Edisylate 5 mg 03/20/24 18:28 03/20/24 18:39 Prochlorperazine Edisylate 10 Mg/2 Ml Vial IV 03/20/24 18:29 5 mg ONCE ONE Administration Senna/Docusate Sodium 2 tab 03/21/24 09:00 03/21/24 14:04 Sennosides/Docusate Sodium Tablet PO Not Given BID [facility] Sodium Chloride 3 ml 03/21/24 00:00 03/21/24 15:36 0.9 % Sodium Chloride Flush 3 Ml Syringe IVFLUSH 3 ml QSHIFT [facility] Administration Medical Decision Making Medical Decision Making MDM Narrative: 48-year-old female presenting with abdominal pain and hematemesis. I am concerned for an upper GI bleed Protonix and fluids ordered Labs and imaging studies ordered; patient found to be hyponatremic and hypokalemic Potassium ordered No acute surgical findings on CT scan however it is showing chronic pancreatitis and mild ileus per radiologist's impression Patient admitted to hospitalist Differential Diagnosis Differential Diagnoses: The differential diagnosis associated with the presentation includes GI bleed, hyponatremia, hypokalemia Lab Data 03/21/24 05:34 03/21/24 05:34 Labs: Lab Results 03/20/24 03/20/24 03/20/24 Range/Units 14:04 16:06 16:58 WBC 10.8 (4.8-10.8) X10*3/uL RBC 3.79 L (4.20-5.50) X10*6/uL Hgb 12.8 (12.0-16.0) g/dl Hct 34.9 L (37.0-47.0) % MCV 92.1 (80.0-98.0) fL MCH 33.8 H (27.0-33.0) pg MCHC 36.7 H (31.0-35.0) g/dl RDW 12.9 (11.0-16.0) % Plt Count 199 (160-400) X10*3/uL MPV 8.8 L (9.4-12.3) fL Immature Gran % (Auto) 0.4 (0.0-0.4) % Neut % (Auto) 63.9 (45-73) % Lymph % (Auto) 27.8 (20-40) % Whitley % (Auto) 4.4 (2-11) % Eos % (Auto) 3.0 (0-4) % Baso % (Auto) 0.5 (0-2) % Lymph # (Auto) 3.0 (1.2-4.9) X10*3/uL [place] # (Auto) 0.5 (0.1-1.2) X10*3/uL Eos # (Auto) 0.3 (0.0-0.4) X10*3/uL Baso # (Auto) 0.1 (0.0-0.2) X10*3/uL Abs Immat Gran (auto) 0.04 H (0.00-0.03) X10*3/uL Absolute Neuts (auto) 6.9 (2.0-8.3) x10*3/uL Absolute Nucleated RBC 0.000 (0.0-0.012) X10*3/uL Nucleated RBC % (auto) 0.0 (0.0-0.2) /100WBC PT 10.3 L (10.9-12.4) SEC INR 0.9 (0.9-1.1) APTT 35.2 (26.0-36.8) SEC Sodium 125 L (135-145) mmol/L Potassium 2.9 L* D (3.3-5.1) mmol/L Chloride 87 L (96-108) mmol/L Carbon Dioxide 28 (22-29) mmol/L Anion Gap 13 (12-20) BUN 7 L (9-16) mg/dL Creatinine 0.66 (0.5-1.4) mg/dL Estim Creat Clear Calc 90.0 Estimated GFR > 60 Random Glucose 81 (60-115) mg/dL Calcium 9.5 (8.4-10.2) mg/dL Phosphorus (2.7-4.5) mg/dL Magnesium (1.6-2.6) mg/dL Total Bilirubin 0.3 (0.0-1.0) mg/dL AST 43 H (5-31) U/L ALT 31 (0-31) U/L Alkaline Phosphatase 158 H (39-117) U/L Troponin I High Sens 6.7 (<3.5-17.0) ng/L Total Protein 7.6 (6.5-8.0) g/dL Albumin 4.4 (3.5-5.0) g/dL Lipase 18 (8-78) U/L Urine Color Yellow Urine Appearance Clear Urine pH 6.0 (5.0-9.0) Ur Specific [place] <= 1.005 (1.005-1.025) Urine Protein Negative (Neg-Trace) mg/dL Urine Glucose (UA) Negative (Negative) mg/dL Urine Ketones Negative (Negative) mg/dL Urine Blood Negative (Negative) Urine Nitrite Negative (Negative) Ur Leukocyte Esterase Negative (Negative) Urine Test NEGATIVE (NEGATIVE) Urine Opiates Screen Not Detected (Not Detect) Ur Buprenorphine Scrn Positive H (Not Detect) ng/mL Ur Oxycodone Screen Positive H (Not Detect) ng/mL Urine Methadone Screen Not Detected (Not Detect) ng/mL Urine Fentanyl Screen Not Detected (Not Detect) Ur Barbiturates Screen Not Detected (Not Detect) Ur Phencyclidine Scrn Not Detected (Not Detect) Ur Amphetamines Screen Not Detected (Not Detect) U Benzodiazepines Scrn Not Detected (Not Detect) Urine Cocaine Screen Not Detected (Not Detect) U Marijuana (THC) Screen Not Detected (Not Detect) Blood Type A Positive Antibody Screen NEGATIVE 03/20/24 Range/Units 18:22 WBC (4.8-10.8) X10*3/uL RBC (4.20-5.50) X10*6/uL Hgb (12.0-16.0) g/dl Hct (37.0-47.0) % MCV (80.0-98.0) fL MCH (27.0-33.0) pg MCHC (31.0-35.0) g/dl RDW (11.0-16.0) % Plt Count (160-400) X10*3/uL MPV (9.4-12.3) fL Immature Gran % (Auto) (0.0-0.4) % Neut % (Auto) (45-73) % Lymph % (Auto) (20-40) % Whitley % (Auto) (2-11) % Eos % (Auto) (0-4) % Baso % (Auto) (0-2) % Lymph # (Auto) (1.2-4.9) X10*3/uL [place] # (Auto) (0.1-1.2) X10*3/uL Eos # (Auto) (0.0-0.4) X10*3/uL Baso # (Auto) (0.0-0.2) X10*3/uL Abs Immat Gran (auto) (0.00-0.03) X10*3/uL Absolute Neuts (auto) (2.0-8.3) x10*3/uL Absolute Nucleated RBC (0.0-0.012) X10*3/uL Nucleated RBC % (auto) (0.0-0.2) /100WBC PT (10.9-12.4) SEC INR (0.9-1.1) APTT (26.0-36.8) SEC Sodium (135-145) mmol/L Potassium (3.3-5.1) mmol/L Chloride (96-108) mmol/L Carbon Dioxide (22-29) mmol/L Anion Gap (12-20) BUN (9-16) mg/dL Creatinine (0.5-1.4) mg/dL Estim Creat Clear Calc Estimated GFR Random Glucose (60-115) mg/dL Calcium (8.4-10.2) mg/dL Phosphorus 3.0 (2.7-4.5) mg/dL Magnesium 1.6 (1.6-2.6) mg/dL Total Bilirubin (0.0-1.0) mg/dL AST (5-31) U/L ALT (0-31) U/L Alkaline Phosphatase (39-117) U/L Troponin I High Sens (<3.5-17.0) ng/L Total Protein (6.5-8.0) g/dL Albumin (3.5-5.0) g/dL Lipase (8-78) U/L Urine Color Urine Appearance Urine pH (5.0-9.0) Ur Specific [place] (1.005-1.025) Urine Protein (Neg-Trace) mg/dL Urine Glucose (UA) (Negative) mg/dL Urine Ketones (Negative) mg/dL Urine Blood (Negative) Urine Nitrite (Negative) Ur Leukocyte Esterase (Negative) Urine Test (NEGATIVE) Urine Opiates Screen (Not Detect) Ur Buprenorphine Scrn (Not Detect) ng/mL Ur Oxycodone Screen (Not Detect) ng/mL Urine Methadone Screen (Not Detect) ng/mL Urine Fentanyl Screen (Not Detect) Ur Barbiturates Screen (Not Detect) Ur Phencyclidine Scrn (Not Detect) Ur Amphetamines Screen (Not Detect) U Benzodiazepines Scrn (Not Detect) Urine Cocaine Screen (Not Detect) U Marijuana (THC) Screen (Not Detect) Blood Type Antibody Screen Discharge Plan Discharge Clinical Impression: Hematemesis Abdominal pain Qualifiers: Abdominal location: upper abdomen, unspecified Qualified Code(s): R10.10 - Upper abdominal pain, unspecified Patient Disposition: Admitted As Inpatient Interventions: Admission Worksheet (ED) Last Done: 03/21/24 00:51 Discharge Date/Time: 03/21/24 01:46
--- NOTE | 2024-03-20 13:13 | ECG_ITS ---
Test Reason : ABDOMINAL PAIN Blood Pressure : / mmHG Vent. Rate : 066 BPM Atrial Rate : 066 BPM P-R Int : 140 ms QRS Dur : 096 ms QT Int : 418 ms P-R-T Axes : 016 014 003 degrees QTc Int : 438 ms Normal sinus rhythm Septal infarct (cited on or before 26-DEC-2023) Abnormal ECG When compared with ECG of 26-DEC-2023 18:37, No significant change was found Referred By: Alex Khan Electronically Signed By:MACHO العلي MD
[2024-03-20 14:11] LABS: MANUAL DIFF FLAG NO
[2024-03-20 14:12] LABS: Basophils Absolute Auto 0.1 X10*3/uL (0.0-0.2); Basophils Percent Auto 0.5 % (0-2); Eosinophils Absolute Auto 0.3 X10*3/uL (0.0-0.4); Hematocrit 34.9 % (37.0-47.0); Hemoglobin 12.8 g/dl (12.0-16.0); Imm Gran Abs Auto 0.04 X10*3/uL (0.00-0.03); Imm Gran Pct Auto 0.4 % (0.0-0.4); Lymphocytes Percent Auto 27.8 % (20-40); Mean Corpuscular HGB Conc 36.7 g/dl (31.0-35.0); Mean Corpuscular Hemoglobin 33.8 pg (27.0-33.0); Mean Corpuscular Volume 92.1 fL (80.0-98.0); Mean Platelet Volume 8.8 fL (9.4-12.3); Monocytes Absolute Auto 0.5 X10*3/uL (0.1-1.2); Monocytes Percent Auto 4.4 % (2-11); Neutrophils Absolute Auto 6.9 x10*3/uL (2.0-8.3); Neutrophils Percent Auto 63.9 % (45-73); Platelet Count 199 X10*3/uL (160-400); Red Blood Count 3.79 X10*6/uL (4.20-5.50); Red Cell Distribution Width 12.9 % (11.0-16.0); White Blood Count 10.8 X10*3/uL (4.8-10.8)
[2024-03-20 14:19] LABS: INTERNATIONAL NORM RATIO 0.9 (0.9-1.1); Prothrombin Time 10.3 SEC (10.9-12.4)
[2024-03-20 14:22] LABS: Partial Thromboplastin Time 35.2 SEC (26.0-36.8)
[2024-03-20 14:32] LABS: Alanine Aminotransferase 31 U/L (0-31); Albumin Level 4.4 g/dL (3.5-5.0); Alkaline Phosphatase 158 U/L (39-117); Anion Gap 13 (12-20); Aspartate Amino Transferase 43 U/L (5-31); Bilirubin Total 0.3 mg/dL (0.0-1.0); Blood Urea Nitrogen 7 mg/dL (9-16); Calcium 9.5 mg/dL (8.4-10.2); Carbon Dioxide 28 mmol/L (22-29); Chloride 87 mmol/L (96-108); Estimated Glomerular Filt Rate > 60; Glucose Random 81 mg/dL (60-115); Lipase 18 U/L (8-78); Potassium 2.9 mmol/L (3.3-5.1); Sodium 125 mmol/L (135-145); Total Protein 7.6 g/dL (6.5-8.0); Troponin-I High Sensitivity 6.7 ng/L (<3.5-17.0)
[2024-03-20] MEDS: 0.9 % Sodium Chloride 1,000 ML 999 ML IV (16:24)
[2024-03-20] MEDS: Pantoprazole Sodium 40 MG/10 ML VIAL 80 MG IVPUSH (16:41)
[2024-03-20] MEDS: Potassium Chloride Packet 20 MEQ PACKET 40 MEQ PO (16:43)
[2024-03-20 16:49] VITALS: RESP 16
[2024-03-20] MEDS: Morphine Sulfate 2 MG/ML CARTRIDGE IVPUSH (16:49)
[2024-03-20 17:03] VITALS: BP 161/87; PULSE 63; RESP 16; TEMP 36.4; O2SAT 98
[2024-03-20] MEDS: iohexoL 350 MG/ML 100 ML INFUS..BTL 85 ML IV (17:07)
[2024-03-20 17:12] LABS: Appearance Urine Clear; Color Urine Yellow; Glucose Urine UA Negative (Negative); Leukocyte Esterase Urine Negative (Negative); Nitrite Urine Negative (Negative); Specific Gravity - Urine <= 1.005 (1.005-1.025); Urine Blood Negative (Negative); Urine Ketones Negative (Negative); Urine Protein Negative (Neg-Trace)
[2024-03-20 17:13] LABS: UPreg QC Valid YES; Urine Pregnancy NEGATIVE (NEGATIVE)
[2024-03-20] MEDS: Acetaminophen 325 MG TABLET 650 MG PO (18:39)
[2024-03-20] MEDS: Prochlorperazine Edisylate 10 MG/2 ML VIAL 5 MG IV (18:39)
[2024-03-20 18:49] LABS: Magnesium 1.6 mg/dL (1.6-2.6)
[2024-03-20 19:32] VITALS: BP 140/80; PULSE 62; RESP 18; TEMP 36.9; O2SAT 100
--- NOTE | 2024-03-20 19:33 | MHC.EDTECH ---
This tech took over care of patient at 1900,rounds and vitals completed,patient is resting with eyes closed,patient stated she was having some discomfort,RN made aware ,call montemayor in reach
--- NOTE | 2024-03-20 20:33 | P.HPHOSP_ITS ---
History of Present Illness Date of Service: 03/20/24 Chief Complaint: Coffee ground emesis This is a 46-year-old female with pertinent history of alcohol use disorder, tobacco use disorder, chronic pancreatitis, hypertension, peripheral neuropathy, irritable bowel syndrome who presents to the emergency department for evaluation of coffee-ground emesis. Patient states she had multiple episodes of nonbloody emesis 2 days prior to presentation. She continued to have vomiting and on the day of presentation she noticed coffee-ground emesis. Also has been having abdominal discomfort. No diarrhea. Poor p.o. intake due to nausea and vomiting. Abdominal pain is generalized, intermittent, nonradiating. Patient denies fever, chest discomfort, palpitations, shortness of breath, changes in urinary or bowel habits. In the emergency department, imaging with chronic pancreatitis Review of Systems 2 Constitutional: Constitutional: Reports fatigue, Reports malaise and Reports poor appetite Cardiovascular: Cardiovascular: Reports no additional cardiovascular complaints Respiratory: Respiratory: Reports no additional respiratory complaints Gastrointestinal: Gastrointestinal: Reports nausea and Reports vomiting Genitourinary: Genitourinary: Reports no additional female genitourinary complaints Endocrine: Endocrine: Reports fatigue PMFSH Medical History Pseudocyst of pancreas Depression Anxiety Nausea Smoker Screening for hypercholesterolemia Liver fibrosis Chronic musculoskeletal pain HTN (hypertension) Abdominal pain Transaminitis Polyarthritis Family History Maternal Grandmother Cancer Mother HTN (hypertension) Mental health disorder Father HTN (hypertension) Substance use disorder Surgical History History of esophagogastroduodenoscopy (EGD) History of cholecystectomy Social History Household Members: Spouse and Children Housing: Apartment Do you presently have visiting nurse or other home services: No Alcohol intake: current Alcohol intake frequency: 0-2 drinks per day Alcohol type: other Comment: pt refused staff in [place] Patient Tobacco Use Status: Current everyday Tobacco user Tobacco use type: Cigarette Cigarette Packs Per Day: 1 Cigarettes Per Day: 8 Years Smoked: 28 Smoked in Last 30 Days: Yes e-Cigarette/Vaping Use: Never Used Second Hand Smoke Exposure: No Use of substances other than those prescribed or required for medical reasons: No Advance Directives: Yes Advance Directives on File: Yes Advance Directives Date on File: 01/26/21 Do you have a plan to hurt others: No Plan Patient : No service: No Current occupational status: unemployed Cognitive needs: No Hearing needs: No Vision needs: No Meds Allergies Allergy/AdvReac Type Severity Reaction Status Date / Time Penicillins [PENICILLINS] Allergy Severe ANAPHYLAXIS Verified 03/20/24 13:09 codeine Allergy Intermediate vomiting Verified 03/20/24 13:09 Sulfa (Sulfonamide Allergy Intermediate diarrh Verified 03/20/24 13:09 Antibiotics) tramadol Allergy Intermediate Vomiting Verified 03/20/24 13:09 morphine AdvReac Intermediate itchiness Verified 03/20/24 13:09 sumatriptan AdvReac Intermediate GI side Verified 03/20/24 13:09 effect duloxetine [Cymbalta] AdvReac Unknown increased Verified 03/20/24 13:09 depression Home Medications ?Medication ?Instructions ?Recorded ?Confirmed ?Last Taken ?Type ibuprofen 200 mg tablet 800 mg PO QID PRN Pain 12/26/23 03/20/24 Unknown History pantoprazole 40 mg tablet,delayed 40 mg PO DAILY@0630 12/26/23 03/20/24 03/20/24 History release clonidine HCl 0.2 mg tablet 0.2 mg PO BID anxiety 03/20/24 03/20/24 03/20/24 History pentoxifylline 400 mg 400 mg PO BID 03/20/24 03/20/24 03/20/24 History tablet,extended release Physical Exam 2 Vital Signs and Narrative: Vital Signs: Last Vital Signs Temp 98.5 F 03/20/24 19:32 Pulse 62 03/20/24 19:32 Resp 18 03/20/24 19:32 BP 140/80 H 03/20/24 19:32 Pulse Ox 100 03/20/24 19:32 O2 Del Method Room Air 03/20/24 19:32 BMI result Body Mass Index 22.3 Middle-aged female lying in bed in no distress Neck supple, no JVD Regular rate and rhythm, S1-S2 heard Regular breath sounds bilaterally, no wheezing or crackles appreciated Abdomen is generalized tenderness, no rigidity, no rebound tenderness Patient is awake, alert and oriented to self, place, time and person ; no focal motor deficit Psych: Normal mood No pedal edema Results Labs 03/20/24 14:04 03/20/24 14:04 Labs: Laboratory Results - last 24 hr 03/20/24 03/20/24 03/20/24 14:04 16:06 16:58 MCV 92.1 MCH 33.8 H MCHC 36.7 H RDW 12.9 Plt Count 199 MPV 8.8 L Immature Gran % (Auto) 0.4 Neut % (Auto) 63.9 Lymph % (Auto) 27.8 [place] % (Auto) 4.4 Eos % (Auto) 3.0 Baso % (Auto) 0.5 Lymph # (Auto) 3.0 [place] # (Auto) 0.5 Eos # (Auto) 0.3 Baso # (Auto) 0.1 Abs Immat Gran (auto) 0.04 H Absolute Neuts (auto) 6.9 Absolute Nucleated RBC 0.000 Nucleated RBC % (auto) 0.0 PT 10.3 L INR 0.9 APTT 35.2 Anion Gap 13 Estim Creat Clear Calc 90.0 Estimated GFR > 60 Random Glucose 81 Calcium 9.5 Phosphorus Magnesium Total Bilirubin 0.3 AST 43 H ALT 31 Alkaline Phosphatase 158 H Troponin I High Sens 6.7 Total Protein 7.6 Albumin 4.4 Lipase 18 Urine Color Yellow Urine Appearance Clear Urine pH 6.0 Ur Specific [place] <= 1.005 Urine Protein Negative Urine Glucose (UA) Negative Urine Ketones Negative Urine Blood Negative Urine Nitrite Negative Ur Leukocyte Esterase Negative Urine Test NEGATIVE Blood Type A Positive Antibody Screen NEGATIVE 03/20/24 18:22 MCV MCH MCHC RDW Plt Count MPV Immature Gran % (Auto) Neut % (Auto) Lymph % (Auto) [place] % (Auto) Eos % (Auto) Baso % (Auto) Lymph # (Auto) [place] # (Auto) Eos # (Auto) Baso # (Auto) Abs Immat Gran (auto) Absolute Neuts (auto) Absolute Nucleated RBC Nucleated RBC % (auto) PT INR APTT Anion Gap Estim Creat Clear Calc Estimated GFR Random Glucose Calcium Phosphorus 3.0 Magnesium 1.6 Total Bilirubin AST ALT Alkaline Phosphatase Troponin I High Sens Total Protein Albumin Lipase Urine Color Urine Appearance Urine pH Ur Specific [place] Urine Protein Urine Glucose (UA) Urine Ketones Urine Blood Urine Nitrite Ur Leukocyte Esterase Urine Test Blood Type Antibody Screen Imaging Radiologist's Impressions: Impressions Chest X-Ray 03/20/24 15:41 IMPRESSION: Patchy linear opacities in both lower lobes slightly worse compared to 09/08/2022 suggestive of interstitial pneumonitis or chronic interstitial lung disease. Electronically signed by: Wilder Arthur MD 03/20/2024 07:05 PM EDT RP Abdomen/Pelvis CT 03/20/24 17:06 IMPRESSION: 1. No acute abdominal or pelvic pathology. 2. Moderate severe left colonic stool burden with likely small bowel ileus. No liza transition identified. 3. Bilateral lower pole nonobstructing renal calculi. 4. Chronic pancreatitis. Fleischner guidelines were followed. Electronically signed by: Itz Haddad DO 03/20/2024 08:03 PM EDT RP Assessment and Plan (1) Coffee ground emesis: Status: Acute Plan This is a 46-year-old female with pertinent history of alcohol use disorder, tobacco use disorder, chronic pancreatitis, hypertension, peripheral neuropathy, irritable bowel syndrome who presents to the emergency department for evaluation of coffee-ground emesis #. Hematemesis: Will admit patient with cardiac monitoring. Resuscitated with IV crystalloids. Initiating IV Protonix. Consulting Gastroenterology, appreciate assistance #. Hypokalemia due to GI losses: Repleted #. Hyponatremia, hypovolemic: Monitor sodium with crystalloid resuscitation. #. Tobacco use disorder: Refused nicotine patch #. Mood disorder: On clonidine #. Hypertension: Hold antihypertensives in the setting of likely GI bleed #. Gastroesophageal reflux disease: On PPI #. Peripheral neuropathy: On gabapentin #. Chronic pancreatitis: On Creon Med rec pending DVT prophylaxis: Mechanical Full code Admit as inpatient and will require two night minimum hospital stay for close monitoring of electrolytes, evaluation of hematemesis, close hemodynamic monitoring (as above), which is not possible in a lesser acute setting. Specialist consult pending Quality Stroke Does the patient have a stroke diagnosis?: No VTE Prior VTE?: No VTE Risk Level:: Medical - moderate - high VTE Device Contraindication: N/A - Device Ordered VTE Drug Contraindication: Treatment Not Indicated
--- NOTE | 2024-03-20 21:28 | PHA.MEDREC ---
Addendum entered by Madonna Cruz RPh 03/20/24 21:46: REVIEWED Original Note: Pharmacy Consult ? Medication Reconciliation Pharmacy has completed the medication reconciliation. Spoke to patient to confirm med list. Patient states she hasn't started taking Naltrexone 50 mg yet. Patient states she still takes Creon 12,000 mg, however last fill date was 07/12/23 for 50 days, and Phentoxifylline ER 400 mg , however last fill date was 07/19/23 for 30 days.
[2024-03-20 21:33] LABS: Amphetamine Screen Urine Not Detected (Not Detect); Barbiturates, Urine Not Detected (Not Detect); Benzodiazepines Screen Urine Not Detected (Not Detect); Buprenorphine Scr Positive (Not Detect); Cannabinoid Screen Urine Not Detected (Not Detect); Cocaine Screen Urine Not Detected (Not Detect); Fentanyl, urine Not Detected (Not Detect); Methadone Screen, Urine Not Detected (Not Detect); Opiate Screen Urine Not Detected (Not Detect); Oxycodone Screen Urine Positive (Not Detect); Phencyclidine Screen Urine Not Detected (Not Detect)
[2024-03-20 21:34] VITALS: BP 141/73; PULSE 53; RESP 16; TEMP 36.8; O2SAT 99
--- NOTE | 2024-03-20 21:36 | MHC.EDTECH ---
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
[2024-03-20 21:58] VITALS: RESP 16
[2024-03-20] MEDS: HYDROmorphone HCl 0.5 MG/0.5 ML SYRINGE IVPUSH (21:58)
[2024-03-20] MEDS: Potassium Chloride/H20 10 MEQ/100 ML PIGGYBACK 100 MEQ IV ×2 (21:59→23:05)
[2024-03-20] MEDS: Lactated Ringers 1,000 ML 100 ML IVCONT (22:01)
--- NOTE | 2024-03-20 22:05 | PC.NURSE ---
pt medicated per mar for 8/10 abdominal pain at this time.
[2024-03-20 22:10] LABS: Ethanol < 10 mg/dL
[2024-03-21] VITALS (9 sets, daily range): BP systolic 129–186; BP diastolic 75–90; PULSE 45–51; RESP 14–18; TEMP 36.1–37.1; O2SAT 96–100; BMI 22.1; BMI 22.2
--- NOTE | 2024-03-21 00:29 | MHC.EDTECH ---
Hourly rounds and vitals completed,upon entry to room patient was sleeping,patient is resting comfortably,call montemayor in reach
[2024-03-21] MEDS: Potassium Chloride/H20 10 MEQ/100 ML PIGGYBACK 100 MEQ IV ×2 (00:33→02:01)
[2024-03-21] MEDS: HYDROmorphone HCl 0.5 MG/0.5 ML SYRINGE IVPUSH ×3 (02:31→15:36)
[2024-03-21] MEDS: Pantoprazole Sodium 40 MG/10 ML VIAL IVPUSH ×2 (05:50→16:43)
[2024-03-21 05:56] LABS: MANUAL DIFF FLAG NO
--- NOTE | 2024-03-21 06:05 | PC.NURSE ---
Pt is AOx4, able to make needs known. Arrived from ED via wheelchair approx 0225. Pt continues to report pain, prn medication given (see MAR for administration). She is independent in her room, ambulates well. Call montemayor within reach, belongings bedside.
[2024-03-21 06:06] LABS: Basophils Absolute Auto 0.1 X10*3/uL (0.0-0.2); Basophils Percent Auto 0.8 % (0-2); Eosinophils Absolute Auto 0.4 X10*3/uL (0.0-0.4); Eosinophils Percent Auto 6.5 % (0-4); Hematocrit 33.8 % (37.0-47.0); Hemoglobin 11.8 g/dl (12.0-16.0); Imm Gran Abs Auto 0.01 X10*3/uL (0.00-0.03); Imm Gran Pct Auto 0.2 % (0.0-0.4); Lymphocytes Absolute Auto 2.1 X10*3/uL (1.2-4.9); Lymphocytes Percent Auto 34.4 % (20-40); Mean Corpuscular HGB Conc 34.9 g/dl (31.0-35.0); Mean Corpuscular Volume 94.4 fL (80.0-98.0); Mean Platelet Volume 9.5 fL (9.4-12.3); Monocytes Absolute Auto 0.5 X10*3/uL (0.1-1.2); Monocytes Percent Auto 7.5 % (2-11); Neutrophils Percent Auto 50.6 % (45-73); Platelet Count 179 X10*3/uL (160-400); Red Blood Count 3.58 X10*6/uL (4.20-5.50); Red Cell Distribution Width 13.1 % (11.0-16.0)
[2024-03-21 06:22] LABS: Anion Gap 11 (12-20); Blood Urea Nitrogen 6 mg/dL (9-16); Calcium 9.5 mg/dL (8.4-10.2); Carbon Dioxide 23 mmol/L (22-29); Chloride 102 mmol/L (96-108); Creatinine Clr Calc Pharmacy 95.8; Estimated Glomerular Filt Rate > 60; Glucose Random 96 mg/dL (60-115); Potassium 4.1 mmol/L (3.3-5.1); Sodium 132 mmol/L (135-145)
--- NOTE | 2024-03-21 08:45 | MHC.CM.PN ---
CM met with Patient at bedside. Patient lives in a duplex with her /HCP/Javed and her 2 school-aged children. 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 CM has initiated and will follow for dc planning. Patient may benefit from a Recovery Team Consult r/t positive Toxicology for Suboxone(which does not appear on Patient's home med list). PCP/PA is Anthony Aragon and will transport to home.
--- NOTE | 2024-03-21 11:20 | P.PNIM_ITS ---
Subjective Subjective Date of Service: 03/21/24 Interval History: some abd discomfort no further GI bleeding no withdrawal symptoms Review of Systems Review of Systems: Yes all other systems are reviewed and are negative Physical Exam 2 Vital Signs: Vital Signs: Last Vital Signs Temp 97.1 F 03/21/24 11:02 Pulse 45 L 03/21/24 11:02 Resp 18 03/21/24 11:02 BP 180/86 H 03/21/24 11:02 Pulse Ox 100 03/21/24 11:02 O2 Del Method Room Air 03/21/24 11:02 BMI result Body Mass Index 22.2 Gen: in no acute distress HEENT: sclera anicteric, moist mucus membranes Neck: supple Lungs: clear to auscultation bilaterally Heart: regular rate and rhythm, no murmurs Abd: soft, epigastric tenderness without rebound, non-distended Ext: no edema Skin: warm/well-perfused Neuro: alert and oriented x3, no focal findings Psych: appropriate affect Objective Data Active Medications Acetaminophen (Acetaminophen 325 Mg Tablet) 650 mg PO Q6H PRN PRN Reason: Pain, Mild (Pain Scale 1-3), fever or headache Amlodipine Besylate (Amlodipine Besylate 5 Mg Tablet) 5 mg PO DAILY [facility]; Protocol Last Admin: 03/21/24 10:42 Dose: Not Given Documented By: DONNA Non-Admin Reason: NPO Lipase/Protease/Amylase (Lipase/Prot/Amylase 12/38/60k Capsule.Dr) 2 cap PO TIDWM [facility] Last Admin: 03/21/24 09:05 Dose: Not Given Documented By: DONNA Non-Admin Reason: NPO Calcium Carbonate (Calcium Carbonate 750 Mg Tab.Chew) 750 mg PO Q4H PRN PRN Reason: Heartburn Clonidine HCl (Clonidine Hcl 0.2 Mg Tablet) 0.2 mg PO BID [facility]; Protocol Last Admin: 03/21/24 10:42 Dose: Not Given Documented By: DONNA Non-Admin Reason: NPO Cyclobenzaprine HCl (Cyclobenzaprine Hcl 10 Mg Tablet) 10 mg PO BEDTIME PRN PRN Reason: muscle spasm Gabapentin (Gabapentin 400 Mg Capsule) 800 mg PO QID [facility] Last Admin: 03/21/24 09:06 Dose: Not Given Documented By: DONNA Non-Admin Reason: NPO Hydromorphone HCl (Hydromorphone Hcl 0.5 Mg/0.5 Ml Syringe) 0.5 mg IVPUSH Q4H PRN; Protocol PRN Reason: Pain, Severe (Pain Scale 7-10) Last Admin: 03/21/24 07:54 Dose: 0.5 mg Documented By: DONNA Lactated Ringer's (Lr) 1,000 mls @ 100 mls/hr IVCONT .Q10H [facility] Last Admin: 03/21/24 09:05 Dose: Not Given Documented By: DONNA Non-Admin Reason: IV Running Magnesium Hydroxide (Milk Of Magnesia 30 Ml Oral.Susp) 30 ml PO DAILY PRN PRN Reason: Constipation Melatonin (Melatonin 3 Mg Tablet) 6 mg PO BEDTIME PRN PRN Reason: Insomnia Multivitamins/Vitamin C (Multivitamin Tablet) 1 tab PO DAILY [facility] Last Admin: 03/21/24 09:06 Dose: Not Given Documented By: DONNA Non-Admin Reason: NPO Non-Formulary Medication (Linaclotide) 72 mcg PO DAILY [facility] Ondansetron HCl (Ondansetron Hcl 4 Mg/2 Ml Vial) 4 mg IVPUSH Q8H PRN PRN Reason: Nausea and Vomiting Pantoprazole Sodium (Pantoprazole Sodium 40 Mg/10 Ml Vial) 40 mg IVPUSH BID@0630,1630 [facility] Last Admin: 03/21/24 05:50 Dose: 40 mg Documented By: JASON Pentoxifylline (Pentoxifylline Er 400 Mg Tablet.Er) 400 mg PO BID [facility] Last Admin: 03/21/24 10:42 Dose: Not Given Documented By: DONNA Non-Admin Reason: NPO Sodium Chloride (0.9 % Sodium Chloride Flush 3 Ml Syringe) 3 ml IVFLUSH QSHIFT [facility] Last Admin: 03/21/24 09:05 Dose: Not Given Documented By: DONNA Non-Admin Reason: IV Running Labs 03/21/24 05:34 03/21/24 05:34 Labs: Laboratory Results - last 24 hr 03/20/24 03/20/24 03/20/24 14:04 16:06 16:58 MCV 92.1 MCH 33.8 H MCHC 36.7 H RDW 12.9 Plt Count 199 MPV 8.8 L Immature Gran % (Auto) 0.4 Neut % (Auto) 63.9 Lymph % (Auto) 27.8 [place] % (Auto) 4.4 Eos % (Auto) 3.0 Baso % (Auto) 0.5 Lymph # (Auto) 3.0 [place] # (Auto) 0.5 Eos # (Auto) 0.3 Baso # (Auto) 0.1 Abs Immat Gran (auto) 0.04 H Absolute Neuts (auto) 6.9 Absolute Nucleated RBC 0.000 Nucleated RBC % (auto) 0.0 PT 10.3 L INR 0.9 APTT 35.2 Anion Gap 13 Estim Creat Clear Calc 90.0 Estimated GFR > 60 Random Glucose 81 Calcium 9.5 Phosphorus Magnesium Total Bilirubin 0.3 AST 43 H ALT 31 Alkaline Phosphatase 158 H Troponin I High Sens 6.7 Total Protein 7.6 Albumin 4.4 Lipase 18 Urine Color Yellow Urine Appearance Clear Urine pH 6.0 Ur Specific [place] <= 1.005 Urine Protein Negative Urine Glucose (UA) Negative Urine Ketones Negative Urine Blood Negative Urine Nitrite Negative Ur Leukocyte Esterase Negative Urine Test NEGATIVE Urine Opiates Screen Not Detected Ur Buprenorphine Scrn Positive H Ur Oxycodone Screen Positive H Urine Methadone Screen Not Detected Urine Fentanyl Screen Not Detected Ur Barbiturates Screen Not Detected Ur Phencyclidine Scrn Not Detected Ur Amphetamines Screen Not Detected U Benzodiazepines Scrn Not Detected Urine Cocaine Screen Not Detected U Marijuana (THC) Screen Not Detected Ethyl Alcohol Blood Type A Positive Antibody Screen NEGATIVE 03/20/24 03/20/24 03/21/24 18:22 21:52 05:34 MCV 94.4 MCH 33.0 MCHC 34.9 RDW 13.1 Plt Count 179 MPV 9.5 Immature Gran % (Auto) 0.2 Neut % (Auto) 50.6 Lymph % (Auto) 34.4 [place] % (Auto) 7.5 Eos % (Auto) 6.5 H Baso % (Auto) 0.8 Lymph # (Auto) 2.1 [place] # (Auto) 0.5 Eos # (Auto) 0.4 Baso # (Auto) 0.1 Abs Immat Gran (auto) 0.01 Absolute Neuts (auto) 3.0 Absolute Nucleated RBC 0.000 Nucleated RBC % (auto) 0.0 PT INR APTT Anion Gap 11 L Estim Creat Clear Calc 95.8 Estimated GFR > 60 Random Glucose 96 Calcium 9.5 Phosphorus 3.0 Magnesium 1.6 Total Bilirubin AST ALT Alkaline Phosphatase Troponin I High Sens Total Protein Albumin Lipase Urine Color Urine Appearance Urine pH Ur Specific [place] Urine Protein Urine Glucose (UA) Urine Ketones Urine Blood Urine Nitrite Ur Leukocyte Esterase Urine Test Urine Opiates Screen Ur Buprenorphine Scrn Ur Oxycodone Screen Urine Methadone Screen Urine Fentanyl Screen Ur Barbiturates Screen Ur Phencyclidine Scrn Ur Amphetamines Screen U Benzodiazepines Scrn Urine Cocaine Screen U Marijuana (THC) Screen Ethyl Alcohol < 10 Blood Type Antibody Screen Assessment and Plan (1) Coffee ground emesis: Status: Acute Plan d2 48yo F with AUD, tobacco abuse disorder, chronic pancreatitis, HTN, peripheral neuropathy, IBS presenting with 2d of emesis that progressed to coffee grounds with abd pain UGIB - NPO, IV PPI, GI consult pending; no evidence of cirrhosis hypoK - repleted hypoNa - improving after IV fluids HTN - amlodipine, clonidine chronic pancreatitis - Creon, pentoxifylline, gabapentin mood disorder - clonidine tobacco abuse - refused NRT AUD - Addiction Medicine consult VTE ppx - SCDs; no heparin due to GIB dispo - eventual home In my clinical judgment, the patient requires continued inpatient hospitalization for the following reasons: GIB Total time managing care of this patient today: 45 minutes. Quality Stroke Does the patient have a stroke diagnosis?: No VTE Prior VTE?: No VTE Risk Level:: Medical - moderate - high VTE Device Contraindication: N/A - Device Ordered VTE Drug Contraindication: Treatment Not Indicated
--- NOTE | 2024-03-21 12:27 | P.CONAN_ITS ---
[facility] Active Problems Active Problems: All Active Problems Coffee ground emesis (Acute) Abdominal pain (Acute) Hematemesis (Acute) Alcohol use disorder (Acute) Pre-op evaluation (Acute) Bone disease (Acute) Ganglion cyst of dorsum of right wrist (Acute) Bone pain (Acute) Hypomagnesemia (Acute) Constipation (Acute) Acute hyponatremia (Acute) Colon cancer screening (Acute) Cervical cancer screening (Acute) Breast cancer screening (Acute) Annual physical exam (Acute) Ventral hernia (Acute) Pseudocyst of pancreas (Acute) Bilateral elbow joint pain (Acute) Bilateral hand pain (Acute) Bilateral wrist pain (Acute) Smoker (Acute) ROEL (generalized anxiety disorder) (Acute) Tobacco abuse (Acute) Migraine (Acute) GERD (gastroesophageal reflux disease) (Acute) Pancreatitis (Acute) Alcohol abuse (Acute) Seizures (Acute) Depression (Acute) Pain of right humerus (Acute) Low weight (Acute) Umbilical hernia (Acute) Chest pain (Acute) Right lateral epicondylitis (Acute) Chronic musculoskeletal pain (Acute) Urinary hesitancy (Acute) ROEL (generalized anxiety disorder) (Acute) HTN (hypertension) (Acute) Abdominal pain (Acute) Polyarthralgia (Acute) Polyarthritis (Acute) Past Medical History Medical History Pseudocyst of pancreas Depression Anxiety Nausea Smoker Screening for hypercholesterolemia Liver fibrosis Chronic musculoskeletal pain HTN (hypertension) Abdominal pain Transaminitis Polyarthritis Family History Family History Maternal Grandmother Cancer Mother HTN (hypertension) Mental health disorder Father HTN (hypertension) Substance use disorder Family history of problems with anesthesia: No Surgical History Surgical History History of esophagogastroduodenoscopy (EGD) History of cholecystectomy History of Problems with Anesthesia: No Social History Social History Household Members: Significant Other, Family and Children Housing: House Are you a primary transitional care liaison to a significant other at home: Yes Do you presently have visiting nurse or other home services: No Alcohol intake: current Alcohol intake frequency: a few times a week Alcohol type: other Comment: pt refused staff in Patient Tobacco Use Status: Current everyday Tobacco user Tobacco use type: Cigarette Cigarette Packs Per Day: 1 Cigarettes Per Day: 20.0 Years Smoked: 28 e-Cigarette/Vaping Use: Never Used Second Hand Smoke Exposure: Yes Advance Directives Date on File: 01/26/21 service: No Current occupational status: unemployed Cognitive needs: No Hearing needs: No Vision needs: No Meds Allergies Allergy/AdvReac Type Severity Reaction Status Date / Time Penicillins [PENICILLINS] Allergy Severe ANAPHYLAXIS Verified 03/20/24 13:09 codeine Allergy Intermediate vomiting Verified 03/20/24 13:09 Sulfa (Sulfonamide Allergy Intermediate diarrh Verified 03/20/24 13:09 Antibiotics) tramadol Allergy Intermediate Vomiting Verified 03/20/24 13:09 morphine AdvReac Intermediate itchiness Verified 03/20/24 13:09 sumatriptan AdvReac Intermediate GI side Verified 03/20/24 13:09 effect duloxetine [Cymbalta] AdvReac Unknown increased Verified 03/20/24 13:09 depression Active Medications: Current Medications Acetaminophen (Acetaminophen 325 Mg Tablet) 650 mg PO Q6H PRN PRN Reason: Pain, Mild (Pain Scale 1-3), fever or headache Amlodipine Besylate (Amlodipine Besylate 5 Mg Tablet) 5 mg PO DAILY [facility]; Protocol Last Admin: 03/21/24 10:42 Dose: Not Given Lipase/Protease/Amylase (Lipase/Prot/Amylase 12/38/60k Capsule.Dr) 2 cap PO TIDWM [facility] Last Admin: 03/21/24 09:05 Dose: Not Given Calcium Carbonate (Calcium Carbonate 750 Mg Tab.Chew) 750 mg PO Q4H PRN PRN Reason: Heartburn Clonidine HCl (Clonidine Hcl 0.2 Mg Tablet) 0.2 mg PO BID [facility]; Protocol Last Admin: 03/21/24 10:42 Dose: Not Given Cyclobenzaprine HCl (Cyclobenzaprine Hcl 10 Mg Tablet) 10 mg PO BEDTIME PRN PRN Reason: muscle spasm Gabapentin (Gabapentin 400 Mg Capsule) 800 mg PO QID [facility] Last Admin: 03/21/24 09:06 Dose: Not Given Hydromorphone HCl (Hydromorphone Hcl 0.5 Mg/0.5 Ml Syringe) 0.5 mg IVPUSH Q4H PRN; Protocol PRN Reason: Pain, Severe (Pain Scale 7-10) Last Admin: 03/21/24 07:54 Dose: 0.5 mg Lactated Ringer's (Lr) 1,000 mls @ 100 mls/hr IVCONT .Q10H [facility] Last Admin: 03/21/24 09:05 Dose: Not Given Magnesium Hydroxide (Milk Of Magnesia 30 Ml Oral.Susp) 30 ml PO DAILY PRN PRN Reason: Constipation Melatonin (Melatonin 3 Mg Tablet) 6 mg PO BEDTIME PRN PRN Reason: Insomnia Multivitamins/Vitamin C (Multivitamin Tablet) 1 tab PO DAILY [facility] Last Admin: 03/21/24 09:06 Dose: Not Given Non-Formulary Medication (Linaclotide) 72 mcg PO DAILY [facility] Ondansetron HCl (Ondansetron Hcl 4 Mg/2 Ml Vial) 4 mg IVPUSH Q8H PRN PRN Reason: Nausea and Vomiting Pantoprazole Sodium (Pantoprazole Sodium 40 Mg/10 Ml Vial) 40 mg IVPUSH BID@0630,1630 [facility] Last Admin: 03/21/24 05:50 Dose: 40 mg Pentoxifylline (Pentoxifylline Er 400 Mg Tablet.Er) 400 mg PO BID [facility] Last Admin: 03/21/24 10:42 Dose: Not Given Sodium Chloride (0.9 % Sodium Chloride Flush 3 Ml Syringe) 3 ml IVFLUSH QSHIFT [facility] Last Admin: 03/21/24 09:05 Dose: Not Given Home Medications ?Medication ?Instructions ?Recorded ?Confirmed ?Last Taken ?Type ibuprofen 200 mg tablet 800 mg PO QID PRN Pain 12/26/23 03/20/24 Unknown History pantoprazole 40 mg tablet,delayed 40 mg PO DAILY@0630 12/26/23 03/20/24 03/20/24 History release clonidine HCl 0.2 mg tablet 0.2 mg PO BID anxiety 03/20/24 03/20/24 03/20/24 History pentoxifylline 400 mg 400 mg PO BID 03/20/24 03/20/24 03/20/24 History tablet,extended release Exam Height,Weight and Vital Signs: Height 5 ft 4 in Weight 58.7 kg Last Vital Signs Temp 97 F 03/21/24 11:55 Pulse 46 L 03/21/24 11:55 Resp 18 03/21/24 11:55 BP 168/78 H 03/21/24 11:55 Pulse Ox 96 03/21/24 11:55 O2 Del Method Room Air 03/21/24 11:55 Pertinent Lab Results Pertinent Lab Results: Laboratory Tests 03/20/24 03/20/24 03/20/24 14:04 16:06 16:58 WBC 10.8 RBC 3.79 L Hgb 12.8 Hct 34.9 L MCV 92.1 MCH 33.8 H MCHC 36.7 H RDW 12.9 Plt Count 199 MPV 8.8 L Immature Gran % (Auto) 0.4 Neut % (Auto) 63.9 Lymph % (Auto) 27.8 [place] % (Auto) 4.4 Eos % (Auto) 3.0 Baso % (Auto) 0.5 Lymph # (Auto) 3.0 [place] # (Auto) 0.5 Eos # (Auto) 0.3 Baso # (Auto) 0.1 Abs Immat Gran (auto) 0.04 H Absolute Neuts (auto) 6.9 Absolute Nucleated RBC 0.000 Nucleated RBC % (auto) 0.0 PT 10.3 L INR 0.9 APTT 35.2 Sodium 125 L Potassium 2.9 L* D Chloride 87 L Carbon Dioxide 28 Anion Gap 13 BUN 7 L Creatinine 0.66 Estim Creat Clear Calc 90.0 Estimated GFR > 60 Random Glucose 81 Calcium 9.5 Phosphorus Magnesium Total Bilirubin 0.3 AST 43 H ALT 31 Alkaline Phosphatase 158 H Troponin I High Sens 6.7 Total Protein 7.6 Albumin 4.4 Lipase 18 Urine Color Yellow Urine Appearance Clear Urine pH 6.0 Ur Specific [place] <= 1.005 Urine Protein Negative Urine Glucose (UA) Negative Urine Ketones Negative Urine Blood Negative Urine Nitrite Negative Ur Leukocyte Esterase Negative Urine Test NEGATIVE Urine Opiates Screen Not Detected Ur Buprenorphine Scrn Positive H Ur Oxycodone Screen Positive H Urine Methadone Screen Not Detected Urine Fentanyl Screen Not Detected Ur Barbiturates Screen Not Detected Ur Phencyclidine Scrn Not Detected Ur Amphetamines Screen Not Detected U Benzodiazepines Scrn Not Detected Urine Cocaine Screen Not Detected U Marijuana (THC) Screen Not Detected Ethyl Alcohol Blood Type A Positive Antibody Screen NEGATIVE 03/20/24 03/20/24 03/21/24 18:22 21:52 05:34 WBC 6.0 RBC 3.58 L Hgb 11.8 L Hct 33.8 L MCV 94.4 MCH 33.0 MCHC 34.9 RDW 13.1 Plt Count 179 MPV 9.5 Immature Gran % (Auto) 0.2 Neut % (Auto) 50.6 Lymph % (Auto) 34.4 [place] % (Auto) 7.5 Eos % (Auto) 6.5 H Baso % (Auto) 0.8 Lymph # (Auto) 2.1 [place] # (Auto) 0.5 Eos # (Auto) 0.4 Baso # (Auto) 0.1 Abs Immat Gran (auto) 0.01 Absolute Neuts (auto) 3.0 Absolute Nucleated RBC 0.000 Nucleated RBC % (auto) 0.0 PT INR APTT Sodium 132 L Potassium 4.1 D Chloride 102 Carbon Dioxide 23 Anion Gap 11 L BUN 6 L Creatinine 0.62 Estim Creat Clear Calc 95.8 Estimated GFR > 60 Random Glucose 96 Calcium 9.5 Phosphorus 3.0 Magnesium 1.6 Total Bilirubin AST ALT Alkaline Phosphatase Troponin I High Sens Total Protein Albumin Lipase Urine Color Urine Appearance Urine pH Ur Specific [place] Urine Protein Urine Glucose (UA) Urine Ketones Urine Blood Urine Nitrite Ur Leukocyte Esterase Urine Test Urine Opiates Screen Ur Buprenorphine Scrn Ur Oxycodone Screen Urine Methadone Screen Urine Fentanyl Screen Ur Barbiturates Screen Ur Phencyclidine Scrn Ur Amphetamines Screen U Benzodiazepines Scrn Urine Cocaine Screen U Marijuana (THC) Screen Ethyl Alcohol < 10 Blood Type Antibody Screen Airway Mallampati Class: II (implants 2 laterally) TM Dist: >3cm Neck ROM: Full Heart: rrr Lungs: cta Assessment and Plan Assessment Anesthesia Assessment: Anesthesia Plan Discussed and Chart Reviewed Final Anesthetic Review Family History of Problems with Anesthesia: No History of Problems with Anesthesia: No NPO: Yes ASA Class: II Final Preanesthetic Review: No Changes in Pt Med Stat, Meds/Allgs Chart Reviewed and Consent Obtained/Reviewed Patient Risk: Low Procedure Risk: Intermediate Anesthetic Plan Anesthetic Plan: MAC: Disposition: Standard PACU
--- NOTE | 2024-03-21 12:52 | P.CNGI_ITS ---
History of Present Illness Data of Consult Service Date: 03/21/24 Primary Care Provider: Anthony Aragon PA-C HPI This is a 48-year-old female with past medical history of alcohol use disorder that has led to chronic pancreatitis, hypertension, seizure disorder, who presented to the hospital for coffee-ground emesis. Patient reports that around 3 days ago, she had another flare up of her nausea and vomiting and throat almost 12 times in 1 day. Initially the vomiting was nonbloody and nonbilious, but the last couple of emesis had coffee-grounds in them. She then had another episode of vomiting yesterday that again had coffee- ground emesis and therefore her daughter urged her to go to the hospital for further evaluation. Of note pt has not had any BM in 3 weeks but is passing flatulence. Patient also reports frequent NSAID use specially for abdominal pain. Drinks 3-4 drinks 4 times a week. No blood thinner use. Has not had any emesis since coming to the hospital. Baseline hemoglobin is around 11. And unchanged this admission. Labs significant for chronic hyponatremia, which is actually better than before. Of note, she was noted to be very hypertensive on arrival with possibly reflex bradycardia. Most recent endoscopy was an EUS 2020: 9.6 cm pseudocyst status post axios stent placement. Imaging in the hospital shows stool burden. Also shows possible ileus, but patient reports passing flatulence. Review of Systems 2 Review of Systems: Yes all other systems are reviewed and are negative PMFSH Past Medical History Medical History Pseudocyst of pancreas Depression Anxiety Nausea Smoker Screening for hypercholesterolemia Liver fibrosis Chronic musculoskeletal pain HTN (hypertension) Abdominal pain Transaminitis Polyarthritis Family History Family History Maternal Grandmother Cancer Mother HTN (hypertension) Mental health disorder Father HTN (hypertension) Substance use disorder Surgical History Surgical History History of esophagogastroduodenoscopy (EGD) History of cholecystectomy Social History Social History Household Members: Significant Other, Family and Children Housing: House Are you a primary primary care provider to a significant other at home: Yes Do you presently have visiting nurse or other home services: No Alcohol intake: current Alcohol intake frequency: a few times a week Alcohol type: other Comment: pt refused staff in [place] Patient Tobacco Use Status: Current everyday Tobacco user Tobacco use type: Cigarette Cigarette Packs Per Day: 1 Cigarettes Per Day: 20.0 Years Smoked: 28 e-Cigarette/Vaping Use: Never Used Second Hand Smoke Exposure: Yes Advance Directives Date on File: 01/26/21 service: No Current occupational status: unemployed Cognitive needs: No Hearing needs: No Vision needs: No Meds Allergies Allergy/AdvReac Type Severity Reaction Status Date / Time Penicillins [PENICILLINS] Allergy Severe ANAPHYLAXIS Verified 03/20/24 13:09 codeine Allergy Intermediate vomiting Verified 03/20/24 13:09 Sulfa (Sulfonamide Allergy Intermediate diarrh Verified 03/20/24 13:09 Antibiotics) tramadol Allergy Intermediate Vomiting Verified 03/20/24 13:09 morphine AdvReac Intermediate itchiness Verified 03/20/24 13:09 sumatriptan AdvReac Intermediate GI side Verified 03/20/24 13:09 effect duloxetine [Cymbalta] AdvReac Unknown increased Verified 03/20/24 13:09 depression Active Medications: Current Medications Acetaminophen (Acetaminophen 325 Mg Tablet) 650 mg PO Q6H PRN PRN Reason: Pain, Mild (Pain Scale 1-3), fever or headache Amlodipine Besylate (Amlodipine Besylate 5 Mg Tablet) 5 mg PO DAILY [facility]; Protocol Last Admin: 03/21/24 10:42 Dose: Not Given Lipase/Protease/Amylase (Lipase/Prot/Amylase 12/38/60k Capsule.) 2 cap PO TIDWM [facility] Last Admin: 03/21/24 09:05 Dose: Not Given Calcium Carbonate (Calcium Carbonate 750 Mg Tab.Chew) 750 mg PO Q4H PRN PRN Reason: Heartburn Clonidine HCl (Clonidine Hcl 0.2 Mg Tablet) 0.2 mg PO BID [facility]; Protocol Last Admin: 03/21/24 10:42 Dose: Not Given Cyclobenzaprine HCl (Cyclobenzaprine Hcl 10 Mg Tablet) 10 mg PO BEDTIME PRN PRN Reason: muscle spasm Gabapentin (Gabapentin 400 Mg Capsule) 800 mg PO QID [facility] Last Admin: 03/21/24 09:06 Dose: Not Given Hydromorphone HCl (Hydromorphone Hcl 0.5 Mg/0.5 Ml Syringe) 0.5 mg IVPUSH Q4H PRN; Protocol PRN Reason: Pain, Severe (Pain Scale 7-10) Last Admin: 03/21/24 07:54 Dose: 0.5 mg Lactated Ringer's (Lr) 1,000 mls @ 100 mls/hr IVCONT .Q10H [facility] Last Admin: 03/21/24 09:05 Dose: Not Given Magnesium Hydroxide (Milk Of Magnesia 30 Ml Oral.Susp) 30 ml PO DAILY PRN PRN Reason: Constipation Melatonin (Melatonin 3 Mg Tablet) 6 mg PO BEDTIME PRN PRN Reason: Insomnia Multivitamins/Vitamin C (Multivitamin Tablet) 1 tab PO DAILY [facility] Last Admin: 03/21/24 09:06 Dose: Not Given Non-Formulary Medication (Linaclotide) 72 mcg PO DAILY [facility] Ondansetron HCl (Ondansetron Hcl 4 Mg/2 Ml Vial) 4 mg IVPUSH Q8H PRN PRN Reason: Nausea and Vomiting Pantoprazole Sodium (Pantoprazole Sodium 40 Mg/10 Ml Vial) 40 mg IVPUSH BID@0630,1630 [facility] Last Admin: 03/21/24 05:50 Dose: 40 mg Pentoxifylline (Pentoxifylline Er 400 Mg Tablet.Er) 400 mg PO BID [facility] Last Admin: 03/21/24 10:42 Dose: Not Given Sodium Chloride (0.9 % Sodium Chloride Flush 3 Ml Syringe) 3 ml IVFLUSH QSHIFT [facility] Last Admin: 03/21/24 09:05 Dose: Not Given Home Medications ?Medication ?Instructions ?Recorded ?Confirmed ?Last Taken ?Type ibuprofen 200 mg tablet 800 mg PO QID PRN Pain 12/26/23 03/20/24 Unknown History pantoprazole 40 mg tablet,delayed 40 mg PO DAILY@0630 12/26/23 03/20/24 03/20/24 History release clonidine HCl 0.2 mg tablet 0.2 mg PO BID anxiety 03/20/24 03/20/24 03/20/24 History pentoxifylline 400 mg 400 mg PO BID 03/20/24 03/20/24 03/20/24 History tablet,extended release Physical Exam 2 Vital Signs: Vital Signs: Last Vital Signs Temp 97 F 03/21/24 11:55 Pulse 46 L 03/21/24 11:55 Resp 18 03/21/24 11:55 BP 168/78 H 03/21/24 11:55 Pulse Ox 96 03/21/24 11:55 O2 Del Method Room Air 03/21/24 11:55 BMI result Body Mass Index 22.2 No acute distress Anicteric No respiratory distress Abdomen is soft, nontender, nondistended No lower extremity edema Alert and oriented x3, no focal deficits Results Labs 03/21/24 05:34 03/21/24 05:34 Labs: Short CBC 03/20/24 03/21/24 Range/Units 14:04 05:34 WBC 10.8 6.0 (4.8-10.8) X10*3/uL Hgb 12.8 11.8 L (12.0-16.0) g/dl Hct 34.9 L 33.8 L (37.0-47.0) % Plt Count 199 179 (160-400) X10*3/uL BMP 03/20/24 03/21/24 14:04 05:34 Sodium 125 L 132 L Potassium 2.9 L* D 4.1 D Chloride 87 L 102 Carbon Dioxide 28 23 BUN 7 L 6 L Creatinine 0.66 0.62 Calcium 9.5 9.5 Liver Function 03/20/24 Range/Units 14:04 Total Bilirubin 0.3 (0.0-1.0) mg/dL AST 43 H (5-31) U/L ALT 31 (0-31) U/L Alkaline Phosphatase 158 H (39-117) U/L Albumin 4.4 (3.5-5.0) g/dL Urine 03/20/24 Range/Units 16:58 Urine Color Yellow Urine Appearance Clear Urine pH 6.0 (5.0-9.0) Ur Specific [place] <= 1.005 (1.005-1.025) Urine Protein Negative (Neg-Trace) mg/dL Urine Glucose (UA) Negative (Negative) mg/dL Assessment and Plan (1) Coffee ground emesis: Status: Acute (2) Abdominal pain: Status: Acute (3) Alcohol use disorder: Status: Acute Plan Presentation suspicious for Maribel-Whyte tear leading to coffee brown emesis. Other differentials include gastritis, esophagitis, duodenitis, PUD. Is hypertensive, but otherwise stable. Will plan for EGD today. In terms of abd pain ? panc flare vs severe constipation (no BM in 3 weeks) Plan: - Keep NPO - Cont IV PPI for now - EGD today - Add bowel regimen: senna 2 tabs daily, miralax 1-2 times daily. Glycerin supp x2 once. - Avoid NSAIDs Procedures Date of Service Date of Service: 03/21/24
--- NOTE | 2024-03-21 13:04 | MHC.RECOVRN ---
AUDIT-C Brief Intervention Pt had positive screen for unhealthy alcohol use on admission. Attempted to meet with pt to discuss alcohol use and offer resources, pt declined.
--- NOTE | 2024-03-21 13:19 | P.OP_ITS ---
Operative Note Operative Note Date of Service: 03/21/24 Narrative: Procedure: Esophagogastroduodenoscopy Endoscopist: Karen Hurtado MD Indication: Abd pain, hematemesis Anesthesia Provider: Dr Rosi Carty Anesthesia Type: MAC Instrument: Olympus GIF-160 ?? EGD Procedure:?? The procedure, indications, preparation and potential complications were reviewed with the patient, who indicated understanding and gave written informed consent to proceed. A physical exam was performed. The endoscope was introduced through the mouth, and advanced to the second part of duodenum. The mucosa was carefully examined on slow withdrawal of the endoscope. The patient tolerated the procedure well. There were no immediate complications.? ? EGD Findings:? * Esophagus:? Normal mucosa noted in the entire esophagus. The Z line was at 36 cm. There was a small hiatal hernia with the diaphragmatic pinch at 38 cm. There was a small 5 mm healing MWT at the GEJ. * Stomach:? Congestion, erythema and edema of the fundus and cardia. Retroflexion was performed in the cardia. Cold forceps biopsies were taken for histology. * Duodenum:? Normal mucosa was noted in the whole of the examined duodenum. Cold forcep biopsies were taken from duodenal bulb and second portion of the duodenum to rule out celiac sprue. ? EGD Impressions:? * Healing Maribel-Whyte tear * Gastropathy in proximal stomach ? trauma from retching (biopsy) * Normal duodenum (biopsy) ?? Recommendations:?? * Follow biopsy results. Our office will call or send a letter with results within 7-10 days. * Continue PPI therapy, can be switched to PO. * Avoid NSAIDs, etOH and smoking. Above has been reviewed with the patient.
[2024-03-21 13:25] LABS: Amylase 46 U/L (28-100)
[2024-03-21] MEDS: 0.9 % Sodium Chloride Flush 3 ML SYRINGE IVFLUSH (15:36)
--- NOTE | 2024-03-21 16:21 | P.DS_ITS ---
DS: Providers Provider Date of Service: 03/21/24 Date of admission: 03/20/24 20:32 Date of discharge: 03/21/24 Primary care physician: Anthony Aragon PA-C Consults: 03/20/24 21:41 Consult to Gastroenterology Routine Consulting Provider: Vincent Whyte Reason for consultation: Hematemesis 03/21/24 11:23 Addiction Medicine Routine Consulting Provider: Addiction Covering Reason for consultation: excess EtOH DS: Diagnosis Discharge Diagnosis (1) Coffee ground emesis: Status: Acute (2) Abdominal pain: Status: Acute (3) Alcohol use disorder: Status: Acute (4) Maribel-Whyte tear: Status: Acute (5) Hypokalemia: Status: Acute (6) Hyponatremia: Status: Acute DS: Summary Hospital Course Hospital Course: From the history and physical by the admitting hospitalist, Mili Long, 03/20/24: This is a 46-year-old female with pertinent history of alcohol use disorder, tobacco use disorder, chronic pancreatitis, hypertension, peripheral neuropathy, irritable bowel syndrome who presents to the emergency department for evaluation of coffee-ground emesis. Patient states she had multiple episodes of nonbloody emesis 2 days prior to presentation. She continued to have vomiting and on the day of presentation she noticed coffee-ground emesis. Also has been having abdominal discomfort. No diarrhea. Poor p.o. intake due to nausea and vomiting. Abdominal pain is generalized, intermittent, nonradiating. Patient denies fever, chest discomfort, palpitations, shortness of breath, changes in urinary or bowel habits. In the emergency department, imaging with chronic pancreatitis 48yo F with AUD, tobacco abuse disorder, chronic pancreatitis, HTN, peripheral neuropathy, and IBS presenting with 2d of emesis that progressed to coffee grounds with abdominal pain. She was admitted to the telemetry unit and given IV PPI. Gastroenterology was consulted and Dr Karen Hurtado performed an EGD on 03/21/24, which showed healing Maribel-Whyte tear and gastropathy in the proximal stomach that might represent trauma from retching. Biopsies were taken of the stomach and duodenum. She tolerated a regular diet afterwards. Low potassium was repleted and low sodium improved with IV hydration. She was discharged home and will follow up with Dr Hurtado in 2 weeks for biopsy results. She was counseled to avoid alcohol but declined Recovery Team support. Time Attestation Discharge Coordination Time (in mins): 35 Quality: Safe Use of Opioids Does Pt have an Active Cancer Diagnosis on the Problem List?: No Quality: Stroke Does the patient have a stroke diagnosis?: No Physical Exam Vital Signs: Vital Signs: Last Vital Signs Temp 98.1 F 03/21/24 15:10 Pulse 51 03/21/24 15:10 Resp 18 03/21/24 15:10 BP 174/83 H 03/21/24 15:10 Pulse Ox 100 03/21/24 15:10 O2 Del Method Room Air 03/21/24 15:10 BMI result Body Mass Index 22.2 Gen: in no acute distress HEENT: sclera anicteric, moist mucus membranes Neck: supple Lungs: clear to auscultation bilaterally Heart: regular rate and rhythm, no murmurs Abd: soft, non-tender, non-distended Ext: no edema Skin: warm/well-perfused Neuro: alert and oriented x3, no focal findings Psych: appropriate affect DS: Data Data Completed and Pending Completed studies during hospitalization [Text1]: Laboratory Results WBC 6.0 X10*3/uL (4.8-10.8) 03/21/24 05:34 RBC 3.58 X10*6/uL (4.20-5.50) L 03/21/24 05:34 Hgb 11.8 g/dl (12.0-16.0) L 03/21/24 05:34 Hct 33.8 % (37.0-47.0) L 03/21/24 05:34 MCV 94.4 fL (80.0-98.0) 03/21/24 05:34 MCH 33.0 pg (27.0-33.0) 03/21/24 05:34 MCHC 34.9 g/dl (31.0-35.0) 03/21/24 05:34 RDW 13.1 % (11.0-16.0) 03/21/24 05:34 Plt Count 179 X10*3/uL (160-400) 03/21/24 05:34 MPV 9.5 fL (9.4-12.3) 03/21/24 05:34 Immature Gran % (Auto) 0.2 % (0.0-0.4) 03/21/24 05:34 Neut % (Auto) 50.6 % (45-73) 03/21/24 05:34 Lymph % (Auto) 34.4 % (20-40) 03/21/24 05:34 [place] % (Auto) 7.5 % (2-11) 03/21/24 05:34 Eos % (Auto) 6.5 % (0-4) H 03/21/24 05:34 Baso % (Auto) 0.8 % (0-2) 03/21/24 05:34 Lymph # (Auto) 2.1 X10*3/uL (1.2-4.9) 03/21/24 05:34 [place] # (Auto) 0.5 X10*3/uL (0.1-1.2) 03/21/24 05:34 Eos # (Auto) 0.4 X10*3/uL (0.0-0.4) 03/21/24 05:34 Baso # (Auto) 0.1 X10*3/uL (0.0-0.2) 03/21/24 05:34 Abs Immat Gran (auto) 0.01 X10*3/uL (0.00-0.03) 03/21/24 05:34 Absolute Neuts (auto) 3.0 x10*3/uL (2.0-8.3) 03/21/24 05:34 Absolute Nucleated RBC 0.000 X10*3/uL (0.0-0.012) 03/21/24 05:34 Nucleated RBC % (auto) 0.0 /100WBC (0.0-0.2) 03/21/24 05:34 PT 10.3 SEC (10.9-12.4) L 03/20/24 14:04 INR 0.9 (0.9-1.1) 03/20/24 14:04 APTT 35.2 SEC (26.0-36.8) 03/20/24 14:04 Sodium 132 mmol/L (135-145) L 03/21/24 05:34 Potassium 4.1 mmol/L (3.3-5.1) D 03/21/24 05:34 Chloride 102 mmol/L (96-108) 03/21/24 05:34 Carbon Dioxide 23 mmol/L (22-29) 03/21/24 05:34 Anion Gap 11 (12-20) L 03/21/24 05:34 BUN 6 mg/dL (9-16) L 03/21/24 05:34 Creatinine 0.62 mg/dL (0.5-1.4) 03/21/24 05:34 Estim Creat Clear Calc 95.8 03/21/24 05:34 Estimated GFR > 60 03/21/24 05:34 Random Glucose 96 mg/dL (60-115) 03/21/24 05:34 Calcium 9.5 mg/dL (8.4-10.2) 03/21/24 05:34 Phosphorus 3.0 mg/dL (2.7-4.5) 03/20/24 18:22 Magnesium 1.6 mg/dL (1.6-2.6) 03/20/24 18:22 Total Bilirubin 0.3 mg/dL (0.0-1.0) 03/20/24 14:04 AST 43 U/L (5-31) H 03/20/24 14:04 ALT 31 U/L (0-31) 03/20/24 14:04 Alkaline Phosphatase 158 U/L (39-117) H 03/20/24 14:04 Troponin I High Sens 6.7 ng/L (<3.5-17.0) 03/20/24 14:04 Total Protein 7.6 g/dL (6.5-8.0) 03/20/24 14:04 Albumin 4.4 g/dL (3.5-5.0) 03/20/24 14:04 Amylase 46 U/L (28-100) 03/21/24 05:34 Lipase 18 U/L (8-78) 03/20/24 14:04 Urine Color Yellow 03/20/24 16:58 Urine Appearance Clear 03/20/24 16:58 Urine pH 6.0 (5.0-9.0) 03/20/24 16:58 Ur Specific [place] <= 1.005 (1.005-1.025) 03/20/24 16:58 Urine Protein Negative mg/dL (Neg-Trace) 03/20/24 16:58 Urine Glucose (UA) Negative mg/dL (Negative) 03/20/24 16:58 Urine Ketones Negative mg/dL (Negative) 03/20/24 16:58 Urine Blood Negative (Negative) 03/20/24 16:58 Urine Nitrite Negative (Negative) 03/20/24 16:58 Ur Leukocyte Esterase Negative (Negative) 03/20/24 16:58 Urine Test NEGATIVE (NEGATIVE) 03/20/24 16:58 Urine Opiates Screen Not Detected (Not Detect) 03/20/24 16:58 Ur Buprenorphine Scrn Positive ng/mL (Not Detect) H 03/20/24 16:58 Ur Oxycodone Screen Positive ng/mL (Not Detect) H 03/20/24 16:58 Urine Methadone Screen Not Detected ng/mL (Not Detect) 03/20/24 16:58 Urine Fentanyl Screen Not Detected (Not Detect) 03/20/24 16:58 Ur Barbiturates Screen Not Detected (Not Detect) 03/20/24 16:58 Ur Phencyclidine Scrn Not Detected (Not Detect) 03/20/24 16:58 Ur Amphetamines Screen Not Detected (Not Detect) 03/20/24 16:58 U Benzodiazepines Scrn Not Detected (Not Detect) 03/20/24 16:58 Urine Cocaine Screen Not Detected (Not Detect) 03/20/24 16:58 U Marijuana (THC) Screen Not Detected (Not Detect) 03/20/24 16:58 Ethyl Alcohol < 10 mg/dL 03/20/24 21:52 Blood Type A Positive 03/20/24 16:06 Antibody Screen NEGATIVE 03/20/24 16:06 Impressions Chest X-Ray 03/20/24 15:41 IMPRESSION: Patchy linear opacities in both lower lobes slightly worse compared to 09/08/2022 suggestive of interstitial pneumonitis or chronic interstitial lung disease. Electronically signed by: Wilder Arthur MD 03/20/2024 07:05 PM EDT RP Abdomen/Pelvis CT 03/20/24 17:06 IMPRESSION: 1. No acute abdominal or pelvic pathology. 2. Moderate severe left colonic stool burden with likely small bowel ileus. No liza transition identified. 3. Bilateral lower pole nonobstructing renal calculi. 4. Chronic pancreatitis. Fleischner guidelines were followed. Electronically signed by: Itz Haddad DO 03/20/2024 08:03 PM EDT RP Pending studies at discharge: Pending at discharge 03/21/24 13:14 Surgical [PTH] Routine Discharge Plan Discharge Anticipated Discharge Date/Time: 03/21/24 16:13 Patient Disposition: Home, Self-Care Discharge Diagnosis: Upper GI bleed from Maribel-Whyte tear Constipation Alcohol use disorder Referrals: Anthony Aragon PA-C [Primary Care Provider] - 1 Week Karen Hurtado MD [Physician] - 2 Weeks Discharge Medications: New polyethylene glycol 3350 17 gram Powder In Packet 17 g PO DAILY Qty: 30 0RF sennosides-docusate sodium [Senna Plus] 8.6-50 mg Tablet 2 tab PO BID Qty: 120 0RF Continued Creon 12,000-38,000 -60,000 unit capsule,delayed release(DR/EC) 2 cap PO TID 60 Days Qty: 360 1RF Rx Instructions: patient is taking cyclobenzaprine 10 mg tablet 10 mg PO BEDTIME PRN (Reason: muscle spasm) 30 Days Qty: 30 6RF gabapentin 800 mg tablet 800 mg PO QID 90 Days Qty: 360 2RF ibuprofen 200 mg Tablet 800 mg PO QID PRN (Reason: Pain) pantoprazole 40 mg tablet,delayed release (DR/EC) 40 mg PO DAILY@0630 pentoxifylline 400 mg tablet extended release 400 mg PO BID clonidine HCl 0.2 mg tablet 0.2 mg PO BID ondansetron 8 mg tablet,disintegrating 8 mg PO Q12H PRN (Reason: nausea and vomiting) 30 Days Qty: 60 1RF amlodipine 5 mg tablet 5 mg PO DAILY 30 Days Qty: 30 1RF linaclotide 72 mcg capsule 72 mcg PO DAILY Qty: 30 3RF multivitamin Tablet 1 tab PO DAILY Qty: 90 4RF Discharge Orders: Discharge Order (Routine); Ordered 03/21/24 Ordered By: Colt Guo Diet: Advance to usual diet Activity on Discharge: As tolerated Stand Alone Forms: Patient Portal Discharge page Print Language: Arabic Care Plan Goals: sobriety Health Concerns: Upper GI bleed from Maribel-Whyte tear Constipation Alcohol use disorder Plan of Treatment: Follow up with GI for biopsy results in 2 weeks Laxatives Sobriety; avoid alcohol Please follow up with your primary care doctor within 1 week. Return to the [facility] if you experience recurrent or worsening symptoms. Assessment: See Discharge Summary.
--- NOTE | 2024-03-21 16:22 | MHC.CM.PN ---
Patient has been medically cleared for dc to home today, self care.
[2024-03-21] MEDS: Lipase/Prot/Amylase 12/38/60K CAPSULE.DR 2 CAP PO (16:43)
[2024-03-21] MEDS: Gabapentin 400 MG CAPSULE 800 MG PO (16:43)
== END 2024-03-21 17:15 | disposition home or self-care (01) | DRG 369 ==
LOC: HO.ED 20:58 → HO.EDOVER 21:05 → HO.IMC 03-21 00:38
PROVIDERS: Internal Medicine; Physician Assistant; Admitting Provider Student in an Organized Health Care Education/Training Program; Emergency Provider Student in an Organized Health Care Education/Training Program; PCP Physician Assistant; Visit Provider Family Medicine
PROC: 0DJ08ZZ Inspection of Upper Intestinal Tract, Via Natural or Artificial Opening Endoscopic (ICD-10-PCS; CPT 43235; principal; 2024-03-21 14:50)
DX: K22.6 Gastro-esophageal laceration-hemorrhage syndrome (principal); E87.1 Hypo-osmolality and hyponatremia; K86.0 Alcohol-induced chronic pancreatitis; K31.9 Disease of stomach and duodenum, unspecified; F10.10 Alcohol abuse, uncomplicated; K44.9 Diaphragmatic hernia without obstruction or gangrene; F17.210 Nicotine dependence, cigarettes, uncomplicated; E87.6 Hypokalemia; K59.00 Constipation, unspecified; E86.1 Hypovolemia; F41.9 Anxiety disorder, unspecified; I10 Essential (primary) hypertension; K21.9 Gastro-esophageal reflux disease without esophagitis; G62.9 Polyneuropathy, unspecified; Z71.6 Tobacco abuse counseling; Z71.41 Alcohol abuse counseling and surveillance of alcoholic; Z79.899 Other long term (current) drug therapy
CPT/HCPCS: 43239; 36415; 71046; 74177; 80048; 80053; 80307; 81003; 81025; 82150; 83690; 83735; 84100; 84484; 85025; 85610; 85730; 86850; 86900; 86901; 88305; 93005; 96361; 96365; 96366; 96375; 96376; 99222; 99285; J0737; J1171; J1596; J2003; J2270; J2470; J2704; J3480; J7120; Q9967

== ENCOUNTER → 2024-03-20 13:13 | Outpatient (BNV) | payer OTHER, SELFPAY | PROVIDERS: Emergency Provider Student in an Organized Health Care Education/Training Program; PCP Physician Assistant; Visit Provider Internal Medicine Cardiovascular Disease | DX: R94.31 Abnormal electrocardiogram [ECG] [EKG] (principal) | CPT/HCPCS: 93010 ==

== ENCOUNTER → 2024-03-20 20:32 | Outpatient (BNV) | payer OTHER, SELFPAY | PROVIDERS: Admitting Provider Student in an Organized Health Care Education/Training Program; Emergency Provider Student in an Organized Health Care Education/Training Program; PCP Physician Assistant; Visit Provider Internal Medicine | DX: K92.0 Hematemesis (principal); R10.9 Unspecified abdominal pain; F10.90 Alcohol use, unspecified, uncomplicated; K22.6 Gastro-esophageal laceration-hemorrhage syndrome; K31.9 Disease of stomach and duodenum, unspecified | CPT/HCPCS: 43239; 99232 ==

== ENCOUNTER → 2024-03-20 20:32 | Outpatient (BNV) | payer OTHER, SELFPAY | PROVIDERS: Admitting Provider Student in an Organized Health Care Education/Training Program; Emergency Provider Student in an Organized Health Care Education/Training Program; PCP Physician Assistant; Visit Provider Student in an Organized Health Care Education/Training Program | DX: K92.0 Hematemesis (principal); K22.6 Gastro-esophageal laceration-hemorrhage syndrome; E87.6 Hypokalemia; F10.90 Alcohol use, unspecified, uncomplicated; E87.1 Hypo-osmolality and hyponatremia; R10.9 Unspecified abdominal pain | CPT/HCPCS: 99222; 99239 ==

== ENCOUNTER 2024-03-26 12:52 | Outpatient (AMB) | payer OTHER, SELFPAY ==
[2024-03-26 13:03] VITALS: BP 176/92; PULSE 67; O2SAT 99; BMI 22.8
--- NOTE | 2024-03-26 13:03 | A.OFFPC_ITS ---
Vital Signs 03/26/24 13:03 Height 5 ft 4 in Weight 133 lb BMI 22.8 BP 176/92 H Blood Pressure Location Lt brachial Position Sitting Pulse 67 Pulse Source Pulse Oximeter Pulse Oximetry (%) 99 Oxygen Delivery Method Room Air Intake Visit Reasons: [facility] 03/21 coffee ground emesis Religion Professor Required: No Accompanied by: Mother Allergies Penicillins [PENICILLINS] Allergy (Severe, Verified 03/26/24 13:11) ANAPHYLAXIS codeine Allergy (Intermediate, Verified 03/26/24 13:11) vomiting Sulfa (Sulfonamide Antibiotics) Allergy (Intermediate, Verified 03/26/24 13:11) diarrh tramadol Allergy (Intermediate, Verified 03/26/24 13:11) Vomiting morphine Adverse Reaction (Intermediate, Verified 03/26/24 13:11) itchiness sumatriptan Adverse Reaction (Intermediate, Verified 03/26/24 13:11) GI side effect duloxetine [Cymbalta] Adverse Reaction (Unknown, Verified 03/26/24 13:11) increased depression Medication List - Last Reconciled 03/26/24 by Anthony Aragon PA-C amlodipine 5 mg PO DAILY 30 days clonidine HCl 0.2 mg PO BID cyclobenzaprine 10 mg PO BEDTIME PRN 30 days gabapentin 800 mg PO QID 90 days ibuprofen 800 mg PO QID PRN linaclotide 72 mcg PO DAILY wpmleg-pdrdsodt-eaqnoys 12,000-38,000 -60,000 unit (Creon) 2 caps PO TID 60 days multivitamin 1 tab PO DAILY ondansetron 8 mg PO Q12H PRN 30 days pantoprazole 40 mg PO DAILY@0630 pentoxifylline ER 400 mg PO BID polyethylene glycol 3350 17 grams PO DAILY sennosides-docusate sodium 8.6-50 mg (Senna Plus) 2 tabs PO BID Tobacco use date assessed: 07/25/23 Dental Screening Dental Screen Date: 07/25/23 HPI [facility] 03/21 coffee ground emesis HPI Details Patient here today for hospital discharge follow-up. She was seen at [facility] for 2 days of coffee-ground emesis and abdominal pain. She was admitted and given IV ppi. GI consulted and performed an EGD on 03/21/2024 which showed a healing Maribel-Whyte tear and gastropathy in the proximal stomach. Biopsies were taken without any significant findings. She was also found to have low potassium which was replenished while in the hospital. She did also have a chest x-ray while in the hospital showing-->Patchy linear opacities in both lower lobes slightly worse compared to 09/08/2022 suggestive of interstitial pne umonitis or chronic interstitial lung disease. Has upcoming appointment with Gastroenterology. Of note she does admit she is drinking 6-7 verrucous ulcers per day and has concerns about quitting cold turkey . She has not had any withdrawal seizures. We have prescribed her naltrexone to help her with alcohol use disorder though has not been able to get from the pharmacy due to insurance reasons She also reports since yesterday having some chest discomfort and pressure. Her blood pressure is elevated today in office. While in the hospital she did undergo EKGs that show normal sinus rhythm though question of a septal infarct. PLAN: Will send for cardiac stress testing to evaluate for ischemia on exertion. TCM TCM Information Date of Discharge 03/21/24 Discharged From [facility] Interactive Contact Date (Reference documentation from this date) 03/22/24 [facility] Medical History Pseudocyst of pancreas Depression Anxiety Nausea Smoker Screening for hypercholesterolemia Liver fibrosis Chronic musculoskeletal pain HTN (hypertension) Abdominal pain Transaminitis Polyarthritis Surgical History History of esophagogastroduodenoscopy (EGD) History of cholecystectomy Family History Maternal Grandmother Cancer Mother HTN (hypertension) Mental health disorder Father HTN (hypertension) Substance use disorder Social History Household Members: Significant Other, Family and Children Housing: House Are you a primary clinical care coordinator to a significant other at home: Yes Do you presently have visiting nurse or other home services: No Alcohol intake: current Alcohol intake frequency: a few times a week Alcohol type: other Comment: pt refused staff in [place] Patient Tobacco Use Status: Current everyday Tobacco user Tobacco use type: Cigarette Cigarette Packs Per Day: 1 Cigarettes Per Day: 20.0 Years Smoked: 28 e-Cigarette/Vaping Use: Never Used Second Hand Smoke Exposure: Yes Advance Directives Date on File: 01/26/21 service: No Current occupational status: unemployed Cognitive needs: No Hearing needs: No Vision needs: No Questionnaire Thrive Questionnaire Date Thrive assessed: 03/21/24 Are you currently unemployed and looking for a job?: I choose not to answer this question ROEL-7 AMB Questionnaire ROEL-7 Date ROEL - 7 assessed: 07/25/23 Source: Developed by Drs. Vincent Xie, Tana Nicholson, Edenilson Wolf and colleagues, with an educational jonh from [employer]. Review of Systems Const Reports headache(s) Eyes Denies loss of vision ENT Denies vertigo, Denies dizziness, Reports headache(s) and Denies sore throat Card Reports chest pain, Denies leg edema and Denies lightheadedness Resp Denies cough, Denies hemoptysis and Denies wheezing GI Reports abdominal pain, Denies melena, Reports constipation, Denies diarrhea and Denies vomiting Denies urinary frequency, Denies dysuria and Denies urinary urgency Musc Denies arthralgias, Denies joint swelling, Denies numbness and Denies tingling Neuro Denies Abnormal speech present, Denies behavioral changes, Denies vertigo, Denies dizziness, Reports headache(s), Denies loss of vision, Denies memory loss, Denies numbness and Denies tingling Psych Denies anxiety, Denies behavioral changes, Denies depression, Denies memory loss and Denies panic attacks Brennon/Lymph Denies easy bleeding and Denies easy bruising Aller/Immun Denies wheezing Physical exam (Primary Care) Vital Signs: Last Vital Signs Pulse 67 03/26/24 13:03 BP 176/92 H 03/26/24 13:03 Pulse Ox 99 03/26/24 13:03 Oxygen Delivery Method Room Air 03/26/24 13:03 BMI result Body Mass Index 22.8 Tobacco/Smoking Status: Tobacco use Status Tobacco use date assessed 07/25/23 03/26/24 13:05 Patient Tobacco Use Status Current everyday Tobacco 03/26/24 13:05 Tobacco use type Cigarette 03/26/24 13:05 e-Cigarette/Vaping Use Never Used 03/26/24 13:05 Thrive Assessment: Date of Thrive Assessment Date Thrive assessed 03/21/24 03/26/24 13:05 Const General: healthy appearing, no acute distress, alert and awake Nutritional Appearance: well nourished Orientation/consciousness: oriented to person, oriented to place and oriented to time HENMT Ears: TM's normal bilaterally General nose exam: Normal nasal mucous membranes and turbinates present Eyes Conjunctivae: conjunctivae normal Sclerae: sclerae normal Pupils: Equal, round and reactive pupils present Neck Neck: Yes no lymphadenopathy and Yes no JVD Thyroid: Thyroid normal Carotids: no bruits Resp Effort & Inspection: normal respiratory effort and not tachypneic Auscultation: no crackles, no rales, no rhonchi and no wheezes Cardio Rate: regular rate Rhythm: regular rhythm Heart sounds: no murmurs and normal S1 and S2 GI Palpation (GI): Soft to palpation, nontender, no hepatomegaly and no splenomegaly Auscultation: normal bowel sounds Skin General skin exam: no rashes or lesions noted and dry skin Neuro General: oriented to person, oriented to place and oriented to time Cranial nerves: Yes Equal, round and reactive pupils present Speech: No Abnormal speech present Gait exam (Neuro): Normal gait present Motor exam (neuro): no tremor noted Extrem Right upper extremity: full ROM Left upper extremity: full ROM Right lower extremity: full ROM; no edema Left lower extremity: full ROM; no edema Psych Mental Status: mental status grossly normal Speech and movement: Normal speech and movement present Affect: normal affect Attitude: cooperative Thought process: Normal thought process present Coding Level of Care Code Est Pt Level 4 (16792) Diagnoses Hospital discharge follow-up Z09 Primary hypertension I10 Hypertension type: primary hypertension Hyponatremia E87.1 Chest pain, unspecified type R07.9 Chest pain type: unspecified Migraine without aura and without status migrainosus, not intractable G43.009 Intractability: not intractable Migraine type: without aura Status migrainosus presence: without status migrainosus Ventral hernia without obstruction or gangrene K43.9 Obstruction and gangrene presence: without obstruction or gangrene Alcohol use disorder F10.90 Assessment & Plan Assessment & Plan (1) Hospital discharge follow-up: Code(s): Z09 - Encounter for follow-up examination after completed treatment for conditions other than malignant neoplasm Category: Medical Plan: As per HPI (2) HTN (hypertension): Code(s): I10 - Essential (primary) hypertension Category: Medical Qualifiers: Hypertension type: primary hypertension Qualified Code(s): I10 - Essential (primary) hypertension Plan: Patient's blood pressure elevated today in office. She has not been taking her amlodipine 5 mg due to insurance issues and mccray at the pharmacy. She promises to medicinal plant picker her medication the . She does report having headaches and some chest discomfort. EKG showing normal sinus rhythm though does note a potential septal infarct that was also noted in December of 2023. Will send for cardiac stress test due to patient's EKG findings and reports some chest discomfort. (3) Hyponatremia: Code(s): E87.1 - Hypo-osmolality and hyponatremia Category: Medical Plan: Patient continues to have chronic hyponatremia likely secondary to her vomiting episodes. Advised to completely quit drinking if she can possibly do this. She does have naltrexone awaiting her at the pharmacy. (4) Chest pain: Code(s): R07.9 - Chest pain, unspecified Category: Medical Qualifiers: Chest pain type: unspecified Qualified Code(s): R07.9 - Chest pain, u nspecified Plan: As above (5) Migraine: Code(s): G43.909 - Migraine, unspecified, not intractable, without status migrainosus Category: Medical Qualifiers: Intractability: not intractable Migraine type: without aura Status migrainosus presence: without status migrainosus Qualified Code(s): G43.009 - Migraine without aura, not intractable, without status migrainosus Plan: Patient does report having more migraines as of late. She does report Fioricet has been helpful for her in the past. She does understand that Fioricet can be habit-forming and cause rebound migraines if used consistently. We anticipate better control of her headaches with better blood pressure control. (6) Ventral hernia: Code(s): K43.9 - Ventral hernia without obstruction or gangrene Category: Medical Qualifiers: Obstruction and gangrene presence: without obstruction or gangrene Qualified Code(s): K43.9 - Ventral hernia without obstruction or gangrene Plan: Will hold off on medically clearing patient for hernia surgery as she is still dealing with medical conditions. There was some abnormality on her EKG with ST depressions. Blood pressure elevated today in office and she promises to start blood pressure medication this . Will send for cardiac stress test evaluate for cardiac ischemia on exertion (7) Alcohol use disorder: Code(s): F10.90 - Alcohol use, unspecified, uncomplicated Category: Medical Plan: Again patient does admit to having 6-7 focus ulcers per day. We did discuss that this is likely a primary cause of lot of her GI issues. She is concerned about stopping cold turkey as she has been told she may have withdrawal seizures. Have prescribed her naltrexone to help her with her alcohol use disorder. Does have clonidine available to her to use for withdrawal. She has not had any alcohol withdrawal seizures in the past.. Orders: Orders CA stress test Today R07.9 - Chest pain, unspecified Medications: New yuvxzjfzgl-ietxxcsxmraen-fpys 50-325-40 mg 1 cap PO Q6H PRN 16 caps 0RF pain 30 days G43.009 - Migraine without aura, not intractable, without status migrainosus, G43.909 - Migraine, unspecified, not intractable, without status migrainosus
== END 2024-03-26 13:51 | disposition home or self-care (01) ==
PROVIDERS: PCP Physician Assistant; Visit Provider Physician Assistant
DX: Z09 Encounter for follow-up examination after completed treatment for conditions other than malignant neoplasm (principal); I10 Essential (primary) hypertension; E87.1 Hypo-osmolality and hyponatremia; R07.9 Chest pain, unspecified; G43.009 Migraine without aura, not intractable, without status migrainosus; K43.9 Ventral hernia without obstruction or gangrene; F10.90 Alcohol use, unspecified, uncomplicated; Z23 Encounter for immunization

== ENCOUNTER → 2024-03-26 12:52 | Outpatient (BNVA) | payer OTHER, SELFPAY | PROVIDERS: PCP Physician Assistant; Visit Provider Physician Assistant | DX: I10 Essential (primary) hypertension (principal); E87.1 Hypo-osmolality and hyponatremia; R07.9 Chest pain, unspecified; G43.009 Migraine without aura, not intractable, without status migrainosus; K43.9 Ventral hernia without obstruction or gangrene; F10.90 Alcohol use, unspecified, uncomplicated; Z28.21 Immunization not carried out because of patient refusal | CPT/HCPCS: 90471 ==

== ENCOUNTER 2024-04-12 08:36 | Outpatient (REF) | payer OTHER, SELFPAY ==
--- NOTE | ~2024-04-12 | MM_ITS ---
EXAMINATION: BONE DENSITOMETRY CLINICAL INDICATION: Menopause. COMPARISON: This is the patient's baseline examination. TECHNIQUE: Using a [employer]ra[employer] DXA System (software version: 13.1) manufactured by [employer], dual-energy x-ray absorptiometry was performed of the lumbar spine and left hip. The images are of good technical quality. Summary results are attached. FINDINGS: LEFT FEMUR, NECK: BMD 0.929 g/cm2, Z-score 0.2, T-score -0.8, normal. LEFT FEMUR, TOTAL: BMD 0.897 g/cm2, Z-score -0.2, T-score -0.9, normal. AP SPINE L1-L4: BMD 1.239 g/cm2, Z-score 1.1, T-score 0.5, normal. IDENTIFIED RISK FACTORS: Early menopause, recurrent falls, anticonvulsant, alcohol (3 or more units per day), tobacco use (current smoker), secondary osteoporosis (anorexia or bulimia). HISTORY OF FRACTURE: None listed. MEDICATIONS: Multivitamin. MM/XR DEXA axial skeleton IMPRESSION: 1. DIAGNOSIS: Normal bone density based on the lowest T-score value of -0.9 in the total femur applying World Health Organization criteria. 2. 10-YEAR FRACTURE RISK PREDICTION, FRAX: According to the guidelines, FRAX calculation should only be performed on patients in the osteopenia bone density category. Therefore, FRAX was not performed on this patient. 3. Treatment Recommendations: NOF guidelines recommend consideration for treatment in postmenopausal women and men age 50 and older presenting with the following: -A hip or vertebral (clinical or morphometric) fracture. -T-score less than or equal to -2.5 at the femoral neck or spine after appropriate evaluation to exclude secondary causes. -Low bone mass at the hip or spine and a 10-year fracture probability by FRAX of greater than or equal to 3% for hip fracture or greater than or equal to 20% for major osteoporotic fracture based on the [place] adapted WHO algorithm. 4. Other Recommendations: All treatment decisions require clinical judgment and consideration of individual patient factors, including patient preferences, comorbidities, previous drug use, risk factors not captured in the FRAX model (e.g. frailty, falls, vitamin D deficiency, increased bone turnover, interval significant decline in bone density) and possible under or overestimation of fracture risk by FRAX. FUTURE SCAN RECOMMENDATION: People with diagnosed cases of osteoporosis or at high risk for fracture should have regular bone mineral density tests. For patients eligible for Medicare, routine testing is allowed once every 2 years. The testing frequency can be increased to one year for patients who have rapidly progressing disease, those who are receiving or discontinuing medical therapy to restore bone mass, or have additional risk factors. Electronically signed by: Mirza Schwartz MD 04/12/2024 12:23 PM EDT
--- NOTE | ~2024-04-12 | MM_ITS ---
EXAMINATION: MM SCREENING DIGITAL BREAST TOMOSYNTHESIS, BILATERAL CLINICAL INFORMATION: Screening. Asymptomatic. COMPARISON: Mammography: Comparison is made with available priors TECHNIQUE: Digital breast mammography with tomosynthesis is performed in both the craniocaudal and mediolateral oblique views along with computer-aided detection (CAD). FINDINGS: There are scattered areas of fibroglandular density (ACR BI-RADS breast composition Category b). There are no significant masses, abnormal calcifications, or other abnormalities. MM/MM tomosynthesis screening BI IMPRESSION: No mammographic evidence of malignancy. ASSESSMENT: BI-RADS BI-RADS 1 - Negative RECOMMENDATION: Routine annual mammography screening. 1 year F/U This examination should not preclude the clinical evaluation of a suspicious palpable abnormality. This patient's information was entered into a reminder system with a target due date for their next mammogram. Electronically signed by: Antonia Avitia DO 04/19/2024 04:23 PM TOLU
== END 2024-04-12 08:37 | disposition home or self-care (01) ==
LOC: HO.MAMMO 08:36
PROVIDERS: PCP Physician Assistant; Visit Provider Physician Assistant
DX: Z12.31 Encounter for screening mammogram for malignant neoplasm of breast (principal); Z13.820 Encounter for screening for osteoporosis; Z78.0 Asymptomatic menopausal state; M89.9 Disorder of bone, unspecified
CPT/HCPCS: 77063; 77067; 77080

== ENCOUNTER → 2024-04-12 08:45 | Outpatient (BNV) | payer OTHER, SELFPAY | PROVIDERS: PCP Physician Assistant; Visit Provider Internal Medicine | DX: Z12.31 Encounter for screening mammogram for malignant neoplasm of breast (principal) | CPT/HCPCS: 77063; 77067 ==

== ENCOUNTER 2024-04-23 13:53 | Outpatient (AMB) | payer OTHER, SELFPAY ==
--- NOTE | 2024-04-23 13:48 | A.OFFPC_ITS ---
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 Accompanied by: Self / Same As Patient Allergies Penicillins [PENICILLINS] Allergy (Severe, Verified 04/23/24 13:58) ANAPHYLAXIS codeine Allergy (Intermediate, Verified 04/23/24 13:58) vomiting Sulfa (Sulfonamide Antibiotics) Allergy (Intermediate, Verified 04/23/24 13:58) diarrh tramadol Allergy (Intermediate, Verified 04/23/24 13:58) Vomiting amlodipine Adverse Reaction (Intermediate, Verified 04/24/24 08:17) Pedal edema morphine Adverse Reaction (Intermediate, Verified 04/23/24 13:58) itchiness naltrexone Adverse Reaction (Intermediate, Verified 04/23/24 14:01) ataxia sumatriptan Adverse Reaction (Intermediate, Verified 04/23/24 13:58) GI side effect duloxetine [Cymbalta] Adverse Reaction (Unknown, Verified 04/23/24 13:58) increased depression Medication List - Last Reconciled 04/23/24 by Anthony Aragon PA-C amlodipine 5 mg PO DAILY 30 days wfcfjkhbke-xtktvntyfpbqb-aehj 50-325-40 mg 1 cap PO Q6H PRN 30 days clonidine HCl 0.2 mg PO BID 30 days cyclobenzaprine 10 mg PO BEDTIME PRN 30 days gabapentin 800 mg PO QID 90 days ibuprofen 800 mg PO QID PRN linaclotide 72 mcg PO DAILY xkostk-rnjjluzy-cumocue 12,000-38,000 -60,000 unit (Creon) 2 caps PO TID 60 days multivitamin 1 tab PO DAILY ondansetron 8 mg PO Q12H PRN 30 days pantoprazole 40 mg PO DAILY@0630 90 days pentoxifylline ER 400 mg PO BID polyethylene glycol 3350 17 grams PO DAILY sennosides-docusate sodium 8.6-50 mg (Senna Plus) 2 tabs PO BID Tobacco use date assessed: 07/25/23 Dental Screening Dental Screen Date: 07/25/23 HPI follow-up hypertension, HPI Details Patient is a 48-year-old female being evaluated today via telephone only. Patient has a past medical history significant for hyponatremia, Maribel- Whyte tears pancreatic insufficiency, hypertension. We restarted amlodipine 10 mg over the last month and she has noted pretty significant pedal edema as of late. She reports drinking more water lately. She does admit that her blood pressures still remain elevated above 140 systolic Alcohol dependency: She did have a very bad reaction to naltrexone to which he flu-like symptoms and ataxia for few days. She is feeling better now. She would likely need inpatient detox if she she is willing to stop drinking PFSH Medical History Pseudocyst of pancreas Depression Anxiety Nausea Smoker Screening for hypercholesterolemia Liver fibrosis Chronic musculoskeletal pain HTN (hypertension) Abdominal pain Transaminitis Polyarthritis Surgical History History of esophagogastroduodenoscopy (EGD) History of cholecystectomy Family History Maternal Grandmother Cancer Mother HTN (hypertension) Mental health disorder Father HTN (hypertension) Substance use disorder Social History Household Members: Significant Other, Family and Children Housing: House 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 Do you presently have visiting nurse or other home services: No Alcohol intake: current Alcohol intake frequency: a few times a week Alcohol type: other Comment: pt refused staff in [place] Patient Tobacco Use Status: Current everyday Tobacco user Tobacco use type: Cigarette Cigarette Packs Per Day: 1 Cigarettes Per Day: 20.0 Years Smoked: 28 e-Cigarette/Vaping Use: Never Used Second Hand Smoke Exposure: Yes Advance Directives Date on File: 01/26/21 service: No Current occupational status: unemployed Cognitive needs: No Hearing needs: No Vision needs: No Questionnaire Thrive Questionnaire Date Thrive assessed: 03/21/24 ROEL-7 AMB Questionnaire ROEL-7 Date ROEL - 7 assessed: 07/25/23 Source: Developed by Drs. Vincent Xie, Tana Nicholson, Edenilson Wolf and colleagues, with an educational jonh from [employer]. Review of Systems Const Denies headache(s) Eyes Denies loss of vision ENT Denies vertigo, Denies dizziness, Denies headache(s) and Denies sore throat Card Denies chest pain, Denies leg edema and Denies lightheadedness Resp Denies cough, Denies hemoptysis and Denies wheezing GI Denies abdominal pain, Denies melena, Denies constipation, Denies diarrhea and Denies vomiting Denies urinary frequency, Denies dysuria and Denies urinary urgency Musc Details: + bilateral pedal edema Denies arthralgias, Denies joint swelling, Denies numbness and Denies tingling Neuro Denies behavioral changes, Denies vertigo, Denies dizziness, Denies headache(s), Denies loss of vision, Denies memory loss, Denies numbness and Denies tingling Psych Denies anxiety, Denies behavioral changes, Denies depression, Denies memory loss and Denies panic attacks Brennon/Lymph Denies easy bleeding and Denies easy bruising Aller/Immun Denies wheezing Physical exam (Primary Care) Vital Signs: Last Vital Signs Pulse 83 04/23/24 13:50 BP 151/97 H 04/23/24 13:50 BMI result Body Mass Index 22.8 Tobacco/Smoking Status: Tobacco use Status Tobacco use date assessed 07/25/23 04/23/24 13:50 Patient Tobacco Use Status Current everyday Tobacco 04/23/24 13:50 Tobacco use type Cigarette 04/23/24 13:50 e-Cigarette/Vaping Use Never Used 04/23/24 13:50 Thrive Assessment: Date of Thrive Assessment Date Thrive assessed 03/21/24 04/23/24 13:50 Telehealth Telehealth Telehealth Platform: Telephone Location of provider rendering services: practice address Location of patient: address on file Patient Identification confirmed using: Name, : Yes Telehealth method: voice only Patient verbally consented to treatment: Yes Patient verbally consented to billing insurance company: Yes Patient informed of any privacy concerns related to visit: Yes Minutes spent on Phone/Video with Pt.: 11 Coding Level of Care Code Tele Est Pt Level 4 (89062) Diagnoses Primary hypertension I10 Hypertension type: primary hypertension Assessment & Plan Assessment & Plan (1) HTN (hypertension): Code(s): I10 - Essential (primary) hypertension Category: Medical Qualifiers: Hypertension type: primary hypertension Qualified Code(s): I10 - Essential (primary) hypertension Plan: Patient does report blood pressures remain elevated even amlodipine 10 mg. She has been noting bilateral pedal edema which is likely a side effect of the calcium channel kurt. Will transitioned to lisinopril 10 mg and advised patient to continue monitoring blood pressure. Again advise to cut down her alcohol intake. Goal blood pressure to be below 140/90 Medications: New lisinopril 10 mg PO DAILY 30 tabs 1RF 30 days I10 - Essential (primary) hypertension Refilled yzzxfpvokc-tmursfvqsnzpi-wypz 50-325-40 mg 1 cap PO Q6H PRN 16 caps 0RF pain 30 days G43.009 - Migraine without aura, not intractable, without status migrainosus, G43.909 - Migraine, unspecified, not intractable, without status migrainosus Discontinued amlodipine Discontinued Reason: Doctor's Order 5 mg PO DAILY 30 days 30 tabs 1RF I10 - Essential (primary) hypertension
[2024-04-23 13:50] VITALS: BP 151/97; PULSE 83; BMI 22.8
== END 2024-04-23 16:00 | disposition home or self-care (01) ==
LOC: HO.HMCH 13:53
PROVIDERS: PCP Physician Assistant; Visit Provider Physician Assistant
DX: I10 Essential (primary) hypertension (principal)

== ENCOUNTER 2024-08-08 10:56 | Outpatient (REF) | payer OTHER, SELFPAY ==
[2024-08-08 13:02] LABS: MANUAL DIFF FLAG NO
[2024-08-08 13:06] LABS: Appearance Urine Clear; Color Urine Yellow; Glucose Urine UA Negative (Negative); Leukocyte Esterase Urine Negative (Negative); Nitrite Urine Negative (Negative); Specific Gravity - Urine <= 1.005 (1.005-1.025); Urine Blood Negative (Negative); Urine Ketones Negative (Negative); Urine Protein Negative (Neg-Trace)
[2024-08-08 13:26] LABS: Basophils Absolute Auto 0.1 X10*3/uL (0.0-0.2); Basophils Percent Auto 0.6 % (0-2); Eosinophils Absolute Auto 0.4 X10*3/uL (0.0-0.4); Eosinophils Percent Auto 3.1 % (0-4); Hematocrit 33.3 % (37.0-47.0); Hemoglobin 11.8 g/dl (12.0-16.0); Imm Gran Abs Auto 0.05 X10*3/uL (0.00-0.03); Imm Gran Pct Auto 0.4 % (0.0-0.4); Lymphocytes Absolute Auto 3.9 X10*3/uL (1.2-4.9); Lymphocytes Percent Auto 31.1 % (20-40); Mean Corpuscular HGB Conc 35.4 g/dl (31.0-35.0); Mean Corpuscular Hemoglobin 33.1 pg (27.0-33.0); Mean Corpuscular Volume 93.3 fL (80.0-98.0); Mean Platelet Volume 9.3 fL (9.4-12.3); Monocytes Absolute Auto 0.7 X10*3/uL (0.1-1.2); Monocytes Percent Auto 5.4 % (2-11); Neutrophils Absolute Auto 7.4 x10*3/uL (2.0-8.3); Neutrophils Percent Auto 59.4 % (45-73); Platelet Count 282 X10*3/uL (160-400); Red Blood Count 3.57 X10*6/uL (4.20-5.50); Red Cell Distribution Width 13.2 % (11.0-16.0); White Blood Count 12.5 X10*3/uL (4.8-10.8)
[2024-08-08 14:04] LABS: Osmolality Urine 99 mosm/kg (373-1093)
[2024-08-08 14:05] LABS: Parathyroid Hormone Intact 14.1 pg/mL (8.7-77.1)
[2024-08-08 14:07] LABS: Alanine Aminotransferase 69 U/L (0-31); Albumin Level 4.2 g/dL (3.5-5.0); Alkaline Phosphatase 164 U/L (39-117); Anion Gap 14 (12-20); Aspartate Amino Transferase 63 U/L (5-31); Bilirubin Direct 0.2 mg/dL (0.0-0.5); Bilirubin Total 0.3 mg/dL (0.0-1.0); Blood Urea Nitrogen 7 mg/dL (9-16); Calcium 9.8 mg/dL (8.4-10.2); Carbon Dioxide 29 mmol/L (22-29); Chloride 93 mmol/L (96-108); Estimated Glomerular Filt Rate > 60; Glucose Random 93 mg/dL (60-115); Lipase 34 U/L (8-78); Magnesium 1.4 mg/dL (1.6-2.6); Potassium 2.7 mmol/L (3.3-5.1); Sodium 133 mmol/L (135-145); Total Protein 7.7 g/dL (6.5-8.0)
[2024-08-08 14:10] LABS: Osmolality, Serum 300 mosm/kg (281-305)
[2024-08-08 14:20] LABS: Ferritin 281 ng/mL (10-250); Vitamin D 25-OH Total 51.2 ng/mL (>30)
[2024-08-08 14:32] LABS: Folate 3.2 ng/mL (> or = 4.0); Vitamin B12 570 pg/mL (200-900)
[2024-08-12 03:19] LABS: Zinc 66 mcg/dL (60-130)
[2024-08-12 16:34] LABS: Vitamin B6 7.1 ng/mL (2.1-21.7)
[2024-08-12 18:52] LABS: Alpha-Tocopherol 6.1 mg/L (5.7-19.9); Beta-Gamma Tocopherol <1.0 mg/L (<=4.3)
[2024-08-12 22:38] LABS: Vitamin B5 (Pantothenic Acid) <=40 ng/mL (<275)
[2024-08-13 14:24] LABS: Vitamin A 60 mcg/dL (38-98)
[2024-08-13 21:14] LABS: Vitamin K1 189 pg/mL (130-1500)
[2024-08-15 05:44] LABS: Nicotinamide <20 ng/mL (see note); Vit B3 - Nicotinic Acid <20 ng/mL (see note)
[2024-08-15 05:48] LABS: Vitamin B1 8 nmol/L (8-30)
== END 2024-08-08 10:57 | disposition home or self-care (01) ==
LOC: HO.LAB 10:56
PROVIDERS: Internal Medicine Gastroenterology; PCP Physician Assistant; Visit Provider Physician Assistant
DX: I10 Essential (primary) hypertension (principal); N89.8 Other specified noninflammatory disorders of vagina; F17.210 Nicotine dependence, cigarettes, uncomplicated; F10.90 Alcohol use, unspecified, uncomplicated; Z79.899 Other long term (current) drug therapy; Z01.818 Encounter for other preprocedural examination; E83.42 Hypomagnesemia; M89.8X9 Other specified disorders of bone, unspecified site; K86.1 Other chronic pancreatitis; K86.3 Pseudocyst of pancreas; R30.0 Dysuria
CPT/HCPCS: 36415; 80053; 80076; 81003; 82248; 82306; 82607; 82728; 82746; 83690; 83735; 83930; 83935; 83970; 84207; 84425; 84446; 84590; 84591; 84597; 84630; 85025; 96127

== ENCOUNTER 2024-08-08 10:56 | Outpatient (AMB) | payer OTHER, SELFPAY ==
--- NOTE | 2024-08-08 11:02 | MHC.PC.OV ---
Vital Signs 08/08/24 11:18 Height 5 ft 4 in Weight 130 lb 4 oz BMI 22.4 BP 166/84 H Blood Pressure Location Lt brachial Position Sitting Pulse 72 Pulse Source Pulse Oximeter Temp 97.1 F Temp Source Temporal Artery Scan Pulse Oximetry (%) 90 L Oxygen Delivery Method Room Air Intake Visit Reasons: 6 weeks F/U HTN Decision Unit Rn Required: No Accompanied by: Mother Allergies Penicillins [PENICILLINS] Allergy (Severe, Verified 08/08/24 11:34) ANAPHYLAXIS codeine Allergy (Intermediate, Verified 08/08/24 11:34) vomiting Sulfa (Sulfonamide Antibiotics) Allergy (Intermediate, Verified 08/08/24 11:34) diarrh tramadol Allergy (Intermediate, Verified 08/08/24 11:34) Vomiting amlodipine Adverse Reaction (Intermediate, Verified 08/08/24 11:34) Pedal edema morphine Adverse Reaction (Intermediate, Verified 08/08/24 11:34) itchiness naltrexone Adverse Reaction (Intermediate, Verified 08/08/24 11:34) ataxia sumatriptan Adverse Reaction (Intermediate, Verified 08/08/24 11:34) GI side effect duloxetine [Cymbalta] Adverse Reaction (Unknown, Verified 08/08/24 11:34) increased depression Medication List - Last Reconciled 08/08/24 by Anthony Aragon PA-C khzhnvhtew-ahzdpitsjmggo-yloc 50-325-40 mg 1 cap PO Q6H PRN 30 days clonidine HCl 0.2 mg PO BID 30 days cyclobenzaprine 10 mg PO BEDTIME PRN 30 days doxycycline monohydrate 100 mg PO BID 7 days gabapentin 800 mg PO QID 90 days ibuprofen 800 mg PO QID PRN linaclotide 72 mcg PO DAILY wouxxb-kakoqgnr-fjbrunn 12,000-38,000 -60,000 unit (Creon) 2 caps PO TID 60 days lisinopril 20 mg PO DAILY 30 days multivitamin 1 tab PO DAILY ondansetron 8 mg PO Q12H PRN 30 days pantoprazole 40 mg PO DAILY@0630 90 days pentoxifylline ER 400 mg PO BID 90 days polyethylene glycol 3350 17 grams PO DAILY sennosides-docusate sodium 8.6-50 mg (Senna Plus) 2 tabs PO BID Tobacco use date assessed: 07/25/23 Dental Screening Dental Screen Date: 07/25/23 HPI 6 weeks F/U HTN HPI Details Patient is a 48-year-old female here today for follow-up visit Patient has a past medical history significant for hyponatremia, Maribel-Whyte tears pancreatic insufficiency, hypertension. Alcohol use disorder: She admits to drinking 5-10 alcoholics ulcers per day. She does understand she has a problem with alcohol. She tried naltrexone in the setting of drinking and had side effects. She is going to try to wean down on the amount of drinking on her own. We did discuss the possibility of going to detox and she is open to the idea. We did discuss that her other medical problems are never going to get better if she continues to drink and she does understand. Tobacco dependency: Patient continues to smoke and does understand she needs to quit smoking as well. .. Hypertension: Today's blood pressure remains elevated. She continues on lisinopril 20 mg. 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 Do you presently have visiting nurse or other home services: No Alcohol intake: current Alcohol intake frequency: a few times a week Alcohol type: other Comment: pt refused staff in Patient Tobacco Use Status: Current everyday Tobacco user Tobacco use type: Cigarette Cigarette Packs Per Day: 1 Cigarettes Per Day: 20.0 Years Smoked: 28 Packs Per Year: 28 Packs per year/per ci.00 e-Cigarette/Vaping Use: Never Used Second Hand Smoke Exposure: Yes Advance Directives Date on File: 01/26/21 service: No Current occupational status: unemployed Cognitive needs: No Hearing needs: No Vision needs: No Questionnaire PHQ-9 Over the last 2 weeks, how often have you been bothered by any of the following problems? 1. Little interest or pleasure in doing things: more than half the days 2. Feeling down, depressed, or hopeless: several days 3. Trouble falling or staying asleep, or sleeping too much: nearly every day 4. Feeling tired or having little energy: nearly every day 5. Poor appetite or overeating: more than half the days 6. Feeling bad about yourself - or that you are a failure or have let yourself or your family down: more than half the days 7. Trouble concentrating on things, such as reading the newspaper or watching television: not at all 8. Moving or speaking so slowly that other people could have noticed. Or the opposite - being so fidgety or restless that you have been moving around a lot more than usual: not at all 9. Thoughts that you would be better off or of hurting yourself in some way: not at all Total score: 13 Depression Screening Interpretation: Positive Depression Screening Follow-up: Existing condition and Declines treatment Depression Screening Done: Yes 41184 - PHQ-9 Billing: Yes Source: Developed by Drs. Vincent Xie, Tana Nicholson, Edenilson Wolf and colleagues, with an educational jonh from [employer]. Thrive Questionnaire Date Thrive assessed: 08/08/24 I am a: Patient What is your living situation today?: I have a steady place to live Within the past 12 months, did the food you bought not last and you didn't have the money to get more?: Never true Within the past 12 months, did you worry whether your food would run out before you got money to buy more?: Never true Do you have trouble paying for medicines?: No Do you have trouble getting transportation to medical appointments?: No Do you have trouble paying your heating and electricity bill?: No Do you have trouble taking care of your child, family member or friend?: No Do you have trouble with day-to-day activities such as bathing, preparing meals, shopping, managing finances, etc.?: No Are you currently unemployed and looking for a job?: No Are you interested in more education?: No Please select the resources that you would like help with: None Currently or been in a relationship where the following occur: No concerns reported THRIVE Score: 0 AUDIT C Alcohol Use Questionnaire (AUDIT-C) 1. How often do you have a drink containing alcohol?: 4 or more times a week 2. How many drinks containing alcohol do you have on a typical day when you are drinking?: 5 or 6 3. How often do you have six or more drinks on one occasion?: Daily or almost daily Total Score: 10 ROEL-7 AMB Questionnaire ROEL-7 Date ROEL - 7 assessed: 08/08/24 Feeling nervous, anxious, or on edge: 3 = Nearly every day Not being able to stop or control worryin = Nearly every day Worrying too much about different things: 3 = Nearly every day Trouble relaxin = More than half the days Being so restless that it is hard to sit still: 0 = Not at all Becoming easily annoyed or irritable: 3 = Nearly every day Feeling afraid as if something awful might happen: 3 = Nearly every day Total ROEL-7 score (0-4 normal; 5-9 mild; 10-14 moderate; 15-21 severe): 17 Source: Developed by Drs. Vincent Xie, Tana Nicholson, Edenilson Wolf and colleagues, with an educational jonh from [employer]. ROEL-7 Assessment Billing ROEL-7 Assessment Tool: ROEL-7 Assessment 32648 Review of Systems Const Denies headache(s) Eyes Denies loss of vision ENT Denies vertigo, Denies dizziness, Denies headache(s) and Denies sore throat Card Denies chest pain, Denies leg edema and Denies lightheadedness Resp Denies cough, Denies hemoptysis and Denies wheezing GI Denies abdominal pain, Denies melena, Denies constipation, Denies diarrhea and Denies vomiting Denies urinary frequency, Denies dysuria and Denies urinary urgency Musc Denies arthralgias, Denies joint swelling, Denies numbness and Denies tingling Neuro Denies Abnormal speech present, Denies behavioral changes, Denies vertigo, Denies dizziness, Denies headache(s), Denies loss of vision, Denies memory loss, Denies numbness and Denies tingling Psych Denies anxiety, Denies behavioral changes, Denies depression, Denies memory loss and Denies panic attacks Brennon/Lymph Denies easy bleeding and Denies easy bruising Aller/Immun Denies wheezing Physical exam (Primary Care) Vital Signs: Last Vital Signs Temp 97.1 F 08/08/24 11:18 Pulse 72 08/08/24 11:18 BP 166/84 H 08/08/24 11:18 Pulse Ox 90 L 08/08/24 11:18 Oxygen Delivery Method Room Air 08/08/24 11:18 BMI result Body Mass Index 22.4 Tobacco/Smoking Status: Tobacco use Status Tobacco use date assessed 07/25/23 08/08/24 11:02 Patient Tobacco Use Status Current everyday Tobacco 08/08/24 11:02 Tobacco use type Cigarette 08/08/24 11:02 e-Cigarette/Vaping Use Never Used 08/08/24 11:02 PHQ-9: PHQ-9 Score PHQ-9: Total score 13 08/08/24 11:37 Depression Screening Interpretation: Positive Depression Screening Follow-up: Existing condition and Declines treatment Thrive Assessment: Date of Thrive Assessment Date Thrive assessed 08/08/24 08/08/24 11:20 Currently or been in a relationship where the following occur: No concerns reported Const General: healthy appearing, no acute distress, alert and awake Nutritional Appearance: well nourished Orientation/consciousness: oriented to person, oriented to place and oriented to time HENMT Ears: TM's normal bilaterally General nose exam: Normal nasal mucous membranes and turbinates present Eyes Conjunctivae: conjunctivae normal Sclerae: sclerae normal Pupils: Equal, round and reactive pupils present Neck Neck: Yes no lymphadenopathy and Yes no JVD Thyroid: Thyroid normal Carotids: no bruits Resp Effort & Inspection: normal respiratory effort and not tachypneic Auscultation: no crackles, no rales, no rhonchi and no wheezes Cardio Rate: regular rate Rhythm: regular rhythm Heart sounds: no murmurs and normal S1 and S2 GI Palpation (GI): Soft to palpation, nontender, no hepatomegaly and no splenomegaly Auscultation: normal bowel sounds Skin General skin exam: no rashes or lesions noted and dry skin Neuro General: oriented to person, oriented to place and oriented to time Cranial nerves: Yes Equal, round and reactive pupils present Speech: No Abnormal speech present Gait exam (Neuro): Normal gait present Motor exam (neuro): no tremor noted Extrem Other: SLIGHT EDEMA ANKLES AND AND FEET Right upper extremity: full ROM Left upper extremity: full ROM Right lower extremity: full ROM and edema Left lower extremity: full ROM and edema Psych Mental Status: mental status grossly normal Speech and movement: Normal speech and movement present Affect: normal affect Attitude: cooperative Thought process: Normal thought process present Coding Level of Care Code Est Pt Level 4 (54979) Diagnoses Primary hypertension I10 Hypertension type: primary hypertension Vaginal cyst N89.8 Smoker F17.200 Alcohol use disorder F10.90 Additional Codes ROEL-7 Assessment Billing - ROEL-7 Assessment Tool: ROEL-7 Assessment 93113 ([id number]) PHQ-9 - 97846 - PHQ-9 Billing: Yes ([id number]) Assessment & Plan Assessment & Plan (1) HTN (hypertension): Code(s): I10 - Essential (primary) hypertension Category: Medical Qualifiers: Hypertension type: primary hypertension Qualified Code(s): I10 - Essential (primary) hypertension Plan: Patient does report blood pressures remain elevated today in office. Had side effect of pedal edema with amlodipine 10 mg. We have transitioned to lisinopril and now on 20 mg. Again advise to cut down her alcohol intake. Goal blood pressure to be below 140/90 (2) Vaginal cyst: Code(s): N89.8 - Other specified noninflammatory disorders of vagina Category: Medical Plan: Patient has been having an enlarging vaginal cyst. Unfortunately due to transportation issues has not been able to make it to her c d still operator appointments. She promises to make an appointment and go to her c d still operator appointment (3) Smoker: Code(s): F17.200 - Nicotine dependence, unspecified, uncomplicated Category: Social Hx Plan: She continues to smoke and does understand she needs to quit. Offer nicotine replacement though declines at this time and will like to work on her alcohol dependency. (4) Alcohol use disorder: Code(s): F10.90 - Alcohol use, unspecified, uncomplicated Category: Medical Plan: As per HPI patient does understand she has not alcohol dependency. She drinks 5-10 still ulcer drinks per day. She has tried to quit drinking in the past he is in naltrexone though had major side effects. We did discuss the possible need for detox and she somewhat agrees with though will try to wean her drinking on her own. 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
[2024-08-08 11:18] VITALS: BP 166/84; PULSE 72; TEMP 36.2; O2SAT 90; BMI 22.4
== END 2024-08-08 12:02 | disposition home or self-care (01) ==
PROVIDERS: PCP Physician Assistant; Visit Provider Physician Assistant
DX: I10 Essential (primary) hypertension (principal); N89.8 Other specified noninflammatory disorders of vagina; F17.200 Nicotine dependence, unspecified, uncomplicated; F10.90 Alcohol use, unspecified, uncomplicated

== ENCOUNTER 2024-09-05 11:32 | Outpatient (AMB) | payer OTHER, SELFPAY ==
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
[2024-09-05 11:38] VITALS: BP 146/92; PULSE 67; TEMP 36.5; O2SAT 96; BMI 23.9
== END 2024-09-05 12:22 | disposition home or self-care (01) ==
LOC: HO.HMCH 11:32
PROVIDERS: PCP Physician Assistant; Visit Provider Physician Assistant
DX: Z00.00 Encounter for general adult medical examination without abnormal findings (principal); E87.6 Hypokalemia; F10.10 Alcohol abuse, uncomplicated; F41.1 Generalized anxiety disorder; R74.8 Abnormal levels of other serum enzymes; R60.0 Localized edema

== ENCOUNTER → 2024-09-05 11:32 | Outpatient (BNVA) | payer OTHER, SELFPAY | PROVIDERS: PCP Physician Assistant; Visit Provider Physician Assistant | DX: Z00.00 Encounter for general adult medical examination without abnormal findings (principal); E87.6 Hypokalemia; F10.10 Alcohol abuse, uncomplicated; F41.1 Generalized anxiety disorder; R74.8 Abnormal levels of other serum enzymes; R60.0 Localized edema; I10 Essential (primary) hypertension; Z79.899 Other long term (current) drug therapy | CPT/HCPCS: 96127 ==

== ENCOUNTER 2024-09-16 08:46 | Outpatient (AMB) | payer OTHER, SELFPAY ==
--- NOTE | 2024-09-16 08:46 | MHC.PC.OV ---
Intake Visit Reasons: f/u telehealth Consumer Marketing Manager Required: No Internal Control Consultant: Not Required per policy Accompanied by: Self / Same As Patient Allergies Penicillins [PENICILLINS] Allergy (Severe, Verified 09/16/24 09:06) ANAPHYLAXIS codeine Allergy (Intermediate, Verified 09/16/24 09:06) vomiting Sulfa (Sulfonamide Antibiotics) Allergy (Intermediate, Verified 09/16/24 09:06) diarrh tramadol Allergy (Intermediate, Verified 09/16/24 09:06) Vomiting amlodipine Adverse Reaction (Intermediate, Verified 09/16/24 09:06) Pedal edema morphine Adverse Reaction (Intermediate, Verified 09/16/24 09:06) itchiness naltrexone Adverse Reaction (Intermediate, Verified 09/16/24 09:06) ataxia sumatriptan Adverse Reaction (Intermediate, Verified 09/16/24 09:06) GI side effect duloxetine [Cymbalta] Adverse Reaction (Unknown, Verified 09/16/24 09:06) increased depression Medication List - Last Reconciled 09/16/24 by Anthony Aragon PA-C bqelbtfabm-bgzuibxztyxcc-dvjq 50-325-40 mg 1 cap PO Q6H PRN 30 days clonazepam 1 mg PO DAILY 7 days clonidine HCl 0.2 mg PO BID 30 days cyclobenzaprine 10 mg PO BEDTIME PRN 30 days furosemide 20 mg PO Q OTHER DAY 14 days gabapentin 800 mg PO QID 90 days ibuprofen 800 mg PO QID PRN linaclotide 72 mcg PO DAILY aoaqmr-gyelmnvi-tkqwbam 12,000-38,000 -60,000 unit (Creon) 2 caps PO TID 30 days lisinopril 20 mg PO DAILY 30 days magnesium sulfate 100 mg PO DAILY multivitamin 1 tab PO DAILY naltrexone 50 mg PO DAILY 30 days ondansetron 8 mg PO Q12H PRN 30 days pantoprazole 40 mg PO DAILY@0630 90 days pentoxifylline ER 400 mg PO BID 90 days polyethylene glycol 3350 17 grams PO DAILY potassium chloride 40 mEq (15 mL) PO DAILY sennosides-docusate sodium 8.6-50 mg (Senna Plus) 2 tabs PO BID Tobacco use date assessed: 07/25/23 Dental Screening Dental Screen Date: 09/16/24 Did you have a dental visit in the last 12 months?: No Did you have a dental problem in the last 6 months where you did not have access to dental care?: No Was dental information given to patient?: No HPI f/u telehealth HPI Details Patient is a 48-year-old female being evaluated today via telephone. She reports today she has stopped drinking and smoking and is motivated to get sobriety. She has access to clonazepam, clonidine and headache medication to help her with withdrawal. It is unclear if she has had acute alcohol withdrawal seizures in the past though does understand the risk of this.z we have discussed the possibility of needing inpatient detox and she does understand though has 2 teenage children she needs to take care of at home. [facility] Medical History Pseudocyst of pancreas Depression Anxiety Nausea Smoker Screening for hypercholesterolemia Liver fibrosis Chronic musculoskeletal pain HTN (hypertension) Abdominal pain Transaminitis Polyarthritis Surgical History History of esophagogastroduodenoscopy (EGD) History of cholecystectomy Family History Maternal Grandmother Cancer Mother HTN (hypertension) Mental health disorder Father HTN (hypertension) Substance use disorder Social History Household Members: Significant Other, Family and Children Housing: House Are you a primary assisted living care manager to a significant other at home: Yes Do you presently have visiting nurse or other home services: No Alcohol intake: current Alcohol intake frequency: a few times a week Alcohol type: other Comment: pt refused staff in Patient Tobacco Use Status: Former Tobacco user Tobacco use type: Cigarette Cigarette Packs Per Day: 1 Cigarettes Per Day: 20.0 Years Smoked: 28 Packs Per Year: 28 Packs per year/per ci.00 e-Cigarette/Vaping Use: Never Used Second Hand Smoke Exposure: Yes Advance Directives Date on File: 01/26/21 service: No Current occupational status: unemployed Cognitive needs: No Hearing needs: No Vision needs: No Questionnaire Thrive Questionnaire Date Thrive assessed: 09/05/24 ROEL-7 AMB Questionnaire ROEL-7 Date ROEL - 7 assessed: 09/05/24 Source: Developed by Drs. Vincent L. RojasTana jackson, Edenilson Wolf and colleagues, with an educational jonh from [email or web address]. Review of Systems Const Reports headache(s) Eyes Denies loss of vision ENT Denies vertigo, Denies dizziness, Reports headache(s) and Denies sore throat Card Denies chest pain, Denies leg edema and Denies lightheadedness Resp Denies cough, Denies hemoptysis and Denies wheezing GI Denies abdominal pain, Denies melena, Denies constipation, Denies diarrhea and Denies vomiting Denies urinary frequency, Denies dysuria and Denies urinary urgency Musc Denies arthralgias, Denies joint swelling, Denies numbness and Denies tingling Neuro Denies behavioral changes, Denies vertigo, Denies dizziness, Reports headache(s), Denies loss of vision, Denies memory loss, Denies numbness and Denies tingling Psych Reports anxiety, Denies behavioral changes, Denies depression, Reports irritability, Denies memory loss and Denies panic attacks Brennon/Lymph Denies easy bleeding and Denies easy bruising Aller/Immun Denies wheezing Physical exam (Primary Care) Tobacco/Smoking Status: Tobacco use Status Tobacco use date assessed 07/25/23 09/16/24 08:47 Patient Tobacco Use Status Former Tobacco user 09/16/24 08:50 Tobacco use type Cigarette 09/16/24 08:49 e-Cigarette/Vaping Use Never Used 09/16/24 08:49 Thrive Assessment: Date of Thrive Assessment Date Thrive assessed 09/05/24 09/16/24 08:47 Telehealth Telehealth Telehealth Platform: Telephone Location of provider rendering services: practice address Location of patient: address on file Patient Identification confirmed using: Name, : Yes Telehealth method: voice only Patient verbally consented to treatment: Yes Patient verbally consented to billing insurance company: Yes Patient informed of any privacy concerns related to visit: Yes Minutes spent on Phone/Video with Pt.: 11 Coding Level of Care Code Tele Est Pt Level 3 (96700) Diagnoses Alcohol use disorder F10.90 Alcohol withdrawal syndrome without complication F10.930 Complication of substance-induced condition: uncomplicated Migraine without aura and without status migrainosus, not intractable G43.009 Intractability: not intractable Migraine type: without aura Status migrainosus presence: without status migrainosus Tobacco abuse Z72.0 Assessment & Plan Assessment & Plan (1) Alcohol use disorder: Code(s): F10.90 - Alcohol use, unspecified, uncomplicated Category: Medical Plan: Valencia is currently trying to stop alcohol. Valencia was previously drinking 6-8 alcoholic drinks per day. She has access to clonazepam clonidine and other meds to help her with withdrawal. We did discuss the possibility of having seizure during her withdrawal and likely needing inpatient detox and patient somewhat understands. She has 2 teenage children she needs to take care of at home and can not be away from home at this time. (2) Alcohol withdrawal: Code(s): F10.939 - Alcohol use, unspecified with withdrawal, unspecified Category: Medical Qualifiers: Complication of substance-induced condition: uncomplicated Qualified Code(s): F10.930 - Alcohol use, unspecified with withdrawal, uncomplicated Plan: As above (3) Migraine: Code(s): G43.909 - Migraine, unspecified, not intractable, without status migrainosus Category: Medical Qualifiers: Intractability: not intractable Migraine type: without aura Status migrainosus presence: without status migrainosus Qualified Code(s): G43.009 - Migraine without aura, not intractable, without status migrainosus Plan: Patient does have access to butalbital for migraines. Does use ibuprofen 1st and if ineffective she uses bit tablets HL. We did discuss the habit-forming nature of this medication in the possibility of having rebound headaches. Also she is currently trying to quit drinking which can be causing headaches as well. (4) Tobacco abuse: Code(s): Z72.0 - Tobacco use Category: Medical Plan: She reports she is trying to stop smoking at this time as well. She is concerned about her emphysema. Orders: Orders Comprehensive Met. Panel Today R74.8 - Abnormal levels of other serum enzymes Ethanol Today F10.930 - Alcohol use, unspecified with withdrawal, uncomplicated Magnesium Today F10.930 - Alcohol use, unspecified with withdrawal, uncomplicated
== END 2024-09-16 14:53 | disposition home or self-care (01) ==
LOC: HO.HMCH 08:46
PROVIDERS: PCP Physician Assistant; Visit Provider Physician Assistant
DX: G43.009 Migraine without aura, not intractable, without status migrainosus (principal); F10.90 Alcohol use, unspecified, uncomplicated; F10.930 Alcohol use, unspecified with withdrawal, uncomplicated; Z72.0 Tobacco use

== ENCOUNTER → 2024-09-16 08:46 | Outpatient (BNVA) | payer OTHER, SELFPAY | PROVIDERS: PCP Physician Assistant; Visit Provider Physician Assistant ==

== ENCOUNTER → 2024-10-11 12:52 | Outpatient (REF) | payer OTHER, SELFPAY ==
--- NOTE | 2024-10-11 12:56 | CA_ITS ---
Transthoracic Echocardiogram Patient (Last, First, Middle): Felicia Orellana, Gender: Female Date of : 1975 Age: 48 Procedure Date: 10/11/2024 Procedure Type: Transthoracic Echocardiogram Location: OP Height: 162. cm Weight: 58.97 kg BSA: 1.62 m2 Heart Rate: 60 bpm BP: 155 / 85 mmHg Host/Hostess Restaurant: BALJIT Referring MD: Anthony Aragon PA-C Symptoms: R60.0 - Localized edema Study Quality: Adequate ECG Rhythm: Sinus Conclusions: - Normal left ventricular cavity size. There is normal left ventricular wall thickness. The left ventricular systolic function is hyperdynamic. The visually estimated ejection fraction is >70%. - Normal right ventricular cavity size and systolic function. - There is mild dilatation of the ascending aorta measuring 3.30 cm. Findings Left Ventricle Normal left ventricular cavity size. There is normal left ventricular wall thickness. The left ventricular systolic function is hyperdynamic. The visually estimated ejection fraction is >70%. There is no evidence of regional wall motion abnormalities. Diastolic function is normal for age. Right Ventricle Normal right ventricular cavity size and systolic function. Atria The left atrium is normal in size. The right atrium is normal in size. Aortic Valve There is a normal trileaflet aortic valve. There is no aortic valve stenosis. There is no aortic valve regurgitation. Mitral Valve The mitral valve appears normal. There is no mitral valve regurgitation. There is no mitral valve stenosis. Pulmonic Valve The pulmonic valve is normal. There is trace pulmonic valve regurgitation. Tricuspid Valve Normal tricuspid valve structure. There is no tricuspid valve regurgitation. Normal right atrial pressure. There is no evidence of pulmonary hypertension. Great Vessels There is mild dilatation of the ascending aorta measuring 3.30 cm. The visualized portions of the pulmonary artery and branches are normal. Venous The inferior vena cava is normal in size and collapses greater than 50% with inspiration. Pericardium/Pleural There is no evidence of pericardial effusion. Prior Study Comparison No prior study available for comparison. Measurements 2D Linear Measurements IVSd: 0.73 0.6-0.9/0.6-1.0 cm LVIDd: 4.84 3.9-5.3/4.2-5.9 cm LVIDd Index: 2.99 2.4-3.2/2.2-3.1 cm/m2 LVIDs: 3.40 2.0-3.6 cm LVPWd: 0.86 0.7-1.1 cm LA Diam: 3.30 2.7-3.8/3.0-4.0 cm LAIDs Index: 2.04 1.5-2.3 cm/m2 LV Mass: 157.92 67-162/88-224 g LV Mass Index: 97.48 43-95/49-115 g/m2 LVOT Diam: 1.90 3.0+(-)1.3 cm 2D Systolic Function EF 4C: 71.10 >55% EF 2C: 65.60 >55% EF BiP: 68.30 >55% Mitral Valve MV Pk E: 0.57 MV PK A: 0.77 MV Decel Time: 232.00 E/A: 0.70 E'Lateral: 6.74 E'Medial: 5.44 E/E' Med: 10.50 E/E' Lat: 8.50 PHT: 68.00 MVA PHT: 3.24 Decel [place]: 2.45 Aortic Valve AoV Pk [place]: 1.21 AoV Mn [place]: 0.86 AoV VTI: 0.30 AoV Pk Grad: 6.00 Aov Mn Grad: 3.00 ARNAV Cont.VTI: 2.19 LVOT LVOT Pk [place]: 0.97 LVOT Mn [place]: 0.65 LVOT VTI: 0.23 LVOT Pk Grad: 4.00 LVOT Mn Grad: 2.00 LVOT Diam: 1.90 LVOT Area: 2.84 Diastolic Function MV Pk E: 0.57 MV Pk A: 0.77 E/A: 0.70 E'Medial: 5.44 E/E' Med: 10.50 E' Laterial: 6.74 E/E' Lat: 8.50 Right Ventricle TAPSE (mm): 25.10 TVS' Lavell: 10.70 Tricuspid Valve TR Pk [place]: 1.78 TR Pk Grad: 13.00 RA Press: 3.00 RVSP: 16.00 Great Vessels Aorta Sinus of Valsalva: 3.40 2.0-3.5 cm Ao Asc: 3.30 2.1-3.4 cm Pulmonary Valve PV Pk Lavell: 0.76 Peak PV Grad: 2.00 Updated in Other Vendor System with Status of Final Jimbo Hernandez MD electronically signed on 10/13/2024 9:23:16 PM with status of Final
== END ==
LOC: HO.CARD 12:52
PROVIDERS: PCP Physician Assistant; Visit Provider Physician Assistant
DX: R60.0 Localized edema (principal); F10.90 Alcohol use, unspecified, uncomplicated
CPT/HCPCS: 93306

== ENCOUNTER → 2024-10-11 12:56 | Outpatient (BNV) | payer OTHER, SELFPAY | PROVIDERS: PCP Physician Assistant; Visit Provider Internal Medicine Cardiovascular Disease | DX: I51.89 Other ill-defined heart diseases (principal); I77.810 Thoracic aortic ectasia | CPT/HCPCS: 93306 ==

== ENCOUNTER 2024-10-16 09:53 | Outpatient (AMB) | payer OTHER, SELFPAY ==
--- NOTE | 2024-10-16 09:53 | A.OFFPC_ITS ---
Intake Visit Reasons: 1 week f/u Hand Candy Dipper Required: No Information Interpreted: non-clinical & clinical Publications Editor: Not Required per policy Accompanied by: Self / Same As Patient Allergies Penicillins [PENICILLINS] Allergy (Severe, Verified 10/16/24 10:37) ANAPHYLAXIS codeine Allergy (Intermediate, Verified 10/16/24 10:37) vomiting Sulfa (Sulfonamide Antibiotics) Allergy (Intermediate, Verified 10/16/24 10:37) diarrh tramadol Allergy (Intermediate, Verified 10/16/24 10:37) Vomiting amlodipine Adverse Reaction (Intermediate, Verified 10/16/24 10:37) Pedal edema morphine Adverse Reaction (Intermediate, Verified 10/16/24 10:37) itchiness naltrexone Adverse Reaction (Intermediate, Verified 10/16/24 10:37) ataxia sumatriptan Adverse Reaction (Intermediate, Verified 10/16/24 10:37) GI side effect duloxetine [Cymbalta] Adverse Reaction (Unknown, Verified 10/16/24 10:37) increased depression Medication List - Last Reconciled 10/16/24 by Anthony Aragon PA-C nncerrzysy-jexxnjaobxfbf-phye 50-325-40 mg 1 cap PO Q6H PRN 15 days clonazepam 1 mg PO DAILY 7 days clonidine HCl 0.2 mg PO BID 30 days cyclobenzaprine 10 mg PO BEDTIME PRN 30 days furosemide 20 mg PO Q OTHER DAY 14 days gabapentin 800 mg PO QID 90 days ibuprofen 800 mg PO QID PRN linaclotide 72 mcg PO DAILY noswae-krjluzgl-omdmuuf 12,000-38,000 -60,000 unit (Creon) 2 caps PO TID 30 days lisinopril 20 mg PO DAILY 30 days magnesium sulfate 100 mg PO DAILY multivitamin 1 tab PO DAILY naltrexone 50 mg PO DAILY 30 days ondansetron 8 mg PO Q12H PRN 30 days pantoprazole 40 mg PO DAILY@0630 90 days pentoxifylline ER 400 mg PO BID 90 days polyethylene glycol 3350 17 grams PO DAILY potassium chloride 40 mEq (15 mL) PO DAILY sennosides-docusate sodium 8.6-50 mg (Senna Plus) 2 tabs PO BID Tobacco use date assessed: 10/16/24 Dental Screening Dental Screen Date: 09/16/24 HPI 1 week f/u HPI Details Patient is a 48-year-old female being evaluated today via telephone. We has been working on reducing her alcohol intake and smoking. She reports she can go a few days without drinking though still has access to alcohol. She has not tried naltrexone. She has not had any withdrawal seizures if she is able to go 24-48 hours without drinking. She does report having a lot of stress at home with her teenage son who has behaviors. She reports because of her stress she has been having more headaches to which she is asking for refill on her Fioricet. Otherwise she is interested in getting an umbilical hernia repaired and will need a preop. She has upcoming labs and an EKG to do to be cleared for surgery. Of note most recent echocardiogram showing appropriate ejection fraction, slightly mild dilation of her aorta otherwise no valvular disease or cardiomyopathy. [facility] Medical History Pseudocyst of pancreas Depression Anxiety Nausea Smoker Screening for hypercholesterolemia Liver fibrosis Chronic musculoskeletal pain HTN (hypertension) Abdominal pain Transaminitis Polyarthritis Surgical History History of esophagogastroduodenoscopy (EGD) History of cholecystectomy Family History Maternal Grandmother Cancer Mother HTN (hypertension) Mental health disorder Father HTN (hypertension) Substance use disorder Social History Household Members: Significant Other, Family and Children Housing: House Are you a primary home care attendant to a significant other at home: Yes Do you presently have visiting nurse or other home services: No Alcohol intake: current Alcohol intake frequency: a few times a week Alcohol type: other Comment: pt refused staff in [place] Patient Tobacco Use Status: Former Tobacco user Tobacco use type: Cigarette Cigarette Packs Per Day: 1 Cigarettes Per Day: 20.0 Years Smoked: 28 e-Cigarette/Vaping Use: Never Used Second Hand Smoke Exposure: Yes Advance Directives Date on File: 01/26/21 service: No Current occupational status: unemployed Cognitive needs: No Hearing needs: No Vision needs: No Questionnaire Thrive Questionnaire Date Thrive assessed: 09/05/24 ROEL-7 AMB Questionnaire ROEL-7 Date ROEL - 7 assessed: 09/05/24 Source: Developed by Drs. Vincent Xie, Tana Nicholson, Edenilson Wolf and colleagues, with an educational jonh from [employer]. Review of Systems Const Reports headache(s) Eyes Denies loss of vision ENT Denies vertigo, Denies dizziness, Reports headache(s) and Denies sore throat Card Denies chest pain, Denies leg edema and Denies lightheadedness Resp Denies cough, Denies hemoptysis and Denies wheezing GI Denies abdominal pain, Denies melena, Denies constipation, Denies diarrhea and Denies vomiting Denies urinary frequency, Denies dysuria and Denies urinary urgency Musc Denies arthralgias, Denies joint swelling, Denies numbness and Denies tingling Neuro Denies behavioral changes, Denies vertigo, Denies dizziness, Reports headache(s), Denies loss of vision, Denies memory loss, Denies numbness and Denies tingling Psych Denies anxiety, Denies behavioral changes, Denies depression, Denies memory loss and Denies panic attacks Brennon/Lymph Denies easy bleeding and Denies easy bruising Aller/Immun Denies wheezing Physical exam (Primary Care) Tobacco/Smoking Status: Tobacco use Status Tobacco use date assessed 10/16/24 10/16/24 09:55 Patient Tobacco Use Status Former Tobacco user 10/16/24 09:55 Tobacco use type Cigarette 10/16/24 09:55 e-Cigarette/Vaping Use Never Used 10/16/24 09:55 Thrive Assessment: Date of Thrive Assessment Date Thrive assessed 09/05/24 10/16/24 09:55 Telehealth Telehealth Telehealth Platform: Telephone Location of provider rendering services: practice address Location of patient: address on file Patient Identification confirmed using: Name, : Yes Telehealth method: voice only Patient verbally consented to treatment: Yes Patient verbally consented to billing insurance company: Yes Patient informed of any privacy concerns related to visit: Yes Minutes spent on Phone/Video with Pt.: 11 Coding Level of Care Code Tele Est Pt Level 3 (94446) Diagnoses Alcohol use disorder F10.90 Tobacco abuse Z72.0 Migraine without aura and without status migrainosus, not intractable G43.009 Migraine type: without aura Status migrainosus presence: without status migrainosus Intractability: not intractable Assessment & Plan Assessment & Plan (1) Alcohol use disorder: Code(s): F10.90 - Alcohol use, unspecified, uncomplicated Category: Medical Plan: Valencia is currently trying to stop alcohol completely though has struggled to string together at least 3 days of sobriety. She still has access to alcohol. She has not started naltrexone 50 mg yet. We did discuss the possibility of having seizure during her withdrawal and likely needing inpatient detox and patient somewhat understands. She has 2 teenage children she needs to take care of at home and can not be away from home at this time. (2) Tobacco abuse: Code(s): Z72.0 - Tobacco use Category: Medical Plan: She reports she is trying to stop smoking at this time as well. She is concerned about her emphysema. (3) Migraine: Code(s): G43.909 - Migraine, unspecified, not intractable, without status migrainosus Category: Medical Qualifiers: Migraine type: without aura Status migrainosus presence: without status migrainosus Intractability: not intractable Qualified Code(s): G43.009 - Migraine without aura, not intractable, without status migrainosus Plan: As per HPI patient continues to have migraine headaches. She uses Fioricet on a p.r.n. basis for her migraine headaches. Orders: Orders ECG 12 lead EKG Today K42.9 - Umbilical hernia without obstruction or gangrene, Z01.818 - Encounter for other preprocedural examination Medications: Refilled lisinopril 20 mg PO DAILY 30 days 30 tabs 3RF I10 - Essential (primary) hypertension dtbhpcceqr-ssmzvcdbgfmuy-wvna 50-325-40 mg 1 cap PO Q6H 15 days PRN 8 caps 0RF pain G43.009 - Migraine without aura, not intractable, without status migrainosus, G43.909 - Migraine, unspecified, not intractable, without status migrainosus omckem-cmkwwumd-adgzfwk 12,000-38,000 -60,000 unit (Creon) patient is taking 2 caps PO TID 30 days 180 caps 3RF K86.1 - Other chronic pancreatitis multivitamin 1 tab PO DAILY 90 tabs 4RF pentoxifylline ER 400 mg PO BID 90 days 180 tabs 3RF R10.10 - Upper abdominal pain, unspecified
== END 2024-10-16 11:00 | disposition home or self-care (01) ==
LOC: HO.HMCH 09:53
PROVIDERS: PCP Physician Assistant; Visit Provider Physician Assistant
DX: G43.009 Migraine without aura, not intractable, without status migrainosus (principal); F10.90 Alcohol use, unspecified, uncomplicated; Z72.0 Tobacco use

== ENCOUNTER → 2024-10-16 09:53 | Outpatient (BNVA) | payer OTHER, SELFPAY | PROVIDERS: PCP Physician Assistant; Visit Provider Physician Assistant ==